=== PATIENT | male | born 1940 | race Caucasian/White ===

== ENCOUNTER 2019-01-16 13:29 | Outpatient (RCR) | payer MEDICARE, SELFPAY | END 2019-02-14 00:01 | LOC: WOUND 13:29 | PROVIDERS: Family Provider Family Medicine; Visit Provider Nurse Practitioner Family | DX: I89.0 Lymphedema, not elsewhere classified (principal) ==

== ENCOUNTER 2019-03-06 16:10 | Inpatient (IN) | payer MEDICARE, SELFPAY ==
[2019-03-06] VITALS (12 sets, daily range): BP systolic 111–142; BP diastolic 48–87; PULSE 96–138; RESP 20–28; TEMP 36.5; O2SAT 93–100; BMI 30.4
--- NOTE | 2019-03-06 16:50 | ED_ITS ---
Entered by Larissa Loving, acting as scribe for Minor Sneed DO Mar 06, 2019 16:10 HPI - SOB/Dyspnea General: Chief Complaint: Shortness of Breath/Dyspnea Stated Complaint: sob/cough Time Seen by Provider: 03/06/19 16:40 History of Present Illness: HPI Narrative: 78 yo male rpesents with shortness of breath and swelling. Pt is retaining fluid in his abdomen and lower extremities. Pt states that he has good urine out put but he is swelling a lot. Pt states that he is on oxygen. Pt states that he elevates his feet when he goes to bed, when he wakes up his legs are better, when he starts walking around his swelling worsens. Pt states that he has some discomfort due to the swelling in his abdomen. Pt states that he has a productive cough. Pt is on albuterol 4times a day. MD elicited complaint: shortness of breath and cough Onset (ago): day(s) Timing: constant and progressively worsening Severity: moderate Exacerbating factors: lying flat and movement Relieving factors: oxygen and upright position Associated symptoms: Reports abdominal pain, cough, extremity pain and orthopnea; Deny chest pain, dizziness, fever(s), palpitations, polydipsia, polyuria or syncope Treatment prior to arrival: oxygen Review of Systems Const: Denies: fever, chills, body aches, fatigue, malaise or night sweats Eyes: Denies: change in vision or blurry vision ENMT: Denies: throat pain, oral sores/lesions, dental pain, nasal discharge or nasal congestion Card: Reports: edema and shortness of breath when lying down; Denies: chest pain, palpitations, irregular heart rhythm, syncope, shortness of breath on exertion or leg pain with exertion Resp: Reports: shortness of breath, productive cough and wheezing; Denies: non-productive cough GI: Reports: abdominal pain : Denies: flank pain, difficulty urinating, painful urination, urinary frequency, urinary urgency, urinary incontinence or blood in urine Musc: Reports: extremity pain Skin/Breast: Denies: rash, itching or redness Neuro: Denies: headache, numbness in extremities, weakness in extremities, changes in sensation, lack of coordination, difficulty walking, frequent falls, dizziness, vertigo or confusion Psych: Denies: anxiety, depression, loss of interest, visual hallucinations, auditory hallucinations, suicidal ideation or homicidal ideation Endo: Denies: excessive urination, excessive thirst, tired all the time or cold intolerance Yang/Lymph: Denies: easy bruising, easy bleeding, petechiae, enlarged lymph nodes or tender lymph nodes PFSH ED PFSH: Statuses (acute, chronic, etc) shown below reflect problem list status as previously entered and may not be historically accurate Medical History Atrial fibrillation (Acute) BPH (benign prostatic hyperplasia) (Acute) CAD (coronary artery disease) (Acute) Cardiac arrest (Acute) COPD (chronic obstructive pulmonary disease) (Acute) CVA (cerebral vascular accident) (Acute) GERD (gastroesophageal reflux disease) (Acute) Hyperkalemia (Acute) Hyperlipidemia (Acute) Hypertension (Acute) Ischemic cardiomyopathy (Acute) Peripheral neuropathy (Acute) Pneumothorax (Acute) Pulmonary embolism (Acute) Restless leg syndrome (Acute) Rib fractures (Acute) Surgical History History of appendectomy (Acute) History of coronary artery stent placement (Acute) Hx of cataract surgery (Acute) Hx of tonsillectomy (Acute) Family History Other CAD (coronary artery disease) Social History Smoking and tobacco status: former smoker Second hand smoke exposure: No Alcohol intake: never Substance/Drug Use: never Lives independently: No Household members: spouse Marital status: Physical Exam Const: COMMON NORMALS: average body habitus, oriented x3 and alert GENERAL APPEARANCE: cooperative, comfortable, well kempt and well developed NUTRITIONAL APPEARANCE: not obese ORIENTATION/CONSCIOUSNESS: Yes awake, Yes oriented to person and Yes oriented to place HENMT: COMMON NORMALS: normocephalic, head/scalp atraumatic, EAC's normal, TM's normal bilaterally, external nose normal, moist oral mucous membranes and oropharynx normal HEAD & SCALP: normocephalic and atraumatic NOSE: external nose normal EXTERNAL AUDITORY CANAL: EAC's normal TYMPANIC MEMBRANE: TM's normal bilaterally MOUTH: oral and palatal mucosa normal, lip normal and tongue normal THROAT: posterior oropharynx normal and tonsils normal Eye: COMMON NORMALS: PERRL, EOMs intact bilaterally, conjunctivae normal and no scleral icterus CONJUNCTIVA: Yes conjunctivae normal PUPIL: Yes PERRL Neck/C-Spine: COMMON NORMALS: full ROM, no lymphadenopathy, supple, no meningeal signs and thyroid normal THYROID: thyroid normal and asymmetrical Lymph: LYMPHATIC: no lymphadenopathy noted Resp: COMMON NORMALS: no use of accessory muscles; negative for normal respiratory effort and negative for clear to auscultation bilaterally AUSCULTATION: not clear to auscultation bilaterally, rhonchi throughout and wheezes Cardio: COMMON NORMALS: regular rate and regular rhythm RATE: regular rate RHYTHM: regular rhythm HEART SOUNDS: no murmurs GI: COMMON NORMALS: normal to inspection, nondistended, normoactive bowel sounds, soft to palpation and no hepatosplenomegaly PALPATION: Yes soft and Yes no hepatosplenomegaly : COMMON NORMALS: Yes no CVA tenderness BLADDER/KIDNEY EXAM: Yes no CVA tenderness Back/Pelvis: COMMON NORMALS: no CVA tenderness LUMBAR SPINE/LOWER BACK: Yes normal to inspection Extremity: COMMON NORMALS: no clubbing, cyanosis or edema, no calf tenderness and no pedal edema Neuro: COMMON NORMALS: oriented x3 SENSORIUM/ORIENTATION: Yes alert, Yes oriented to person and Yes oriented to place MENINGEAL SIGNS: Yes no meningeal signs Psych: APPEARANCE: Yes well kempt Skin: COMMON NORMALS: no rashes or lesions noted and skin turgor normal GENERAL SKIN EXAM: no rashes or lesions noted and turgor normal Course Vital Signs: Vital signs: Vital Signs Temperature 98.0 F 03/08/19 10:52 Pulse Rate 110 H 03/08/19 15:03 Respiratory Rate 20 H 03/08/19 14:55 Blood Pressure 133/78 03/08/19 10:52 Pulse Oximetry 96 03/08/19 14:55 MDM - SOB/Dyspnea Lab Data: Labs: Lab Results 03/06/19 03/06/19 03/06/19 Range/Units 16:41 17:12 17:12 WBC 7.1 (4.0-10.0) 10^3/ uL RBC 3.60 L (4.1-5.3) 10^6/u L Hgb 9.8 L (11.7-16.6) g/dL Hct 32.0 L (42.0-52.0) % MCV 88.9 (80-94) fL MCH 27.2 L (28.0-34.0) pg MCHC 30.6 (30.0-36.0) g/dL RDW 16.1 H (12.1-15.1) % Plt Count 183 (130-400) 10^3/c mm MPV 9.2 (7.4-10.4) fL Neut % (Auto) 79.7 % Lymph % (Auto) 4.3 % Boundary % (Auto) 15.3 % Eos % (Auto) 0.0 % Baso % (Auto) 0.1 % Neut # (Auto) 5.7 (1.8-7.7) 10^3/u L Lymph # (Auto) 0.3 L (0.8-4.8) 10^3/u L Boundary # (Auto) 1.1 H (0.2-0.9) 10^3/u L Eos # (Auto) 0.0 (0.0-0.8) 10^3/u L Baso # (Auto) 0.0 (0.0-0.1) 10^3/u L Nucleated RBC % (a uto) 0 % Nucleated RBCs # 0.0 /100WBC Specimen Type Sample Site ABG pH (7.35-7.45) ABG pCO2 (35-45) mmHg ABG pO2 (80.0-100.0) mmH g ABG HCO3 (22-26) mmol/L ABG Base Excess (-2.0-2.0) mmol/ L Earl Test Hematocrit (42-52) % Hgb O2 Saturation (95-100) % Carboxyhemoglobin (0.4-20.1) %THgb Methemoglobin (0.4-1.5) % Total Hemoglobin (14-18) g/dL O2 Delivery Device O2 Liters/Min % FiO2 % Film Replacement Orderer ID Sodium 132 L (136-145) mmol/L Potassium 4.5 (3.5-5.1) mmol/L Chloride 92 L (98-107) mmol/L Carbon Dioxide 30 H (22-29) mmol/L Anion Gap 14.5 (5-19) BUN 18 (8-23) mg/dL Creatinine 1.1 (0.7-1.2) mg/dL Glucose 111 H (74-106) mg/dL Calcium 9.1 (8.8-10.2) mg/Dl Total Bilirubin 0.8 (0.15-1.2) mg/dL AST 23 (0-40) U/L ALT 16 (0-41) U/L Alkaline Phosphata se 113 (40-130) IU/L Troponin T Baselin e (0-15) ng/mL NT-Pro-B Natriuret Pep 6564 H (0-450) pg/mL Total Protein 7.3 (6.6-8.7) g/dL Albumin 3.8 (3.5-5.2) g/dL Globulin 3.5 (1.3-4.6) g/dL Urine Color Yellow (Yellow) Urine Appearance Clear (CLEAR) Urine pH 7 (5-7) Ur Specific Gravit y 1.005 (1.005-1.030) Urine Protein Neg (Negative) Urine Glucose (UA) Norm (Normal) Urine Ketones Negative (Negative) Urine Occult Blood Neg (Negative) Urine Nitrate Negative (Negative) Urine Bilirubin Neg (NEGATIVE) Urine Urobilinogen Norm (Negative) mg/dL Ur Leukocyte Sherley ase Negative (Negative) Digoxin (0.6-1.2) ng/mL Influenza Type A A g (Negative) POC Influenza B Ag (Negative) 03/06/19 03/06/19 03/06/19 Range/Units 17:12 17:12 17:14 WBC (4.0-10.0) 10^3/ uL RBC (4.1-5.3) 10^6/u L Hgb (11.7-16.6) g/dL Hct (42.0-52.0) % MCV (80-94) fL MCH (28.0-34.0) pg MCHC (30.0-36.0) g/dL RDW (12.1-15.1) % Plt Count (130-400) 10^3/c mm MPV (7.4-10.4) fL Neut % (Auto) % Lymph % (Auto) % Boundary % (Auto) % Eos % (Auto) % Baso % (Auto) % Neut # (Auto) (1.8-7.7) 10^3/u L Lymph # (Auto) (0.8-4.8) 10^3/u L Boundary # (Auto) (0.2-0.9) 10^3/u L Eos # (Auto) (0.0-0.8) 10^3/u L Baso # (Auto) (0.0-0.1) 10^3/u L Nucleated RBC % (a uto) % Nucleated RBCs # /100WBC Specimen Type Sample Site ABG pH (7.35-7.45) ABG pCO2 (35-45) mmHg ABG pO2 (80.0-100.0) mmH g ABG HCO3 (22-26) mmol/L ABG Base Excess (-2.0-2.0) mmol/ L Earl Test Hematocrit (42-52) % Hgb O2 Saturation (95-100) % Carboxyhemoglobin (0.4-20.1) %THgb Methemoglobin (0.4-1.5) % Total Hemoglobin (14-18) g/dL O2 Delivery Device O2 Liters/Min % FiO2 % Film Replacement Orderer ID Sodium (136-145) mmol/L Potassium (3.5-5.1) mmol/L Chloride (98-107) mmol/L Carbon Dioxide (22-29) mmol/L Anion Gap (5-19) BUN (8-23) mg/dL Creatinine (0.7-1.2) mg/dL Glucose (74-106) mg/dL Calcium (8.8-10.2) mg/Dl Total Bilirubin (0.15-1.2) mg/dL AST (0-40) U/L ALT (0-41) U/L Alkaline Phosphata se (40-130) IU/L Troponin T Baselin e 50 H (0-15) ng/mL NT-Pro-B Natriuret Pep (0-450) pg/mL Total Protein (6.6-8.7) g/dL Albumin (3.5-5.2) g/dL Globulin (1.3-4.6) g/dL Urine Color (Yellow) Urine Appearance (CLEAR) Urine pH (5-7) Ur Specific Gravit y (1.005-1.030) Urine Protein (Negative) Urine Glucose (UA) (Normal) Urine Ketones (Negative) Urine Occult Blood (Negative) Urine Nitrate (Negative) Urine Bilirubin (NEGATIVE) Urine Urobilinogen (Negative) mg/dL Ur Leukocyte Sherley ase (Negative) Digoxin < 0.3 L (0.6-1.2) ng/mL Influenza Type A A g Negative (Negative) POC Influenza B Ag Negative (Negative) 03/06/19 Range/Units 17:23 WBC (4.0-10.0) 10^3/ uL RBC (4.1-5.3) 10^6/u L Hgb (11.7-16.6) g/dL Hct (42.0-52.0) % MCV (80-94) fL MCH (28.0-34.0) pg MCHC (30.0-36.0) g/dL RDW (12.1-15.1) % Plt Count (130-400) 10^3/c mm MPV (7.4-10.4) fL Neut % (Auto) % Lymph % (Auto) % Boundary % (Auto) % Eos % (Auto) % Baso % (Auto) % Neut # (Auto) (1.8-7.7) 10^3/u L Lymph # (Auto) (0.8-4.8) 10^3/u L Boundary # (Auto) (0.2-0.9) 10^3/u L Eos # (Auto) (0.0-0.8) 10^3/u L Baso # (Auto) (0.0-0.1) 10^3/u L Nucleated RBC % (a uto) % Nucleated RBCs # /100WBC Specimen Type Arterial Sample Site Brachial, left ABG pH 7.42 (7.35-7.45) ABG pCO2 45.8 H (35-45) mmHg ABG pO2 91.8 (80.0-100.0) mmH g ABG HCO3 29.5 H (22-26) mmol/L ABG Base Excess 4.3 H (-2.0-2.0) mmol/ L Earl Test Pos Hematocrit 31.7 L (42-52) % Hgb O2 Saturation 96.2 (95-100) % Carboxyhemoglobin 1.4 (0.4-20.1) %THgb Methemoglobin 0.2 L (0.4-1.5) % Total Hemoglobin 10.3 L (14-18) g/dL O2 Delivery Device Nc O2 Liters/Min 2.0 % FiO2 28.0 % Film Replacement Orderer ID cak Sodium (136-145) mmol/L Potassium (3.5-5.1) mmol/L Chloride (98-107) mmol/L Carbon Dioxide (22-29) mmol/L Anion Gap (5-19) BUN (8-23) mg/dL Creatinine (0.7-1.2) mg/dL Glucose (74-106) mg/dL Calcium (8.8-10.2) mg/Dl Total Bilirubin (0.15-1.2) mg/dL AST (0-40) U/L ALT (0-41) U/L Alkaline Phosphata se (40-130) IU/L Troponin T Baselin e (0-15) ng/mL NT-Pro-B Natriuret Pep (0-450) pg/mL Total Protein (6.6-8.7) g/dL Albumin (3.5-5.2) g/dL Globulin (1.3-4.6) g/dL Urine Color (Yellow) Urine Appearance (CLEAR) Urine pH (5-7) Ur Specific Gravit y (1.005-1.030) Urine Protein (Negative) Urine Glucose (UA) (Normal) Urine Ketones (Negative) Urine Occult Blood (Negative) Urine Nitrate (Negative) Urine Bilirubin (NEGATIVE) Urine Urobilinogen (Negative) mg/dL Ur Leukocyte Sherley ase (Negative) Digoxin (0.6-1.2) ng/mL Influenza Type A A g (Negative) POC Influenza B Ag (Negative) Discharge Plan Discharge Patient Disposition: Admitted As Inpatient Admit Provider: Parul Daen Clinical Impression: COPD (chronic obstructive pulmonary disease), Atrial fibrillation, Congestive heart failure, Anemia Condition: Stable Discharge Orders: Discharge Order (Routine); Ordered 03/08/19 Ordered By: Chilo Looney Referrals: [facility] [Outside] Ravin Madrigal MD [Primary Care Provider] - Discharge Diet: As Directed and Cardiac Discharge Activity: Resume usual activity Additional Instructions: Fluid restriction up to 1200 cc/day Check BMP in 1 week. After that check BMP once every month due to fluctuating oral diuresis. Take extra 40 mg of Lasix once daily as needed for dry body weight on home scale more than 212 pounds. Discharge Date/Time: 03/06/19 21:39 Coding Level of Care Code ED Demolition Expert for Chg Fwd Exam Problem Focused The documentation recorded by the Inder lea Kialy, accurately reflects the service I personally performed and the decisions made by Nedra valenzuela Curtis L, Mar 06, 2019 16:10
--- NOTE | 2019-03-06 16:56 | XR_ITS ---
WS: [id number] CHEST XRAY TECHNIQUE: Portable chest. CLINICAL INFORMATION: dyspnea COMPARISON: December 12, 2018 FINDINGS: Heart: Normal cardiac silhouette. Lungs: Chronic emphysematous changes. No acute pulmonary infiltrates. No focal pneumonia. Bones: Normal visualized bony structures. XR/XR chest 1V portable [id number] IMPRESSION: No acute chest findings
[2019-03-06] MEDS: FUROsemide 10 mg/mL SDV 10mL 60 MG IVP (17:13)
--- NOTE | 2019-03-06 17:13 | PC.NURSE ---
RT and lab at bedside. Flu swab obtained
[2019-03-06] MEDS: ipratropium-albuterol 3 mL Neb 6 ML INHALATION (17:18)
[2019-03-06 17:20] LABS: Basophils % 0.1 %; Hemoglobin 9.8 g/dL (11.7-16.6); Lymphocytes # 0.3 10^3/uL (0.8-4.8); Lymphocytes % 4.3 %; Mean Corpuscular HGB Conc 30.6 g/dL (30.0-36.0); Mean Corpuscular Hemoglobin 27.2 pg (28.0-34.0); Mean Corpuscular Volume 88.9 fL (80-94); Mean Platelet Volume 9.2 fL (7.4-10.4); Monocytes # 1.1 10^3/uL (0.2-0.9); Monocytes % 15.3 %; Neutrophils # 5.7 10^3/uL (1.8-7.7); Neutrophils % 79.7 %; Nucleated Red Blood Cells % 0 %; Platelet Count 183 10^3/cmm (130-400); Red Cell Distribution Width 16.1 % (12.1-15.1); White Blood Count 7.1 10^3/uL (4.0-10.0)
[2019-03-06 17:20] LABS: Add Urine Microscopic? NO
[2019-03-06 17:34] LABS: ABG PCO2 45.8 mmHg (35-45); ABG PH Result 7.42 (7.35-7.45); Arterial Blood Gas Hematocrit 31.7 % (42-52); Base Excess ABG 4.3 mmol/L (-2.0-2.0); Blood Gas Allen Test Pos; Blood Gas Sample Site Brachial, left; Blood Gas Sample Type Arterial; Carboxyhemoglobin 1.4 %THgb (0.4-20.1); HCO3 ABG 29.5 mmol/L (22-26); HGB O2 Sat 96.2 % (95-100); Methemoglobin 0.2 % (0.4-1.5); Oxygen Device NC; PO2 ABG 91.8 mmHg (80.0-100.0); Total Hemoglobin 10.3 g/dL (14-18)
[2019-03-06 17:38] LABS: Bilirubin Urine Neg (NEGATIVE); Blood Urine Neg (Negative); Glucose Urine UA Norm (Normal); Ketones Urine Negative (Negative); Leukocyte Esterase Urine Negative (Negative); Nitrate Urine Negative (Negative); Protein Urine Neg (Negative); Specific Gravity, Urine 1.005 (1.005-1.030); Urine Appearance Clear (CLEAR); Urine Color Yellow (Yellow); Urobilinogen Urine Norm (Negative); pH Urine 7 (5-7)
[2019-03-06 17:49] LABS: Alanine Aminotransferase 16 U/L (0-41); Albumin Level 3.8 g/dL (3.5-5.2); Alkaline Phosphatase 113 IU/L (40-130); Anion Gap 14.5 (5-19); Aspartate Amino Transferase 23 U/L (0-40); Blood Urea Nitrogen 18 mg/dL (8-23); Calcium 9.1 mg/Dl (8.8-10.2); Carbon Dioxide 30 mmol/L (22-29); Chloride 92 mmol/L (98-107); Globulin 3.5 g/dL (1.3-4.6); Glucose 111 mg/dL (74-106); NT Pro B Type Natriuretic Pept 6564 pg/mL (0-450); Potassium 4.5 mmol/L (3.5-5.1); Sodium 132 mmol/L (136-145); Total Bilirubin 0.8 mg/dL (0.15-1.2); Total Protein 7.3 g/dL (6.6-8.7)
[2019-03-06 17:55] LABS: Influenza A by IFA Negative (Negative); Influenza B by IFA Negative (Negative)
--- NOTE | 2019-03-06 19:19 | ECG_ITS ---
Measurements Intervals [place] Rate: 116 P: NV: 0 QRS: 15 QRSD: 86 T: -57 QT: 333 QTc: 464 ATRIAL FIBRILLATION WITH RAPID VENTRICULAR RESPONSE NONSPECIFIC T-WAVE ABNORMALITY Compared to ECG 12/14/2018 13:00:42 No significant changes Electronically Signed On 03-07-2019 21:58:24 EYE DROPPER ASSEMBLER by Rebel Jones M.D. [email or web address]
[2019-03-06 19:49] LABS: Troponin(5th) Baseline 50 ng/mL (0-15)
[2019-03-06 20:08] LABS: Digoxin < 0.3 ng/mL (0.6-1.2)
--- NOTE | 2019-03-06 21:19 | ECG_ITS ---
Measurements Intervals [place] Rate: 124 P: [place]: 0 QRS: 25 QRSD: 86 T: 60 QT: 336 QTc: 484 ATRIAL FIBRILLATION WITH RAPID VENTRICULAR RESPONSE WITH ABERRANT CONDUCTION OR VENTRICULAR PREMATURE COMPLEXES NONSPECIFIC T-WAVE ABNORMALITY ABNORMAL RHYTHM ECG Compared to ECG 12/14/2018 13:00:42 Aberrant conduction of supraventricular beat(s) now present Ventricular premature complex(es) now present T-wave abnormality still present Electronically Signed On 03-07-2019 22:06:38 DIVORCE ATTORNEY by Rebel Jones M.D. [id number]
[2019-03-06 21:51] LABS: Troponin 5 2HR 39.83 ng/mL (0-15)
--- NOTE | 2019-03-06 21:54 | PC.NURSE ---
Unable to obtain med rec at this time. Patient states my knows all of that stuff.
--- NOTE | 2019-03-06 22:18 | PC.NURSE ---
Patient's gave home medication list to nurse through phone.
[2019-03-06] MEDS: bumetanide 25 MG in empty flexible container 1 EACH 8 MG IV (22:23)
--- NOTE | 2019-03-06 22:42 | PC.NURSE ---
Admitted to room 112-1, from ED via stretcher, with diagnosis of CHF. Oriented to room. Assessment completed and documented. Non productive, tight cough noted. Deneis any pain at this time. Oriented to room. Will monitor.
[2019-03-07] VITALS (14 sets, daily range): BP systolic 94–127; BP diastolic 52–80; PULSE 89–121; RESP 16–27; TEMP 36.4–36.7; O2SAT 92–100
--- NOTE | 2019-03-07 01:19 | ECG_ITS ---
Measurements Intervals [place] Rate: 109 P: [place]: 0 QRS: 53 QRSD: 90 T: 0 QT: 366 QTc: 493 ATRIAL FIBRILLATION WITH RAPID VENTRICULAR RESPONSE NONSPECIFIC ST & T-WAVE ABNORMALITY ABNORMAL RHYTHM ECG Compared to ECG 12/14/2018 13:00:42 No significant changes Electronically Signed On 03-07-2019 22:07:27 MANAGER FREELANCE by Rebel Jones M.D. [id number]
--- NOTE | 2019-03-07 01:24 | P.HP_ITS ---
Providers/Chief Complaint Admitting Physician: Parul Dean MD Primary Care Provider: Ravin Madrigal MD Chief Complaint: CHF History of Present Illness Allan Prado is a 78 year old male who carries diagnosis of ischemic cardiomyopathy, oxygen dependent COPD 2 L, was brought in by the who is the caregiver because of chief complaint of shortness of breath. is not at the bedside at the time of my evaluation but patient is endorsing that he has been having more shortness of breath for last 1 week he is suffering from orthopnea, PND, he has not noticed any chest pain, palpitations, diarrhea, dysuria, but he is endorsing weight gain, not responding well to his home regimen of Lasix which he is not sure what dose he is taking. He is not sure if he is taking Entresto and spironolactone which were discontinued on previous admission because of MELINDA. He is stating that he is eating healthier with, he drinks 1200 mL/day and his diet consists of vegetables. He needs assistance of his for some of daily activities, he sleeps in a recliner, his functional status has been declining gradually. In emergency department he had normal hemodynamics with active exacerbation of CHF with BNP in 6000 range, he was given IV Lasix 60 mg along with Solu-Medrol At the time of my evaluation he had normal hemodynamics, asymptomatic, saturating well on 2 L nasal cannula Review of Systems Const: Reports: body aches, change in appetite, fatigue and malaise Eyes: Denies: change in vision ENMT: Denies: throat pain Card: Reports: irregular heart rhythm, edema, swelling of feet/ankles, lightheadedness, shortness of breath on exertion and shortness of breath when lying down Resp: Reports: shortness of breath and non-productive cough GI: Denies: abdominal pain : Denies: flank pain Musc: Denies: neck pain Skin/Breast: Denies: rash Neuro: Denies: headache Psych: Reports: memory loss Endo: Reports: tired all the time Yang/Lymph: Denies: easy bruising All/Imm: Denies: hives Medications/Allergies Home Medications Medication Instructions Recorded Confirmed Last Taken Type Eliquis 2.5 mg PO BID 03/06/19 03/06/19 03/06/19 History PreserVision AREDS 03/06/19 03/06/19 History unknown albuterol sulfate 2.5 mg INHALATION Q6H 03/06/19 03/06/19 Unknown History bee pollen 1,100 mg PO DAILY 03/06/19 03/06/19 03/06/19 History budesonide 0.5 mg INHALATION BID 03/06/19 03/06/19 Unknown History clonazepam 0.5 mg PO PRN 03/06/19 03/06/19 Unknown History codeine-guaifenesin [Guaifenesin 5 ml PO Q6H PRN 03/06/19 03/06/19 Unknown History AC] diltiazem HCl 120 mg PO DAILY 03/06/19 03/06/19 03/06/19 History docusate sodium 100 mg PO TID 03/06/19 03/06/19 03/06/19 History doxycycline calcium 100 mg PO BID 03/06/19 03/06/19 03/06/19 History fluoxetine 20 mg PO DAILY 03/06/19 03/06/19 03/06/19 History garlic 600 mg PO DAILY 03/06/19 03/06/19 03/06/19 History magnesium chloride 64 mg PO DAILY 03/06/19 03/06/19 03/06/19 History pantoprazole [Protonix] 40 mg PO DAILY 03/06/19 03/06/19 03/06/19 History potassium chloride 10 meq PO BID 03/06/19 03/06/19 03/06/19 History pramipexole 0.25 mg PO TID 03/06/19 03/06/19 03/06/19 History tamsulosin [Flomax] 0.4 mg PO BEDTIME 03/06/19 03/06/19 03/05/19 History Allergies Allergy/AdvReac Type Severity Reaction Status Date / Time No Known Allergies Allergy Verified 03/06/19 21:58 PFSH Acute PFSH: Statuses (acute, chronic, etc) shown below reflect problem list status as previously entered and may not be historically accurate Medical History (Updated 03/07/19 @ 01:37 by Parul Dean MD) Atrial fibrillation (Acute) BPH (benign prostatic hyperplasia) (Acute) CAD (coronary artery disease) (Acute) Cardiac arrest (Acute) COPD (chronic obstructive pulmonary disease) (Acute) CVA (cerebral vascular accident) (Acute) GERD (gastroesophageal reflux disease) (Acute) Hyperkalemia (Acute) Hyperlipidemia (Acute) Hypertension (Acute) Ischemic cardiomyopathy (Acute) Peripheral neuropathy (Acute) Pneumothorax (Acute) Pulmonary embolism (Acute) Restless leg syndrome (Acute) Rib fractures (Acute) Surgical History History of appendectomy (Acute) History of coronary artery stent placement (Acute) Hx of cataract surgery (Acute) Hx of tonsillectomy (Acute) Family History (Updated 03/07/19 @ 01:38 by Parul Dean MD) Other CAD (coronary artery disease) Social History (Updated 03/07/19 @ 01:37 by Parul Dean MD) Smoking and tobacco status: former smoker Second hand smoke exposure: No Alcohol intake: never Substance/Drug Use: never Lives independently: No Household members: spouse Marital status: Vitals/I&O/Wt Last Vital Signs Temp 97.7 F 03/06/19 23:00 Pulse 96 03/07/19 00:39 Resp 24 H 03/06/19 23:00 BP 129/78 03/06/19 23:00 Pulse Ox 100 03/07/19 00:39 03/06/19 03/06/19 03/07/19 14:59 22:59 06:59 Intake Total 60 / 60 Output Total 50 / 50 125 / 175 Balance -50 / -50 -65 / -115 Weight last 48 hrs Weight 98.883 kg Physical Exam Narrative: EXAM NARRATIVE: Patient was sitting comfortable in his bed Saturating 97% on 2 L nasal cannula Patient had active signs of heart failure with positive JVD bilateral lower extremity edema, bibasilar crackles, Variable S1-S2, Abdomen soft nontender nondistended bowel sounds present Lungs were positive for bilateral rhonchi bibasilar without active wheezing or active signs of distress Neurologically nonfocal exam Skin is showing signs of venous stasis dermatitis No active sign of cellulitis No active signs of gangrene or ischemia Lower extremity 3+ pitting edema Data : 03/06/19 17:12 03/06/19 17:12 Micro: Microbiology 03/06/19 18:05 Blood Culture - Preliminary Blood SPECIMEN COLLECTED 03/06/19 16:41 Gram Stain - Final Sputum - Expectorated Sputum 03/06/19 17:12 Blood Culture - Preliminary Blood SPECIMEN COLLECTED A&P Assessment and plan (1) Congestive heart failure: Status: Acute Code(s): I50.9 - Heart failure, unspecified (2) Anemia: Status: Acute Code(s): D64.9 - Anemia, unspecified (3) Atrial fibrillation: Status: Acute Code(s): I48.91 - Unspecified atrial fibrillation Additional A&P Information Acute on chronic systolic congestive heart failure exacerbation Lasix, Entresto and spironolactone were discontinued on previous admission because of MELINDA We will call his PCP in the morning to get the details patient is not aware of all of his medications, not at the bedside when I saw him Patient is endorsing being compliant with medications, fluid restriction 1200 mL with low-salt diet He is denying any active chest pain, Is positive orthopnea, PND, BNP 6000, I would use Bumex 2 mg twice a day, fluid restriction, He has a history of ischemic cardiomyopathy with EF 35 to 40% MELINDA: Has resolved his creatinine is normal He has had multiple admissions secondary to hyperkalemia, digoxin toxicity and polypharmacy currently no active such issues Acute on chronic anemia: His baseline hemoglobin is around 11-12 current hemoglobin is 9.8, currently hemodynamically stable He is on Eliquis We will check FOBT Oxygen dependent COPD 2 L No active exacerbation DNR/DNI Attestations Medical Necessity Statement*: Anticipating stay to cross more than 2 midnights because of active CHF exacerbation and deconditioning Time Spent in Patient Care: (>than 50% of time spent in counselling and/or direct pt care on unit) . 45 Coding Level of Care Code Acute Superintendent Quarry for Avelina Gaitan Diagnoses Congestive heart failure I50.9 Anemia D64.9 Atrial fibrillation I48.91
[2019-03-07] MEDS: ipratropium-albuterol 3 mL Neb INHALATION ×4 (02:22→20:21)
[2019-03-07 02:32] LABS: Hematocrit 32.6 % (42.0-52.0); Hemoglobin 9.9 g/dL (11.7-16.6); Lymphocytes # 0.2 10^3/uL (0.8-4.8); Lymphocytes % 5.2 %; Mean Corpuscular HGB Conc 30.4 g/dL (30.0-36.0); Mean Corpuscular Hemoglobin 27.9 pg (28.0-34.0); Mean Corpuscular Volume 91.8 fL (80-94); Mean Platelet Volume 9.5 fL (7.4-10.4); Monocytes # 0.1 10^3/uL (0.2-0.9); Neutrophils # 3.4 10^3/uL (1.8-7.7); Neutrophils % 91.3 %; Nucleated Red Blood Cells % 0 %; Platelet Count 176 10^3/cmm (130-400); Red Blood Count 3.55 10^6/uL (4.1-5.3); Red Cell Distribution Width 16.1 % (12.1-15.1); White Blood Count 3.7 10^3/uL (4.0-10.0)
[2019-03-07 02:44] LABS: Anion Gap 15.7 (5-19); Blood Urea Nitrogen 20 mg/dL (8-23); Calcium 8.7 mg/Dl (8.8-10.2); Carbon Dioxide 28 mmol/L (22-29); Chloride 93 mmol/L (98-107); Glucose 140 mg/dL (74-106); Potassium 3.7 mmol/L (3.5-5.1); Sodium 133 mmol/L (136-145)
[2019-03-07 03:08] LABS: Troponin 5 6HR 36.31 ng/L (0-15)
--- NOTE | 2019-03-07 03:16 | PC.NURSE ---
Lying supine in bed watching television. Bumex drip discontinued as ordered. Explained the reasoning to patient with patient voicing understanding. Will monitor.
[2019-03-07] MEDS: tamsulosin 0.4 mg Capsule PO (08:56)
[2019-03-07] MEDS: apixaban 5 mg Tablet 2.5 MG PO (08:56)
[2019-03-07] MEDS: spironolactone 25 mg Tablet PO (08:56)
[2019-03-07] MEDS: bumetanide 1 mg Tablet 2 MG PO (08:57)
[2019-03-07] MEDS: dilTIAZem 30 mg Tablet PO ×4 (08:57→21:11)
[2019-03-07] MEDS: pramipexole 0.25 mg Tablet PO ×3 (08:57→21:11)
[2019-03-07 10:57] LABS: Iron 23 ug/dL (59-158); Percent Saturation 9.3 % (20-50); Total Iron Binding Capacity 247 mg/dL; Unsaturated Iron Binding 224 ug/dL (112-347)
[2019-03-07] MEDS: pantoprazole DR 40 mg Tablet PO (11:09)
--- NOTE | 2019-03-07 13:50 | PM.PN ---
Subjective Subjective: Interval history: Admitted overnight. H&P and labs noted. This morning on evaluation patient is sleeping comfortably in bed. States his cough, shortness of breath has improved. Denies of having any dizziness, nausea, vomiting, palpitations, headache, weakness. Medications: Reviewed: Yes Medication Review Details: Medications have been reconciled. There is a lot of confusion regarding what medications patient is on right now. As per the who has the medication list the patient is taking Lasix 40 mg twice daily, Entresto twice daily, diltiazem 120 daily, Eliquis 2.5 twice daily. Vitals/I&O/Wt Last Vital Signs Temp 97.9 F 03/07/19 12:00 Pulse 104 H 03/07/19 12:00 Resp 20 H 03/07/19 12:00 BP 94/52 03/07/19 12:00 Pulse Ox 95 03/07/19 12:00 03/06/19 03/07/19 03/07/19 22:59 06:59 14:59 Intake Total 190 / 190 240 / 240 Output Total 50 / 50 1250 / 1300 375 / 375 Balance -50 / -50 -1060 / -1110 -135 / -135 Weight last 48 hrs Weight 98.883 kg Physical Exam Narrative: EXAM NARRATIVE: General: No acute distress, AO x3 HEENT: PERRLA, pupils bilaterally equal and reactive Chest: Normal vesicular breath sounds, bilateral rhonchi present all over the lung smith, anterior more than posterior, no crackles or rales, equal good air entry bilaterally CVS: S1-S2 regular, no murmurs, no tachycardia, no gallops, no rubs Abdomen: Soft, nontender, no organomegaly, bowel sounds present Neuro: No focal deficits, no facial deformity, AO x3, power 5/5 in all limbs Extremities: Bilateral pitting edema 2+, no increased local temperature no increased local redness. Data : 03/07/19 02:15 03/07/19 02:15 Micro: Microbiology 03/06/19 18:05 Blood Culture - Preliminary Blood SPECIMEN COLLECTED 03/06/19 16:41 Gram Stain - Final Sputum - Expectorated Sputum 03/06/19 17:12 Blood Culture - Preliminary Blood SPECIMEN COLLECTED A&P Assessment and plan (1) Congestive heart failure: Status: Acute Code(s): I50.9 - Heart failure, unspecified (2) Anemia: Status: Acute Code(s): D64.9 - Anemia, unspecified (3) Hypertension: Status: Acute Code(s): I10 - Essential (primary) hypertension (4) Atrial fibrillation: Status: Acute Code(s): I48.91 - Unspecified atrial fibrillation (5) COPD (chronic obstructive pulmonary disease): Status: Acute Code(s): J44.9 - Chronic obstructive pulmonary disease, unspecified Additional A&P Information Acute hypoxia: Due to acute on chronic congestive heart failure secondary to ischemic cardiomyopathy. Last completely read echo in April 2018 showed an EF of 30 to 35% with dilated RA and LA. Patient has been started on Bumex 2 mg twice daily along with spironolactone. As per the reconciliation patient is taking Lasix and Entresto at home. proBNP most likely elevated due to patient being on Entresto as well. Given the history of patient going into acute kidney failure 6 months ago while being on spironolactone, Entresto, Bumex will discontinue Bumex for now. We will start patient on IV Lasix 40 mg twice daily with next dose in evening around 4 PM. We will discontinue spironolactone and continue home dose of Entresto. Strict intake and output charting. Daily weights. Head and elevation at 45 degrees. Oxygen supplementation keeping saturation over 90%. Given borderline blood pressures with aggressive diuresis will hold off on continuing Entresto for today. Patient would most likely need to be discharged on Lasix 80 mg twice daily and Entresto. COPD with mild acute exacerbation: Continue with home dose of Pulmicort. We will also continue with duo nebs every 6 hourly. We will hold off on starting on any steroids for now given congestive heart failure. Anemia: Baseline hemoglobin seems to be between 10-11. On admission this time seems to be around 9. Could be dilutional given mild CHF exacerbation. We will check iron panel. We will also check stool for occult blood as patient is on anticoagulation with Eliquis. Continue with Protonix 40 mg daily. Atrial fibrillation/History of pulmonary embolism: Patient at present is on Eliquis 2.5 mg twice daily and Cardizem 120 mg extended release daily. Given the age of 78 years and a creatinine of 1.0 patient should be on a higher dose. We will start patient on Eliquis 5 mg twice daily. If occult blood is positive then will plan to hold off on Eliquis. Rate controlled at present. Will continue on same dose of Cardizem. Patient is not on aspirin or statins. Given the history of his CAD should be on both medications. We will check lipid panel tomorrow morning. DNR/DNI Cardiac diet with fluid restriction up to 1.2 L in 24 hours Dispo: Home with who is his caregiver. Attestations Medical Necessity Statement*: Needs controlled hospitalization for acute on chronic congestive heart failure. 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
[2019-03-07] MEDS: FUROsemide 10 mg/mL SDV 4mL 40 MG IVP (15:10)
[2019-03-07] MEDS: apixaban 5 mg Tablet PO (18:01)
--- NOTE | 2019-03-07 20:15 | PC.NURSE ---
Patient accidentally pulled PIID out of left AC with catheter intact. No bleeding noted. PIID restarted to right AC x2 attempts using aseptic technique with 20 gauge angio cath. Secured with ginny guard and coban. Tolerated well.
[2019-03-07] MEDS: budesonide 0.5 mg/2 mL Neb INHALATION (20:21)
[2019-03-08] VITALS (10 sets, daily range): BP systolic 116–133; BP diastolic 63–78; PULSE 102–136; RESP 20–29; TEMP 36.6–37.1; O2SAT 96–98
--- NOTE | 2019-03-08 01:30 | PC.NURSE ---
Patient has not slept all night. Coughing persistently. Complaining of ribs and chest being sore from coughing. Dr. Dean notified and updated on patient. Awaiting response.
--- NOTE | 2019-03-08 01:40 | PC.NURSE ---
Dr. Dean has ordered Trazadone 25mg PO at HS. Will give one time dose now as ordered by physician. Trazadone 25mg and cough medication given to patient at this time. Will monitor.
[2019-03-08] MEDS: trazodone 50 mg Tablet 25 MG PO (01:45)
[2019-03-08] MEDS: guaiFENesin-codeine UDC 10 mL 5 ML PO (01:47)
--- NOTE | 2019-03-08 04:51 | PC.NURSE ---
Patient has been unable to rest secondary to room mate being placed on bi-pap and his continuous coughing. Will monitor.
[2019-03-08 05:40] LABS: Basophils % 0.1 %; Hematocrit 30.1 % (42.0-52.0); Hemoglobin 9.5 g/dL (11.7-16.6); Lymphocytes # 0.5 10^3/uL (0.8-4.8); Lymphocytes % 4.5 %; Mean Corpuscular HGB Conc 31.6 g/dL (30.0-36.0); Mean Corpuscular Hemoglobin 27.5 pg (28.0-34.0); Monocytes % 19.1 %; Neutrophils # 7.8 10^3/uL (1.8-7.7); Nucleated Red Blood Cells % 0 %; Platelet Count 186 10^3/cmm (130-400); Red Blood Count 3.46 10^6/uL (4.1-5.3); Red Cell Distribution Width 16.3 % (12.1-15.1); White Blood Count 10.3 10^3/uL (4.0-10.0)
[2019-03-08 06:02] LABS: Alanine Aminotransferase 16 U/L (0-41); Albumin Level 3.6 g/dL (3.5-5.2); Alkaline Phosphatase 98 IU/L (40-130); Anion Gap 13.5 (5-19); Aspartate Amino Transferase 25 U/L (0-40); Blood Urea Nitrogen 24 mg/dL (8-23); Calcium 8.8 mg/Dl (8.8-10.2); Carbon Dioxide 33 mmol/L (22-29); Chloride 92 mmol/L (98-107); Globulin 3.1 g/dL (1.3-4.6); Glucose 102 mg/dL (74-106); Potassium 3.5 mmol/L (3.5-5.1); Sodium 135 mmol/L (136-145); Total Bilirubin 0.5 mg/dL (0.15-1.2); Total Protein 6.7 g/dL (6.6-8.7)
[2019-03-08] MEDS: budesonide 0.5 mg/2 mL Neb INHALATION (07:54)
[2019-03-08] MEDS: ipratropium-albuterol 3 mL Neb INHALATION ×2 (09:01→14:55)
[2019-03-08] MEDS: FUROsemide 10 mg/mL SDV 4mL 40 MG IVP (10:03)
[2019-03-08] MEDS: tamsulosin 0.4 mg Capsule PO (10:04)
[2019-03-08] MEDS: pantoprazole DR 40 mg Tablet PO (10:04)
[2019-03-08] MEDS: pramipexole 0.25 mg Tablet PO ×2 (10:04→15:23)
[2019-03-08] MEDS: apixaban 5 mg Tablet PO (10:04)
[2019-03-08] MEDS: fluoxetine 20 mg Capsule PO (10:04)
[2019-03-08] MEDS: dilTIAZem 30 mg Tablet PO ×2 (10:24→15:23)
--- NOTE | 2019-03-08 14:39 | P.DS_ITS ---
Discharge Providers Date of Admission: 03/06/19 21:29 Date of Discharge: 03/08/19 Attending Provider at Admission: Parul Dean MD Attending Provider at Discharge: Chilo Looney MD Primary Care Provider: Ravin Madrigal MD Diagnoses at Discharge Discharge Diagnosis (1) Congestive heart failure: Status: Acute (2) Anemia: Status: Acute (3) Hypertension: Status: Acute (4) Atrial fibrillation: Status: Acute (5) COPD (chronic obstructive pulmonary disease): Status: Acute Reason for Visit Reason for Visit: Reason For Visit: CHF Hospital Course Discharge Summary: Allan Prado is a 78 year old male who carries diagnosis of ischemic cardiomyopathy, oxygen dependent COPD 2 L, recent MELINDA was brought in by the on February the last who is the caregiver because of chief complaint of shortness of breath. Patient's home medications were reconciled. Patient was found to be in fluid overload so was diuresed with IV diuresis. During the admission patient was on telemetry and found to be on A. fib with RVR so has home dose of Cardizem was readjusted to which he tolerated well. Patient is being discharged home in hemodynamically stable condition at his baseline oxygen supplementation with adjusted oral diuresis and Cardizem. He is advised to check BMP in 1 week. Patient is also advised to take 40 mg of Lasix as needed when his dry weight on home scale goes over 212 pounds. Physical Exam Narrative: EXAM NARRATIVE: General: No acute distress, AO x3 HEENT: PERRLA, pupils bilaterally equal and reactive Chest: Normal vesicular breath sounds, bilateral rhonchi present all over the lung smith, anterior more than posterior, no crackles or rales, equal good air entry bilaterally CVS: S1-S2 regular, no murmurs, no tachycardia, no gallops, no rubs Abdomen: Soft, nontender, no organomegaly, bowel sounds present Neuro: No focal deficits, no facial deformity, AO x3, power 5/5 in all limbs Extremities: Bilateral pitting edema 2+, no increased local temperature no increased local redness. Discharge Data Data Completed and Pending: Completed Studies During Hospitalization Category Date Time Status XR chest 1V yulissa ble [id number] Urgent Exams 03/06/19 16:56 Completed Pending at discharge Category Date Time Status Blood Culture Sta t Lab 03/06/19 18:05 Results Gastricult Occult BLD Routine Lab 03/07/19 02:01 Ordered Immunochemical Fe jaimee OCB Routine Lab 03/06/19 21:48 Ordered Sputum Culture an d Gram Stain Stat Lab 03/06/19 16:41 Results Labs from last 24 hours 03/08/19 03/08/19 04:28 04:28 WBC 10.3 H RBC 3.46 L Hgb 9.5 L Hct 30.1 L MCV 87.0 MCH 27.5 L MCHC 31.6 RDW 16.3 H Plt Count 186 MPV 10.0 Neut % (Auto) 76.0 Lymph % (Auto) 4.5 Mccracken % (Auto) 19.1 Eos % (Auto) 0.0 Baso % (Auto) 0.1 Neut # (Auto) 7.8 H Lymph # (Auto) 0.5 L Mccracken # (Auto) 2.0 H Eos # (Auto) 0.0 Baso # (Auto) 0.0 Nucleated RBC % (a uto) 0 Nucleated RBCs # 0.0 Sodium 135 L Potassium 3.5 Chloride 92 L Carbon Dioxide 33 H Anion Gap 13.5 BUN 24 H Creatinine 1.2 Glucose 102 Calcium 8.8 Total Bilirubin 0.5 AST 25 ALT 16 Alkaline Phosphata se 98 Total Protein 6.7 Albumin 3.6 Globulin 3.1 Vitals: Last Vital Signs Temp 98.0 F 03/08/19 10:52 Pulse 119 H 03/08/19 10:52 Resp 23 H 03/08/19 10:52 BP 133/78 03/08/19 10:52 Pulse Ox 96 03/08/19 10:52 Discharge Plan Discharge Patient Disposition: Home, Self-Care Condition: Stable Prescriptions: New Eliquis 5 mg Tablet 5 mg PO BID Qty: 60 RF: 0 furosemide [Lasix] 40 mg tablet 40 mg PO .4pm Qty: 30 RF: 0 diltiazem HCl [Cardizem CD] 180 mg capsule,extended release 24hr 180 mg PO DAILY Qty: 30 RF: 0 furosemide [Lasix] 80 mg tablet 80 mg PO DAILY Qty: 30 RF: 0 Continued albuterol sulfate 2.5 mg /3 mL (0.083 %) Solution For Nebulization 2.5 mg INHALATION Q4H RF: 0 clonazepam 0.5 mg Tablet 0.5 mg PO PRN RF: 0 potassium chloride 10 mEq Tablet Extended Release 10 meq PO BID RF: 0 garlic 1,000 mg Capsule 1,000 mg PO DAILY RF: 0 tamsulosin [Flomax] 0.4 mg Capsule 0.4 mg PO BEDTIME RF: 0 docusate sodium 100 mg Capsule 100 mg PO TID RF: 0 pramipexole 0.25 mg Tablet 0.25 mg PO TID RF: 0 budesonide 0.5 mg/2 mL Suspension For Nebulization 0.5 mg INHALATION BID RF: 0 magnesium chloride 64 mg Tablet,Delayed Release (Dr/Ec) 64 mg PO DAILY RF: 0 bee pollen 550 mg Capsule 550 mg PO DAILY RF: 0 PreserVision AREDS 1 tab-cap PO BID RF: 0 Mucinex 600 mg Tablet Extended Release 12hr 600 mg PO BID RF: 0 Entresto 24-26 mg Tablet 1 tab PO BID RF: 0 vitamin E 400 unit Capsule 400 unit PO DAILY RF: 0 furosemide 80 mg Tablet 80 mg PO DAILY RF: 0 Discontinued diltiazem HCl 120 mg Capsule,Extended Release 24 Hr 120 mg PO DAILY RF: 0 Eliquis 2.5 mg Tablet 2.5 mg PO BID RF: 0 No Action Protonix 40 mg Tablet,Delayed Release (Dr/Ec) 40 mg PO DAILY RF: 0 fluoxetine 20 mg Tablet 20 mg PO DAILY RF: 0 furosemide 80 mg Tablet 80 mg PO DAILY RF: 0 Discharge Orders: Discharge Order (Routine); Ordered 03/08/19 Ordered By: Chilo Looney Other Ambulatory Orders: Basic Metabolic Panel (Routine) Timeframe: 1 Week Facility: [facility] - Location: Lab - Main Lab Ordered By: Chilo Looney Referrals: [facility] [Outside] Ravin Madrigal MD [Primary Care Provider] - Discharge Diet: As Directed and Cardiac Discharge Activity: Resume usual activity Activity Restrictions/Additional Instructions: Fluid restriction up to 1200 cc/day Check BMP in 1 week. After that check BMP once every month due to fluctuating oral diuresis. Take extra 40 mg of Lasix once daily as needed for dry body weight on home scale more than 212 pounds. 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
[2019-03-08] MEDS: sacubitril/valsartan 24-26 mg Tablet 1 EACH PO (15:23)
--- NOTE | 2019-03-08 15:29 | PC.RESP ---
Patient given Pulmonary Rehab information.
== END 2019-03-08 17:31 | disposition home or self-care (01) | DRG 292 ==
LOC: ER 21:29 → CSU 21:30
PROVIDERS: Admitting Provider Internal Medicine; Emergency Provider Family Medicine; Family Provider Family Medicine; PCP Family Medicine; Visit Provider Student in an Organized Health Care Education/Training Program
DX: I11.0 Hypertensive heart disease with heart failure (principal); J44.1 Chronic obstructive pulmonary disease with (acute) exacerbation; I50.43 Acute on chronic combined systolic (congestive) and diastolic (congestive) heart failure; I25.5 Ischemic cardiomyopathy; Z99.81 Dependence on supplemental oxygen; I48.91 Unspecified atrial fibrillation; N40.0 Benign prostatic hyperplasia without lower urinary tract symptoms; I25.10 Atherosclerotic heart disease of native coronary artery without angina pectoris; Z66 Do not resuscitate; K21.9 Gastro-esophageal reflux disease without esophagitis; E78.5 Hyperlipidemia, unspecified; G62.9 Polyneuropathy, unspecified; G25.81 Restless legs syndrome; Z95.5 Presence of coronary angioplasty implant and graft; Z82.49 Family history of ischemic heart disease and other diseases of the circulatory system; Z79.01 Long term (current) use of anticoagulants; Z86.711 Personal history of pulmonary embolism; Z86.73 Personal history of transient ischemic attack (TIA), and cerebral infarction without residual deficits; Z87.891 Personal history of nicotine dependence
CPT/HCPCS: 12345; 36415; 36600; 71045; 80048; 80053; 80162; 81003; 82805; 83540; 83550; 83880; 84484; 85025; 87040; 87070; 87205; 87804; 93005; 94640; 96374; 99283; J1940; J2930; J3490; J7626

== ENCOUNTER 2019-03-21 10:42 | Inpatient (IN) | payer MEDICARE, SELFPAY ==
[2019-03-21] VITALS (11 sets, daily range): BP systolic 89–116; BP diastolic 56–70; PULSE 82–114; RESP 16–24; TEMP 36.7–37.9; O2SAT 93–99; BMI 31.6
--- NOTE | 2019-03-21 10:50 | ED_ITS ---
Entered by Radha Gonzalez, acting as scribe for Tika Garcia HPI - Fall General: Chief Complaint: Fall Stated Complaint: FALL, HIP PAIN Time Seen by Provider: 03/21/19 10:50 Source: patient, EMS and RN notes reviewed Mode of arrival: EMS Limitations: no limitations History of Present Illness: MD complaint: fall PFSH ED PFSH: Statuses (acute, chronic, etc) shown below reflect problem list status as previously entered and may not be historically accurate Social History Smoking and tobacco status: former smoker Second hand smoke exposure: No Alcohol intake: never Lives independently: No Household members: spouse Marital status: Discharge Plan Discharge Prescriptions: No Action albuterol sulfate 2.5 mg /3 mL (0.083 %) Solution For Nebulization 2.5 mg INHALATION Q4H RF: 0 clonazepam 0.5 mg Tablet 0.5 mg PO PRN RF: 0 potassium chloride 10 mEq Tablet Extended Release 10 meq PO BID RF: 0 garlic 1,000 mg Capsule 1,000 mg PO DAILY RF: 0 tamsulosin [Flomax] 0.4 mg Capsule 0.4 mg PO BEDTIME RF: 0 Protonix 40 mg Tablet,Delayed Release (Dr/Ec) 40 mg PO DAILY RF: 0 fluoxetine 20 mg Tablet 20 mg PO DAILY RF: 0 docusate sodium 100 mg Capsule 100 mg PO TID RF: 0 pramipexole 0.25 mg Tablet 0.25 mg PO TID RF: 0 budesonide 0.5 mg/2 mL Suspension For Nebulization 0.5 mg INHALATION BID RF: 0 magnesium chloride 64 mg Tablet,Delayed Release (Dr/Ec) 64 mg PO DAILY RF: 0 bee pollen 550 mg Capsule 550 mg PO DAILY RF: 0 PreserVision AREDS 1 tab-cap PO BID RF: 0 Mucinex 600 mg Tablet Extended Release 12hr 600 mg PO BID RF: 0 Entresto 24-26 mg Tablet 1 tab PO BID RF: 0 vitamin E 400 unit Capsule 400 unit PO DAILY RF: 0 Eliquis 5 mg Tablet 5 mg PO BID Qty: 60 RF: 0 Lasix 40 mg tablet 40 mg PO .4pm Qty: 30 RF: 0 Cardizem CD 180 mg capsule,extended release 24hr 180 mg PO DAILY Qty: 30 RF: 0 furosemide 80 mg Tablet 80 mg PO DAILY RF: 0 Lasix 80 mg tablet 80 mg PO DAILY Qty: 30 RF: 0 Coding Level of Care Code 

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
--- NOTE | 2019-03-21 10:56 | XR_ITS ---
WS: [id number] KNEE RIGHT TECHNIQUE: 3 views of the right knee CLINICAL INFORMATION: fall COMPARISON: None. FINDINGS: Right knee is normal in appearance. No evidence of acute fracture dislocation. No significant effusio n. Patella is normal. Vascular calcification. XR/XR knee RT 3V* [id number] IMPRESSION: Normal right knee.
--- NOTE | 2019-03-21 10:56 | XR_ITS ---
WS: [id number] TIBIA-FIBULA RIGHT TECHNIQUE: 2 views of the right tibia-fibula CLINICAL INFORMATION: fall COMPARISON: None. FINDINGS: No evidence of acute fracture dislocation. Normal tibiotalar joint. Normal visualized tibia and fibul a. Soft tissue edema. Vascular calcification. XR/XR tibia fibula RT 2V [id number] IMPRESSION: No acute fractures
--- NOTE | 2019-03-21 10:58 | XR_ITS ---
WS: [id number] HIP WITH PELVIS RIGHT TECHNIQUE: 3 views of the right hip with pelvis CLINICAL INFORMATION: fall COMPARISON: None. FINDINGS: Right femoral neck fracture with slight impaction. Mild rotation. Normal visualized pubic rami. Proxi mal femoral shaft appears normal. XR/XR hip RT 2-3V wo/w pel* [id number] IMPRESSION: Right femoral neck fracture with slight impaction.
--- NOTE | 2019-03-21 11:55 | PC.NURSE ---
xray in room tech feels like the hip is broke
--- NOTE | 2019-03-21 12:28 | XR_ITS ---
WS: [id number] Portable AP upright chest, 03/21/2019 Clinical Data: preop Comparison: Portable chest, 03/06/2019 Findings: No nodules, masses or effusions are seen. The heart is normal. The pulmonary vascularity is not increased. There is a patchy opacity in the right lower lobe which could represent atelectasis o r early pneumonia.. No pneumothorax is seen. There are monitor leads on the chest wall. XR/XR chest 1V portable [id number] Impression: 1. Patchy opacity in right lower lobe which could indicate minimal pneumonia an d recommend repeat chest x-ray in one to 2 days. 2. No acute cardiac findings.
[2019-03-21] MEDS: ondansetron 2 mg/ML SDV 2 mL 4 MG IVP (12:40)
[2019-03-21] MEDS: fentaNYL 50 mcg/mL INJ 2mL 25 MCG IVP (12:41)
[2019-03-21 12:58] LABS: Basophils % 0.4 %; Eosinophils % 0.3 %; Hematocrit 28.5 % (42.0-52.0); Hemoglobin 8.6 g/dL (11.7-16.6); Lymphocytes # 0.5 10^3/uL (0.8-4.8); Lymphocytes % 6.5 %; Mean Corpuscular HGB Conc 30.2 g/dL (30.0-36.0); Mean Corpuscular Hemoglobin 26.5 pg (28.0-34.0); Mean Corpuscular Volume 87.7 fL (80-94); Mean Platelet Volume 9.6 fL (7.4-10.4); Monocytes % 13.4 %; Neutrophils # 6.1 10^3/uL (1.8-7.7); Nucleated Red Blood Cells % 0 %; Platelet Count 225 10^3/cmm (130-400); Red Blood Count 3.25 10^6/uL (4.1-5.3); Red Cell Distribution Width 16.8 % (12.1-15.1); White Blood Count 7.7 10^3/uL (4.0-10.0)
--- NOTE | 2019-03-21 13:07 | PC.NURSE ---
unable toplace thompson due to small urethra opening
[2019-03-21 13:12] LABS: INR 1.48 (0.8-1.2)
[2019-03-21 13:22] LABS: Alanine Aminotransferase 11 U/L (0-41); Albumin Level 2.9 g/dL (3.5-5.2); Alkaline Phosphatase 98 IU/L (40-130); Anion Gap 14.3 (5-19); Aspartate Amino Transferase 15 U/L (0-40); Blood Urea Nitrogen 19 mg/dL (8-23); Calcium 8.7 mg/dL (8.5-10.5); Carbon Dioxide 28 mmol/L (22-29); Chloride 100 mmol/L (98-107); Globulin 3.5 g/dL (1.3-4.6); Glucose 116 mg/dL (74-106); NT Pro B Type Natriuretic Pept 5160 pg/mL (0-450); Potassium 4.3 mmol/L (3.5-5.1); Sodium 138 mmol/L (136-145); Total Bilirubin 0.6 mg/dL (0.15-1.2); Total Protein 6.4 g/dL (6.6-8.7)
--- NOTE | 2019-03-21 15:53 | PM.CONSULT ---
Providers/Reason For Consult Consulting Physican/Specialty*: Orthopedic surgery Reason for Consult*: Right femoral neck fracture Requesting Physcian: Karthik Marquez MD Attending Physician: Kyle Raya MD Primary Care Provider: Ravin Madrigal MD History of Present Illness History of Present Illness Allan Prado is a 78 year old male who fell while climbing up a wheelchair ramp yesterday with immediate pain in his right hip. Patient states he rarely uses the wheelchair but sometimes uses a cane simply for a balance . He describes persistent pain and inability to resume ambulatory status. He was brought to our emergency room where radiographs revealed an impacted right femoral neck fracture. He is admitted to medicine orthopedics is consulted for management of that fracture. Review of Systems General: Reports: 10 or more systems reviewed and unremarkable except in HPI and below Meds/Allergies Home Medications and Allergies Home Medications Medication Instructions Recorded Confirmed Type PreserVision AREDS 1 tab-cap PO BID 03/06/19 03/21/19 History albuterol sulfate 2.5 mg INHALATION Q4H 03/06/19 03/21/19 History bee pollen 550 mg PO DAILY 03/06/19 03/21/19 History budesonide 0.5 mg INHALATION BID 03/06/19 03/21/19 History clonazepam 0.5 mg PO DAILY PRN 03/06/19 03/21/19 History docusate sodium 100 mg PO TID 03/06/19 03/21/19 History fluoxetine 20 mg PO DAILY 03/06/19 03/21/19 History garlic 1,000 mg PO DAILY 03/06/19 03/21/19 History magnesium chloride 64 mg PO DAILY 03/06/19 03/21/19 History pantoprazole [Protonix] 40 mg PO DAILY 03/06/19 03/21/19 History potassium chloride 10 meq PO BID 03/06/19 03/21/19 History pramipexole 0.25 mg PO TID 03/06/19 03/21/19 History tamsulosin [Flomax] 0.4 mg PO BEDTIME 03/06/19 03/21/19 History Entresto 1 tab PO BID 03/07/19 03/21/19 History guaifenesin [Mucinex] 600 mg PO BID 03/07/19 03/21/19 History vitamin E 400 unit PO DAILY 03/07/19 03/21/19 History furosemide 80 mg PO DAILY 03/08/19 03/21/19 History rosuvastatin [Crestor] 20 mg PO DAILY 03/21/19 03/21/19 History Allergies Allergy/AdvReac Type Severity Reaction Status Date / Time No Known Allergies Allergy Verified 03/06/19 21:58 PFSH Acute PFSH: Statuses (acute, chronic, etc) shown below reflect problem list status as previously entered and may not be historically accurate Medical History Atrial fibrillation (Acute) BPH (benign prostatic hyperplasia) (Acute) CAD (coronary artery disease) (Acute) Cardiac arrest (Acute) COPD (chronic obstructive pulmonary disease) (Acute) CVA (cerebral vascular accident) (Acute) GERD (gastroesophageal reflux disease) (Acute) Hyperkalemia (Acute) Hyperlipidemia (Acute) Hypertension (Acute) Ischemic cardiomyopathy (Acute) Peripheral neuropathy (Acute) Pneumothorax (Acute) Pulmonary embolism (Acute) Restless leg syndrome (Acute) Rib fractures (Acute) Surgical History History of appendectomy (Acute) History of coronary artery stent placement (Acute) Hx of cataract surgery (Acute) Hx of tonsillectomy (Acute) Family History Other CAD (coronary artery disease) Social History Smoking and tobacco status: former smoker Second hand smoke exposure: No Alcohol intake: never Lives independently: No Household members: spouse Marital status: Vitals/I&O/Wt Last Vital Signs Temp 98.0 F 03/21/19 14:57 Pulse 105 H 03/21/19 14:57 Resp 16 03/21/19 14:57 BP 107/66 03/21/19 14:57 Pulse Ox 96 03/21/19 14:57 Weight last 48 hrs Weight 214 lb Physical Exam Narrative: EXAM NARRATIVE: The patient is alert and oriented to person place and time he answers questions appropriately. HEAD: Normocephalic/atraumatic. NECK: Soft supple nontender. HEART: Normal heart sounds, regular rhythm. CHEST: Clear to auscultation. ABDOMEN: Soft nontender nondistended. Right lower extremity: The patient has pain with efforts to internal and external rotation of the right hip. Vascular: He has a strong dorsalis pedis pulse Motor: He flex extend his toes and his ankle in the right lower extremity symmetrical to the contralateral side. Sensation: Sensation is intact light touch Data Other Data: Other data: I reviewed radiographs of the right hip revealing a valgus impacted right femoral neck fracture A&P Assessment and plan (1) Closed traumatic minimally displaced fracture of neck of right femur: I discussed treatment options with the patient. With the minimal displacement I think he would be a satisfactory candidate for pinning. This will be had minimal morbidity. The patient has multiple medical problems and fairly substantial anemia. I am not anticipating a great deal of blood loss with this type of procedure. Postoperatively did show patient should be able to resume full ambulatory status. I discussed risks with fracture fixation including nonunion and malunion. I discussed problems with blood supply in the femoral head that could result in avascular necrosis in future degenerative changes. I discussed risk with anesthetic. I discussed the possible further loss of blood and the need for blood transfusion. For a nondisplaced fracture the patient is to be immobilized I think the risk of deep venous thromboses is minimal. The patient is currently on Eliquis. We will continue this postoperatively. With such a minimal procedure I do not see the need to delay surgery for Status: Acute Code(s): S72.001A - Fracture of unspecified part of neck of right femur, initial encounter for closed fracture Coding Level of Care Code Acute Director [employer] for [facility] Diagnoses Closed traumatic minimally displaced fracture of neck of right femur S72.001A
--- NOTE | 2019-03-21 17:36 | P.HP_ITS ---
Providers/Chief Complaint Admitting Physician: Kyle Raya MD Primary Care Provider: Ravin Madrigal MD Chief Complaint: Right hip fracture History of Present Illness Allan Prado is a 78 year old male presents to emerge department after he fell when going up the ramp and lost his balance. He developed hip fracture with plan to perform pinning procedure tomorrow morning. Patient reports that approximately 2 weeks ago he was hospitalized for cough and concern for pneumonia. He left the hospital but continued to have thick white phlegm productive cough that did not get better. He denies any significant shortness of breath. He reports that for the last 3 to 4 days he has been having more episodes of hypotension and wobbly gait with those episodes. He denies chest pain or abdominal pain. His chest x-ray was suggestive of pneumonia. He has history of ischemic cardiomyopathy and had previously 4 stents placed with last episode in 2008. He has been doing well since then. He is on twice daily Lasix and reports that his lower extremity swelling is much better than it was before. He has obstructive sleep apnea and uses CPAP at night along with 2 L of continuous oxygen. Patient reports that 2 weeks ago when in ER they tried to place a Salas catheter but was not successful. Similarly earlier today in ER attempt was made to place a Salas catheter which was also unsuccessful. Patient reports that at times off-and-on he would get burning on urination. Lately he noticed more difficulty to initiate urination and noticed more dribbling. Review of Systems Const: Reports: other; Denies: fever or chills Eyes: Denies: change in vision ENMT: Denies: throat pain or nasal congestion Card: Reports: lightheadedness; Denies: chest pain, shortness of breath on exertion (Above his normal baseline) or shortness of breath when lying down Resp: Reports: productive cough; Denies: shortness of breath, non-productive cough or coughing up blood GI: Denies: abdominal pain, nausea, vomiting, vomiting blood, coffee grounds in vomit, difficulty swallowing, heartburn/indigestion, diarrhea, constipation, blood in stool or black tarry stool : Reports: difficulty urinating and painful urination; Denies: flank pain Musc: Denies: neck pain, back pain or joint pain Skin/Breast: Denies: rash or itching Neuro: Denies: headache, numbness in extremities, weakness in extremities, changes in sensation or lack of coordination Psych: Denies: anxiety, depression, suicidal ideation or homicidal ideation Endo: Denies: cold intolerance, excessive sweating or heat intolerance Yang/Lymph: Denies: easy bruising or tender lymph nodes Medications/Allergies Home Medications Medication Instructions Recorded Confirmed Last Taken Type rosuvastatin [Crestor] 20 mg PO DAILY 03/21/19 03/21/19 03/20/19 History Allergies Allergy/AdvReac Type Severity Reaction Status Date / Time No Known Allergies Allergy Verified 03/06/19 21:58 PFSH Acute PFSH: Statuses (acute, chronic, etc) shown below reflect problem list status as previously entered and may not be historically accurate Medical History Atrial fibrillation (Acute) BPH (benign prostatic hyperplasia) (Acute) CAD (coronary artery disease) (Acute) Cardiac arrest (Acute) COPD (chronic obstructive pulmonary disease) (Acute) CVA (cerebral vascular accident) (Acute) GERD (gastroesophageal reflux disease) (Acute) Hyperkalemia (Acute) Hyperlipidemia (Acute) Hypertension (Acute) Ischemic cardiomyopathy (Acute) Peripheral neuropathy (Acute) Pneumothorax (Acute) Pulmonary embolism (Acute) Restless leg syndrome (Acute) Rib fractures (Acute) Surgical History History of appendectomy (Acute) History of coronary artery stent placement (Acute) Hx of cataract surgery (Acute) Hx of tonsillectomy (Acute) Family History Other CAD (coronary artery disease) Social History Smoking and tobacco status: former smoker Second hand smoke exposure: No Alcohol intake: never Lives independently: No Household members: spouse Marital status: Vitals/I&O/Wt Last Vital Signs Temp 98.0 F 03/21/19 14:57 Pulse 82 03/21/19 16:11 Resp 16 03/21/19 14:57 BP 107/66 03/21/19 14:57 Pulse Ox 93 03/21/19 16:11 Weight last 48 hrs Weight 97.069 kg Physical Exam Const: COMMON NORMALS: no apparent distress and oriented x3 EXAM LIMITATIONS: no altered mental status GENERAL APPEARANCE: cooperative, comfortable and well developed ORIENTATION/CONSCIOUSNESS: Yes awake, Yes oriented to person, Yes oriented to place and Yes oriented to time HENMT: COMMON NORMALS: normocephalic, head/scalp atraumatic, external ears normal, external nose normal, moist oral mucous membranes and oropharynx normal HEAD & SCALP: normocephalic and atraumatic FACE & SINUS: normal facial exam NOSE: external nose normal and nares normal EXTERNAL EAR: Yes external ears normal and Yes no preauricular adenopathy MOUTH: oral and palatal mucosa normal, lip normal and tongue normal THROAT: posterior oropharynx normal Eye: COMMON NORMALS: EOMs intact bilaterally and conjunctivae normal GENERAL EYE: normal appearance of both eyes CONJUNCTIVA: Yes conjunctivae normal SCLERA: sclerae normal Neck/C-Spine: COMMON NORMALS: no lymphadenopathy, supple, no meningeal signs and no JVD GENERAL: Yes normal visual inspection, Yes trachea midline and No JVD Lymph: LYMPHATIC: no lymphadenopathy noted Chest: COMMONS NORMALS: inspection of chest normal Resp: COMMON NORMALS: normal respiratory effort EFFORT & INSPECTION: Yes able to speak in complete sentences OTHER: Minimal right basilar rales and expiratory wheezing which appears to be upper airway transmitted sounds . Cardio: COMMON NORMALS: no JVD, S1 normal heart sound, S2 normal heart sound, no gallops, no murmurs and no rub HEART SOUNDS: S1 normal and S2 normal OTHER: Heart is irregularly irregular GI: COMMON NORMALS: normal to inspection, nondistended, normoactive bowel sounds, soft to palpation and non-tender PALPATION: Yes soft : COMMON NORMALS: Yes no CVA tenderness and Yes external exam normal BLADDER/KIDNEY EXAM: Yes no CVA tenderness Back/Pelvis: COMMON NORMALS: no CVA tenderness and thoracic and lumbar spine normal to inspection Extremity: COMMON NORMALS: normal to inspection; negative for no pedal edema Neuro: COMMON NORMALS: oriented x3, moves all extremities, no focal motor deficits (Exam is limited due to hip fracture) and no sensory deficits noted SENSORIUM/ORIENTATION: Yes oriented to person, Yes oriented to place and Yes oriented to time MENINGEAL SIGNS: Yes no meningeal signs Psych: COMMON NORMALS: mental status grossly normal, thought process normal, cooperative and speech normal SPEECH: Yes normal speech THOUGHT PROCESS: normal thought process Skin: COMMON NORMALS: no rashes or lesions noted GENERAL SKIN EXAM: no rashes or lesions noted Data : 03/21/19 12:52 03/21/19 12:52 A&P Assessment and plan (1) Closed traumatic minimally displaced fracture of neck of right femur: Status: Acute Code(s): S72.001A - Fracture of unspecified part of neck of right femur, initial encounter for closed fracture (2) Congestive heart failure: Not in exacerbation Status: Acute Code(s): I50.9 - Heart failure, unspecified (3) Anemia: Status: Acute Code(s): D64.9 - Anemia, unspecified (4) Hypertension: Status: Acute Code(s): I10 - Essential (primary) hypertension (5) Atrial fibrillation: Status: Acute Code(s): I48.91 - Unspecified atrial fibrillation (6) COPD (chronic obstructive pulmonary disease): Not in exacerbation. Status: Acute Code(s): J44.9 - Chronic obstructive pulmonary disease, unspecified (7) Pneumonia: Right lower lobe Status: Acute Code(s): J18.9 - Pneumonia, unspecified organism Additional A&P Information We will give patient 1 unit of blood. Patient has elevated risk for adverse perioperative cardiac outcome but because his symptoms are stable and patient denies any chest pain or dyspnea above his normal baseline I think that no further cardiac evaluation is needed at this point and patient can proceed with surgery. This was discussed with patient and his at the bedside and they voiced understanding and agreed to proceed. Patient has intolerance to statins. Consider increasing Flomax to twice daily if blood pressure permits Patient's last echocardiogram was a very poor study but estimated EF was normal or slightly less than normal. Prior to that patient's EF was approximately 35%. I will await excessive IV fluids. We will start patient on Levaquin and request sputum Gram stain and culture. We will try to obtain urine for urinalysis. Hold Eliquis for now and restart after surgery. Attestations Medical Necessity Statement*: Patient with pneumonia and hip fracture requires close inpatient monitoring and treatment. I expect patient will require more t trujillo 2 midnights. Time Spent in Patient Care: Greater than 35 minutes (>than 50% of time spent in counselling and/or direct pt care on unit) . Coding Level of Care Code Acute Enterprise Architect Manager for [facility] Diagnoses Closed traumatic minimally displaced fracture of neck of right femur S72.001A Congestive heart failure I50.9 Anemia D64.9 Hypertension I10 Atrial fibrillation I48.91 COPD (chronic obstructive pulmonary disease) J44.9 Pneumonia J18.9
[2019-03-21] MEDS: levofloxacin-dextrose 5 % 750 MG/150 ML PREMIX 150 MG IV (19:04)
[2019-03-22] VITALS (37 sets, daily range): BP systolic 70–129; BP diastolic 35–83; PULSE 83–132; RESP 10–32; TEMP 36.2–37.3; O2SAT 96–100
--- NOTE | 2019-03-22 | SCC_ITS ---
Procedure Done: Percutaneous pinning right hip 104.3 seconds of fluoroscopic guidance, for a cumulative dose of 35.42 mGy, was provided to Dr. Marquez by the radiology department. C-arm images of the RIGHT hip were saved for the patient's permanent record. [facility]
--- NOTE | 2019-03-22 | XRR_ITS ---
PROCEDURE INFORMATION: Exam: XR Right Hip with Pelvis when Performed Exam date and time: 03/22/2019 11:34 AM Age: 78 years old Clinical indication: Injury or trauma; Fall; Initial encounter; Fracture of pelvis & hip; Right; Traumatic fracture; Neck of femur; Closed fracture; Injury date: 03/21; Additional info: Orif right hip TECHNIQUE: Imaging protocol: XR Right hip with pelvis when performed. Views: 1 view. COMPARISON: CR XR hip RT 2-3V wo/w pel* [id number] 03/21/2019 11:38 AM FINDINGS: Bones/joints: There is a subcapital fracture of the right humeral neck status post placement of 3 metallic screws. The humeral head shows mild posterior angulation. These changes are similar to prior examination Soft tissues: Unremarkable. XR/XR hip RT 2-3V wo/w pel* [id number] IMPRESSION: Displaced subcapital fracture of the right femoral neck status post ORIF
[2019-03-22] MEDS: sodium chloride 0.9% 100 ML 75 ML (02:04)
[2019-03-22] MEDS: morphine 4 mg/mL SDV 1 mL IVP (02:12)
[2019-03-22 02:50] LABS: Urine Appearance SL Hazy (CLEAR); Urine Color Yellow (Yellow); pH Urine 5 (5-7)
[2019-03-22 02:51] LABS: Bilirubin Urine Neg (NEGATIVE); Blood Urine Neg (Negative); Glucose Urine UA Norm (Normal); Ketones Urine Negative (Negative); Leukocyte Esterase Urine Trace (Negative); Nitrate Urine Negative (Negative); Protein Urine Neg (Negative); Urobilinogen Urine 1 mg/dL (Negative)
[2019-03-22 02:52] LABS: Bacteria Urine 2+; RBC Urine 0-4 /hpf (0-2); Squamous Epithelial Cell Urine 0-4 (0-5); WBC Urine 25-40 /hpf (0-5)
[2019-03-22 02:53] LABS: Add Urine Culture? Yes
[2019-03-22 05:34] LABS: Basophils % 0.3 %; Eosinophils % 0.1 %; Hematocrit 31.2 % (42.0-52.0); Hemoglobin 9.6 g/dL (11.7-16.6); Lymphocytes # 0.6 10^3/uL (0.8-4.8); Lymphocytes % 7.9 %; Mean Corpuscular HGB Conc 30.8 g/dL (30.0-36.0); Mean Corpuscular Hemoglobin 26.4 pg (28.0-34.0); Mean Corpuscular Volume 85.7 fL (80-94); Mean Platelet Volume 9.6 fL (7.4-10.4); Monocytes # 1.1 10^3/uL (0.2-0.9); Monocytes % 13.6 %; Neutrophils # 6.2 10^3/uL (1.8-7.7); Neutrophils % 77.8 %; Nucleated Red Blood Cells % 0 %; Platelet Count 209 10^3/cmm (130-400); Red Blood Count 3.64 10^6/uL (4.1-5.3); Red Cell Distribution Width 16.4 % (12.1-15.1)
[2019-03-22 05:51] LABS: Alanine Aminotransferase 11 U/L (0-41); Albumin Level 2.9 g/dL (3.5-5.2); Alkaline Phosphatase 100 IU/L (40-130); Anion Gap 15.4 (5-19); Aspartate Amino Transferase 15 U/L (0-40); Blood Urea Nitrogen 16 mg/dL (8-23); Calcium 8.8 mg/dL (8.5-10.5); Carbon Dioxide 27 mmol/L (22-29); Chloride 97 mmol/L (98-107); Globulin 3.6 g/dL (1.3-4.6); Magnesium 2.5 mg/dL (1.7-2.3); Potassium 4.4 mmol/L (3.5-5.1); Sodium 135 mmol/L (136-145); Total Bilirubin 0.8 mg/dL (0.15-1.2); Total Protein 6.5 g/dL (6.6-8.7)
[2019-03-22] MEDS: sodium chloride 0.9% 1,000 ML 30 ML IV (08:54)
--- NOTE | 2019-03-22 09:03 | ANES.PREANE2 ---
Pre-Anesthetic Assessment Pre-Anesthetic Assessment: Height/Weight: Height 1.75 m Weight 97.069 kg Temp Pulse Resp BP Pulse Ox 97.1 F L 117 H 18 115/62 97 03/22/19 08:35 03/22/19 08:35 03/22/19 08:35 03/22/19 08:35 03/22/19 08:35 Preop Diagnosis: RIGHT FEMORAL NECK FRACTURE Proposed Procedure: Operation Date: 03/22/19 13:50 Proposed Procedures p Hip Screw(Right) - Karthik Marquez MD Last intake: Intake Last Liquid Date 03/21/19 Last Liquid Time 23:00 Last Solid Date 03/21/19 Last Solid Time 23:00 Social: Packs per day: 1 Pack years: 60 Comment: quit Exam: Pre-Anes Outpt Exam: alert and oriented x 3 Additional Exam Findings (including area of procedure): expiratory wheezing irreg, irreg Airway: Submandibular: WNL Cervical ROM: Other MP: 2 Dentition: False Pulmonary: Pulmonary: COPD Comments: home 02 @ 2lpm x7 years CV/HEM: CV/HEM: Afib, Angina (Stable), Arrythmia, CAD, CHF and PA Comments: 4stents, last , followed by Alison last time1 month ago no changes Musc/skel: Musc/skel: Lower Back Pain Anesthetic Plan: ASA status: III Anesthesia: General Meds/Allergies Current Medications: Current Medications Generic Name Dose Route Start Last Admin Trade Name Freq PRN Reason Stop Dose Admin Levofloxacin/Dextr ose 750 mg in 150 mls @ 150 mls/hr 03/21/19 18:00 03/21/19 19:04 Levaquin-D5w IV 150 mls/hr Q24H KIMBERLY Administration Protocol Sodium Chloride 1,000 mls @ 30 ml s/hr 03/22/19 08:45 03/22/19 08:54 Sodium Chloride 0.9% IV 03/23/19 08:44 30 mls/hr .Q24H KIMBERLY Administration Morphine Sulfate 4 mg 03/21/19 12:31 03/22/19 02:12 Morphine IVP 4 mg Q4H PRN Administration SEVERE PAIN Senna 17.2 mg 03/21/19 21:00 03/21/19 21:13 Senna Lax PO Not Given BEDTIME KIMBERLY PFSH Anesthesia PFSH: Medical History Atrial fibrillation (Acute) BPH (benign prostatic hyperplasia) (Acute) CAD (coronary artery disease) (Acute) Cardiac arrest (Acute) COPD (chronic obstructive pulmonary disease) (Acute) CVA (cerebral vascular accident) (Acute) GERD (gastroesophageal reflux disease) (Acute) Hyperkalemia (Acute) Hyperlipidemia (Acute) Hypertension (Acute) Ischemic cardiomyopathy (Acute) Peripheral neuropathy (Acute) Pneumothorax (Acute) Pulmonary embolism (Acute) Restless leg syndrome (Acute) Rib fractures (Acute) Surgical History History of appendectomy (Acute) History of coronary artery stent placement (Acute) Hx of cataract surgery (Acute) Hx of tonsillectomy (Acute) Family History Other CAD (coronary artery disease) Social History Smoking and tobacco status: former smoker Second hand smoke exposure: No Alcohol intake: never Lives independently: No Household members: spouse Marital status: Data Anesthesia CBC & Chem 7: 03/22/19 04:33 03/22/19 04:33 Other Labs: Laboratory Results - last 48 hr 03/21/19 03/21/19 03/21/19 12:52 12:52 12:52 WBC 7.7 RBC 3.25 L Hgb 8.6 L Hct 28.5 L MCV 87.7 MCH 26.5 L MCHC 30.2 RDW 16.8 H Plt Count 225 MPV 9.6 Neut % (Auto) 79.0 Lymph % (Auto) 6.5 [place] % (Auto) 13.4 Eos % (Auto) 0.3 Baso % (Auto) 0.4 Neut # (Auto) 6.1 Lymph # (Auto) 0.5 L [place] # (Auto) 1.0 H Eos # (Auto) 0.0 Baso # (Auto) 0.0 Nucleated RBC % (auto) 0 Nucleated RBCs # 0.0 PT 18.00 H INR 1.48 H Sodium 138 Potassium 4.3 Chloride 100 Carbon Dioxide 28 Anion Gap 14.3 BUN 19 Creatinine 1.1 Glucose 116 H Calcium 8.7 Magnesium Total Bilirubin 0.6 AST 15 ALT 11 Alkaline Phosphatase 98 NT-Pro-B Natriuret Pep 5160 H Total Protein 6.4 L Albumin 2.9 L Globulin 3.5 Urine Color Urine Appearance Urine pH Ur Specific [place] Urine Protein Urine Glucose (UA) Urine Ketones Urine Occult Blood Urine Nitrate Urine Bilirubin Urine Urobilinogen Ur Leukocyte Esterase Urine RBC Urine WBC Ur Squamous Epith Cells Urine Bacteria Blood Type Antibody Screen Crossmatch 03/21/19 03/22/19 03/22/19 19:36 01:56 04:33 WBC 8.0 RBC 3.64 L Hgb 9.6 L Hct 31.2 L MCV 85.7 MCH 26.4 L MCHC 30.8 RDW 16.4 H Plt Count 209 MPV 9.6 Neut % (Auto) 77.8 Lymph % (Auto) 7.9 [place] % (Auto) 13.6 Eos % (Auto) 0.1 Baso % (Auto) 0.3 Neut # (Auto) 6.2 Lymph # (Auto) 0.6 L [place] # (Auto) 1.1 H Eos # (Auto) 0.0 Baso # (Auto) 0.0 Nucleated RBC % (auto) 0 Nucleated RBCs # 0.0 PT INR Sodium Potassium Chloride Carbon Dioxide Anion Gap BUN Creatinine Glucose Calcium Magnesium Total Bilirubin AST ALT Alkaline Phosphatase NT-Pro-B Natriuret Pep Total Protein Albumin Globulin Urine Color Yellow Urine Appearance Sl hazy Urine pH 5 Ur Specific [place] 1.020 Urine Protein Neg Urine Glucose (UA) Norm Urine Ketones Negative Urine Occult Blood Neg Urine Nitrate Negative Urine Bilirubin Neg Urine Urobilinogen 1 H Ur Leukocyte Esterase Trace H Urine RBC 0-4 H Urine WBC 25-40 H Ur Squamous Epith Cells 0-4 H Urine Bacteria 2+ H Blood Type O Positive Antibody Screen Negative Crossmatch See Detail 03/22/19 04:33 WBC RBC Hgb Hct MCV MCH MCHC RDW Plt Count MPV Neut % (Auto) Lymph % (Auto) [place] % (Auto) Eos % (Auto) Baso % (Auto) Neut # (Auto) Lymph # (Auto) [place] # (Auto) Eos # (Auto) Baso # (Auto) Nucleated RBC % (auto) Nucleated RBCs # PT INR Sodium 135 L Potassium 4.4 Chloride 97 L Carbon Dioxide 27 Anion Gap 15.4 BUN 16 Creatinine 1.0 Glucose 106 Calcium 8.8 Magnesium 2.5 H Total Bilirubin 0.8 AST 15 ALT 11 Alkaline Phosphatase 100 NT-Pro-B Natriuret Pep Total Protein 6.5 L Albumin 2.9 L Globulin 3.6 Urine Color Urine Appearance Urine pH Ur Specific [place] Urine Protein Urine Glucose (UA) Urine Ketones Urine Occult Blood Urine Nitrate Urine Bilirubin Urine Urobilinogen Ur Leukocyte Esterase Urine RBC Urine WBC Ur Squamous Epith Cells Urine Bacteria Blood Type Antibody Screen Crossmatch Cardiac Studies: No Data to Display
[2019-03-22 09:15] LABS: Glucose 106 mg/dL (65-115)
--- NOTE | 2019-03-22 10:14 | PC.NURSE ---
0900 Patient is off the floor for surgery, notified
--- NOTE | 2019-03-22 10:39 | PC.NURSE ---
patient is off the floor
--- NOTE | 2019-03-22 10:53 | SUR.OPER ---
PATIENT IS INCONTINENT OF URINE, PRIOR TO PROCEDURE 3 ATTEMPTS WERE MADE TO PLACE [facility] CATHETER, UNSUCCESSFUL. DR ROJO CONSULTED DR ROBBINS WHO AGREED TO COME TO OR WHEN DR ROJO'S CASE WAS COMPLETE. DR ROBBINS CAME TO TO OR AT 1100
--- NOTE | 2019-03-22 11:07 | P.PN_ITS ---
Subjective Subjective: Interval history: Patient much more alert today. Tolerating good p.o. intake. Vitals/I&O/Wt Last Vital Signs Temp 97.1 F L 03/22/19 08:35 Pulse 117 H 03/22/19 08:35 Resp 18 03/22/19 08:35 BP 115/62 03/22/19 08:35 Pulse Ox 97 03/22/19 08:35 03/21/19 03/22/19 03/22/19 22:59 06:59 14:59 Intake Total 240 / 240 350 / 590 50 / 50 Balance 240 / 240 350 / 590 50 / 50 Weight last 48 hrs Weight 214 lb Physical Exam Narrative: EXAM NARRATIVE: Right hip dressing clean and dry. Minimal swelling right thigh. No pain with motion right hip Data : 03/22/19 04:33 03/22/19 04:33 A&P Assessment and plan (1) Status post right hip replacement: The patient seems much more alert and I am hopeful that we can do better with physical therapy today. I discussed assisted transfer versus discharge home. I told him that I do think his risk of perioperative complications is much higher with assisted. If there is any way his ambulatory status improves to the point where he would be stable for discharge home that would be my preference. I told the family that we can work with therapy today and tomorrow and if he shows progress hopefully show sufficient improvement for discharge home tomorrow. Status: Acute Code(s): Z96.641 - Presence of right artificial hip joint Attestations Medical Necessity Statement*: The patient has multiple medical comorbidities and dementia. Postoperative delirium seems to be improving. He will require at least 1 more night hospitalization and will try for discharge tomorrow Coding Level of Care Code Acute [employer] Worker for [facility] Diagnoses Status post right hip replacement Z96.641
--- NOTE | 2019-03-22 11:34 | SUR.PHASEI ---
1122- RECEIVED PATIENT IN PACU FROM OR VIA [facility]. RESP ARE EVEN AND NONLABORED. NASAL CANNULA IN PLACE AT 3LPM, SAT 100%. HE IS LETHARGIC BUT AROUSABLE. RLE IS WARM TO TOUCH WITH PPP. DRESSING DRY AND INTACT. NO S/S PAIN OR NAUSEA. MCCULLOUGH CATHETER IS PATENT AND DRAINING CLOUDY YELLOW URINE WITH NOTED SEDIMENT.
--- NOTE | 2019-03-22 11:35 | PM.OP ---
Operative Report Date of procedure: March 22, 2019 Pre-op Diagnosis: Nondisplaced RIGHT FEMORAL NECK FRACTURE Post-op diagnosis: same Post-op Findings: Same Procedure Done: Percutaneous pinning right hip Implants: [place] Asnis 6.5 millimeter screws x3 Pathology: none sent Anesthesia: General Estimated blood loss (mL): 10 Complications: None Findings: Patient had the previously described right femoral neck fracture with slight valgus impaction Condition: stable Disposition: PACU Procedure: The patient was taken to the operating room and given 2 g of Ancef. He is provided with a general anesthesia. He was positioned on the fracture table with his right lower extremity in gentle traction and internal rotation. He was prepped and draped in the usual manner and a timeout performed. A 1 cm long incision was made over the lateral proximal femur. Under visualization of a got fluoroscopy a guidepin was driven into the inferior central femoral head. Over this was passed a 6.5 mm Asnis screw a second pin was placed in a posterior superior position and exchanged for a second screw. A third screw and a anterior superior position was placed. Intraoperative fluoroscopy showed satisfactory position of the hardware. The wound was irrigated with saline. Deep tissues were closed with 3-0 Vicryl. Sterile dressings were applied. Urology was consulted for Salas catheter placement as attempts by nursing were unsuccessful
[2019-03-22] MEDS: lidocaine 2% Urojet 20 mL TOPICAL (11:50)
--- NOTE | 2019-03-22 12:09 | SUR.PHASEI ---
1149- TRANSFERRED PATIENT FROM PACU TO . RESP ARE EVEN AND NONLABORED. SAT 100% WITH 3L/NC. HE IS AWAKE AND ALERT. RLE IS WARM TO TOUCH WITH PPP. DRESSING DRY AND INTACT. DENIES PAIN OR NAUSEA. MCCULLOUGH CATHETER IS PATENT AND DRAINING CLOUDY YELLOW URINE. HE DENIES PAIN OR NAUSEA. FAMILY TO SECOND FLOOR WAITING. TRANSITION OF CARE TO YAMILETH ANDREA
[2019-03-22 12:24] LABS: Glucose Point of Care 88 mg/dL (70-110)
[2019-03-22] MEDS: HYDROcodone-acetaminophen 5-325 mg Tablet PO ×2 (12:29→17:16)
[2019-03-22] MEDS: atorvastatin 40 mg Tablet 80 MG PO (12:30)
[2019-03-22] MEDS: sodium chloride 0.9% 1,000 ML 80 ML IV (14:42)
[2019-03-22] MEDS: sodium chloride 0.9% 500 ML 999 ML IV (14:43)
--- NOTE | 2019-03-22 14:43 | P.OP_ITS ---
Operative Report Date of procedure: March 22, 2019 Pre-op Diagnosis: Distal urethral stricture, inability to place catheter Post-op diagnosis: same Procedure Done: Dilation of urethral stricture, difficult catheter placement. Implants: 14 Tanzanian coud? catheter left indwelling Pathology: none sent Anesthesia: General Estimated blood loss (mL): 0 Urine output: Approximately 250 cc drained from the bladder Complications: None Findings: Tight fossa navicularis stricture dilated sequentially from 10 Tanzanian to 16 Tanzanian. 14 Tanzanian coud? catheter left indwelling for further passive dilation. Tolerated well. Condition: stable Disposition: PACU Brief History: Patient is a 78-year-old white male recently sustaining a hip fracture. Multiple attempts at different stations throughout the hospital were unable to get a catheter in place. He was brought to the operating room by Dr. Marquez for repair of his hip fracture and I was consulted to evaluate for catheter placement. Procedure: The hip repair had been performed by the time of my arrival. Physical exam revealed a slightly narrowed meatus but no other gross pathology identified. Normal scrotum normal testicles. He was then prepped with Betadine solution to encompass the entire genitalia and surrounding groin lower abdomen and thighs. 2% lidocaine jelly was instilled into the urethra for lubrication purposes. The first dilator was a 10 [place] catheter which was with some difficulty manipulated through the meatus into the urethra into the bladder where clear yellow urine was drained. Sequentially dilation was continued from 10 Tanzanian to 12 Tanzanian to 14 Tanzanian to 16 Tanzanian with the same catheter/sounds. 2% lidocaine jelly was instilled between each dilation. And with each passage of a catheter there was good flow of urine and no bleeding. At the completion of dilation a 14 Tanzanian coud? catheter was placed and left indwelling. It was placed to dependent drainage and proved to be functioning well. The patient was then turned over to the operating team for completion of their responsibilities. I spoke with Dr. Marquez following the procedure and recommend leaving the catheter in until discharge. I think at that time he would be safe to remove it given the active and now passive dilation ongoing. I will be happy to see on a return to clinic as needed basis
[2019-03-22] MEDS: pramipexole 0.25 mg Tablet PO ×2 (15:13→21:38)
[2019-03-22] MEDS: FUROsemide 40 mg Tablet PO (15:13)
[2019-03-22] MEDS: docusate sodium 100 mg Capsule PO (15:13)
--- NOTE | 2019-03-22 15:40 | P.PN_ITS ---
Subjective Subjective: Interval history: Patient had hip surgery today. He denies any shortness of breath or chest pain. He noted to be hypotensive. His blood pressure was well documented prior to admission by his and is been in the 80s to 90s over 50s. He has good urinary output. He had Salas catheter placed by Dr. Maxwell. He was on IV fluids and bolus 500 mL was also requested. Vitals/I&O/Wt Last Vital Signs Temp 98.0 F 03/22/19 15:00 Pulse 86 03/22/19 15:29 Resp 18 03/22/19 15:20 BP 102/63 03/22/19 15:00 Pulse Ox 99 03/22/19 15:20 03/22/19 03/22/19 03/22/19 06:59 14:59 22:59 Intake Total 350 / 590 290 / 290 Output Total 219 / 219 Balance 350 / 590 71 / 71 Weight last 48 hrs Weight 97.069 kg Physical Exam Const: COMMON NORMALS: no apparent distress and oriented x3 Resp: COMMON NORMALS: normal respiratory effort and clear to auscultation bilaterally AUSCULTATION: clear to auscultation bilaterally Cardio: COMMON NORMALS: regular rate, regular rhythm and S2 normal heart sound RATE: regular rate RHYTHM: regular rhythm HEART SOUNDS: S2 normal OT HER: No lower extremity edema GI: COMMON NORMALS: normal to inspection, nondistended, normoactive bowel sounds, soft to palpation and non-tender PALPATION: Yes soft Neuro: COMMON NORMALS: oriented x3 and no focal motor deficits Urinary Catheter Management^: Salas: Cath Placed During This Visit: yes Urethral Indwelling: Yes Reason for Continuing Indwelling Catheter: Acute Urinary Retention or Obs truction Urinary Catheter Date of Insertion: 03/22/19 Urinary Catheter Time of Insertion: 11:10 Data : 03/22/19 04:33 03/22/19 04:33 A&P Assessment and plan (1) Closed traumatic minimally displaced fracture of neck of right femur: Status: Acute Code(s): S72.001A - Fracture of unspecified part of neck of right femur, initial encounter for closed fracture (2) Congestive heart failure: Not in exacerbation Status: Acute Code(s): I50.9 - Heart failure, unspecified (3) Anemia: Status: Acute Code(s): D64.9 - Anemia, unspecified (4) Hypertension: Status: Acute Code(s): I10 - Essential (primary) hypertension (5) Atrial fibrillation: Status: Acute Code(s): I48.91 - Unspecified atrial fibrillation (6) COPD (chronic obstructive pulmonary disease): Not in exacerbation. Status: Acute Code(s): J44.9 - Chronic obstructive pulmonary disease, unspecified (7) Pneumonia: Right lower lobe Status: Acute Code(s): J18.9 - Pneumonia, unspecified organism Additional A&P Information Continue monitoring vitals. Avoid any medications that could possibly drop blood pressure. Continue Levaquin. Monitor respiratory status. Patient may require BiPAP support. Attestations Medical Necessity Statement*: Post hip surgery and pneumonia requires close inpatient monitoring and treatment. Coding Level of Care Code Acute Transplanter [employer] for [facility] Fwd Diagnoses Closed traumatic minimally displaced fracture of neck of right femur S72.001A Congestive heart failure I50.9 Anemia D64.9 Hypertension I10 Atrial fibrillation I48.91 COPD (chronic obstructive pulmonary disease) J44.9 Pneumonia J18.9
[2019-03-22] MEDS: apixaban 5 mg Tablet PO (17:09)
[2019-03-22] MEDS: guaiFENesin 600 mg Tablet PO (17:09)
[2019-03-22] MEDS: levofloxacin-dextrose 5 % 750 MG/150 ML PREMIX 150 MG IV (17:10)
[2019-03-22] MEDS: piperacillin-tazobactam 3.375 GM in sodium chloride 0.9% (plus) 50 ML IV (20:03)
[2019-03-22] MEDS: budesonide 0.5 mg/2 mL Neb INHALATION (21:09)
[2019-03-23] VITALS (24 sets, daily range): BP systolic 85–130; BP diastolic 53–76; PULSE 91–130; RESP 18–33; TEMP 36.3–37; O2SAT 91–100
[2019-03-23] MEDS: HYDROcodone-acetaminophen 5-325 mg Tablet PO ×2 (00:29→07:52)
[2019-03-23] MEDS: sodium chloride 0.9% 1,000 ML 80 ML IV ×3 (02:02→22:39)
[2019-03-23] MEDS: piperacillin-tazobactam 3.375 GM in sodium chloride 0.9% (plus) 50 ML IV ×3 (04:08→20:33)
[2019-03-23 04:48] LABS: Basophils % 0.1 %; Eosinophils % 0.1 %; Hematocrit 32.3 % (42.0-52.0); Hemoglobin 9.8 g/dL (11.7-16.6); Lymphocytes # 0.6 10^3/uL (0.8-4.8); Lymphocytes % 6.5 %; Mean Corpuscular HGB Conc 30.3 g/dL (30.0-36.0); Mean Corpuscular Hemoglobin 26.3 pg (28.0-34.0); Mean Corpuscular Volume 86.8 fL (80-94); Mean Platelet Volume 9.7 fL (7.4-10.4); Monocytes # 1.3 10^3/uL (0.2-0.9); Monocytes % 14.7 %; Neutrophils # 6.9 10^3/uL (1.8-7.7); Neutrophils % 78.4 %; Nucleated Red Blood Cells % 0 %; Platelet Count 206 10^3/cmm (130-400); Red Blood Count 3.72 10^6/uL (4.1-5.3); Red Cell Distribution Width 16.2 % (12.1-15.1); White Blood Count 8.8 10^3/uL (4.0-10.0)
[2019-03-23 05:08] LABS: Alanine Aminotransferase 9 U/L (0-41); Albumin Level 2.8 g/dL (3.5-5.2); Alkaline Phosphatase 99 IU/L (40-130); Anion Gap 12.4 (5-19); Aspartate Amino Transferase 14 U/L (0-40); Blood Urea Nitrogen 18 mg/dL (8-23); Calcium 8.7 mg/dL (8.5-10.5); Carbon Dioxide 28 mmol/L (22-29); Chloride 97 mmol/L (98-107); Globulin 3.2 g/dL (1.3-4.6); Glucose 112 mg/dL (65-115); Magnesium 2.3 mg/dL (1.7-2.3); Potassium 4.4 mmol/L (3.5-5.1); Sodium 133 mmol/L (136-145); Total Bilirubin 0.5 mg/dL (0.15-1.2)
--- NOTE | 2019-03-23 08:01 | P.PN_ITS ---
Subjective Subjective: Interval history: Patient up eating breakfast. Some right hip pain. Vitals/I&O/Wt Last Vital Signs Temp 98.0 F 03/23/19 06:00 Pulse 111 H 03/23/19 06:00 Resp 33 H 03/23/19 06:00 BP 115/68 03/23/19 06:00 Pulse Ox 100 03/23/19 06:00 03/22/19 03/23/19 03/23/19 22:59 06:59 14:59 Intake Total 21.47 / 311.47 972.183 / 1283.653 Output Total 400 / 619 Balance 21.47 / 92.47 572.183 / 664.653 Weight last 48 hrs Weight 214 lb Physical Exam 2 Narrative: EXAM NARRATIVE: Right hip dressing clean and dry. Modest right thigh swelling. Urinary Catheter Management^: Salas: Cath Placed During This Visit: yes Urethral Indwelling: Yes Reason for Continuing Indwelling Catheter: Acute Urinary Retention or Obstruction Urinary Catheter Date of Insertion: 03/22/19 Urinary Catheter Time of Insertion: 11:10 Data : 03/23/19 04:15 03/23/19 04:15 A&P Assessment and plan (1) Status post open reduction and internal fixation (ORIF) of fracture: Fracture fixation is stable and will allow full weight bearing and activities as tolerated. Supportive care per medicine. Status: Acute Code(s): Z98.890 - Other specified postprocedural states; Z87.81 - Personal history of (healed) traumatic fracture Attestations Medical Necessity Statement*: As per medicine Coding Level of Care Code Acute [employer] Teacher for janneth Gaitan Diagnoses Status post open reduction and internal fixation (ORIF) of fracture Z98.890; Z87.81
[2019-03-23] MEDS: budesonide 0.5 mg/2 mL Neb INHALATION ×2 (08:03→20:05)
[2019-03-23] MEDS: docusate sodium 100 mg Capsule PO ×3 (09:35→20:31)
[2019-03-23] MEDS: fluoxetine 20 mg Capsule PO (09:35)
[2019-03-23] MEDS: atorvastatin 40 mg Tablet 80 MG PO (09:35)
[2019-03-23] MEDS: pramipexole 0.25 mg Tablet PO ×3 (09:35→20:31)
[2019-03-23] MEDS: guaiFENesin 600 mg Tablet PO ×2 (09:35→17:48)
[2019-03-23] MEDS: apixaban 5 mg Tablet PO ×2 (09:35→17:48)
[2019-03-23] MEDS: pantoprazole DR 40 mg Tablet PO (09:35)
--- NOTE | 2019-03-23 11:55 | PC.CHAP ---
Pastoral Care Encounter/Spiritual Assessment Type of Contact [] Declined route specialist visit [] Patient/Family/Request visit [] Outpatient visit [] Follow-up visit [] Physician referral [] Code/Alert [x] Routine visit [] Staff referral [] Actively dying [] Patient sleeping [] Family support [] [] Out of room [] Palliative care [] [] Receiving care in room [] Pre-surgical visit [] Trauma [] Long length of stay [] ICU visit [] Other: Relational/Emotional Strength [x] Patient feels connected with others/family/visitors/staff [] Distress [] Loneliness/isolation [] Abandonment Spirituality of Patient [x] Person of Barbara [] Attends Orthodoxy of their Barbara [x] Believes in Prayer [x] Reads Bible or Jainism materials [] There are Spiritual issues to be addressed Agency Legal Counsel Interventions [x] Prayer [x] Active listening [x] Non-anxious presence [x] Spiritual/emotional support [] Crisis/trauma care [x] Spiritual counseling [] Bereavement support [] Provided bereavement packet [] Provided Bible/devotional materials [] Provided toy/stuffed animal, coloring book to patient or family member [] Provided Communion [] Anointing/[place] [] Salvation [] Completed spiritual assessment [] Other: Impact on Illness or Injury [] Angry [] Fearful [] Anxious [] Often cries [] Exhaustion [] Unable to work [] Unable to attend lutheran [] Unable to walk/stand [] Unable to read [] Unable to drive [] Unable to eat/drink [] Unable to sleep [] Unable to be with family [] Patient intubated [x] Other: N/A Summary Patient was being visited by his spouse and 3-adult daughters Time spent with patient
[2019-03-23] MEDS: digoxin 250 mcg/ml INJ 2 mL 500 MCG IVP (13:30)
[2019-03-23 13:33] LABS: Procalcitonin 0.21 ng/mL (0-0.5)
[2019-03-23] MEDS: HYDROcodone-acetaminophen 5-325 mg Tablet 1 TAB PO ×2 (15:46→22:38)
[2019-03-23] MEDS: ipratropium-albuterol 3 mL Neb INHALATION ×2 (16:32→20:05)
--- NOTE | 2019-03-23 19:13 | PM.PN ---
Subjective Subjective: Interval history: Postop for his surgery date to. Patient seen in ICU today. Patient required ICU yesterday because of low blood pressures and atrial fibrillation. On evaluation this morning patient is on Levophed of 1. Patient heart rate is running between 110?132. Blood pressure on evaluation has mean arterial pressure over 60. Patient denies of having any nausea, vomiting, headache, dizziness, palpitations, shortness of breath. On evaluation patient is in cheerful mood talking to his family who is bedside. Vitals/I&O/Wt Last Vital Signs Temp 97.4 F L 03/23/19 16:00 Pulse 113 H 03/23/19 18:00 Resp 18 03/23/19 18:00 BP 93/53 03/23/19 18:00 Pulse Ox 97 03/23/19 18:00 03/23/19 03/23/19 03/23/19 06:59 14:59 22:59 Intake Total 972.183 / 0503.837 7694.213 / 1706.213 435.137 / 2141.350 Output Total 400 / 619 0 / 0 350 / 350 Balance 572.183 / 723.349 1658.213 / 1706.213 85.137 / 1791.350 Physical Exam Narrative: EXAM NARRATIVE: General: No acute distress, AO x3, mildly dehydrated HEENT: PERRLA, pupils bilaterally equal and reactive Chest: Normal vesicular breath sounds, no added sounds, equal good air entry bilaterally CVS: S1-S2 irregularly irregular, tachycardia, soft pansystolic murmur at apex, no gallops, no rubs Abdomen: Soft, nontender, no organomegaly, bowel sounds present Neuro: No focal deficits, no facial deformity, AO x3, power 5/5 in all limbs Urinary Catheter Management^: Salas: Cath Placed During This Visit: yes Urethral Indwelling: Yes Reason for Continuing Indwelling Catheter: Acute Urinary Retention or Obstruction Urinary Catheter Date of Insertion: 03/22/19 Urinary Catheter Time of Insertion: 11:10 Data : 03/23/19 04:15 03/23/19 04:15 Micro: Microbiology 03/23/19 13:39 Blood Culture - Preliminary Blood SPECIMEN COLLECTED 03/23/19 13:29 Blood Culture - Preliminary Blood SPECIMEN COLLECTED 03/22/19 01:56 Urine Culture - Preliminary Urine,Clean Catch Streptococcus species A&P Assessment and plan (1) Closed traumatic minimally displaced fracture of neck of right femur: Status: Acute Code(s): S72.001A - Fracture of unspecified part of neck of right femur, initial encounter for closed fracture (2) Congestive heart failure: Not in exacerbation Status: Acute Code(s): I50.9 - Heart failure, unspecified (3) Anemia: Status: Acute Code(s): D64.9 - Anemia, unspecified (4) Hypertension: Status: Acute Code(s): I10 - Essential (primary) hypertension (5) Atrial fibrillation: Status: Acute Code(s): I48.91 - Unspecified atrial fibrillation (6) COPD (chronic obstructive pulmonary disease): Not in exacerbation. Status: Acute Code(s): J44.9 - Chronic obstructive pulmonary disease, unspecified (7) Pneumonia: Right lower lobe Status: Acute Code(s): J18.9 - Pneumonia, unspecified organism (8) Sepsis: Status: Acute Code(s): A41.9 - Sepsis, unspecified organism (9) Status post open reduction and internal fixation (ORIF) of fracture: Status: Acute Code(s): Z98.890 - Other specified postprocedural states; Z87.81 - Personal history of (healed) traumatic fracture (10) UTI (urinary tract infection): Status: Acute Code(s): N39.0 - Urinary tract infection, site not specified Additional A&P Information Close traumatic displaced fracture neck of right femur: Patient is postoperative day 2: DVT prophylaxis, physical therapy, weightbearing as per orthopedics team. UTI: Sepsis due to tachycardia, hypotension. Urine cultures growing Streptococcus species. Blood cultures have not been done since admission. Will request for stat blood cultures. Have requested micro lab to identify the Streptococcus species. Patient is on vancomycin and Zosyn. Continue both for now and will de-escalate antibiotics as per culture results. X-ray on fourth concerning for possible right-sided pneumonia. Sputum for Gram stain pending. We will do CT chest for further evaluation as recommended and chest x-ray. Atrial fibrillation: At home patient takes Cardizem 180 mg. Given low blood pressures cannot do Cardizem right now. We will do digoxin load of 10 mcg/kg body weight with 500 mcg stat followed by 250 in 6 hours and to 50 mcg after 6 hours. Continue monitoring vitals. Continue Eliquis as per orthopedics team. Hypertension: At home patient's blood pressure as per the review of chart from home has been running between systolics of 88?96 with one reading over 100 in last 2 weeks. Continue to hold antihypertensives. Continue IV hydration with normal saline at 80 cc/h. Will give 500 cc bolus. Continue to monitor respiratory status. Patient had a recent admission due to respiratory failure due to CHF. Continue titrate Levophed keeping mean arterial pressure over 60 mmHg. COPD: C/w Duonebs and budesonide BID round the clock. D/c Albuterol due to afib. Change to levoalbutrol. Continue Mucinex twice daily. 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 At present patient is mildly dehydrated getting NS at 80 cc/h. We will continue the IV fluid resuscitation at the same rate. If the blood pressure remains on the softer side we will give him a bolus of 250 while monitoring respiratory status. Full code Cardiac diet DVT prophylaxis as per orthopedic team. Continue treatment in ICU for now. Attestations Medical Necessity Statement*: Controlled hospitalization for septic shock Critical Care Time: Septic shock, atrial fibrillation Critical Care Time (min): 60 Coding Level of Care Code Acute T[employer] Duster for [facility] Fwd Diagnoses Closed traumatic minimally displaced fracture of neck of right femur S72.001A Congestive heart failure I50.9 Anemia D64.9 Hypertension I10 Atrial fibrillation I48.91 COPD (chronic obstructive pulmonary disease) J44.9 Pneumonia J18.9 Sepsis A41.9 Status post open reduction and internal fixation (ORIF) of fracture Z98.890; Z87.81 UTI (urinary tract infection) N39.0
--- NOTE | 2019-03-23 19:37 | ANE.PACU2 ---
 Inpatient post-anesthesia follow up: Airway intact: Yes Vital signs: Temperature 97.4 F Pulse Rate [Monito r] 95 Pulse Rate 113 Respiratory Rate 18 Blood Pressure [Ri ght Arm] 89/56 Blood Pressure 93/53 Pulse Oximetry 97 Oxygen Delivery Me thod [ Nasal Cannula Current Rate & Del dev] Oxygen Delivery Me thod Nasal Cannula Oxygen Flow Rate [ Current Rate 2 & Delivery] Oxygen Flow Rate 2 Fraction of Inspir ed Oxygen Hydration adequate: Yes Nausea and vomiting: No Mental status: Baseline
[2019-03-23] MEDS: digoxin 250 mcg/ml INJ 2 mL IVP (19:54)
[2019-03-24] VITALS (25 sets, daily range): BP systolic 95–129; BP diastolic 44–70; PULSE 80–121; RESP 12–24; TEMP 36.5–37.1; O2SAT 86–100
[2019-03-24] MEDS: digoxin 250 mcg/ml INJ 2 mL IVP (01:01)
[2019-03-24] MEDS: piperacillin-tazobactam 3.375 GM in sodium chloride 0.9% (plus) 50 ML IV ×3 (05:02→21:03)
--- NOTE | 2019-03-24 06:00 | CT_ITS ---
WS: [id number] CT CHEST WITHOUT INTRAVENOUS CONTRAST HISTORY: COPD and pneumonia. TECHNIQUE: Contiguous 5 mm axial imaging performed on the thorax. Coronal and sagittal reformats are submitted. All CT scans at [facility] use at least one of these dose optimization techniq ues: automated exposure control; mA and/or kV adjustment per patient size (includes targeted exams wh ere dose is matched to clinical indication); or iterative reconstruction. CONTRAST: None DLP: 892.9 mGy.cm COMPARISON: 10/27/2018 Lungs and central airway: Moderate pulmonary hyperexpansion with changes of emphysema. Motion artifac t causing technical limitations. Previously described 5 mm nodule in the RIGHT lower lung is not iden tified today. Could be obscured by the small bilateral pleural effusions. Patchy opacifications at th e lung bases and in the anterior RIGHT upper lobe. Pleura: Very small bilateral layering pleural effusions. Heart and pericardium: Moderate cardiomegaly. Mediastinum and kan: No adenopathy. Vessels: Moderate atherosclerosis thoracic aorta with no dilatation. There is mild ectasia. Pulmonary artery size is slightly enlarged and equal to the aorta. Moderate coronary artery calcifications. Chest wall and lower neck: No soft tissue masses. Upper abdomen: Mild anasarca in the soft tissues of the abdomen. Pancreas is atrophic. Upper abdomina l structures limited by motion artifact. Osseous structures: Multiple compression deformities. Mild anterior wedging of T10, T12, L1 and L2-3. CT/CT chest wo con [id number] IMPRESSION: 1. Some very small bilateral layering pleural effusions. 2. No definite pneumonia. There are a few patchy opacifications at the lung ba ses and RIGHT upper lobe likely pneumonitis or atelectasis. 3. Severe emphysema. 4. Moderate atherosclerosis aorta and [place] coronary arteries. 5. Anasarca.
[2019-03-24 06:17] LABS: Basophils % 0.1 %; Eosinophils % 0.1 %; Hematocrit 31.8 % (42.0-52.0); Hemoglobin 9.7 g/dL (11.7-16.6); Lymphocytes # 0.6 10^3/uL (0.8-4.8); Lymphocytes % 6.7 %; Mean Corpuscular HGB Conc 30.5 g/dL (30.0-36.0); Mean Corpuscular Hemoglobin 26.6 pg (28.0-34.0); Mean Corpuscular Volume 87.1 fL (80-94); Mean Platelet Volume 10.6 fL (7.4-10.4); Monocytes # 1.4 10^3/uL (0.2-0.9); Monocytes % 16.6 %; Neutrophils # 6.2 10^3/uL (1.8-7.7); Neutrophils % 76.1 %; Nucleated Red Blood Cells % 0 %; Platelet Count 222 10^3/cmm (130-400); Red Blood Count 3.65 10^6/uL (4.1-5.3); Red Cell Distribution Width 16.5 % (12.1-15.1); White Blood Count 8.2 10^3/uL (4.0-10.0)
[2019-03-24 07:44] LABS: Vancomycin Trough 14.3 ug/mL (10-15)
[2019-03-24] MEDS: budesonide 0.5 mg/2 mL Neb INHALATION ×2 (08:14→21:13)
[2019-03-24] MEDS: ipratropium-albuterol 3 mL Neb INHALATION ×4 (08:14→21:13)
[2019-03-24 08:43] LABS: Alanine Aminotransferase 7 U/L (0-41); Albumin Level 2.4 g/dL (3.5-5.2); Alkaline Phosphatase 90 IU/L (40-130); Anion Gap 17.3 (5-19); Aspartate Amino Transferase 16 U/L (0-40); Blood Urea Nitrogen 13 mg/dL (8-23); Calcium 8.2 mg/dL (8.5-10.5); Carbon Dioxide 22 mmol/L (22-29); Chloride 98 mmol/L (98-107); Globulin 3.2 g/dL (1.3-4.6); Glucose 108 mg/dL (65-115); Magnesium 2.2 mg/dL (1.7-2.3); Potassium 4.3 mmol/L (3.5-5.1); Sodium 133 mmol/L (136-145); Total Bilirubin 0.6 mg/dL (0.15-1.2); Total Protein 5.6 g/dL (6.6-8.7)
[2019-03-24] MEDS: apixaban 5 mg Tablet PO ×2 (09:19→17:58)
[2019-03-24] MEDS: pantoprazole DR 40 mg Tablet PO (09:19)
[2019-03-24] MEDS: guaiFENesin 600 mg Tablet PO ×2 (09:19→17:58)
[2019-03-24] MEDS: atorvastatin 40 mg Tablet 80 MG PO (09:19)
[2019-03-24] MEDS: docusate sodium 100 mg Capsule PO ×3 (09:19→21:04)
[2019-03-24] MEDS: fluoxetine 20 mg Capsule PO (09:19)
[2019-03-24] MEDS: pramipexole 0.25 mg Tablet PO ×3 (09:20→21:04)
--- NOTE | 2019-03-24 09:42 | PC.SOCIAL ---
Pg 2 IMM Explained to pt Pg 2 IMM. Pt verbally understands & signed. Provided a copy to pt & left on pt's bedside table. Signed, dated, & timed, then placed in chart.
--- NOTE | 2019-03-24 10:35 | P.PN_ITS ---
Subjective Subjective: Interval history: Postop day 3. Patient seen in ICU today. Off levophed since 2 pm yesterday. Had Dig load completed last night. Started on Amio drip for afib with RVR for HR going upto 112. Patient denies of having any nausea, vomiting, headache, dizziness, palpitations, shortness of breath. On evaluation patient is in cheerful mood talking to his family who is bedside. Vitals/I&O/Wt Last Vital Signs Temp 97.7 F 03/24/19 06:00 Pulse 97 03/24/19 09:02 Resp 24 H 03/24/19 09:02 BP 106/70 03/24/19 09:02 Pulse Ox 95 03/24/19 09:02 03/23/19 03/24/19 03/24/19 22:59 06:59 14:59 Intake Total 1079.137 / 2785.350 50.288 / 2835.638 374.15 / 374.15 Output Total 350 / 350 750 / 1100 0 / 0 Balance 729.137 / 2435.350 -699.712 / 1735.638 374.15 / 374.15 Physical Exam Narrative: EXAM NARRATIVE: General: No acute distress, AO x3, mildly dehydrated HEENT: PERRLA, pupils bilaterally equal and reactive Chest: Normal vesicular breath sounds, no added sounds, equal good air entry bilaterally CVS: S1-S2 irregularly irregular,no tachycardia, soft pansystolic murmur at apex, no gallops, no rubs Abdomen: Soft, nontender, no organomegaly, bowel sounds present Neuro: No focal deficits, no facial deformity, AO x3, power 5/5 in all limbs Urinary Catheter Management^: Salas: Cath Placed During This Visit: yes Urethral Indwelling: Yes Reason for Continuing Indwelling Catheter: Acute Urinary Retention or Obstruction Urinary Catheter Date of Insertion: 03/22/19 Urinary Catheter Time of Insertion: 11:10 Data : 03/24/19 05:40 03/24/19 07:12 Micro: Microbiology 03/23/19 13:39 Blood Culture - Preliminary Blood SPECIMEN COLLECTED 03/23/19 13:29 Blood Culture - Preliminary Blood SPECIMEN COLLECTED 03/22/19 01:56 Urine Culture - Preliminary Urine,Clean Catch Streptococcus species A&P Assessment and plan (1) Closed traumatic minimally displaced fracture of neck of right femur: Status: Acute Code(s): S72.001A - Fracture of unspecified part of neck of right femur, initial encounter for closed fracture (2) Congestive heart failure: Not in exacerbation Status: Acute Code(s): I50.9 - Heart failure, unspecified (3) Anemia: Status: Acute Code(s): D64.9 - Anemia, unspecified (4) Hypertension: Status: Acute Code(s): I10 - Essential (primary) hypertension (5) Atrial fibrillation: Status: Acute Code(s): I48.91 - Unspecified atrial fibrillation (6) COPD (chronic obstructive pulmonary disease): Not in exacerbation. Status: Acute Code(s): J44.9 - Chronic obstructive pulmonary disease, unspecified (7) Pneumonia: Right lower lobe Status: Acute Code(s): J18.9 - Pneumonia, unspecified organism (8) Sepsis: Status: Acute Code(s): A41.9 - Sepsis, unspecified organism (9) Status post open reduction and internal fixation (ORIF) of fracture: Status: Acute Code(s): Z98.890 - Other specified postprocedural states; Z87.81 - Personal history of (healed) traumatic fracture (10) UTI (urinary tract infection): Status: Acute Code(s): N39.0 - Urinary tract infection, site not specified Additional A&P Information Close traumatic displaced fracture neck of right femur: Patient is postoperative day 3: DVT prophylaxis, physical therapy, weightbearing as per orthopedics team. UTI: Sepsis due to tachycardia, hypotension. Urine cultures growing Streptococcus. Chest x-ray done on admission showed a possible pneumonia which were ruled out on the CT scan done yesterday. MRSA swab is negative. Even though MRSA swab is negative we will continue with vancomycin and Zosyn for now until speciation of Streptococcus is there. Vancomycin will be necessary if it is Aerococcus or enterococcus. Will finish a 5-day course. Today is day 3/5 Atrial fibrillation: At home patient takes Cardizem 180 mg. Post dig load yesterday. Patient was started on amnio drip yesterday evening. Amiodarone load will be done by today evening. We will continue on amiodarone for now. Blood pressures are better today. We will start him on Cardizem but at a lower dose with 30 mg 3 times daily. Will monitor for hypotension. Hypotension: At home patient's blood pressure as per the review of chart from home has been running between systolics of 88?96 with one reading over 100 in last 2 weeks. Most likely due to multiple antihypertensives Continue to hold antihypertensives. Continue with IV hydration at 50 cc/h for 12 more hours. Will discontinue fluids after that. Encourage for increase oral intake. Continue to monitor respiratory status. Patient had a recent admission due to respiratory failure due to CHF. Continue titrate Levophed keeping mean arterial pressure over 60 mmHg. COPD: C/w Duonebs and budesonide BID round the clock. D/c Albuterol due to afib. Change to levoalbutrol. Continue Mucinex twice daily. 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 Euvolemic today. Will discontinue fluid as described above. Anemia: Blood work suggestive of iron deficiency anemia. Start on Venofer 200 mg daily for 5 days. Will discharge patient on oral iron supplementation. Full code Cardiac diet DVT prophylaxis as per orthopedic team. The patient remains hemodynamically stable after starting of Cardizem can transfer to [facility] later in the day today. Attestations Medical Necessity Statement*: Continued hospitalization for management of atrial fibrillation with RVR, UTI, post ORIF. 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
[2019-03-24] MEDS: dilTIAZem 30 mg Tablet PO ×3 (11:29→21:04)
[2019-03-24] MEDS: HYDROcodone-acetaminophen 5-325 mg Tablet 1 TAB PO (15:17)
[2019-03-24] MEDS: sodium chloride 0.9% 1,000 ML 80 ML IV (15:19)
--- NOTE | 2019-03-24 16:20 | PC.CHAP ---
Pastoral Care Encounter/Spiritual Assessment Type of Contact [] Declined scrap preparer visit [] Patient/Family/Request visit [] Outpatient visit [] Follow-up visit [] Physician referral [] Code/Alert [x] Routine visit [] Staff referral [] Actively dying [] Patient sleeping [] Family support [] [] Out of room [] Palliative care [] [] Receiving care in room [] Pre-surgical visit [] Trauma [] Long length of stay [] ICU visit [] Other: Relational/Emotional Strength [x] Patient feels connected with others/family/visitors/staff [] Distress [] Loneliness/isolation [] Abandonment Spirituality of Patient [] Person of Barbara [] Attends Denominational of their Barbara [x] Believes in Prayer [] Reads Bible or Sabianist materials [] There are Spiritual issues to be addressed Streetsweeper Operator Interventions [] Prayer [x] Active listening [x] Non-anxious presence [] Spiritual/emotional support [] Crisis/trauma care [] Spiritual counseling [] Bereavement support [] Provided bereavement packet [] Provided Bible/devotional materials [] Provided toy/stuffed animal, coloring book to patient or family member [] Provided Communion [] Anointing/Friendship [] Salvation [] Completed spiritual assessment [] Other: Impact on Illness or Injury [] Angry [] Fearful [] Anxious [] Often cries [] Exhaustion [] Unable to work [] Unable to attend rastafari [] Unable to walk/stand [] Unable to read [] Unable to drive [] Unable to eat/drink [] Unable to sleep [] Unable to be with family [] Patient intubated [] Other: Summary Pt had 2 visitors. Before scrap preparer could get very far into conversation and offer prayer, medical staff entered stating she needed to do vitals, take blood sample, give meds and other medical needs that needed to remain on a strict time schedule for patient. Streetsweeper Operator was unable to complete visit. Streetsweeper Operatorkaren Ludwig Time spent with patient 3 minutes
--- NOTE | 2019-03-24 16:37 | PC.NURSE ---
Patient up in chair from 1:30 pm- 4pm. Patient tolerated well and resting at this time.
--- NOTE | 2019-03-24 23:48 | PC.NURSE ---
Patient Lost IV to LAC. Catheter intact and minimal bleeding noted. Patients Amiodarone was supposed to be stopped at 0300. Dr. Casey called to see if new iv for Amiodarone needed to be started. Patient has had two doses of oral 30mg Cardizem PO. Orders to hold off on the Amiodarone infusion for now.
[2019-03-25] VITALS (31 sets, daily range): BP systolic 107–132; BP diastolic 46–75; PULSE 77–131; RESP 14–30; TEMP 36.5–37; O2SAT 94–98
--- NOTE | 2019-03-25 04:03 | PC.NURSE ---
Went down to patient room and patient had his IV that was in his RAC and it was in his mouth. Patient appeared to be sleeping and when I woke him up he didn't realize what he had done. Patient rinsed his mouth out and spit it out. This nurse attempted once to get a IV and was unsuccessful. Will call and see about getting a ultrasound guided IV.
--- NOTE | 2019-03-25 04:45 | PC.NURSE ---
Started by Ramakrishna Busby RN
[2019-03-25 05:18] LABS: Basophils % 0.1 %; Eosinophils % 0.4 %; Hematocrit 29.8 % (42.0-52.0); Hemoglobin 9.3 g/dL (11.7-16.6); Lymphocytes # 0.5 10^3/uL (0.8-4.8); Lymphocytes % 6.7 %; Mean Corpuscular HGB Conc 31.2 g/dL (30.0-36.0); Mean Corpuscular Hemoglobin 26.6 pg (28.0-34.0); Mean Corpuscular Volume 85.1 fL (80-94); Mean Platelet Volume 9.4 fL (7.4-10.4); Monocytes # 1.1 10^3/uL (0.2-0.9); Monocytes % 16.7 %; Neutrophils # 5.1 10^3/uL (1.8-7.7); Neutrophils % 75.8 %; Nucleated Red Blood Cells % 0 %; Platelet Count 215 10^3/cmm (130-400); Red Cell Distribution Width 16.5 % (12.1-15.1); White Blood Count 6.8 10^3/uL (4.0-10.0)
[2019-03-25] MEDS: piperacillin-tazobactam 3.375 GM in sodium chloride 0.9% (plus) 50 ML IV (05:19)
[2019-03-25 05:38] LABS: Alanine Aminotransferase 8 U/L (0-41); Albumin Level 2.6 g/dL (3.5-5.2); Alkaline Phosphatase 98 IU/L (40-130); Anion Gap 14.7 (5-19); Blood Urea Nitrogen 12 mg/dL (8-23); Calcium 8.3 mg/dL (8.5-10.5); Carbon Dioxide 23 mmol/L (22-29); Chloride 100 mmol/L (98-107); Globulin 3.5 g/dL (1.3-4.6); Glucose 80 mg/dL (65-115); Potassium 4.7 mmol/L (3.5-5.1); Sodium 133 mmol/L (136-145); Total Bilirubin 0.6 mg/dL (0.15-1.2); Total Protein 6.1 g/dL (6.6-8.7)
[2019-03-25 05:45] LABS: Aspartate Amino Transferase 20 U/L (0-40)
[2019-03-25] MEDS: apixaban 5 mg Tablet PO ×2 (08:49→17:28)
[2019-03-25] MEDS: fluoxetine 20 mg Capsule PO (08:49)
[2019-03-25] MEDS: pantoprazole DR 40 mg Tablet PO (08:49)
[2019-03-25] MEDS: docusate sodium 100 mg Capsule PO ×3 (08:49→22:10)
[2019-03-25] MEDS: guaiFENesin 600 mg Tablet PO ×2 (08:49→17:28)
[2019-03-25] MEDS: atorvastatin 40 mg Tablet 80 MG PO (08:49)
[2019-03-25] MEDS: dilTIAZem 30 mg Tablet PO (08:49)
[2019-03-25] MEDS: pramipexole 0.25 mg Tablet PO ×3 (08:49→22:10)
[2019-03-25] MEDS: ipratropium-albuterol 3 mL Neb INHALATION ×4 (08:58→21:18)
[2019-03-25] MEDS: budesonide 0.5 mg/2 mL Neb INHALATION ×2 (08:59→21:18)
[2019-03-25] MEDS: HYDROcodone-acetaminophen 5-325 mg Tablet 1 TAB PO ×2 (13:10→17:28)
--- NOTE | 2019-03-25 15:26 | PM.PN ---
Subjective Subjective: Interval history: Postop day 4. Transfer to floor yesterday. Patient continues to do well. Denies of having any nausea, vomiting, palpitations, dizziness, headache. Vitals/I&O/Wt Last Vital Signs Temp 98.4 F 03/25/19 15:23 Pulse 94 03/25/19 15:23 Resp 22 H 03/25/19 15:23 BP 123/66 03/25/19 15:23 Pulse Ox 95 03/25/19 15:23 03/25/19 03/25/19 03/25/19 06:59 14:59 22:59 Intake Total 300 / 3094.15 360 / 360 Output Total 250 / 1019 Balance 50 / 2075.15 360 / 360 Physical Exam Narrative: EXAM NARRATIVE: General: No acute distress, AO x3, mildly dehydrated HEENT: PERRLA, pupils bilaterally equal and reactive Chest: Normal vesicular breath sounds, no added sounds, equal good air entry bilaterally CVS: S1-S2 irregularly irregular,no tachycardia, soft pansystolic murmur at apex, no gallops, no rubs Abdomen: Soft, nontender, no organomegaly, bowel sounds present Neuro: No focal deficits, no facial deformity, AO x3, power 5/5 in all limbs Urinary Catheter Management^: Salas: Cath Placed During This Visit: yes Urethral Indwelling: Yes Reason for Continuing Indwelling Catheter: Acute Urinary Retention or Obstruction Urinary Catheter Date of Insertion: 03/22/19 Urinary Catheter Time of Insertion: 11:10 Data : 03/25/19 04:25 03/25/19 04:25 Micro: Microbiology 03/24/19 13:36 MRSA Culture - Final Nose 03/23/19 13:39 Blood Culture - Preliminary Blood NEGATIVE TO DATE 03/23/19 13:29 Blood Culture - Preliminary Blood NEGATIVE TO DATE A&P Assessment and plan (1) Closed traumatic minimally displaced fracture of neck of right femur: Status: Acute Code(s): S72.001A - Fracture of unspecified part of neck of right femur, initial encounter for closed fracture (2) Congestive heart failure: Not in exacerbation Status: Acute Code(s): I50.9 - Heart failure, unspecified (3) Anemia: Status: Acute Code(s): D64.9 - Anemia, unspecified (4) Hypertension: Status: Acute Code(s): I10 - Essential (primary) hypertension (5) Atrial fibrillation: Status: Acute Code(s): I48.91 - Unspecified atrial fibrillation (6) COPD (chronic obstructive pulmonary disease): Not in exacerbation. Status: Acute Code(s): J44.9 - Chronic obstructive pulmonary disease, unspecified (7) Pneumonia: Right lower lobe Status: Acute Code(s): J18.9 - Pneumonia, unspecified organism (8) Sepsis: Status: Acute Code(s): A41.9 - Sepsis, unspecified organism (9) Status post open reduction and internal fixation (ORIF) of fracture: Status: Acute Code(s): Z98.890 - Other specified postprocedural states; Z87.81 - Personal history of (healed) traumatic fracture (10) UTI (urinary tract infection): Status: Acute Code(s): N39.0 - Urinary tract infection, site not specified Additional A&P Information Close traumatic displaced fracture neck of right femur: Patient is postoperative day 4: DVT prophylaxis, physical therapy, weightbearing as per orthopedics team. UTI: Sepsis due to tachycardia, hypotension. Urine cultures growing Streptococcus. Chest x-ray done on admission showed a possible pneumonia which were ruled out on the CT scan done yesterday. On further confirmation from microbiology lab Streptococcus in urine is most likely Aerococcus and that would be a contaminant. MRSA swab is negative. Even though MRSA swab is negative we will continue with vancomycin and Zosyn for now until speciation of Streptococcus is there. Vancomycin will be necessary if it is Aerococcus or enterococcus. Will finish a 5-day course. Today is day 4/5. Atrial fibrillation: At home patient takes Cardizem 180 mg. Post dig load and amiodarone drip. Amiodarone drip was stopped yesterday in the evening. It is rate controlled. Blood pressures are better today. We will increase the dose of Cardizem to 60 mg 3 times daily to match his home dose. Will monitor for hypotension. COPD: C/w Duonebs and budesonide BID round the clock. D/c Albuterol due to afib. Change to levoalbuterol. Continue Mucinex twice daily. 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 Euvolemic today. Fluid discontinued yesterday. At home patient is supposed to be on 120 mg of Lasix in divided doses. We will give him IV 20 mg Lasix the day today if blood pressure remains stable. Anemia: Blood work suggestive of iron deficiency anemia. Start on Venofer 200 mg daily for 5 days. Will discharge patient on oral iron supplementation. Full code Cardiac diet DVT prophylaxis as per orthopedic team. If patient continues to do well can plan to discharge to SNF tomorrow. Attestations Medical Necessity Statement*: Needs further hospitalization for management of atrial fibrillation and postop management of fracture right femur. 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
[2019-03-25] MEDS: dilTIAZem 60 mg Tablet PO ×2 (15:53→22:10)
--- NOTE | 2019-03-25 18:20 | PC.NURSE ---
SHIFT SUMMARY PT SAT IN CHAIR APPROXIMATELY 4 HOURS THIS SHIFT. FAMILY WAS ANGERED BY THIS STATING THAT THE PATIENT DOESN'T STAY UP THAT LONG IN THE CHAIR AT HOME. NURSE DISCUSSED THE BENEFITS OF BEING UP AND OUT OF BED AND THE RISKS ASSOCIATED WITH BEING IN BED TOO LONG. PATIENT WAS ADMINISTERED PAIN MEDICATIONS UPON REQUEST FOR PRN TIMES. INCENTIVE SPIROMETER ENCOURAGED WITH PATIENT TODAY. MCCULLOUGH CATHETER STILL INTACT AND DRAINING APPROPRIATELY.
--- NOTE | 2019-03-25 21:59 | PC.NURSE ---
Patient's daughter came to the desk and asked, are you the primary care nurse for room 105 teaching provided to the patient's daughter that I was not the primary care nurse but I am a nurse and asked how may I assist you Patient's daughter then asks how often we go to the patient's room Teaching provided to the patient's daughter that we round hourly or more frequently Patient's daughter states, I'm just worried about my dad I notice a distinct difference and he's not acting right Patient is asleep in his room, respirations even and non-labored. Suggested to patient's daughter that they are welcome to have a family member stay in the room with patient. Understanding verbalized. Notified primary care nurse of the patient and explained what daughter came to nurses station with and what concerns she had. Also wrote daughter's phone number down and gave to primary care nurse. Will continue to monitor patient and frequently check on patient with rounding per hospital policy or as needed.
[2019-03-25] MEDS: sodium chloride 0.9% 100 ML 30 ML (22:18)
--- NOTE | 2019-03-25 23:47 | PC.NURSE ---
Accessed patient at at approximately 194. HEAVEN did vitals at 2051. I was dealing with a rapid response and patient transfer in another room and after it done it was 2144 approximately. It was told me by the nursing staff that the patient's daughter was unhappy with the patient care he was receiving and that he had received earlier in the day. I went into patients room at 2209 introduced myself to patients family, and pass evening medications and I listened to their concerns about the patient being up in the chair for 4 hours today and about the dayshift nurse's interactions with her mother . I attempted to explain to the family it is encouraged for patients to get out of bed after surgery to risk of multiple complications. Patients daughter stated that he only got out of bed two hours in the morning and two hours at night at home and that it hurt him to be out of bed. I stated I would pass on her concerns to the oncoming shift in the morning. I apologized for what happened on dayshift and said we round hourly. Patients daughter was agreeable.
[2019-03-26] VITALS (19 sets, daily range): BP systolic 113–130; BP diastolic 52–80; PULSE 76–103; RESP 15–29; TEMP 36.6–36.7; O2SAT 95–99
--- NOTE | 2019-03-26 00:32 | PC.NURSE ---
Rounded on patient, patient is resting on eyes closed and respirations with eyes closed. Will continue to monitor.
--- NOTE | 2019-03-26 01:59 | PC.NURSE ---
rounded on patient. Patient is resting with eyes closed. HR is 70 and oxygen saturation is 98%. Will continue to monitor.
--- NOTE | 2019-03-26 03:06 | PC.NURSE ---
Rounded on patient and he is resting with eyes closed. Respirations are even and unlabored. Patients Spo2 is 97% and HR is 75 and RR is 17. Will continue to montior.
[2019-03-26 05:12] LABS: Basophils % 0.2 %; Eosinophils % 0.3 %; Hematocrit 30.3 % (42.0-52.0); Hemoglobin 9.2 g/dL (11.7-16.6); Lymphocytes # 0.5 10^3/uL (0.8-4.8); Mean Corpuscular HGB Conc 30.4 g/dL (30.0-36.0); Mean Corpuscular Hemoglobin 26.1 pg (28.0-34.0); Mean Corpuscular Volume 85.8 fL (80-94); Mean Platelet Volume 9.6 fL (7.4-10.4); Monocytes # 1.1 10^3/uL (0.2-0.9); Monocytes % 18.6 %; Neutrophils # 4.5 10^3/uL (1.8-7.7); Neutrophils % 72.7 %; Nucleated Red Blood Cells % 0 %; Platelet Count 207 10^3/cmm (130-400); Red Blood Count 3.53 10^6/uL (4.1-5.3); Red Cell Distribution Width 16.8 % (12.1-15.1); White Blood Count 6.1 10^3/uL (4.0-10.0)
--- NOTE | 2019-03-26 06:32 | PC.NURSE ---
Late entry: Rounded on patient at 0400 and he easily woke up. patient drank for me and stated he felt rested. Patient did not want to turn stated he was comfortable. Call light within reach and will continue to monitor.
[2019-03-26] MEDS: ipratropium-albuterol 3 mL Neb INHALATION ×2 (08:09→11:53)
[2019-03-26] MEDS: budesonide 0.5 mg/2 mL Neb INHALATION (08:09)
--- NOTE | 2019-03-26 08:55 | PC.SOCIAL ---
IMM Update Pg 2 of IMM given and explained to patient who verbalized understanding. Signed, dated, and timed, and placed in chart. Copy provided to patient.
[2019-03-26] MEDS: dilTIAZem 60 mg Tablet PO (08:58)
[2019-03-26] MEDS: docusate sodium 100 mg Capsule PO (08:58)
[2019-03-26] MEDS: apixaban 5 mg Tablet PO (08:58)
[2019-03-26] MEDS: guaiFENesin 600 mg Tablet PO (08:58)
[2019-03-26] MEDS: fluoxetine 20 mg Capsule PO (08:58)
[2019-03-26] MEDS: atorvastatin 40 mg Tablet 80 MG PO (08:58)
[2019-03-26] MEDS: pramipexole 0.25 mg Tablet PO (08:58)
[2019-03-26] MEDS: pantoprazole DR 40 mg Tablet PO (09:20)
--- NOTE | 2019-03-26 11:00 | PM.DCS ---
Discharge Providers Date of Admission: 03/21/19 18:04 Date of Discharge: Date of Discharge: March 26, 2019 Attending Provider at Admission: Kyle Raya MD Attending Provider at Discharge: Chilo Looney MD Primary Care Provider: Ravin Madrigal MD Diagnoses at Discharge Discharge Diagnosis (1) Closed traumatic minimally displaced fracture of neck of right femur: Status: Acute (2) Congestive heart failure: Status: Acute (3) Anemia: Status: Acute (4) Hypertension: Status: Acute (5) Atrial fibrillation: Status: Acute (6) COPD (chronic obstructive pulmonary disease): Status: Acute (7) Pneumonia: Status: Acute (8) Sepsis: Status: Acute (9) Status post open reduction and internal fixation (ORIF) of fracture: Status: Acute (10) UTI (urinary tract infection): Status: Acute Reason for Visit Reason for Visit: Reason For Visit: Right hip fracture Hospital Course Discharge Summary: 78-year-old male with past medical history of CAD, ischemic cardiomyopathy, atrial fibrillation, COPD, CVA, hypertension presented to the ER on March 21, 2019 after sustaining a fall. In the ER he was found to have hip fracture so he was admitted for surgical management. On interviewing the patient it was found out that patient has been borderline hypotensive for last 2 to 3 weeks and have been having wobbly gait because of same. His had his vital charting at home in a diary and on review it was found that patient has been having heart rates more than 100 and blood pressure mostly in 80-90 systolics for last 3 to 4 weeks. Patient underwent open reduction and fixation for hip fracture with Dr. Marquez on March 22. His hospitalization was complicated by hypotension requiring Levophed and atrial fibrillation with rapid ventricular response. He was found to be dehydrated on examination so was started on IV fluid resuscitation as well. His initial chest x-ray was consistent with a possible pneumonia in the right middle and upper lobe which was ruled out on the CT scan but his urine culture is growing Streptococcus species so he was treated with broad-spectrum antibiotics. His home dose of Cardizem was reintroduced once his blood pressures are more stabilized after resuscitation. He continues to work well with physical therapy and potential transfer to SNF was discussed with the family for physical rehabilitation. Due to hypotension prior to the admission his Entresto has been discontinued and as patient was severely dehydrated on admission his diuretics have been adjusted as well. Patient has been discharged to subacute rehab for physical therapy and rehabilitation in hemodynamically stable condition on oral antibiotics to finish a course of 7 days. Treatment plan has been discussed in detail with patient's . He is to follow-up with his primary care physician within next [address] Jones from cardiology within next 2 weeks as well for introduction of either YULIYA inhibitors for ischemic cardiomyopathy. Patient potentially has not been tolerating Entresto well as an outpatient due to recurrent hypotensive spells. Physical Exam Narrative: EXAM NARRATIVE: General: No acute distress, AO x3, mildly dehydrated HEENT: PERRLA, pupils bilaterally equal and reactive Chest: Normal vesicular breath sounds, no added sounds, equal good air entry bilaterally CVS: S1-S2 irregularly irregular,no tachycardia, soft pansystolic murmur at apex, no gallops, no rubs Abdomen: Soft, nontender, no organomegaly, bowel sounds present Neuro: No focal deficits, no facial deformity, AO x3, power 5/5 in all limbs Urinary Catheter Management^: Salas: Cath Placed During This Visit: yes Urethral Indwelling: Yes Reason for Continuing Indwelling Catheter: Acute Urinary Retention or Obstruction Urinary Catheter Date of Insertion: 03/22/19 Urinary Catheter Time of Insertion: 11:10 Discharge Data Data Completed and Pending: Completed Studies During Hospitalization Category Date Time Status CT chest wo con 7 1250 Routine Cat Scan 03/24/19 06:00 Completed XR chest 1V yulissa ble 00672 Urgent Exams 03/21/19 12:28 Completed XR hip RT 2-3V wo /w pel* [id number] Rout ine Exams 03/22/19 Completed XR hip RT 2-3V wo /w pel* [id number] Stat Exams 03/21/19 10:58 Completed XR knee RT 3V* 73 562 Stat Exams 03/21/19 10:56 Completed XR tibia fibula R T 2V [id number] Stat Exams 03/21/19 10:56 Completed Pending at discharge Category Date Time Status Blood Culture Sta t Lab 03/23/19 13:39 Results Sputum Culture an d Gram Stain Grisel ne Lab 03/22/19 03:52 Ordered Urine Culture Rou scott Lab 03/22/19 01:56 Results Labs from last 24 hours 03/26/19 04:43 WBC 6.1 RBC 3.53 L Hgb 9.2 L Hct 30.3 L MCV 85.8 MCH 26.1 L MCHC 30.4 RDW 16.8 H Plt Count 207 MPV 9.6 Neut % (Auto) 72.7 Lymph % (Auto) 8.0 [place] % (Auto) 18.6 Eos % (Auto) 0.3 Baso % (Auto) 0.2 Neut # (Auto) 4.5 Lymph # (Auto) 0.5 L [place] # (Auto) 1.1 H Eos # (Auto) 0.0 Baso # (Auto) 0.0 Nucleated RBC % (a uto) 0 Nucleated RBCs # 0.0 Vitals: Last Vital Signs Temp 98.1 F 03/26/19 04:00 Pulse 101 H 03/26/19 08:24 Resp 18 03/26/19 08:14 BP 118/52 03/26/19 04:00 Pulse Ox 97 03/26/19 08:14 Discharge Plan Discharge Patient Disposition: Xfer SNF Condition: Stable Prescriptions: New Augmentin 875-125 mg tablet 1 tab PO BID 3 Days Qty: 6 RF: 0 Continued Crestor 20 mg Tablet 20 mg PO DAILY RF: 0 albuterol sulfate 2.5 mg /3 mL (0.083 %) Solution For Nebulization 2.5 mg INHALATION Q4H RF: 0 clonazepam 0.5 mg Tablet 0.5 mg PO DAILY PRN (Reason: Anxiety) RF: 0 potassium chloride 10 mEq Tablet Extended Release 10 meq PO BID RF: 0 garlic 1,000 mg Capsule 1,000 mg PO DAILY RF: 0 tamsulosin [Flomax] 0.4 mg Capsule 0.4 mg PO BEDTIME RF: 0 pantoprazole [Protonix] 40 mg Tablet,Delayed Release (Dr/Ec) 40 mg PO DAILY RF: 0 fluoxetine 20 mg Tablet 20 mg PO DAILY RF: 0 docusate sodium 100 mg Capsule 100 mg PO TID RF: 0 pramipexole 0.25 mg Tablet 0.25 mg PO TID RF: 0 budesonide 0.5 mg/2 mL Suspension For Nebulization 0.5 mg INHALATION BID RF: 0 magnesium chloride 64 mg Tablet,Delayed Release (Dr/Ec) 64 mg PO DAILY RF: 0 bee pollen 550 mg Capsule 550 mg PO DAILY RF: 0 PreserVision AREDS 1 tab-cap PO BID RF: 0 guaifenesin [Mucinex] 600 mg Tablet Extended Release 12hr 600 mg PO BID RF: 0 vitamin E 400 unit Capsule 400 unit PO DAILY RF: 0 Eliquis 5 mg Tablet 5 mg PO BID Qty: 60 RF: 0 diltiazem HCl [Cardizem CD] 180 mg capsule,extended release 24hr 180 mg PO DAILY Qty: 30 RF: 0 Changed furosemide 80 mg Tablet 40 mg PO BIDWM Qty: 0 RF: 0 Discontinued Entresto 24-26 mg Tablet 1 tab PO BID RF: 0 furosemide [Lasix] 40 mg tablet 40 mg PO .4pm Qty: 30 RF: 0 Discharge Orders: Discharge Order (Routine); Ordered 03/26/19 Ordered By: Chilo Looney Referrals: [facility] [Outside] Ravin Madrigal MD [Primary Care Provider] - 2 weeks ([facility] will be scheduling a hospital followup with Madrigal to be seen in 2 weeks. [phone]) Karthik Marquez MD [Physician] - 04/20/19 3:30 pm (Please keep your appointment with Dr. Marquez at [facility] on April 19 at 3:30pm. Any questions or appointment changes, please call them at [phone]) Discharge Diet: Cardiac Discharge Activity: Increase activity as tolerated Discharge Date/Time: 03/26/19 13:55 Discharge Attestations Time Spent in Discharge Care*: greater than 30 min Specific Discharge Activities: Specific discharge activities: educating patient, discussing with caser/social workers/dc planners and evaluating patient/reviewing data Status at Discharge: Cognitive status at discharge: cognitively intact, Behavioral status at discharge: cooperative, Functional status at discharge: other assisted ambulation Overall status at discharge: patient is progressing back to baseline Quality Metrics Clinical Quality Measures During this hospital stay, did patient experience: None Coding Level of Care Code Acute 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
[2019-03-26] MEDS: HYDROcodone-acetaminophen 5-325 mg Tablet 1 TAB PO (11:51)
== END 2019-03-26 13:55 | disposition skilled nursing facility (03) | DRG 480 ==
LOC: ER 11:10 → MEDSURG 14:09 → ICU 03-22 18:49 → CSU 03-24 19:55
PROVIDERS: Orthopaedic Surgery; Urology; Admitting Provider Internal Medicine; Emergency Provider Family Medicine; Family Provider Family Medicine; PCP Family Medicine; Visit Provider Student in an Organized Health Care Education/Training Program
PROC: 0QH634Z Insertion of Internal Fixation Device into Right Upper Femur, Percutaneous Approach (ICD-10-PCS; CPT 27236; principal; 2019-03-22 13:50)
PROC: 0T7D3ZZ Dilation of Urethra, Percutaneous Approach (ICD-10-PCS; 2019-03-22 13:50)
DX: S72.001A Fracture of unspecified part of neck of right femur, initial encounter for closed fracture (principal); A40.9 Streptococcal sepsis, unspecified; N39.0 Urinary tract infection, site not specified; I50.40 Unspecified combined systolic (congestive) and diastolic (congestive) heart failure; I48.91 Unspecified atrial fibrillation; Z79.899 Other long term (current) drug therapy; I25.10 Atherosclerotic heart disease of native coronary artery without angina pectoris; K21.9 Gastro-esophageal reflux disease without esophagitis; Z86.73 Personal history of transient ischemic attack (TIA), and cerebral infarction without residual deficits; E78.5 Hyperlipidemia, unspecified; I11.0 Hypertensive heart disease with heart failure; Z96.641 Presence of right artificial hip joint; N35.919 Unspecified urethral stricture, male, unspecified site; J44.9 Chronic obstructive pulmonary disease, unspecified; D50.9 Iron deficiency anemia, unspecified; E86.0 Dehydration; R33.9 Retention of urine, unspecified; I25.5 Ischemic cardiomyopathy; X58.XXXA Exposure to other specified factors, initial encounter
CPT/HCPCS: 12345; 36415; 36416; 36430; 51798; 71045; 71250; 73502; 73562; 73590; 76000; 80053; 80202; 81001; 82962; 83735; 83880; 84145; 85025; 85610; 86850; 86900; 87040; 87086; 87641; 94640; 96375; 97110; 97161; 97167; 97530; 97535; 99281; C1713; G0378; J0282; J0690; J1160; J1756; J1956; J2270; J2405; J2543; J2704; J3010; J3370; J7030; J7040; J7050; J7060; J7611; J7626; P9016

== ENCOUNTER 2019-04-20 11:36 | Inpatient (IN) | payer MEDICARE, SELFPAY ==
[2019-04-20] VITALS (17 sets, daily range): BP systolic 82–115; BP diastolic 47–77; PULSE 76–118; RESP 14–37; TEMP 36.4; O2SAT 84–100; BMI 26.9
--- NOTE | 2019-04-20 12:21 | XR_ITS ---
WS: [id number] XR chest 1V portable 04442 REASON FOR EXAM: afib RVR, CHF FINDINGS: In the right lung base a nodular configuration infiltrate is seen representing a pulmonary nodule versus early pneumonia. There is arteriosclerotic changes in the arch of the aorta. The heart is not enlarged. The peripheral lungs are well aerated no additional infiltrate seen no pulmonary congestion. XR/XR chest 1V portable 04160 IMPRESSION: A round density is seen in the right lung base representing either a pulmonary nodule versus pneumonia follow-up's are recommended after therapy. Arteriosclerotic changes of the arch of the aorta.
--- NOTE | 2019-04-20 12:31 | P.HP_ITS ---
Providers/Chief Complaint Admitting Physician: Annabelle Alva DO Primary Care Provider: Ravin Madrigal MD Chief Complaint: AFIB w RVR History of Present Illness Allan Prado is a 78 year old male with a past medical history of congestive heart failure, coronary artery disease, atrial fibrillation and BPH that presented to the hospital today via direct admission from his primary care provider's office. Patient was seen today by Dr. Madrigal and noted to have atrial fibrillation with RVR, hypotension and shortness of breath due to concern for CHF exacerbation. Patient was recently admitted to the hospital from 03/21/2019 and discharged on 03/26/2019. He was discharged to shelter facility at that time. Dr. Madrigal reported that he had been doing well at the [facility] facility and was then ultimately discharged home. He stated that he has had 4 pound weight gain over the past few days and increasing shortness of breath. He has been on Eliquis due to concern for atrial fibrillation and history of pulmonary embolism, on Cardizem 120 mg and also on Entresto. He follows closely with Dr. Jones. Patient had blood pressure of 90/60, reported to be chronically hypotensive at baseline. Heart rate reported in the 120s to 130s in the primary care provider's office. Review of Systems Const: Denies: fever or chills Eyes: Denies: change in vision ENMT: Denies: nasal congestion Card: Reports: edema (Swelling in the legs bilaterally); Denies: chest pain or palpitations Resp: Reports: other (Chronic cough, unchanged); Denies: shortness of breath, productive cough or coughing up blood GI: Denies: abdominal pain, nausea, vomiting, diarrhea, constipation, blood in stool or black tarry stool : Denies: painful urination or blood in urine Musc: Denies: extremity pain or muscle cramps Skin/Breast: Denies: rash or new lesion Neuro: Denies: headache or dizziness Psych: Denies: anxiety or depression Endo: Denies: excessive urination or hot flashes Yang/Lymph: Denies: easy bruising or easy bleeding Medications/Allergies Home Medications Medication Instructions Recorded Confirmed Last Taken Type furosemide 80 mg PO DAILY 04/20/19 04/20/19 04/20/19 History Allergies Allergy/AdvReac Type Severity Reaction Status Date / Time No Known Allergies Allergy Verified 03/06/19 21:58 PFSH Acute PFSH: Medical History Atrial fibrillation BPH (benign prostatic hyperplasia) CAD (coronary artery disease) Cardiac arrest COPD (chronic obstructive pulmonary disease) CVA (cerebral vascular accident) GERD (gastroesophageal reflux disease) Hyperkalemia Hyperlipidemia Hypertension Ischemic cardiomyopathy Peripheral neuropathy Pneumothorax Pulmonary embolism Restless leg syndrome Rib fractures Surgical History History of appendectomy History of coronary artery stent placement Hx of cataract surgery Hx of tonsillectomy Family History Other CAD (coronary artery disease) Social History Smoking and tobacco status: former smoker Second hand smoke exposure: No Alcohol intake: never Lives independently: No Household members: spouse Marital status: Physical Exam Const: COMMON NORMALS: oriented x3 and alert GENERAL APPEARANCE: cooperative ORIENTATION/CONSCIOUSNESS: Yes awake, Yes oriented to person, Yes oriented to place and Yes oriented to time HENMT: COMMON NORMALS: normocephalic and head/scalp atraumatic HEAD & SCALP: normocephalic and atraumatic Eye: COMMON NORMALS: PERRL PUPIL: Yes PERRL Neck/C-Spine: COMMON NORMALS: supple GENERAL: Yes normal visual inspection Resp: OTHER: Oxygen by nasal cannula in place, diminished breath sounds bilaterally with prolonged expiratory phase Cardio: OTHER: Irregularly irregular, tachycardic GI: COMMON NORMALS: soft to palpation and non-tender INSPECTION: No abdominal distension AUSCULTATION: Yes normoactive bowel sounds PALPATION: Yes soft Extremity: NARRATIVE EXTREMITY EXAM: 3+ pitting edema in the lower extremities bilaterally Neuro: COMMON NORMALS: oriented x3, CN's II-XII intact bilaterally, moves all extremities and no focal motor deficits SENSORIUM/ORIENTATION: Yes alert, Yes oriented to person, Yes oriented to place and Yes oriented to time SPEECH: speech normal Psych: COMMON NORMALS: mental status grossly normal and cooperative Data : 04/20/19 12:54 04/20/19 12:54 A&P Assessment and plan (1) Atrial fibrillation: Atrial fibrillation with RVR Previously on Cardizem 120 mg daily, also on Eliquis Admit to cardiac stepdown unit, ICU is overflow CBC, CMP, EKG and troponin Given IV metoprolol x1 and start metoprolol, consider titrating off cardizem due to systolic CHF, however will leave this to primary roof assembler Status: Acute Code(s): I48.91 - Unspecified atrial fibrillation (2) Congestive heart failure: Systolic CHF exacerbation Last LVEF of 35% on last echocardiogram from 05/12/2018, diffuse hypokinesis Continue with IV diuresis Fluid restriction and sodium restriction Status: Acute Code(s): I50.9 - Heart failure, unspecified (3) COPD (chronic obstructive pulmonary disease): Without acute exacerbation On 2 L of oxygen by nasal cannula at baseline Respiratory therapy to assess and treat, oxygen per protocol Status: Acute Code(s): J44.9 - Chronic obstructive pulmonary disease, unspecified (4) Hypertension: Previously diagnosed with hypertension, reported that blood pressures have been soft since discharge from the longterm, continuing to diurese due to concern for CHF, however will monitor closely Status: Acute Code(s): I10 - Essential (primary) hypertension Additional A&P Information History of DVT and pulmonary embolism: On Eliquis at home, started on treatment dose Lovenox while hospitalized Chronic hypoxic respiratory failure: No acute change Chronic anticoagulation on Eliquis Hyperlipidemia: Continue home statin Peripheral neuropathy BPH GERD Coronary artery disease with a history of stenting DVT prophylaxis: Continue on treatment dose Lovenox as above Diet: Cardiac diet, sodium restriction CODE STATUS: Allow natural Attestations Medical Necessity Statement*: Patient requires hospitalization due to concern for CHF exacerbation as well as atrial fibrillation with RVR. Expected stay greater than 2 midnights Coding Level of Care Code Acute Night Worker for [facility] Fwd Exam Detailed Diagnoses Atrial fibrillation I48.91 Congestive heart failure I50.9 COPD (chronic obstructive pulmonary disease) J44.9 Hypertension I10
[2019-04-20 13:23] LABS: Basophils % 0.3 %; Eosinophils % 0.1 %; Hematocrit 29.6 % (42.0-52.0); Hemoglobin 9.1 g/dL (11.7-16.6); Lymphocytes # 0.6 10^3/uL (0.8-4.8); Lymphocytes % 8.9 %; Mean Corpuscular HGB Conc 30.7 g/dL (30.0-36.0); Mean Corpuscular Hemoglobin 27.1 pg (28.0-34.0); Mean Corpuscular Volume 88.1 fL (80-94); Mean Platelet Volume 9.2 fL (7.4-10.4); Monocytes # 0.9 10^3/uL (0.2-0.9); Neutrophils # 5.2 10^3/uL (1.8-7.7); Neutrophils % 77.6 %; Nucleated Red Blood Cells % 0 %; Platelet Count 202 10^3/cmm (130-400); Red Blood Count 3.36 10^6/uL (4.1-5.3); Red Cell Distribution Width 20.8 % (12.1-15.1); White Blood Count 6.8 10^3/uL (4.0-10.0)
[2019-04-20] MEDS: enoxaparin 80 mg/0.8 mL Syringe SUBCUT (13:32)
[2019-04-20] MEDS: metoprolol tartrate 1 mg/1 mL SDV 5 mL 5 MG IV (13:33)
[2019-04-20 13:40] LABS: Alanine Aminotransferase 12 U/L (0-41); Albumin Level 3.5 g/dL (3.5-5.2); Alkaline Phosphatase 136 IU/L (40-130); Anion Gap 14.9 (5-19); Aspartate Amino Transferase 18 U/L (0-40); Blood Urea Nitrogen 23 mg/dL (8-23); Calcium 9.2 mg/dL (8.5-10.5); Carbon Dioxide 27 mmol/L (22-29); Chloride 94 mmol/L (98-107); Globulin 4.1 g/dL (1.3-4.6); Glucose 105 mg/dL (65-115); NT Pro B Type Natriuretic Pept 3181 pg/mL (0-450); Potassium 4.9 mmol/L (3.5-5.1); Sodium 131 mmol/L (136-145); Thyroid Stimulating Hormone 1.87 uIU/mL (0.27-4.20); Total Bilirubin 0.5 mg/dL (0.15-1.2); Total Protein 7.6 g/dL (6.6-8.7)
[2019-04-20 14:04] LABS: Troponin(5th) Baseline 59 ng/mL (0-15)
--- NOTE | 2019-04-20 14:26 | ECG_ITS ---
Measurements Intervals [place] Rate: 91 P: [place]: 0 QRS: 38 QRSD: 78 T: 66 QT: 366 QTc: 452 ATRIAL FIBRILLATION ABNORMAL RHYTHM ECG Compared to ECG 04/20/2019 13:45:14 No significant changes Electronically Signed On 04-21-2019 15:52:[address] by Maria Dolores Wilson M.D. [email or web address]
[2019-04-20] MEDS: acetaminophen 325 mg Tablet 650 MG PO (15:40)
[2019-04-20 16:04] LABS: Troponin 5 2HR 61.57 ng/mL (0-15); Troponin 5 2HR Delta 2.57 ABS# (0-10)
[2019-04-20] MEDS: FUROsemide 10 mg/mL SDV 10mL 60 MG IVP (17:56)
[2019-04-20] MEDS: metoprolol tartrate 25 mg Tablet 12.5 MG PO (17:56)
[2019-04-20] MEDS: guaiFENesin 600 mg Tablet PO (17:57)
--- NOTE | 2019-04-20 18:26 | ECG_ITS ---
Measurements Intervals [place] Rate: 100 P: [place]: 0 QRS: 25 QRSD: 85 T: 51 QT: 357 QTc: 462 ATRIAL FIBRILLATION WITH RAPID VENTRICULAR RESPONSE LOW QRS VOLTAGE IN PRECORDIAL LEADS [QRS DEFLECTION < 1.0 mV IN CHEST LEADS] ABNORMAL RHYTHM ECG Compared to ECG 03/07/2019 00:56:18 Low QRS voltage now present T-wave abnormality no longer present Electronically Signed On 04-20-2019 17:04:31 PACKAGING MATERIALS INSPECTOR by Abilio Reynolds M.D. [email or web address]
[2019-04-20 19:22] LABS: Troponin 5 6HR 63.93 ng/mL (0-15); Troponin 5 6HR Delta 4.93 ng/L (0-12)
[2019-04-20] MEDS: budesonide 0.5 mg/2 mL Neb INHALATION (19:47)
[2019-04-20] MEDS: tamsulosin 0.4 mg Capsule PO (20:54)
[2019-04-20] MEDS: docusate sodium 100 mg Capsule PO (20:54)
[2019-04-20] MEDS: atorvastatin 40 mg Tablet 80 MG PO (20:54)
[2019-04-20] MEDS: pramipexole 0.25 mg Tablet PO (20:55)
[2019-04-21] VITALS (12 sets, daily range): BP systolic 84–116; BP diastolic 47–85; PULSE 81–99; RESP 16–33; TEMP 36.6–36.8; O2SAT 93–100
[2019-04-21] MEDS: enoxaparin 80 mg/0.8 mL Syringe SUBCUT ×2 (01:36→12:32)
[2019-04-21] MEDS: FUROsemide 10 mg/mL SDV 10mL 60 MG IVP (04:29)
--- NOTE | 2019-04-21 04:53 | PC.NURSE ---
SCDs taken off to assess legs. blister found on left lateral leg. SCDs left off of patient.
[2019-04-21 05:28] LABS: Anion Gap 13.8 (5-19); Blood Urea Nitrogen 24 mg/dL (8-23); Carbon Dioxide 27 mmol/L (22-29); Chloride 95 mmol/L (98-107); Glucose 95 mg/dL (65-115); Osmolality Calculated 269 mOsm/kg (285-295); Potassium 4.8 mmol/L (3.5-5.1); Sodium 131 mmol/L (136-145)
[2019-04-21] MEDS: budesonide 0.5 mg/2 mL Neb INHALATION (08:03)
[2019-04-21] MEDS: docusate sodium 100 mg Capsule PO ×2 (08:37→14:54)
[2019-04-21] MEDS: dilTIAZem ER (24HR) 180 mg Capsule PO (08:37)
[2019-04-21] MEDS: guaiFENesin 600 mg Tablet PO (08:37)
[2019-04-21] MEDS: metoprolol tartrate 25 mg Tablet 12.5 MG PO (08:37)
[2019-04-21] MEDS: pantoprazole DR 40 mg Tablet PO (08:37)
[2019-04-21] MEDS: fluoxetine 20 mg Capsule PO (08:38)
[2019-04-21] MEDS: pramipexole 0.25 mg Tablet PO ×2 (08:38→14:54)
[2019-04-21] MEDS: acetaminophen 325 mg Tablet 650 MG PO ×2 (10:07→14:57)
--- NOTE | 2019-04-21 12:55 | PC.RESP ---
Patient given information on Pulmonary Rehab.
--- NOTE | 2019-04-21 13:17 | PM.DCS ---
Discharge Providers Date of Admission: 04/20/19 11:37 Date of Discharge: April 21, 2019 Attending Provider at Admission: Annabelle Alva DO Attending Provider at Discharge: Annabelle Alva DO Primary Care Provider: Ravin Madrigal MD Diagnoses at Discharge Discharge Diagnosis (1) Atrial fibrillation: Status: Acute (2) Congestive heart failure: Status: Acute (3) COPD (chronic obstructive pulmonary disease): Status: Acute (4) Hypertension: Status: Acute Reason for Visit Reason for Visit: Reason For Visit: AFIB w RVR Hospital Course Hospital Course: Patient was directly admitted from primary care provider's office due to concern for fluid overload and atrial fibrillation with RVR. Patient was admitted to the hospital and monitored closely on telemetry. Had serial EKG performed, laboratory studies and chest x-ray. Patient was continued on his home medications and also started on metoprolol 12.5 mg twice daily. His heart rate continued to improve and his blood pressures remained stable. He continued to diurese well with IV Lasix. On date of discharge she was sitting up in the chair and on his home oxygen requirement of 2 L satting 96 to 97%. His heart rate remained less than 100 and atrial fibrillation and his blood pressure also remained stable. He reported that he was feeling well with no lightheadedness or dizziness, no chest pain or shortness of breath discussed with him plan for discharge to home with home health and he verbalized understanding and agreed with plan. Physical Exam Const: COMMON NORMALS: oriented x3 and alert GENERAL APPEARANCE: cooperative ORIENTATION/CONSCIOUSNESS: Yes awake, Yes oriented to person, Yes oriented to place and Yes oriented to time HENMT: COMMON NORMALS: normocephalic and head/scalp atraumatic HEAD & SCALP: normocephalic and atraumatic Eye: COMMON NORMALS: PERRL PUPIL: Yes PERRL Neck/C-Spine: COMMON NORMALS: supple GENERAL: Yes normal visual inspection Resp: COMMON NORMALS: normal respiratory effort and clear to auscultation bilaterally EFFORT & INSPECTION: Yes able to speak in complete sentences AUSCULTATION: clear to auscultation bilaterally, no rhonchi and no wheezes OTHER: Oxygen by nasal cannula in place, diminished breath sounds bilaterally with prolonged expiratory phase Cardio: COMMON NORMALS: regular rate, regular rhythm and no murmurs RATE: regular rate RHYTHM: regular rhythm OTHER: Irregularly irregular GI: COMMON NORMALS: soft to palpation and non-tender INSPECTION: No abdominal distension AUSCULTATION: Yes normoactive bowel sounds PALPATION: Yes soft : COMMON NORMALS: Yes no CVA tenderness BLADDER/KIDNEY EXAM: Yes no CVA tenderness Back/Pelvis: COMMON NORMALS: no CVA tenderness Extremity: COMMON NORMALS: no clubbing, cyanosis or edema and no calf tenderness NARRATIVE EXTREMITY EXAM: 2+ pitting edema in the lower extremities bilaterally Neuro: COMMON NORMALS: oriented x3, CN's II-XII intact bilaterally, moves all extremities and no focal motor deficits SENSORIUM/ORIENTATION: Yes alert, Yes oriented to person, Yes oriented to place and Yes oriented to time SPEECH: speech normal Psych: COMMON NORMALS: mental status grossly normal and cooperative Skin: COMMON NORMALS: no rashes or lesions noted GENERAL SKIN EXAM: no rashes or lesions noted Discharge Data Data Completed and Pending: Completed Studies During Hospitalization Category Date Time Status XR chest 1V yulissa ble [id number] Urgent Exams 04/20/19 12:21 Completed Labs from last 24 hours 04/21/19 04/20/19 04/20/19 04:45 19:00 15:06 WBC RBC Hgb Hct MCV MCH MCHC RDW Plt Count MPV Neut % (Auto) Lymph % (Auto) [place] % (Auto) Eos % (Auto) Baso % (Auto) Neut # (Auto) Lymph # (Auto) [place] # (Auto) Eos # (Auto) Baso # (Auto) Nucleated RBC % (a uto) Nucleated RBCs # Sodium 131 L Potassium 4.8 Chloride 95 L Carbon Dioxide 27 Anion Gap 13.8 BUN 24 H Creatinine 1.0 Glucose 95 Calculated Osmolal ity 269 L Calcium 9.0 Total Bilirubin AST ALT Alkaline Phosphata se Troponin I 6 Hour 63.93 H Troponin I Hi Sens Del 4.93 Troponin T Baselin e Troponin T 120 Min [place] 61.57 H Delta Troponin T 2.57 NT-Pro-B Natriuret Pep Total Protein Albumin Globulin TSH 04/20/19 04/20/19 04/20/19 12:54 12:54 12:54 WBC 6.8 RBC 3.36 L Hgb 9.1 L Hct 29.6 L MCV 88.1 MCH 27.1 L MCHC 30.7 RDW 20.8 H Plt Count 202 MPV 9.2 Neut % (Auto) 77.6 Lymph % (Auto) 8.9 [place] % (Auto) 13.0 Eos % (Auto) 0.1 Baso % (Auto) 0.3 Neut # (Auto) 5.2 Lymph # (Auto) 0.6 L [place] # (Auto) 0.9 Eos # (Auto) 0.0 Baso # (Auto) 0.0 Nucleated RBC % (a uto) 0 Nucleated RBCs # 0.0 Sodium 131 L Potassium 4.9 Chloride 94 L Carbon Dioxide 27 Anion Gap 14.9 BUN 23 Creatinine 1.0 Glucose 105 Calculated Osmolal ity Calcium 9.2 Total Bilirubin 0.5 AST 18 ALT 12 Alkaline Phosphata se 136 H Troponin I 6 Hour Troponin I Hi Sens Del Troponin T Baselin e 59 H Troponin T 120 Min [place] Delta Troponin T NT-Pro-B Natriuret Pep 3181 H Total Protein 7.6 Albumin 3.5 Globulin 4.1 TSH 1.87 Vitals: Last Vital Signs Temp 97.8 F 04/21/19 12:00 Pulse 85 04/21/19 12:00 Resp 17 04/21/19 12:00 BP 91/66 04/21/19 12:00 Pulse Ox 96 04/21/19 12:00 Discharge Plan Discharge Patient Disposition: Home Health Service Condition: Stable Prescriptions: New metoprolol tartrate 25 mg Tablet 12.5 mg PO BID 30 Days Qty: 30 RF: 0 Continued rosuvastatin [Crestor] 20 mg Tablet 20 mg PO DAILY RF: 0 furosemide 80 mg tablet 80 mg PO DAILY RF: 0 albuterol sulfate 2.5 mg /3 mL (0.083 %) Solution For Nebulization 2.5 mg INHALATION Q4H RF: 0 clonazepam 0.5 mg Tablet 0.5 mg PO DAILY PRN (Reason: Anxiety) RF: 0 potassium chloride 10 mEq Tablet Extended Release 10 meq PO BID RF: 0 garlic 1,000 mg Capsule 1,000 mg PO DAILY RF: 0 tamsulosin [Flomax] 0.4 mg Capsule 0.4 mg PO BEDTIME RF: 0 pantoprazole [Protonix] 40 mg Tablet,Delayed Release (Dr/Ec) 40 mg PO DAILY RF: 0 fluoxetine 20 mg Tablet 20 mg PO DAILY RF: 0 docusate sodium 100 mg Capsule 100 mg PO TID RF: 0 pramipexole 0.25 mg Tablet 0.25 mg PO TID RF: 0 budesonide 0.5 mg/2 mL Suspension For Nebulization 0.5 mg INHALATION BID RF: 0 magnesium chloride 64 mg Tablet,Delayed Release (Dr/Ec) 64 mg PO DAILY RF: 0 bee pollen 550 mg Capsule 550 mg PO DAILY RF: 0 PreserVision AREDS 1 tab-cap PO BID RF: 0 guaifenesin [Mucinex] 600 mg Tablet Extended Release 12hr 600 mg PO BID RF: 0 vitamin E 400 unit Capsule 400 unit PO DAILY RF: 0 Eliquis 5 mg Tablet 5 mg PO BID Qty: 60 RF: 0 diltiazem HCl [Cardizem CD] 180 mg capsule,extended release 24hr 180 mg PO DAILY Qty: 30 RF: 0 Discharge Orders: Discharge Order (Routine); Ordered 04/21/19 Ordered By: Annabelle Alva Referrals: Rebel Jones MD [Physician] - 2 weeks (WILL NEED TO CALL FOR THIS APPOINMENT AT [facility] [phone] ,) Ravin Madrigal MD [Primary Care Provider] - 4-7 days (THIS FOLLOW UP APPOINTMENT HAS BEEN SCHEDULED FOR THE FOLLOWING DATE OF , APRIL 26, 2019 AT 10:45 AM ) Discharge Diet: Advance as tolerated, Cardiac and Low Salt Discharge Activity: Increase activity as tolerated Patient Instructions: COPD, Low Sodium Diet, Heart Failure (DC), Atrial Fibrillation (DC), CHF Stoplight Activity Restrictions/Additional Instructions: 1500mL fluid restriction 2g sodium restriction Follow up with Dr. Madrigal in 2-4 days Follow up with Dr. Jones in 2-4 weeks Started on metoprolol 12.5mg BID Continue with oxygen by [place] Call your physician or present to the ED for any acute illness or concerns. Discharge Attestations Time Spent in Discharge Care*: greater than 30 min Status at Discharge: Cognitive status at discharge: cognitively intact, Behavioral status at discharge: cooperative, Quality Metrics Clinical Quality Measures During this hospital stay, did patient experience: None Coding Level of Care Code Acute Methods Examiner for Chg Fwd Exam Comprehensive Diagnoses Atrial fibrillation I48.91 Congestive heart failure I50.9 COPD (chronic obstructive pulmonary disease) J44.9 Hypertension I10
== END 2019-04-21 15:19 | disposition home health service (06) | DRG 291 ==
PROVIDERS: Admitting Provider Family Medicine; Family Provider Family Medicine; PCP Family Medicine; Visit Provider Family Medicine
DX: I11.0 Hypertensive heart disease with heart failure (principal); I50.21 Acute systolic (congestive) heart failure; J96.11 Chronic respiratory failure with hypoxia; I48.91 Unspecified atrial fibrillation; J44.9 Chronic obstructive pulmonary disease, unspecified; Z79.01 Long term (current) use of anticoagulants; I25.10 Atherosclerotic heart disease of native coronary artery without angina pectoris; N40.0 Benign prostatic hyperplasia without lower urinary tract symptoms; Z86.73 Personal history of transient ischemic attack (TIA), and cerebral infarction without residual deficits; K21.9 Gastro-esophageal reflux disease without esophagitis; E78.5 Hyperlipidemia, unspecified; I25.5 Ischemic cardiomyopathy; G25.81 Restless legs syndrome; Z86.74 Personal history of sudden cardiac arrest; Z87.891 Personal history of nicotine dependence; Z86.718 Personal history of other venous thrombosis and embolism; Z86.711 Personal history of pulmonary embolism; G62.9 Polyneuropathy, unspecified; Z95.5 Presence of coronary angioplasty implant and graft; Z66 Do not resuscitate
CPT/HCPCS: 12345; 36415; 71045; 80048; 80053; 83880; 84443; 84484; 85025; 93005; 94640; 96372; 96375; 97161; G0378; G0379; J1650; J1940; J3490; J7611; J7626

== ENCOUNTER 2019-07-18 13:09 | Inpatient (IN) | payer MEDICARE, SELFPAY ==
[2019-07-18] VITALS (7 sets, daily range): BP systolic 111–126; BP diastolic 68–70; PULSE 59–89; RESP 14–20; TEMP 36.6–37.1; O2SAT 97–100; BMI 32.4
--- NOTE | 2019-07-18 | XR_ITS ---
NOTE: Report was unsigned for reason: Order was edited. Original Signature date and time was: 07/18/196 WS: [id number] XR chest 1V portable [id number] REASON FOR EXAM: syncope FINDINGS: Arteriosclerotic changes in the arch of the aorta are noted. Scattered interstitial changes both lung smith with mild chronic obstructive pulmonary disease. The heart is not enlarged. The hilum is and apices are normal. Dictated By: Bib Steve DO Signed By: Signed Date/Time: DD/ 1446 MTDD
--- NOTE | 2019-07-18 14:56 | ECG_ITS ---
Measurements Intervals [place] Rate: 94 P: [place]: 0 QRS: 48 QRSD: 73 T: 142 QT: 329 QTc: 413 ATRIAL FIBRILLATION LOW QRS VOLTAGE IN PRECORDIAL LEADS [QRS DEFLECTION < 1.0 mV IN CHEST LEADS] NONSPECIFIC ST & T-WAVE ABNORMALITY No previous ECG available for comparison Electronically Signed On 07-18-2019 19:38:15 CDT by Parul Sosa M.D. [id number]
--- NOTE | 2019-07-18 14:58 | W.ED.GENADLT ---
HPI - General Adult General: Chief complaint: General Medical Stated complaint: poss dehydration Time Seen by Provider: 07/18/19 14:31 History of Present Illness: HPI narrative: Severe peripheral edema and symptoms of congestive heart failure increasing in severity. Onset (ago): week(s) Location: abdomen and lower extremity Severity: severe Review of Systems General: Reports: 10 or more systems reviewed and unremarkable except in HPI and below PFSH ED PFSH: Social History Smoking and tobacco status: never smoked Physical Exam Const: COMMON NORMALS: no acute distress, patient oriented x3, alert and well nourished Neck/C-Spine: COMMON NORMALS: no JVD Resp: EFFORT & INSPECTION: Yes able to speak in complete sentences and Yes uses accessory muscles AUSCULTATION: rales and rhonchi Cardio: COMMON NORMALS: no JVD, regular rate and regular rhythm RATE: regular rate RHYTHM: regular rhythm GI: COMMON NORMALS: Normal to inspection, nondistended, normoactive bowel sounds present and Soft to palpation PALPATION: Yes Soft to palpation Extremity: GENERAL: Yes edema Neuro: COMMON NORMALS: patient oriented x3 SENSORIUM/ORIENTATION: Yes alert Skin: COMMON NORMALS: no rashes or lesions noted, turgor normal, no jaundice and no mottling GENERAL SKIN EXAM: no rashes or lesions noted and turgor normal Course Vital Signs: Vital signs: Vital Signs Temperature 98.8 F 07/18/19 13:30 Pulse Rate 89 07/18/19 13:30 Respiratory Rate 18 07/18/19 16:33 Blood Pressure 111/70 07/18/19 13:30 Pulse Oximetry 97 07/18/19 13:30 [facility] - General Adult Lab Data: Labs: Lab Results 07/18/19 07/18/19 07/18/19 Range/Units 15:15 15:15 15:15 WBC 8.5 (4.0-10.0) 10^3/ uL RBC 3.77 L (4.1-5.3) 10^6/u L Hgb 10.3 L (11.7-16.6) g/dL Hct 34.7 L (42.0-52.0) % MCV 92.0 (80-94) fL MCH 27.3 L (28.0-34.0) pg MCHC 29.7 L (30.0-36.0) g/dL RDW 18.1 H (12.1-15.1) % Plt Count 225 (130-400) 10^3/c mm MPV 9.0 (7.4-10.4) fL Neut % (Auto) 73.5 % Lymph % (Auto) 10.2 % [place] % (Auto) 15.5 % Eos % (Auto) 0.1 % Baso % (Auto) 0.5 % Neut # (Auto) 6.3 (1.8-7.7) 10^3/u L Lymph # (Auto) 0.9 (0.8-4.8) 10^3/u L [place] # (Auto) 1.3 H (0.2-0.9) 10^3/u L Eos # (Auto) 0.0 (0.0-0.8) 10^3/u L Baso # (Auto) 0.0 (0.0-0.1) 10^3/u L Nucleated RBC % (a uto) 0 % Nucleated RBCs # 0.0 /100WBC Sodium 137 (136-145) mmol/L Potassium 4.8 (3.5-5.1) mmol/L Chloride 100 (98-107) mmol/L Carbon Dioxide 28 (22-29) mmol/L Anion Gap 13.8 (5-19) BUN 12 (8-23) mg/dL Creatinine 0.9 (0.7-1.2) mg/dL Glucose 96 (65-115) mg/dL Calculated Osmolal ity 280 L (285-295) mOsm/k g Lactate 1.0 (0.5-2.2) mmol/L Calcium 8.6 (8.5-10.5) mg/dL Phosphorus 2.5 (2.5-4.5) mg/dL Magnesium 2.5 H (1.7-2.3) mg/dL Total Bilirubin 0.6 (0.15-1.2) mg/dL AST 13 (0-40) U/L ALT 9 (0-41) U/L Alkaline Phosphata se 109 (40-130) IU/L Troponin T Baselin e (0-15) ng/mL NT-Pro-B Natriuret Pep 4407 H (0-450) pg/mL Total Protein 6.3 L (6.6-8.7) g/dL Albumin 3.2 L (3.5-5.2) g/dL Globulin 3.1 (1.3-4.6) g/dL 07/18/19 Range/Units 15:15 WBC (4.0-10.0) 10^3/ uL RBC (4.1-5.3) 10^6/u L Hgb (11.7-16.6) g/dL Hct (42.0-52.0) % MCV (80-94) fL MCH (28.0-34.0) pg MCHC (30.0-36.0) g/dL RDW (12.1-15.1) % Plt Count (130-400) 10^3/c mm MPV (7.4-10.4) fL Neut % (Auto) % Lymph % (Auto) % [place] % (Auto) % Eos % (Auto) % Baso % (Auto) % Neut # (Auto) (1.8-7.7) 10^3/u L Lymph # (Auto) (0.8-4.8) 10^3/u L [place] # (Auto) (0.2-0.9) 10^3/u L Eos # (Auto) (0.0-0.8) 10^3/u L Baso # (Auto) (0.0-0.1) 10^3/u L Nucleated RBC % (a uto) % Nucleated RBCs # /100WBC Sodium (136-145) mmol/L Potassium (3.5-5.1) mmol/L Chloride (98-107) mmol/L Carbon Dioxide (22-29) mmol/L Anion Gap (5-19) BUN (8-23) mg/dL Creatinine (0.7-1.2) mg/dL Glucose (65-115) mg/dL Calculated Osmolal ity (285-295) mOsm/k g Lactate (0.5-2.2) mmol/L Calcium (8.5-10.5) mg/dL Phosphorus (2.5-4.5) mg/dL Magnesium (1.7-2.3) mg/dL Total Bilirubin (0.15-1.2) mg/dL AST (0-40) U/L ALT (0-41) U/L Alkaline Phosphata se (40-130) IU/L Troponin T Baselin e 59 H (0-15) ng/mL NT-Pro-B Natriuret Pep (0-450) pg/mL Total Protein (6.6-8.7) g/dL Albumin (3.5-5.2) g/dL Globulin (1.3-4.6) g/dL Discharge Plan Discharge Patient Disposition: Admitted As Inpatient Clinical Impression: Dyspnea on exertion CHF (congestive heart failure) Qualifiers: Heart failure type: unspecified Heart failure chronicity: unspecified Qualified Code(s): I50.9 - Heart failure, unspecified Condition: Fair Referrals: Ravin Madrigal MD [Primary Care Provider] - Coding Level of Care Code ED Data Storage Specialist for [facility] Fwd Exam Detailed
[2019-07-18 15:24] LABS: Basophils % 0.5 %; Eosinophils % 0.1 %; Hematocrit 34.7 % (42.0-52.0); Hemoglobin 10.3 g/dL (11.7-16.6); Lymphocytes # 0.9 10^3/uL (0.8-4.8); Lymphocytes % 10.2 %; Mean Corpuscular HGB Conc 29.7 g/dL (30.0-36.0); Mean Corpuscular Hemoglobin 27.3 pg (28.0-34.0); Monocytes # 1.3 10^3/uL (0.2-0.9); Monocytes % 15.5 %; Neutrophils # 6.3 10^3/uL (1.8-7.7); Neutrophils % 73.5 %; Nucleated Red Blood Cells % 0 %; Platelet Count 225 10^3/cmm (130-400); Red Blood Count 3.77 10^6/uL (4.1-5.3); Red Cell Distribution Width 18.1 % (12.1-15.1); White Blood Count 8.5 10^3/uL (4.0-10.0)
[2019-07-18 15:41] LABS: Troponin(5th) Baseline 59 ng/mL (0-15)
[2019-07-18 15:49] LABS: Alanine Aminotransferase 9 U/L (0-41); Albumin Level 3.2 g/dL (3.5-5.2); Alkaline Phosphatase 109 IU/L (40-130); Anion Gap 13.8 (5-19); Aspartate Amino Transferase 13 U/L (0-40); Blood Urea Nitrogen 12 mg/dL (8-23); Calcium 8.6 mg/dL (8.5-10.5); Carbon Dioxide 28 mmol/L (22-29); Chloride 100 mmol/L (98-107); Globulin 3.1 g/dL (1.3-4.6); Glucose 96 mg/dL (65-115); Magnesium 2.5 mg/dL (1.7-2.3); NT Pro B Type Natriuretic Pept 4407 pg/mL (0-450); Osmolality Calculated 280 mOsm/kg (285-295); Phosphorus 2.5 mg/dL (2.5-4.5); Potassium 4.8 mmol/L (3.5-5.1); Sodium 137 mmol/L (136-145); Total Bilirubin 0.6 mg/dL (0.15-1.2); Total Protein 6.3 g/dL (6.6-8.7)
[2019-07-18] MEDS: morphine 4 mg/mL SDV 1 mL 2 MG IVP (16:33)
--- NOTE | 2019-07-18 16:56 | ECG_ITS ---
Measurements Intervals [place] Rate: 91 P: [place]: 0 QRS: 43 QRSD: 77 T: 162 QT: 361 QTc: [address] & T-WAVE ABNORMALITY No previous ECG available for comparison Electronically Signed On 07-18-2019 19:42:04 CDT by Parul Sosa M.D. [id number]
[2019-07-18 17:37] LABS: Troponin 5 2HR 66.32 ng/mL (0-15); Troponin 5 2HR Delta 7.32 ABS# (0-10)
[2019-07-18] MEDS: FUROsemide 10 mg/mL SDV 4mL 40 MG IVP (18:23)
--- NOTE | 2019-07-18 18:39 | P.HP_ITS ---
Providers/Chief Complaint Admitting Physician: Samir Herrera Primary Care Provider: Ravin Madrigal MD Chief Complaint: poss dehydration History of Present Illness Allan Prado is a 78 year old pleasant gentleman with history of CHF, CAD s/p stenting, AFib, PE and cardiac arrest on chronic anticoagulation, chronic pain R hip after fracture limiting his ambulation, fall risk, history of falls, recently with PT recommendation that he use a wheelchair, has been taken off baby ASA, continues on Eliquis, dementia, former smoker. Since Wednesday he has gained quite a bit of weight, 194 lbs on Sat to 203lbs today and noticed he had swelled up quite significantly. He thinks swelling overall has been going on about a month. He and his both deny that he has had any chest pain. He does say that he likes to drink coolaid at home, although per discussion with his , he apparently has some recurrent episodes of ballooning when he swells up similar to current, and overall she does notice that during those times he does not eat well, and at the same time does drink some Ronak-Aid, but no more than 6-8 ounces or perhaps slightly more than that per day. She monitors very closely his fluid intake, and salt intake. He takes 80 mg of Lasix in the morning, 40 in the evening. He does say he has not been having trouble peeing, however, still seems having difficult time catching up with the edema. noticed yesterday's edema was up to his thighs and lower belly. He does report having some mild intermittent cough, productive of whitish sputum, no color enzo nge. Has had no fever, headache, significant cough, worsening hypoxia than usual. Has not had any travel, and says for the past 3 months has mostly stayed at home, and this is pretty much his first outing other than going to PCPs office. At home he is chronically on 2 L oxygen by nasal cannula for COPD, has a nebulizer, and at night for sleep apnea wears CPAP 5 nights a week, with 2 nights a week taking a break. Review of Systems Const: Denies: fever(s), chills, body aches or malaise Eyes: Denies: change in vision or eye redness ENMT: Denies: throat pain, oral sores or ear or mastoid pain Card: Reports: edema and dyspnea on exertion; Denies: chest pain or pre-syncope Resp: Reports: dyspnea and productive cough; Denies: change in phlegm color or hemoptysis GI: Denies: abdominal pain, nausea, vomiting, diarrhea, constipation, hematochezia or melena : Denies: flank pain, difficulty urinating, urinary frequency or hematuria Musc: Denies: back pain, joint swelling or joint redness Skin/Breast: Denies: rash, sores or new lesions Neuro: Denies: headache(s), numbness in extremities, weakness in extremities, dizziness, confusion or seizure-like activity Endo: Denies: polyuria or polydipsia Yang/Lymph: Denies: easy bleeding or purpura All/Imm: Denies: urticaria, throat swelling or tongue swelling Medications/Allergies Home Medications Medication Instructions Recorded Confirmed Last Taken Type apixaban [Eliquis] 5 mg 07/18/19 Unknown History budesonide 0.5 mg INHALATION BID 07/18/19 07/18/19 07/17/19 History diltiazem HCl 120 mg PO DAILY 07/18/19 07/18/19 07/17/19 History fluoxetine 20 mg PO DAILY 07/18/19 07/18/19 07/17/19 History furosemide 07/18/19 07/18/19 Unknown History metoprolol tartrate 12.5 mg PO BID 07/18/19 07/18/19 07/17/19 History pantoprazole 40 mg PO DAILY 07/18/19 07/18/19 07/17/19 History potassium chloride 10 meq PO BID 07/18/19 07/18/19 07/17/19 History rosuvastatin 20 mg PO BEDTIME 07/18/19 07/18/19 07/17/19 History sacubitril-valsartan [Entresto] 1 tab PO BID 07/18/19 07/18/19 07/17/19 History tamsulosin 0.4 mg PO BEDTIME 07/18/19 07/18/19 07/17/19 History Allergies Allergy/AdvReac Type Severity Reaction Status Date / Time umeclidinium Allergy Unknown Unverified 04/13/19 15:57 statins depletion Allergy Unknown Uncoded 04/13/19 15:57 PFSH Acute PFSH: Medical History At risk for falls BPH (benign prostatic hyperplasia) CAD (coronary artery disease) Cardiac arrest CHF (congestive heart failure) Chronic a-fib Dementia GERD (gastroesophageal reflux disease) HLD (hyperlipidemia) HTN (hypertension) JAM (obstructive sleep apnea) Peripheral neuropathy Pneumothorax Pulmonary embolism RLS (restless legs syndrome) Surgical History History of hip surgery Hx of appendectomy Hx of cataract surgery Stented coronary artery Family History Daughter Cancer Social History Quit status (tobacco): has quit using tobacco Year quit tobacco: 2018 Alcohol intake: never Substance/Drug Use: never Lives independently: No Household members: spouse Marital status: Current occupational status: retired Vitals/I&O/Wt Last Vital Signs Temp 98.8 F 07/18/19 13:30 Pulse 89 07/18/19 13:30 Resp 18 07/18/19 16:33 BP 111/70 07/18/19 13:30 Pulse Ox 97 07/18/19 13:30 Weight last 48 hrs Weight 102.512 kg Physical Exam Const: COMMON NORMALS: no acute distress and patient oriented x3 HENMT: COMMON NORMALS: oropharynx normal Neck/C-Spine: COMMON NORMALS: no JVD Resp: COMMON NORMALS: normal respiratory effort and clear to auscultation bilaterally AUSCULTATION: rhonchi and wheezes Cardio: COMMON NORMALS: no JVD, regular rhythm, S1 normal heart sound present, S2 normal heart sound present and No murmurs present (Cardio) RHYTHM: regular rhythm HEART SOUNDS: S1 normal heart sound present and S2 normal heart sound present GI: COMMON NORMALS: Normal to inspection, nondistended, normoactive bowel sounds present, Soft to palpation and non-tender PALPATION: Yes Soft to palpation Extremity: COMMON NORMALS: no joint enlargement GENERAL: Yes edema (Anasarca up to lower belly) Neuro: COMMON NORMALS: patient oriented x3 and moves all extremities Skin: COMMON NORMALS: no rashes or lesions noted GENERAL SKIN EXAM: no rashes or lesions noted OTHER: Mild pinkish discoloration of bilateral lower extremities below the knees, this appears to be likely stasis, at this time cellulitis is not suspected. Does not have active weeping, open wounds. Does have some eschar over healing wounds on the right reed. Data : 07/18/19 15:15 07/18/19 15:15 A&P Assessment and plan (1) CHF exacerbation: Unknown type CHF due to anatomy very difficult study on last time, pretty much uninterpretable. Does appear to have recurrent episodes of exacerbation. Currently with dyspnea exertion, orthopnea, anasarca. Pulmonary congestive changes, edema. BNP is elevated in the setting of normal renal function. reports does get poor oral intake also at the same time during episodes. May be some combination from malnutrition as well. At home usually in pretty good dose of Lasix 80 mg in the morning, 40 in the evening. Perhaps due to bowel edema he has not been rubbing well, although does say does not have issues with urination. Does drink some Ronak-Aid at home, although says it is not excessive amounts, no more than about 8 ounces or perhaps slightly more per day. She watches his salt intake. He denies chest pain and has not had chest pain per at home either. Troponin is mildly elevated, although her no acute TX is not suspected. Will co mplete series of troponin EKG. He is received a dose of Lasix in ER. Will continue at 60 mg every 12 hours by IV. Monitor I&O, renal function. Status: Acute (2) COPD exacerbation: There is some at least mild exacerbation of COPD, with some wheezing, cough productive of whitish sputum. Discussed with him and his . At home he is chronically on 2 L oxygen by nasal cannula. Wears also CPAP 5 days a week for JAM. Has a nebulizer. Discussed with him and his , at this time we will start him on some predn isone due to wheezing, hold off antibiotic as does not appear to have purulent sputum, breathing treatments, continue oxygen. Obtain sputum culture. Despite some cough, he says it is not much worse than usual, he has been afebrile, no headache, has been isolating at home for about 3 months, and over all suspicion for COVID-19 is low. Status: Acute (3) Anasarca: Upper to lower belly. At this time IV diuresis as above. Discussed with may include some protein drinks with food as his appetite does decrease d uring episodes, and he may have some protein malnutrition contributing to the anasarca. Status: Acute (4) JAM (obstructive sleep apnea): Continue CPAP. May request for break 2 days out of the week. Status: Acute (5) CAD (coronary artery disease): Continue statin. For now continue beta-vane as he is chronically on it. Aspirin had been discontinued by primary care provider it appears likely due to risk of falls and bleeding as he is also concurrently on anticoagulation. Status: Acute Additional A&P Information Troponin elevation: Abnormal troponin, mild to moderate elevation, without significant rise at this time. Will complete series. Has had no chest pain. At this time [place] is not suspected. May be secondary to CHF, A. fib, mismatch in supply and demand. Chronic A. fib: Currently rate controlled. Continue metoprolol. Continue Eliquis. History of PE, cardiac arrest: Continue Eliquis. HTN: Currently not hypertensive. Monitor. Continue medications. BPH: Continue Flomax HLD: Continue statin GERD: Continue PPI Dementia High fall risk: Recently recommended by PT to use wheelchair CODE STATUS: In case of repeat arrest he wants perhaps 1 attempt at resuscitation, does not want prolonged attempts. His reports is DPOA. Attestations Medical Necessity Statement*: Admission of over 2 midnights continued for assessment and management of anasarca, CHF exacerbation, COPD exacerbation. 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
[2019-07-18 19:38] LABS: Thyroid Stimulating Hormone 1.14 uIU/mL (0.27-4.20)
[2019-07-18] MEDS: ipratropium-albuterol 3 mL Neb INHALATION (21:24)
[2019-07-18 21:29] LABS: Troponin 5 6HR 71.55 ng/mL (0-15)
[2019-07-18 21:44] LABS: Troponin 5 6HR Delta 12.55 ng/L (0-12)
[2019-07-18] MEDS: predniSONE 20 mg Tablet 40 MG PO (22:04)
[2019-07-18] MEDS: atorvastatin 40 mg Tablet 80 MG PO (22:04)
[2019-07-18] MEDS: apixaban 5 mg Tablet PO (22:05)
[2019-07-18] MEDS: tamsulosin 0.4 mg Capsule PO (22:05)
[2019-07-18] MEDS: efferdent effervescent 1 EACH DENTAL (22:05)
[2019-07-19] VITALS (12 sets, daily range): BP systolic 101–117; BP diastolic 54–73; PULSE 86–125; RESP 16–20; TEMP 36.3–36.8; O2SAT 93–100
[2019-07-19] MEDS: ipratropium-albuterol 3 mL Neb INHALATION ×4 (03:18→22:40)
[2019-07-19 04:46] LABS: Basophils % 0.3 %; Hematocrit 36.9 % (42.0-52.0); Lymphocytes # 0.4 10^3/uL (0.8-4.8); Mean Corpuscular HGB Conc 29.8 g/dL (30.0-36.0); Mean Corpuscular Hemoglobin 27.3 pg (28.0-34.0); Mean Corpuscular Volume 91.6 fL (80-94); Mean Platelet Volume 9.4 fL (7.4-10.4); Monocytes # 0.2 10^3/uL (0.2-0.9); Monocytes % 2.8 %; Neutrophils # 6.5 10^3/uL (1.8-7.7); Neutrophils % 90.5 %; Nucleated Red Blood Cells % 0 %; Platelet Count 228 10^3/cmm (130-400); Red Blood Count 4.03 10^6/uL (4.1-5.3); Red Cell Distribution Width 17.9 % (12.1-15.1); White Blood Count 7.1 10^3/uL (4.0-10.0)
[2019-07-19 05:01] LABS: Alanine Aminotransferase 7 U/L (0-41); Alkaline Phosphatase 99 IU/L (40-130); Anion Gap 15.7 (5-19); Aspartate Amino Transferase 13 U/L (0-40); Blood Urea Nitrogen 11 mg/dL (8-23); Calcium 8.9 mg/dL (8.5-10.5); Carbon Dioxide 26 mmol/L (22-29); Chloride 99 mmol/L (98-107); Globulin 3.3 g/dL (1.3-4.6); Glucose 106 mg/dL (65-115); Magnesium 2.5 mg/dL (1.7-2.3); Osmolality Calculated 278 mOsm/kg (285-295); Potassium 4.7 mmol/L (3.5-5.1); Sodium 136 mmol/L (136-145); Total Bilirubin 0.8 mg/dL (0.15-1.2); Total Protein 6.3 g/dL (6.6-8.7)
[2019-07-19] MEDS: FUROsemide 10 mg/mL SDV 10mL 60 MG IVP ×2 (05:45→17:58)
--- NOTE | 2019-07-19 08:51 | PC.CHAP ---
Pastoral Care Encounter/Spiritual Assessment Type of Contact [] Declined sponge buffer visit [] Patient/Family/Request visit [] Outpatient visit [] Follow-up visit [] Physician referral [] Code/Alert [x] Routine visit [] Staff referral [] Actively dying [] Patient sleeping [] Family support [] [] Out of room [] Palliative care [] [] Receiving care in room [] Pre-surgical visit [] Trauma [] Long length of stay [] ICU visit [] Other: Relational/Emotional Strength [] Patient feels connected with others/family/visitors/staff [] Distress [] Loneliness/isolation [] Abandonment Spirituality of Patient [] Person of Barbara [] Attends Rastafari of their Barbara [] Believes in Prayer [] Reads Bible or Gnosticist materials [] There are Spiritual issues to be addressed Obgyn Hospitalist Physician Interventions [x] Prayer [] Active listening [] Non-anxious presence [] Spiritual/emotional support [] Crisis/trauma care [] Spiritual counseling [] Bereavement support [] Provided bereavement packet [] Provided Bible/devotional materials [] Provided toy/stuffed animal, coloring book to patient or family member [] Provided Communion [] Anointing/[place] [] Salvation [x] Completed spiritual assessment [] Other: Impact on Illness or Injury [] Angry [] Fearful [] Anxious [] Often cries [] Exhaustion [] Unable to work [] Unable to attend orthodoxy [] Unable to walk/stand [] Unable to read [] Unable to drive [] Unable to eat/drink [] Unable to sleep [] Unable to be with family [] Patient intubated [] Other: Summary Patient resting well, in good spirits Time spent with patient 10 min
[2019-07-19] MEDS: fluoxetine 20 mg Capsule PO (08:57)
[2019-07-19] MEDS: apixaban 5 mg Tablet PO ×2 (08:57→17:52)
[2019-07-19] MEDS: metoprolol tartrate 25 mg Tablet 12.5 MG PO ×2 (08:57→17:52)
[2019-07-19] MEDS: dilTIAZem ER (24HR) 120 mg Capsule PO (08:57)
[2019-07-19] MEDS: predniSONE 20 mg Tablet 40 MG PO (08:59)
[2019-07-19] MEDS: pantoprazole DR 40 mg Tablet PO (08:59)
[2019-07-19] MEDS: budesonide 0.5 mg/2 mL Neb INHALATION ×2 (09:18→22:35)
--- NOTE | 2019-07-19 10:39 | PC.RESP ---
PULMONARY REHAB INFORMATION SENT TO PATIENT.
[2019-07-19] MEDS: ALPRAZolam 0.25 mg Tablet PO (14:13)
--- NOTE | 2019-07-19 18:02 | PM.PN ---
Subjective Subjective: Interval history: He is doing alright and denies any complaints during my visit, however, later in the day does report some anxiety to the nurse. Denies chest pain or pressure. Breathing is comfortable. Vitals/I&O/Wt Last Vital Signs Temp 98.2 F 07/19/19 15:30 Pulse 107 H 07/19/19 15:30 Resp 20 H 07/19/19 15:30 BP 108/54 07/19/19 15:30 Pulse Ox 99 07/19/19 15:30 07/19/19 07/19/19 07/19/19 06:59 14:59 22:59 Intake Total 0 / 0 940 / 940 Output Total 500 / 500 Balance 0 / -225 440 / 440 Weight last 48 hrs Weight 95.617 kg Weight 102.512 kg Physical Exam Const: COMMON NORMALS: no acute distress and patient oriented x3 HENMT: COMMON NORMALS: oropharynx normal Neck/C-Spine: COMMON NORMALS: no JVD Resp: COMMON NORMALS: normal respiratory effort and clear to auscultation bilaterally AUSCULTATION: clear to auscultation bilaterally, rhonchi and wheezes Cardio: COMMON NORMALS: no JVD, regular rhythm, S1 normal heart sound present, S2 normal heart sound present and No murmurs present (Cardio) RHYTHM: regular rhythm HEART SOUNDS: S1 normal heart sound present and S2 normal heart sound present GI: COMMON NORMALS: Normal to inspection, nondistended, normoactive bowel sounds present, Soft to palpation and non-tender PALPATION: Yes Soft to palpation Extremity: COMMON NORMALS: no joint enlargement GENERAL: Yes edema (Anasarca up to lower belly) Neuro: COMMON NORMALS: patient oriented x3 and moves all extremities Skin: COMMON NORMALS: no rashes or lesions noted GENERAL SKIN EXAM: no rashes or lesions noted OTHER: Mild pinkish discoloration of bilateral lower extremities below the knees, this appears to be likely stasis, at this time cellulitis is not suspected. Does not have active weeping, open wounds. Does have some eschar over healing wounds on the right reed. Data : 07/19/19 04:27 07/19/19 04:27 A&P Assessment and plan (1) CHF exacerbation: Improving. Has been urinating, although not sure if may be I&O not charted correctly. Clinically does look better, with some wrinkles on his lower extremities today. It is documented he took in 1590 mL through the day so far. Will request for fluid restriction 1000 mL. Continue IV Lasix. Unknown type CHF due to anatomy very difficult study on last time, pretty much uninterpretable. Does appear to have recurrent episodes of exacerbation. Currently with dyspnea exertion, orthopnea, anasarca. Pulmonary congestive changes, edema. BNP is elevated in the setting of normal renal function. reports does get poor oral intake also at the same time during episodes. May be some combination from malnutrition as well. At home usually in pretty good dose of Lasix 80 mg in the morning, 40 in the evening. Perhaps due to bowel edema he has not been rubbing well, although does say does not have issues with urination. Does drink some Ronak-Aid at home, although says it is not excessive amounts, no more than about 8 ounces or perhaps slightly more per day. She watches his salt intake. He denies chest pain and has not had chest pain per at home either. Status: Acute (2) COPD exacerbation: Does have some persistent wheezing. We will continue prednisone for now unchanged. Breathing treatments. There is some at least mild exacerbation of COPD, with some wheezing, cough productive of whitish sputum. Discussed with him and his . At home he is chronically on 2 L oxygen by nasal cannula. Wears also CPAP 5 days a week for JAM. Has a nebulizer. Continue oxygen. Obtain sputum culture. Despite some cough, he says it is not much worse than usual, he has been afebrile, no headache, has been isolating at home for about 3 months, and overall suspicion for COVID-19 is low. Status: Acute (3) Anasarca: Up to upper thigh/lower belly. IV diuresis as above. Fluid restrict. Protein shakes with meals. May have some protein malnutrition contributing to the anasarca. Status: Acute (4) JAM (obstructive sleep apnea): Continue CPAP. May request for break 2 days out of the week. Status: Acute (5) CAD (coronary artery disease): Continue statin. For now continue beta-vane as he is chronically on it. Aspirin had been discontinued by primary care provider it appears likely due to risk of falls and bleeding as he is also concurrently on anticoagulation. Status: Acute Additional A&P Information Troponin elevation: Abnormal troponin, mild to moderate elevation, without significant rise at this time. Will complete series. Has had no chest pain. At this time [place] is not suspected. May be secondary to CHF, A. fib, mismatch in supply and demand. Chronic A. fib: Currently rate controlled. Continue metoprolol. Continue Eliquis. History of PE, cardiac arrest: Continue Eliquis. HTN: Currently not hypertensive. Monitor. Continue medications. BPH: Continue Flomax HLD: Continue statin GERD: Continue PPI Dementia High fall risk: Recently recommended by PT to use wheelchair. PT assessment. CODE STATUS: In case of repeat arrest he wants perhaps 1 attempt at resuscitation, does not want prolonged attempts. His reports is DPOA. Attestations Medical Necessity Statement*: Continue admission for assessment of management of CHF exacerbation, anasarca, COPD exacerbation. Coding Level of Care Code Acute Director Of Customer Service for [facility] Diagnoses CHF exacerbation I50.9 COPD exacerbation J44.1 Anasarca R60.1 JAM (obstructive sleep apnea) G47.33 CAD (coronary artery disease) I25.10
[2019-07-19] MEDS: tamsulosin 0.4 mg Capsule PO (20:30)
[2019-07-19] MEDS: atorvastatin 40 mg Tablet 80 MG PO (20:30)
[2019-07-20] VITALS (12 sets, daily range): BP systolic 99–122; BP diastolic 54–67; PULSE 83–117; RESP 18–20; TEMP 36.4–36.9; O2SAT 95–99; BMI 30.2
[2019-07-20] MEDS: ipratropium-albuterol 3 mL Neb INHALATION ×4 (03:30→20:19)
[2019-07-20] MEDS: FUROsemide 10 mg/mL SDV 10mL 60 MG IVP ×2 (04:41→17:43)
[2019-07-20 05:56] LABS: Hematocrit 33.3 % (42.0-52.0); Hemoglobin 10.1 g/dL (11.7-16.6); Lymphocytes # 0.6 10^3/uL (0.8-4.8); Lymphocytes % 7.8 %; Mean Corpuscular HGB Conc 30.3 g/dL (30.0-36.0); Mean Corpuscular Hemoglobin 26.7 pg (28.0-34.0); Mean Corpuscular Volume 88.1 fL (80-94); Mean Platelet Volume 9.2 fL (7.4-10.4); Monocytes % 14.3 %; Neutrophils # 5.6 10^3/uL (1.8-7.7); Neutrophils % 77.5 %; Nucleated Red Blood Cells % 0 %; Platelet Count 272 10^3/cmm (130-400); Red Blood Count 3.78 10^6/uL (4.1-5.3); White Blood Count 7.2 10^3/uL (4.0-10.0)
[2019-07-20 06:25] LABS: Alanine Aminotransferase 7 U/L (0-41); Albumin Level 3.3 g/dL (3.5-5.2); Alkaline Phosphatase 95 IU/L (40-130); Anion Gap 12.9 (5-19); Aspartate Amino Transferase 12 U/L (0-40); Blood Urea Nitrogen 20 mg/dL (8-23); Carbon Dioxide 31 mmol/L (22-29); Chloride 100 mmol/L (98-107); Creatinine Clr Calc Pharmacy 69.5119; Globulin 2.8 g/dL (1.3-4.6); Glucose 132 mg/dL (65-115); Osmolality Calculated 288 mOsm/kg (285-295); Potassium 3.9 mmol/L (3.5-5.1); Sodium 140 mmol/L (136-145); Total Bilirubin 0.4 mg/dL (0.15-1.2); Total Protein 6.1 g/dL (6.6-8.7)
[2019-07-20] MEDS: apixaban 5 mg Tablet PO ×2 (08:56→17:36)
[2019-07-20] MEDS: predniSONE 20 mg Tablet 40 MG PO (08:57)
[2019-07-20] MEDS: metoprolol tartrate 25 mg Tablet 12.5 MG PO ×2 (08:57→17:35)
[2019-07-20] MEDS: fluoxetine 20 mg Capsule PO (08:57)
[2019-07-20] MEDS: dilTIAZem ER (24HR) 120 mg Capsule PO (08:58)
[2019-07-20] MEDS: pantoprazole DR 40 mg Tablet PO (08:58)
[2019-07-20] MEDS: budesonide 0.5 mg/2 mL Neb INHALATION ×2 (09:29→20:19)
--- NOTE | 2019-07-20 14:03 | P.PN_ITS ---
Subjective Subjective: Interval history: Improving. Denies any complaints. Breathing feels is improving. Swelling decreasing. Vitals/I&O/Wt Last Vital Signs Temp 98.4 F 07/20/19 11:10 Pulse 117 H 07/20/19 11:10 Resp 18 07/20/19 11:10 BP 115/64 07/20/19 11:10 Pulse Ox 98 07/20/19 11:10 07/19/19 07/20/19 07/20/19 22:59 06:59 14:59 Intake Total 620 / 1560 100 / 1660 360 / 360 Output Total 200 / 700 1050 / 1750 400 / 400 Balance 420 / 860 -950 / -90 -40 / -40 Weight last 48 hrs Weight 95.617 kg Weight 95.617 kg Physical Exam Const: COMMON NORMALS: no acute distress and patient oriented x3 HENMT: COMMON NORMALS: oropharynx normal Neck/C-Spine: COMMON NORMALS: no JVD Resp: COMMON NORMALS: normal respiratory effort and clear to auscultation bilaterally AUSCULTATION: clear to auscultation bilaterally, no rhonchi, no wheezes and diminished lung sounds Cardio: COMMON NORMALS: no JVD, regular rhythm, S1 normal heart sound present, S2 normal heart sound present and No murmurs present (Cardio) RHYTHM: regular rhythm HEART SOUNDS: S1 normal heart sound present and S2 normal heart sound present GI: COMMON NORMALS: Normal to inspection, nondistended, normoactive bowel sounds present, Soft to palpation and non-tender PALPATION: Yes Soft to palpation Extremity: COMMON NORMALS: no joint enlargement GENERAL: Yes edema (Anasarca up to lower belly) Neuro: COMMON NORMALS: patient oriented x3 and moves all extremities Skin: COMMON NORMALS: no rashes or lesions noted GENERAL SKIN EXAM: no rashes or lesions noted OTHER: Improving swelling. Some dry scaly skin appearing. Mild pinkish discoloration of bilateral lower extremities below the knees, this appears to be likely stasis, at this time cellulitis is not suspected. Does not have active weeping, open wounds. Does have some eschar over healing wounds on the right reed. Data : 07/20/19 05:38 07/20/19 05:38 A&P Assessment and plan (1) CHF exacerbation: Improving. Oxygenation steady, breathing comfortably. Swelling is decreasing, is in negative balance. With appearance of wrinkles, some dry scaly patches on lower extremities. Will request to apply moisturizer. For now continue IV diuretics as currently. Fluid restriction. Potential tomorrow may switch to oral diuretics, and if doing well may be nearing discharge soon. Unknown type CHF due to anatomy very difficult study on last time, pretty much uninterpretable. Does appear to have recurrent episodes of exacerbation. Currently with dyspnea exertion, orthopnea, anasarca. Pulmonary congestive changes, edema. BNP is elevated in the setting of normal renal function. reports does get poor oral intake also at the same time during episodes. May be some combination from malnutrition as well. At home usually in pretty good dose of Lasix 80 mg in the morning, 40 in the evening. Perhaps due to bowel edema he has not been rubbing well, although does say does not have issues with urination. Does drink some Ronak-Aid at home, although says it is not excessive amounts, no more than about 8 ounces or perhaps slightly more per day. She watches his salt intake. He denies chest pain and has not had chest pain per at home either. Status: Acute (2) COPD exacerbation: Today very faint/mild wheezing, significantly better than yesterday. Can try to cut down prednisone dose. Breathing treatments. There is some at least mild exacerbation of COPD, with some wheezing, cough productive of whitish sputum. Discussed with him and his . At home he is chronically on 2 L oxygen by nasal cannula. Wears also CPAP 5 days a week for JAM. Has a nebulizer. Continue oxygen. Obtain sputum culture. Despite some cough, he says it is not much worse than usual, he has been afebrile, no headache, has been isolating at home for about 3 months, and overall suspicion for COVID-19 is low. Status: Acute (3) Anasarca: Improving slowly. IV diuresis as above. Fluid restrict. Protein shakes with meals. May have some protein malnutrition contributing to the anasarca. Status: Acute (4) JMA (obstructive sleep apnea): Continue CPAP. May request for break 2 days out of the week. Status: Acute (5) CAD (coronary artery disease): Continue statin. For now continue beta-vane as he is chronically on it. Aspirin had been discontinued by primary care provider it appears likely due to risk of falls and bleeding as he is also concurrently on anticoagulation. Status: Acute Additional A&P Information Troponin elevation: Abnormal troponin, mild to moderate elevation, without significant rise. Suspected demand ischemia. Has had no chest pain. At this time [place] is not suspected. May be secondary to CHF, A. fib, mismatch in supply and demand. Chronic A. fib: Currently rate controlled. Continue metoprolol. Continue Eliquis. History of PE, cardiac arrest: Continue Eliquis. HTN: Currently not hypertensive. Monitor. Continue medications. BPH: Continue Flomax HLD: Continue statin GERD: Continue PPI Dementia High fall risk: Recently recommended by PT to use wheelchair. PT assessment. CODE STATUS: In case of repeat arrest he wants perhaps 1 attempt at resuscitation, does not want prolonged attempts. His reports is DPOA. Attestations Medical Necessity Statement*: Continue admission for assessment and management of CHF exacerbation with anasarca and COPD exacerbation. Coding Level of Care Code Acute Chipper Feeder for [facility] Diagnoses CHF exacerbation I50.9 COPD exacerbation J44.1 Anasarca R60.1 JAM (obstructive sleep apnea) G47.33 CAD (coronary artery disease) I25.10
[2019-07-20] MEDS: acetaminophen 325 mg Tablet 650 MG PO (16:17)
[2019-07-20] MEDS: ALPRAZolam 0.25 mg Tablet PO (16:17)
[2019-07-20] MEDS: tamsulosin 0.4 mg Capsule PO (20:51)
[2019-07-20] MEDS: atorvastatin 40 mg Tablet 80 MG PO (20:52)
[2019-07-21] VITALS (15 sets, daily range): BP systolic 98–121; BP diastolic 58–69; PULSE 65–100; RESP 16–20; TEMP 36.3–36.7; O2SAT 96–99
[2019-07-21] MEDS: ipratropium-albuterol 3 mL Neb INHALATION ×4 (02:29→19:45)
[2019-07-21 04:59] LABS: Basophils % 0.1 %; Hematocrit 33.8 % (42.0-52.0); Hemoglobin 10.2 g/dL (11.7-16.6); Lymphocytes # 0.9 10^3/uL (0.8-4.8); Lymphocytes % 9.5 %; Mean Corpuscular HGB Conc 30.2 g/dL (30.0-36.0); Mean Corpuscular Hemoglobin 26.7 pg (28.0-34.0); Mean Corpuscular Volume 88.5 fL (80-94); Mean Platelet Volume 9.5 fL (7.4-10.4); Monocytes # 1.3 10^3/uL (0.2-0.9); Monocytes % 14.2 %; Neutrophils # 7.1 10^3/uL (1.8-7.7); Neutrophils % 75.8 %; Nucleated Red Blood Cells % 0 %; Platelet Count 304 10^3/cmm (130-400); Red Blood Count 3.82 10^6/uL (4.1-5.3); Red Cell Distribution Width 18.2 % (12.1-15.1); White Blood Count 9.3 10^3/uL (4.0-10.0)
[2019-07-21] MEDS: FUROsemide 10 mg/mL SDV 10mL 60 MG IVP (05:06)
[2019-07-21 05:23] LABS: Alanine Aminotransferase 8 U/L (0-41); Albumin Level 3.2 g/dL (3.5-5.2); Alkaline Phosphatase 92 IU/L (40-130); Aspartate Amino Transferase 10 U/L (0-40); Blood Urea Nitrogen 20 mg/dL (8-23); Calcium 9.3 mg/dL (8.5-10.5); Carbon Dioxide 33 mmol/L (22-29); Chloride 98 mmol/L (98-107); Globulin 3.2 g/dL (1.3-4.6); Glucose 116 mg/dL (65-115); Osmolality Calculated 288 mOsm/kg (285-295); Sodium 140 mmol/L (136-145); Total Bilirubin 0.3 mg/dL (0.15-1.2); Total Protein 6.4 g/dL (6.6-8.7)
--- NOTE | 2019-07-21 06:20 | PC.NURSE ---
SHIFT SUMMARY Has rested well tonight. Has urinated many times tonight per urinal. Legs remain edematous but he says they are getting better. Lower legs with dry scaley pink skin. No open areas noted. SOB with exertion but says is better also. O2 in place at 2l per NC. Wore CPAP for sleep. Occ nonprod cough. Is on 1000ml fluid restriction and is compliant with this
--- NOTE | 2019-07-21 08:20 | PC.SOCIAL ---
IMM Page 2 of IMM explained to patient. He verbalizes understanding. Initialed, dated, and timed and placed in chart. Copy provided to patient.
[2019-07-21] MEDS: budesonide 0.5 mg/2 mL Neb INHALATION ×2 (08:32→19:51)
[2019-07-21] MEDS: dilTIAZem ER (24HR) 120 mg Capsule PO (08:43)
[2019-07-21] MEDS: apixaban 5 mg Tablet PO ×2 (08:44→18:02)
[2019-07-21] MEDS: fluoxetine 20 mg Capsule PO (08:44)
[2019-07-21] MEDS: predniSONE 20 mg Tablet PO (08:44)
[2019-07-21] MEDS: metoprolol tartrate 25 mg Tablet 12.5 MG PO ×2 (08:44→18:00)
[2019-07-21] MEDS: pantoprazole DR 40 mg Tablet PO (08:44)
--- NOTE | 2019-07-21 16:28 | P.PN_ITS ---
Subjective Subjective: Interval history: He reports he is doing okay. Swelling continues to progressively slowly improve. He has been urinating quite a bit. Vitals/I&O/Wt Last Vital Signs Temp 97.5 F L 07/21/19 15:53 Pulse 96 07/21/19 15:53 Resp 16 07/21/19 15:53 BP 102/62 07/21/19 15:53 Pulse Ox 97 07/21/19 15:53 07/21/19 07/21/19 07/21/19 06:59 14:59 22:59 Intake Total 290 / 1010 320 / 320 110 / 430 Output Total 1010 / 2285 1000 / 1000 200 / 1200 Balance -720 / -1275 -680 / -680 -90 / -770 Weight last 48 hrs Weight 97.551 kg Weight 95.617 kg Physical Exam Const: COMMON NORMALS: no acute distress and patient oriented x3 HENMT: COMMON NORMALS: oropharynx normal Neck/C-Spine: COMMON NORMALS: no JVD Resp: COMMON NORMALS: normal respiratory effort and clear to auscultation bilaterally AUSCULTATION: clear to auscultation bilaterally, no rhonchi, no wheezes and diminished lung sounds Cardio: COMMON NORMALS: no JVD, regular rhythm, S1 normal heart sound present, S2 normal heart sound present and No murmurs present (Cardio) RHYTHM: regular rhythm HEART SOUNDS: S1 normal heart sound present and S2 normal heart sound present GI: COMMON NORMALS: Normal to inspection, nondistended, normoactive bowel sounds present, Soft to palpation and non-tender PALPATION: Yes Soft to palpation Extremity: COMMON NORMALS: no joint enlargement GENERAL: Yes edema (Anasarca up to lower belly) Neuro: COMMON NORMALS: patient oriented x3 and moves all extremities Skin: COMMON NORMALS: no rashes or lesions noted GENERAL SKIN EXAM: no rashes or lesions noted OTHER: Improving swelling. Dry skin has been moisturized. Mild pinkish discoloration of bilateral lower extremities below the knees, this appears to be likely stasis, at this time cellulitis is not suspected. Does not have active weeping, open wounds. Does have some eschar over healing wounds on the right reed. Data : 07/21/19 04:18 07/21/19 04:18 Micro: Microbiology 07/20/19 17:45 Gram Stain - Final Sputum - Expectorated Sputum A&P Assessment and plan (1) CHF exacerbation: Gradually improving. Appears he has lost 5 kg since admission. His legs are appearing better, with wrinkling, although still does have good amount of edema up to thighs. As well as on flanks, gravity dependent. As he has been urinating well, improving, will try to switch over to oral diuretic, slightly higher dose in the evening at 60 mg. 80 in the morning. Monitor I&O. If he continues to do well with diuresis, he would like to return home. Otherwise discussed with him if urine output worsens, may need to switch back to IV for a while longer. Discussed also with his , both are agreeable with plan. Dry skin moisturized. Fluid restriction. Follow up with Dr Jones in clinic. Unknown type CHF due to anatomy very difficult study on last time, pretty much uninterpretable. Does appear to have recurrent episodes of exacerbation. May be some combination from malnutrition as well. At home usually in pretty good dose of Lasix 80 mg in the morning, 40 in the evening. Perhaps due to bowel edema he has not been rubbing well, although does say does not have issues with urination. Does drink some Ronak-Aid at home, although says it is not excessive amounts, no more than about 8 ounces or perhaps slightly more per day. She watches his salt intake. He denies chest pain and has not had chest pain per at home either. Status: Acute (2) COPD exacerbation: Today still faint/mild wheezing, significantly better than yesterday. Would be concerned about increaseing steroid dose with his edema, but will increase back to 40 if needed. For now continue same. He feels breathing is comfortable. Oxygenating well on baseline 2 L. Breathing treatments. At home he is chronically on 2 L oxygen by nasal cannula. Wears also CPAP 5 days a week for JAM. Has a nebulizer. Continue oxygen. Obtain sputum culture. Despite some cough, he says it is not much worse than usual, he has been afebrile, no headache, has been isolating at home for about 3 months, and overall suspicion for COVID-19 is low. Status: Acute (3) Anasarca: Improving slowly. IV diuresis as above. Fluid restrict. Protein shakes with meals. May have some protein malnutrition contributing to the anasarca. Status: Acute (4) JAM (obstructive sleep apnea): Continue CPAP. May request for break 2 days out of the week. Status: Acute (5) CAD (coronary artery disease): Continue statin. For now continue beta-vane as he is chronically on it. Aspirin had been discontinued by primary care provider it appears likely due to risk of falls and bleeding as he is also concurrently on anticoagulation. Status: Acute Additional A&P Information Troponin elevation: Abnormal troponin, mild to moderate elevation, without significant rise. Suspected demand ischemia. Has had no chest pain. At this time [place] is not suspected. May be secondary to CHF, A. fib, mismatch in supply and demand. Chronic A. fib: Currently rate controlled. Continue metoprolol. Continue Eliquis. History of PE, cardiac arrest: Continue Eliquis. HTN: Currently not hypertensive. Monitor. Continue medications. BPH: Continue Flomax HLD: Continue statin GERD: Continue PPI Dementia High fall risk: Recently recommended by PT to use wheelchair. PT assessment. CODE STATUS: In case of repeat arrest he wants perhaps 1 attempt at resuscitati on, does not want prolonged attempts. His reports is DPOA. Attestations Medical Necessity Statement*: Continue admission for cyst management of CHF exacerbation, anasarca with lack of response to oral diuretics at home, COPD exacerbation. Coding Level of Care Code Acute [employer] for [facility] Diagnoses CHF exacerbation I50.9 COPD exacerbation J44.1 Anasarca R60.1 JAM (obstructive sleep apnea) G47.33 CAD (coronary artery disease) I25.10
[2019-07-21] MEDS: FUROsemide 40 mg Tablet 80 MG PO (18:02)
[2019-07-21] MEDS: atorvastatin 40 mg Tablet 80 MG PO (20:09)
[2019-07-21] MEDS: ALPRAZolam 0.25 mg Tablet PO (20:09)
[2019-07-21] MEDS: tamsulosin 0.4 mg Capsule PO (20:09)
[2019-07-21] MEDS: acetaminophen 325 mg Tablet 650 MG PO (23:42)
[2019-07-22] VITALS (13 sets, daily range): BP systolic 102–127; BP diastolic 58–78; PULSE 75–101; RESP 17–22; TEMP 36.4–37.1; O2SAT 93–97
[2019-07-22] MEDS: ipratropium-albuterol 3 mL Neb INHALATION ×4 (02:26→21:28)
--- NOTE | 2019-07-22 03:33 | XRR_ITS ---
PROCEDURE INFORMATION: Exam: XR Chest, 1 View Exam date and time: 07/22/2019 3:38 AM Age: 78 years old Clinical indication: Shortness of breath; Additional info: Corase lung sounds TECHNIQUE: Imaging protocol: XR of the chest Views: 1 view. COMPARISON: CR XR chest 1V portable [id number] 07/18/2019 2:00 PM FINDINGS: Lungs: Extrinsic electrodes overlying the right lung base. Interval haziness over both lung bases, increased markings over the medial right lung base and increased density behind the left heart. Interval slight stranding in the lateral left lung base. No change in the minimal stranding in the lateral right upper lobe. Still no pulmonary venous hypertension. Pleural space: Probable interval blunting of the right lateral angle suggesting at least a small amount of pleural fluid. No pneumothorax. Heart/Mediastinum: Still no cardiomegaly. Apparent interval narrowing of much of the intrathoracic trachea. Bones/joints: Small calcification along the right greater tuberosity. Probable evidence of a fracture of the distal left 6th rib, age unclear; no similar finding in this area previously. XR/XR chest 1V portable [id number] IMPRESSION: 1. Interval haziness over both lung bases possibly due to pleural effusions and/or areas of atelectasis; other findings also evident suggesting a right pleural effusion. Early consolidation in the medial left lung base not excluded. 2. Continued probable scar in the right upper lobe. 3. Apparent interval narrowing of much of the intrathoracic trachea. 4. Possible interval appearance of the suspected left 6th rib fracture. Other findings detailed above.
[2019-07-22] MEDS: FUROsemide 10 mg/mL SDV 2mL 20 MG IVP (04:48)
[2019-07-22 05:45] LABS: Basophils % 0.1 %; Hematocrit 33.7 % (42.0-52.0); Hemoglobin 10.1 g/dL (11.7-16.6); Lymphocytes % 11.7 %; Mean Corpuscular Hemoglobin 26.6 pg (28.0-34.0); Mean Corpuscular Volume 88.7 fL (80-94); Mean Platelet Volume 9.3 fL (7.4-10.4); Monocytes # 1.3 10^3/uL (0.2-0.9); Monocytes % 15.5 %; Neutrophils # 6.1 10^3/uL (1.8-7.7); Neutrophils % 72.5 %; Nucleated Red Blood Cells % 0 %; Platelet Count 314 10^3/cmm (130-400); Red Cell Distribution Width 18.3 % (12.1-15.1); White Blood Count 8.4 10^3/uL (4.0-10.0)
[2019-07-22 06:01] LABS: Anion Gap 11.3 (5-19); Blood Urea Nitrogen 26 mg/dL (8-23); Calcium 8.5 mg/dL (8.5-10.5); Carbon Dioxide 34 mmol/L (22-29); Chloride 96 mmol/L (98-107); Glucose 108 mg/dL (65-115); Osmolality Calculated 281 mOsm/kg (285-295); Potassium 4.3 mmol/L (3.5-5.1); Sodium 137 mmol/L (136-145)
[2019-07-22] MEDS: levofloxacin-dextrose 5 % 750 MG/150 ML PREMIX 100 MG IV (08:00)
[2019-07-22] MEDS: FUROsemide 40 mg Tablet 80 MG PO ×2 (08:01→14:46)
[2019-07-22] MEDS: budesonide 0.5 mg/2 mL Neb INHALATION ×2 (08:53→21:28)
[2019-07-22] MEDS: metoprolol tartrate 25 mg Tablet 12.5 MG PO ×2 (09:13→17:15)
[2019-07-22] MEDS: dilTIAZem ER (24HR) 120 mg Capsule PO (09:14)
[2019-07-22] MEDS: predniSONE 20 mg Tablet PO (09:14)
[2019-07-22] MEDS: pantoprazole DR 40 mg Tablet PO (09:14)
[2019-07-22] MEDS: fluoxetine 20 mg Capsule PO (09:14)
[2019-07-22] MEDS: apixaban 5 mg Tablet PO ×2 (09:14→17:15)
--- NOTE | 2019-07-22 09:42 | PC.NURSE ---
Patient has increased edema to right lower leg, resp more labored today. Crackles audible throughout all lobes. Patient denies any pain. Spoke to patient's and reviewed patient's current condition. She verbalized understanding.
[2019-07-22] MEDS: ALPRAZolam 0.25 mg Tablet PO ×2 (14:46→20:55)
[2019-07-22] MEDS: acetaminophen 325 mg Tablet 650 MG PO (14:47)
--- NOTE | 2019-07-22 18:35 | PC.NURSE ---
Patient sit up in chair today and tolerated well. Lower legs still have edema, no increase of edema noted. Patient breath sounds improved, less congestion noted throughout, still coarse. Patient has been given Xanax for restless leg and tylenol for knee pain. Worked well. Patient's appetite was good for 1700 meal. Urine output recorded, urine appears clear and light yellow in color. Patient has a small area to his right elbow that appears to have had a scab, the area started to bleed small amount and a dressing was applied to protect site. Patient states he is eager to go home. Patient is extremely pleasant and was a tanner to care for.
[2019-07-22] MEDS: tamsulosin 0.4 mg Capsule PO (20:53)
[2019-07-22] MEDS: atorvastatin 40 mg Tablet 80 MG PO (20:53)
--- NOTE | 2019-07-22 21:47 | P.PN_ITS ---
Subjective Subjective: Interval history: Overnight there was concern regarding worsening of respiratory condition, although today he is again on 2 L nasal cannula, and says he feels about similar. Chest x-ray did show some worsening congestive changes, possibly some consolidation. He does have a good amount of rhonchi. Vitals/I&O/Wt Last Vital Signs Temp 97.8 F 07/22/19 19:57 Pulse 96 07/22/19 21:29 Resp 18 07/22/19 21:29 BP 103/60 07/22/19 19:57 Pulse Ox 97 07/22/19 21:29 07/22/19 07/22/19 07/22/19 06:59 14:59 22:59 Intake Total 130 / 880 800 / 800 240 / 1040 Output Total 250 / 1650 750 / 750 725 / 1475 Balance -120 / -770 50 / 50 -485 / -435 Weight last 48 hrs Weight 97.086 kg Weight 97.551 kg Physical Exam Const: COMMON NORMALS: no acute distress and patient oriented x3 HENMT: COMMON NORMALS: oropharynx normal Neck/C-Spine: COMMON NORMALS: no JVD Resp: COMMON NORMALS: normal respiratory effort and clear to auscultation bilaterally AUSCULTATION: clear to auscultation bilaterally, rhonchi, wheezes and diminished lung sounds Cardio: COMMON NORMALS: no JVD, regular rhythm, S1 normal heart sound present, S2 normal heart sound present and No murmurs present (Cardio) RHYTHM: regular rhythm HEART SOUNDS: S1 normal heart sound present and S2 normal heart sound present GI: COMMON NORMALS: Normal to inspection, nondistended, normoactive bowel sounds present, Soft to palpation and non-tender PALPATION: Yes Soft to palpation Extremity: COMMON NORMALS: no joint enlargement GENERAL: Yes edema (Anasarca up to lower belly. Legs were improving last couple days, but today appear unchanged and may be slightly worse than yesterday.) Neuro: COMMON NORMALS: patient oriented x3 and moves all extremities Skin: COMMON NORMALS: no rashes or lesions noted GENERAL SKIN EXAM: no rashes or lesions noted OTHER: Improving swelling. Dry skin has been moisturized. Mild pinkish discoloration of bilateral lower extremities below the knees, this appears to be likely stasis, at this time cellulitis is not suspected. Does not have active weeping, open wounds. Does have some eschar over healing wounds on the right reed. Data : 07/22/19 05:15 07/22/19 05:15 Micro: Microbiology 07/20/19 17:45 Gram Stain - Final Sputum - Expectorated Sputum Sputum Culture - Preliminary A&P Assessment and plan (1) CHF exacerbation: Unfortunately he did not respond well to switching to oral diuretics. Switch back to IV Lasix. If not responding consider adding metolazone, may be switching to Bumex. Monitor renal function as BUN is appearing to be increasing somewhat. Appears he has lost 5 kg since admission. Dry skin moisturized. Fluid restriction. Follow up with Dr Jones in clinic. Unknown type CHF due to anatomy very difficult study on last time, pretty much uninterpretable. Does appear to have recurrent episodes of exacerbation. May be some combination from malnutrition as well. At home usually in pretty good dose of Lasix 80 mg in the morning, 40 in the evening. Perhaps due to bowel edema he has not been rubbing well, although does say does not have issues with urination. Does drink some Ronak-Aid at home, although says it is not excessive amounts, no more than about 8 ounces or perhaps slightly more per day. She watches his salt intake. He denies chest pain and has not had chest pain per at home either. Status: Acute (2) COPD exacerbation: This is worse. With worsened rhonchi, some wheezing. Will increase prednisone back up to 40 mg. Will start antibiotic with Levaquin. Cannot exclude possible pneumonia as well with some appearance of possible faint infiltrate on the left. Breathing treatments. At home he is chronically on 2 L oxygen by nasal cannula. Wears also CPAP 5 days a week for JAM. Has a nebulizer. Continue oxygen. Obtain sputum culture. Despite some cough, he says it is not much worse than usual, he has been afebrile, no headache, has been isolating at home for about 3 months, and overall suspicion for COVID-19 is low. Status: Acute (3) Anasarca: Improving slowly. IV diuresis as above. Fluid restrict. Protein shakes with meals. May have some protein malnutrition contributing to the anasarca. Status: Acute (4) JAM (obstructive sleep apnea): Continue CPAP. May request for break 2 days out of the week. Status: Acute (5) CAD (coronary artery disease): Continue statin. For now continue beta-vane as he is chronically on it. Aspirin had been discontinued by primary care provider it appears likely due to risk of falls and bleeding as he is also concurrently on anticoagulation. Status: Acute Additional A&P Information Troponin elevation: Abnormal troponin, mild to moderate elevation, without significant rise. Suspected demand ischemia. Has had no chest pain. At this time MO is not suspected. May be secondary to CHF, A. fib, mismatch in supply and demand. Chronic A. fib: Currently rate controlled. Continue metoprolol. Continue Eliquis. History of PE, cardiac arrest: Continue Eliquis. HTN: Currently not hypertensive. Monitor. Continue medications. BPH: Continue Flomax HLD: Continue statin GERD: Continue PPI Dementia High fall risk: Recently recommended by PT to use wheelchair. PT assessment. CODE STATUS: In case of repeat arrest he wants perhaps 1 attempt at resuscitation, does not want prolonged attempts. His reports is DPOA. Attestations Medical Necessity Statement*: See admission for assessment management of CHF exacerbation, poor response to oral diuretics, COPD exacerbation, pneumonia. Coding Level of Care Code Acute Business Operations Consultant for [facility] Arnie Diagnoses CHF exacerbation I50.9 COPD exacerbation J44.1 Anasarca R60.1 JAM (obstructive sleep apnea) G47.33 CAD (coronary artery disease) I25.10
[2019-07-22] MEDS: FUROsemide 10 mg/mL SDV 10mL 80 MG IVP (22:26)
[2019-07-23] VITALS (15 sets, daily range): BP systolic 96–122; BP diastolic 45–75; PULSE 84–108; RESP 13–21; TEMP 36.4–36.8; O2SAT 93–100
[2019-07-23 05:28] LABS: Basophils % 0.1 %; Hematocrit 33.8 % (42.0-52.0); Hemoglobin 10.3 g/dL (11.7-16.6); Lymphocytes # 0.9 10^3/uL (0.8-4.8); Lymphocytes % 11.4 %; Mean Corpuscular HGB Conc 30.5 g/dL (30.0-36.0); Mean Corpuscular Volume 88.7 fL (80-94); Mean Platelet Volume 9.6 fL (7.4-10.4); Monocytes # 1.2 10^3/uL (0.2-0.9); Monocytes % 15.9 %; Neutrophils # 5.7 10^3/uL (1.8-7.7); Neutrophils % 72.3 %; Nucleated Red Blood Cells % 0 %; Platelet Count 315 10^3/cmm (130-400); Red Blood Count 3.81 10^6/uL (4.1-5.3); Red Cell Distribution Width 18.2 % (12.1-15.1); White Blood Count 7.8 10^3/uL (4.0-10.0)
[2019-07-23 05:41] LABS: Anion Gap 11.9 (5-19); Blood Urea Nitrogen 25 mg/dL (8-23); Calcium 9.4 mg/dL (8.5-10.5); Carbon Dioxide 36 mmol/L (22-29); Chloride 93 mmol/L (98-107); Glucose 105 mg/dL (65-115); Osmolality Calculated 281 mOsm/kg (285-295); Potassium 3.9 mmol/L (3.5-5.1); Sodium 137 mmol/L (136-145)
[2019-07-23] MEDS: ipratropium-albuterol 3 mL Neb INHALATION ×4 (05:44→20:53)
--- NOTE | 2019-07-23 05:49 | PC.NURSE ---
SHIFT SUMMARY No c/o tonight. Using urinal freq with good urine output. Remains on 1000ml fluid restriction. Continues to receive Lasix IV. On CPAP while sleeping
[2019-07-23 05:51] LABS: Magnesium 2.6 mg/dL (1.7-2.3)
[2019-07-23] MEDS: budesonide 0.5 mg/2 mL Neb INHALATION ×2 (08:45→20:53)
[2019-07-23] MEDS: apixaban 5 mg Tablet PO ×2 (09:32→18:49)
[2019-07-23] MEDS: pantoprazole DR 40 mg Tablet PO (09:32)
[2019-07-23] MEDS: predniSONE 20 mg Tablet 40 MG PO (09:32)
[2019-07-23] MEDS: fluoxetine 20 mg Capsule PO (09:32)
[2019-07-23] MEDS: metoprolol tartrate 25 mg Tablet 12.5 MG PO ×2 (09:32→18:49)
[2019-07-23] MEDS: dilTIAZem ER (24HR) 120 mg Capsule PO (09:32)
[2019-07-23] MEDS: levofloxacin-dextrose 5 % 750 MG/150 ML PREMIX 100 MG IV (09:33)
[2019-07-23] MEDS: FUROsemide 10 mg/mL SDV 10mL 80 MG IVP (09:34)
[2019-07-23] MEDS: acetaminophen 325 mg Tablet 650 MG PO (09:37)
--- NOTE | 2019-07-23 11:00 | PC.NURSE ---
Doctor rounding Patient will stay on IV Lasix due to doing better on IV lasix and showing more improvement. Dr. Herrera discussed this with the patient at bedside. Patient is aware.
--- NOTE | 2019-07-23 11:30 | PC.SOCIAL ---
IMM Updated Page 2 of IMM updated and given to patient. Initialed, dated, and timed and placed in chart.
--- NOTE | 2019-07-23 17:52 | CTR_ITS ---
PROCEDURE INFORMATION: Exam: CT Head Without Contrast Exam date and time: 07/23/2019 5:56 PM Age: 78 years old Clinical indication: Altered mental status/memory loss and speech disturbance; Confusion or disorientation; Unspecified; Patient HX: New onset AMS w R facial droop and speech disturbance - resolving TECHNIQUE: Imaging protocol: Computed tomography of the head without contrast. Radiation optimization: All CT scans at this facility use at least one of these dose optimization techniques: automated exposure control; mA and/or kV adjustment per patient size (includes targeted exams where dose is matched to clinical indication); or iterative reconstruction. Other technique: STROKE PROTOCOL was implemented. COMPARISON: No relevant prior studies available. RADIATION DOSE METRICS: Total DLP: 894.34 mGy-cm FINDINGS: Brain: Moderate fronto temporal cortical volume loss. No abnormal brain attenuation. No intracranial hemorrhage. Ventricles: Normal. No ventriculomegaly. Bones/joints: Unremarkable. No acute fracture. Sinuses: The mucosal thickening in the left maxillary sinus. The other sinuses are clear. Mastoid air cells: Visualized mastoid air cells are well aerated. Vasculature: No hyperdense artery. Soft tissues: Unremarkable. CT/CT head wo con* [id number] IMPRESSION: 1. No acute intracranial abnormality. 2. Moderate fronto temporal cortical volume loss. ASSESSMENT: ASPECTS ([place] Stroke Program Early CT Score) is 10. Radiation Dose CTDIVOL = (mGy): DLP = 894.34 (mGy-cm)
[2019-07-23 17:59] LABS: ABG PCO2 45.7 mmHg (35-45); ABG PH Result 7.51 (7.35-7.45); Alveolar-Arterial Oxygen Gradi 59.8 mmHg (5-10); Arterial Blood Gas Hematocrit 34.3 % (42-52); Base Excess ABG 11.9 mmol/L (-2.0-2.0); Blood Gas Allen Test Pos; Blood Gas Sample Site Radial, right; Blood Gas Sample Type Arterial; Carboxyhemoglobin 1.1 %THgb (0.4-20.1); HCO3 ABG 36.4 mmol/L (22-26); HGB O2 Sat 95.1 % (95-100); Ionized Calcium Level - ABG 1.2 mmol/L (1.1-1.4); Methemoglobin 0.8 % (0.4-1.5); Oxygen Device NC; Oxygen Saturation ABG 96.9; PO2 ABG 80.7 mmHg (80.0-100.0); Potassium Level - ABG 3.9 mmol/L (3.5-5.0); Total Hemoglobin 11.2 g/dL (14-18)
[2019-07-23 18:11] LABS: Basophils % 0.2 %; Hematocrit 34.6 % (42.0-52.0); Hemoglobin 10.5 g/dL (11.7-16.6); Lymphocytes # 0.4 10^3/uL (0.8-4.8); Lymphocytes % 5.6 %; Mean Corpuscular HGB Conc 30.3 g/dL (30.0-36.0); Mean Corpuscular Hemoglobin 26.7 pg (28.0-34.0); Mean Platelet Volume 9.4 fL (7.4-10.4); Monocytes # 0.4 10^3/uL (0.2-0.9); Monocytes % 6.2 %; Neutrophils # 5.7 10^3/uL (1.8-7.7); Neutrophils % 87.7 %; Nucleated Red Blood Cells % 0 %; Platelet Count 297 10^3/cmm (130-400); Red Blood Count 3.93 10^6/uL (4.1-5.3); Red Cell Distribution Width 18.1 % (12.1-15.1); White Blood Count 6.4 10^3/uL (4.0-10.0)
--- NOTE | 2019-07-23 18:20 | PC.NURSE ---
Prn note Upon entering room after request by Patient care nurse, patient noted to have right sided facial droop and is unable to follow commands. Nurse reports patient is altered from what he was 30 min prior. Stroke alert called with physician notified.
[2019-07-23 18:28] LABS: Alanine Aminotransferase 10 U/L (0-41); Albumin Level 2.9 g/dL (3.5-5.2); Alkaline Phosphatase 86 IU/L (40-130); Aspartate Amino Transferase 14 U/L (0-40); Blood Urea Nitrogen 25 mg/dL (8-23); Calcium 9.3 mg/dL (8.5-10.5); Carbon Dioxide 34 mmol/L (22-29); Chloride 93 mmol/L (98-107); Globulin 3.3 g/dL (1.3-4.6); Glucose 144 mg/dL (65-115); Osmolality Calculated 283 mOsm/kg (285-295); Sodium 137 mmol/L (136-145); Total Bilirubin 0.3 mg/dL (0.15-1.2); Total Protein 6.2 g/dL (6.6-8.7)
[2019-07-23 18:30] LABS: Troponin(5th) Baseline 32 ng/L (0-15)
[2019-07-23] MEDS: aspirin 81 mg EC Tablet 162 MG PO (18:49)
[2019-07-23 19:15] LABS: Lactic Sepsis W/Reflex 1.3 mmol/L (0.5-2.2)
--- NOTE | 2019-07-23 19:34 | PC.NURSE ---
Patient rounding at 1800 showed patient content in bed watching TV. When asked if he had any pain patient reported his knees bothering him. Told patient I would go check to see if he could have his pain medication yet. Went back to administer evening medications at 1820 and found patient asleep in bed. When trying to verbally arouse patient he would not open his eyes or respond. attempted to rouse patient by lightly touching his arm. Again no response. Patient felt cold to touch was breathing, had a right sided facial droop and was only moaning sounds to painful stimuli. Immediately called for a set of vitals and charge nurse made the decision to call stroke alert. Dr Herrera was notified and was at bedside. Initial blood pressure was 104/64 and blood sugar was 137. Verbal orders read back and entered for CT, CBC, ABG, Trop, BMP, and EKG STAT. Blood was drawn and patient was taken to CT. By the time we arrived in CT patient started to arouse and come out of his stupor. Asked patient to tell me his name, place, year, and to which patient answered correctly. CT was performed and patient was moved to ICU room 8. Verbal report was given to ICU nurse at bedside. Patient belongings as well as bipap machine was taken with patient as well as his chart.
--- NOTE | 2019-07-23 19:57 | ECG_ITS ---
Measurements Intervals [place] Rate: 88 P: NE: 0 QRS: 18 QRSD: 86 T: 32 QT: 381 QTc: 463 ATRIAL FIBRILLATION LOW QRS VOLTAGE IN PRECORDIAL LEADS [QRS DEFLECTION < 1.0 mV IN CHEST LEADS] NONSPECIFIC ST & T-WAVE ABNORMALITY ABNORMAL RHYTHM ECG Compared to ECG 07/18/2019 16:58:36 Low QRS voltage now present T-wave abnormality still present Electronically Signed On 07-24-2019 19:30:44 CDT by Parul Sosa M.D. [email or web address]
[2019-07-23 20:28] LABS: Troponin 5 2HR 32.83 ng/L (0-15); Troponin 5 2HR Delta 0.83 ABS# (0-10)
[2019-07-23] MEDS: atorvastatin 40 mg Tablet 80 MG PO (20:45)
--- NOTE | 2019-07-23 22:18 | PM.PN ---
Subjective Subjective: Interval history: This morning he was feeling about the same, no complaints, breathing was comfortable. He was agreeable to stay longer for assessment of management of his anasarca, CHF exacerbation given he has not responded well to oral diuretics with worsening edema. Event: at 1820 he could not be aroused from sleep, even though shortly prior to that was awake. Did not receive any of his evening medications yet. Would not respond to touch or voice. There was concern for possible right facial droop, possibly not moving right side, and stroke code was called. At the time when I arrived he was arousable to sternal rub, loud voice, and would actually state his name, but then fall asleep again, with a blank stare, and does not appear he could see very well as he was not tracking my finger. He otherwise was extremely weak, but when awoken, would make attempts to move both hands, feet. Then would become unresponsive for some time again. No tremors or seizure-like activity. No rigidity. Noted. Facial droop may have been due to his head tilting to the right side due to positioning. On review of telemetry strips no arrhythmia was noted. Blood glucose was 137. Blood pressure earlier was in the 90s, during the event recorded 104/64. He was protecting airway. Saturation was good on baseline 2 L of oxygen. Afebrile. Was taken for CT of the head, blood draws obtained, and was moved to ICU. His notified of change in condition. Vitals/I&O/Wt Last Vital Signs Temp 98.1 F 07/23/19 20:00 Pulse 96 07/23/19 22:00 Resp 13 07/23/19 22:00 BP 122/70 07/23/19 22:00 Pulse Ox 100 07/23/19 22:00 07/23/19 07/23/19 07/23/19 06:59 14:59 22:59 Intake Total 60 / 1250 1090 / 1090 240 / 1330 Output Total 1760 / 3435 630 / 630 100 / 730 Balance -1700 / -2185 460 / 460 140 / 600 Weight last 48 hrs Weight 95.481 kg Weight 97.086 kg Physical Exam Const: COMMON NORMALS: no acute distress and patient oriented x3 HENMT: COMMON NORMALS: oropharynx normal Neck/C-Spine: COMMON NORMALS: no JVD Resp: COMMON NORMALS: normal respiratory effort and clear to auscultation bilaterally AUSCULTATION: clear to auscultation bilaterally, rhonchi, wheezes and diminished lung sounds Cardio: COMMON NORMALS: no JVD, regular rhythm, S1 normal heart sound present, S2 normal heart sound present and No murmurs present (Cardio) RHYTHM: regular rhythm HEART SOUNDS: S1 normal heart sound present and S2 normal heart sound present GI: COMMON NORMALS: Normal to inspection, nondistended, normoactive bowel sounds present, Soft to palpation and non-tender PALPATION: Yes Soft to palpation Extremity: COMMON NORMALS: no joint enlargement GENERAL: Yes edema (Anasarca up to lower belly. Legs were improving last couple days, but today appear unchanged and may be slightly worse than yesterday.) Neuro: COMMON NORMALS: patient oriented x3 OTHER: During the episode difficult to arouse. Difficult to examine. Appears to be moving all extremities, was able to state his name. Slurred speech. Generally very weak. No seizure-like activity. After recovery in ICU awake, alert fully, denies any complaints or symptoms. Does not remember event. Answers all questions. Tracks well. Perhaps slight right side facial droop, although this appears to be similar to how he was before. Perhaps a very minimal dysarthria, although also with dry mouth. No pronator drift upper extremities. Lower extremities slightly weaker bilaterally, right side slightly weaker still, although it is also more swollen than the left. Sensation is symmetrical all through. No neglect. No dysmetria. Skin: COMMON NORMALS: no rashes or lesions noted GENERAL SKIN EXAM: no rashes or lesions noted OTHER: Yesterday swelling was slightly worse, today is better again. Some wrinkling can be seen. No weeping. Dry skin has been moisturized. Mild pinkish discoloration of bilateral lower extremities below the knees, this appears to be likely stasis, at this time cellulitis is not suspected. Does not have active weeping, open wounds. Does have some eschar over healing wounds on the right reed. Data : 07/23/19 18:00 07/23/19 18:00 Micro: Microbiology 07/20/19 17:45 Gram Stain - Final Sputum - Expectorated Sputum Sputum Culture - Preliminary A&P Assessment and plan (1) Syncope: Stroke code was called 1820 due to unresponsive episode, perceived right side facial droop, dysarthria, at that time thought also perhaps not moving the right side, although during my visit still remaining generally weak, with slurred speech, waking up to sternal rub, stating his name, following some commands, although very weak. Able to move his hands, feet bilaterally. Could not accomplish much more in examination. Could not lift his arms or legs. Was not following commands, becoming unresponsive after short episodes of consciousness. This did not appear like CVA. Rather more global encephalopathy. Lasted only until he got to the CT scanner. No tremors or seizure-like activity. No rigidity noted. Facial droop may have been more pronounced due to his head tilting to the right side due to positioning. On review of telemetry strips no arrhythmia was noted. Blood glucose was 137. Blood pressure earlier was in the 90s, during the event recorded 104/64. He was protecting airway. Saturation was good on baseline 2 L of oxygen. Afebrile. Was taken for CT of the head, blood draws obtained, and was moved to ICU. CT of the head without acute change. Although he is not a candidate for TPA with anticoagulation as well as rapid resolution of symptoms. Examined again shortly after in the ICU. There is perhaps mild residual right side facial droop, although this appears similar to how he was before. He has mild dysarthria, but also with dry mouth, and so difficult to green building architect. He is fully awake, alert, regained his previous strength. There is perhaps slightly more weakness in right leg than left, although this leg is also more swollen. We discussed his improvement with his . Cannot exclude TIA/mild CVA, and so aspirin is added given some the mild findings above, however, I am not convinced and this was more likely a syncopal event. Blood pressure was slightly soft prior to that. At this time will hold Lasix, blood pressure medications. Monitor in ICU. Will request for ST evaluation. His last echo really was mostly uninterpretable, and so structural disease of the heart is high on differential, possibly becoming more symptomatic with diuresis. Follow-up troponin EKG series, although so far not suggestive of acute FL. He does not have any chest pain. We will request for TTE with contrast. Condition again discussed with his . QTC is prolonged, although no torsade or other arrhythmia was seen on telemetry apart from his atrial fibrillation, heart rates 90s-100s. Still will change antibiotic from Levaquin. Will cover with Zosyn in case there was some aspiration. Status: Acute (2) CHF exacerbation: For now Lasix on hold due to above event. Unfortunately he did not respond well to switching to oral diuretics. Switched back to IV Lasix. BUN has been trending up somewhat. Creatinine so far has remained normal. Appears he has lost 7 kg since admission. Dry skin moisturized. Fluid restriction. Follow up with Dr Jones in clinic. Unknown type CHF due to anatomy very difficult study on last time, pretty much uninterpretable. Does appear to have recurrent episodes of exacerbation. With above episode will request repeat TTE with contrast. May be some combination from malnutrition as well. At home usually in pretty good dose of Lasix 80 mg in the morning, 40 in the evening. Perhaps due to bowel edema he has not been rubbing well, although does say does not have issues with urination. Does drink some Ronak-Aid at home, although says it is not excessive amounts, no more than about 8 ounces or perhaps slightly more per day. She watches his salt intake. He denies chest pain and has not had chest pain per at home either. Status: Acute (3) COPD exacerbation: Less rhonchi today. Yesterday prednisone was increased back to 40 mg. Continue for now. Cannot exclude possible pneumonia as well with some appearance of possible faint infiltrate on the left. Change antibiotic to Zosyn. Breathing treatments. At home he is chronically on 2 L oxygen by nasal cannula. Wears also CPAP 5 days a week for JAM. Has a nebulizer. Continue oxygen. Obtain sputum culture. Despite some cough, he says it is not much worse than usual, he has been afebrile, no headache, has been isolating at home for about 3 months, and overall suspicion for COVID-19 is low. Status: Acute (4) Anasarca: Improving slowly. IV diuresis as above. Fluid restrict. Protein shakes with meals. May have some protein malnutrition contributing to the anasarca. Status: Acute (5) JAM (obstructive sleep apnea): Continue CPAP. May request for break 2 days out of the week. Status: Acute (6) CAD (coronary artery disease): Continue statin. For now continue beta-vane as he is chronically on it. Aspirin had been discontinued by primary care provider it appears likely due to risk of falls and bleeding as he is also concurrently on anticoagulation. Status: Acute Additional A&P Information Troponin elevation: Abnormal troponin, mild to moderate elevation, without significant rise. Suspected demand ischemia. Has had no chest pain. At this time FL is not suspected. May be secondary to CHF, A. fib, mismatch in supply and demand. Chronic A. fib: Currently rate controlled. Continue metoprolol. Continue Eliquis. History of PE, cardiac arrest: Continue Eliquis. HTN: Currently not hypertensive. Monitor. Continue medications. BPH: Continue Flomax HLD: Continue statin GERD: Continue PPI Dementia High fall risk: Recently recommended by PT to use wheelchair. PT assessment. CODE STATUS: In case of repeat arrest he wants perhaps 1 attempt at resuscitation, does not want prolonged attempts. His reports is DPOA. Attestations Medical Necessity Statement*: Continue admission for assessment and management of event of syncope at rest, CHF exacerbation, anasarca. Coding Level of Care Code Acute Engineering Leader for [facility] Arnie Diagnoses Syncope R55 CHF exacerbation I50.9 COPD exacerbation J44.1 Anasarca R60.1 JAM (obstructive sleep apnea) G47.33 CAD (coronary artery disease) I25.10
[2019-07-23] MEDS: piperacillin-tazobactam 3.375 GM in sodium chloride 0.9% (plus) 50 ML IV (23:19)
--- NOTE | 2019-07-23 23:57 | ECG_ITS ---
Measurements Intervals [place] Rate: 98 P: [place]: 0 QRS: 12 QRSD: 88 T: 32 QT: 381 QTc: 489 ATRIAL FIBRILLATION NONSPECIFIC T-WAVE ABNORMALITY ABNORMAL RHYTHM ECG WARNING: DATA QUALITY MAY AFFECT INTERPRETATION Compared to ECG 07/18/2019 16:58:36 No significant changes Electronically Signed On 07-24-2019 19:30:29 CDT by Parul Sosa M.D. [id number]
[2019-07-24] VITALS (30 sets, daily range): BP systolic 88–129; BP diastolic 54–83; PULSE 84–142; RESP 0–28; TEMP 36.2–36.5; O2SAT 90–100
[2019-07-24 00:29] LABS: Troponin 5 6HR 26.59 ng/L (0-15)
[2019-07-24 00:48] LABS: Troponin 5 6HR Delta -5.41 ng/L (0-12)
[2019-07-24] MEDS: ipratropium-albuterol 3 mL Neb INHALATION ×4 (02:45→20:16)
[2019-07-24 04:58] LABS: Basophils % 0.2 %; Hematocrit 35.8 % (42.0-52.0); Hemoglobin 10.8 g/dL (11.7-16.6); Lymphocytes # 0.7 10^3/uL (0.8-4.8); Lymphocytes % 10.9 %; Mean Corpuscular HGB Conc 30.2 g/dL (30.0-36.0); Mean Corpuscular Hemoglobin 26.7 pg (28.0-34.0); Mean Corpuscular Volume 88.4 fL (80-94); Mean Platelet Volume 9.7 fL (7.4-10.4); Monocytes # 0.8 10^3/uL (0.2-0.9); Monocytes % 12.9 %; Neutrophils # 4.9 10^3/uL (1.8-7.7); Neutrophils % 75.7 %; Nucleated Red Blood Cells % 0 %; Platelet Count 331 10^3/cmm (130-400); Red Blood Count 4.05 10^6/uL (4.1-5.3); Red Cell Distribution Width 18.1 % (12.1-15.1); White Blood Count 6.4 10^3/uL (4.0-10.0)
[2019-07-24 05:20] LABS: Blood Urea Nitrogen 24 mg/dL (8-23); Calcium 9.7 mg/dL (8.5-10.5); Carbon Dioxide 36 mmol/L (22-29); Chloride 95 mmol/L (98-107); Glucose 112 mg/dL (65-115); Osmolality Calculated 288 mOsm/kg (285-295); Sodium 140 mmol/L (136-145)
--- NOTE | 2019-07-24 05:58 | PC.NURSE ---
SHIFT SUMMARY PT HAS REMAINED ALERT AND ORIENTATED. PT HAS REFUSED TO TURN UNTIL 4 AM, PT ABLE TO USE URINAL WITH NO ASSISTANCE. PT DRIBBLES AT TIMES, BRIEF WAS CHANGED, BED WAS CHANGED, ANDRES CARE WAS GIVEN.
[2019-07-24] MEDS: metoprolol tartrate 25 mg Tablet 12.5 MG PO ×2 (08:40→18:16)
[2019-07-24] MEDS: aspirin 81 mg EC Tablet 162 MG PO (08:40)
[2019-07-24] MEDS: predniSONE 20 mg Tablet 40 MG PO (08:41)
[2019-07-24] MEDS: apixaban 5 mg Tablet PO ×2 (08:41→18:16)
[2019-07-24] MEDS: pantoprazole DR 40 mg Tablet PO (08:41)
[2019-07-24] MEDS: fluoxetine 20 mg Capsule PO (08:41)
--- NOTE | 2019-07-24 08:46 | PM.PN ---
Subjective Subjective: Interval history: Patient is not sure what happened yesterday. He knows that he was not very responsive for a while. Denies any problems overnight. Still with some rattling in his chest. States that his lower extremity edema has gone down some since admission. Denies any dizziness. No chest pain. Cough is primarily nonproductive at the moment. Denies any difficulty urinating. History and chart reviewed. Discussed patient with nursing staff as well. Medications: Reviewed: Yes Vitals/I&O/Wt Last Vital Signs Temp 97.2 F L 07/24/19 03:50 Pulse 97 07/24/19 04:00 Resp 14 07/24/19 04:00 BP 114/63 07/24/19 04:00 Pulse Ox 100 07/24/19 04:00 07/23/19 07/24/19 07/24/19 22:59 06:59 14:59 Intake Total 240 / 1330 0 / 1330 240 / 240 Output Total 200 / 830 Balance 40 / 500 0 / 500 240 / 240 Weight last 48 hrs Weight 95.481 kg Physical Exam Const: OTHER: Alert, oriented x3, cooperative HENMT: OTHER: On first glance appears to have a right-sided facial droop noticeable only at the mouth with the right angle tilted downward. On further evaluation however smile is symmetric, there is no decrease in nasolabial fold, eye closure is equal, no loss of wrinkling in the forehead. Moist mucus membranes noted. NC in place at 2L Eye: OTHER: Pupils equally round and reactive to light Neck/C-Spine: OTHER: Supple, no thyromegaly or lymphadenopathy. Sunken supra sternal notch. Resp: OTHER: Bibasilar rales, right > left, some upper airway noise improves with cough, no wheeze, no accessory muscle use noted Cardio: OTHER: Irregular, no murmurs gallops or rubs noted. Pulses diminished throughout but cap refill < 3 seconds. GI: OTHER: Abdomen soft, nontender, nondistended with positive bowel sounds : OTHER: No scrotal edema. No Salas. Extremity: NARRATIVE EXTREMITY EXAM: 2-3+ edema BLE, no redness or warmth at ankles or knees. Chronic Stasis changes BLE, no draining wounds but few healing sores. Neuro: OTHER: EOMI, speech clear, moves all extremities with equal hand membership coordinator. Psych: OTHER: Normal affect Skin: OTHER: Few skin tears to arms, scattered bruises to arms. Stasis changes to legs as noted. Skin dry with some wrinkling noted. Data : 07/24/19 03:28 07/24/19 03:28 Other Labs: Laboratory Tests 07/23/19 07/23/19 20:07 23:57 Troponin I Hi Sens Del -5.41 L Delta Troponin T 0.83 Micro: Microbiology 07/20/19 17:45 Gram Stain - Final Sputum - Expectorated Sputum Sputum Culture - Preliminary A&P Assessment and plan (1) Syncope: CT head no acute change No focal findings on todays neuro exam Cannot R/O TIA, but Chronically on Eliquis Cardiac enzymes and telemetry unremarkable Echo pending for today No recurrent symptoms overnight May be BP, volume or medication related Diltiazem, Lasix, Flomax held Levaquin stopped Denies similar symptoms in past Did not have any benzos prior Flomax home medication Status: Acute (2) CHF exacerbation: Resume oral diuretics today, but monitor response as did not do well last time changed to po Consider torsemide if lasix not adequate Follow up echo today Fluid restriction is at 1000, not likely sustainable at home Follows with Dr Jones in clinic. Unknown type CHF due to anatomy very difficult study on last time Does appear to have recurrent episodes of exacerbation May be some combination from malnutrition as well, albumin low follows low salt diet for him Status: Acute (3) COPD exacerbation: On steroids, nebs plus Pulmicort on Zosyn currently Cannot exclude possible pneumonia present on admission, but normal wbc COVID negative At home he is chronically on 2 L oxygen by nasal cannula Wears also CPAP 5 days a week for JAM Has a nebulizer Status: Acute (4) Anasarca: On diuretics Fluid restriction Protein shakes with meals May have some protein malnutrition contributing to the anasarca. Status: Acute (5) JAM (obstructive sleep apnea): Continue CPAP at night. Typically takes a break 2 nights out of the week. Status: Acute (6) CAD (coronary artery disease): On statin On beta-vane Aspirin not ordered outpatient by primary care provider due to risk of falls and bleeding as concurrently on anticoagulation. This started 6/7 after syncopal episode. Status: Acute Additional A&P Information Troponin elevation: Abnormal troponin, mild to moderate elevation, without significant rise. Suspected demand ischemia. Has had no chest pain. Chronic A. fib: Currently rate controlled. On betablocker at home. Cardizem added due to RVR on admit. On Eliquis. History of PE, cardiac arrest: On Eliquis. HTN: Currently not hypertensive. Monitor. On entrsto, metoprolol, Lasix at home. BPH: On Flomax HLD: On statin GERD: On PPI at home Dementia: Details unknown Depression: On Prozac at home High fall risk: Recently recommended by PT to use wheelchair. PT assessment. Moderate protein calorie malnutrition: present on admission Need to clarify home meds Restart diuretics Stop Diltiazem PT and OT eval and treat F/U echo Transfer to floor likely later today CSU CODE STATUS: In case of repeat arrest he wants perhaps 1 attempt at resuscitation, does not want prolonged attempts. His reports is DPOA. DISPOSITION PLAN: Home with , home health Attestations Medical Necessity Statement*: Requires ongoing inpatient stay for continued adjustment of medications in the face of anasarca related to CHF, COPD and hypoproteinemia. With syncopal episode/decreased level of consciousness yesterday then with further medication adjustment needs, not safe for disposition home just yet. Anticipate a couple more days presently. High risk for recurrent potentially life threatening events. Coding Level of Care Code Acute Handyman for Avelina Gaitan Diagnoses Syncope R55 CHF exacerbation I50.9 COPD exacerbation J44.1 Anasarca R60.1 JAM (obstructive sleep apnea) G47.33 CAD (coronary artery disease) I25.10
[2019-07-24] MEDS: budesonide 0.5 mg/2 mL Neb INHALATION ×2 (09:19→20:17)
[2019-07-24] MEDS: FUROsemide 10 mg/mL SDV 4mL 40 MG IVP (09:31)
[2019-07-24] MEDS: piperacillin-tazobactam 3.375 GM in sodium chloride 0.9% (plus) 50 ML IV ×2 (11:26→18:31)
[2019-07-24] MEDS: FUROsemide 40 mg Tablet PO (16:43)
[2019-07-24] MEDS: acetaminophen 325 mg Tablet 650 MG PO (16:43)
--- NOTE | 2019-07-24 20:12 | PC.NURSE ---
REPORT CALLED TO TOM ON CSU.
--- NOTE | 2019-07-24 20:45 | PC.NURSE ---
Pt transferred to CSU from ICU at 2034. VSS. Pt resting comfortably in bed with no complaints.
[2019-07-24] MEDS: atorvastatin 40 mg Tablet 80 MG PO (20:57)
[2019-07-24] MEDS: pramipexole 0.25 mg Tablet PO (21:31)
--- NOTE | 2019-07-24 22:19 | USCV_ITS ---
Eve Allan Age: 78 Gender: M : 1940 Exam Date: 07/24/2019 08:56 Ordering Phys: Samir Herrera MD Technologist: Shania Smith Exam Location: [facility] – [place] Indication: SYNCOPE. CHG DEHYDRATION BP: / HR: 87 Rhythm: Sinus Technical Quality: Adequate MEASUREMENTS (Male / Female) Normal Values 2D ECHO LV Diastolic Diameter PLAX 5.2 cm 4.2 - 5.9 / 3.9 - 5.3 cm LV Systolic Diameter PLAX 4.2 cm LV Chamber Size 3.2 cm IVS Diastolic Thickness 1.3 cm 0.6 - 1.0 / 0.6 - 0.9 cm IVS Systolic Thickness 1.2 cm LVPW Diastolic Thickness 1.0 cm 0.6 - 1.0 / 0.6 - 0.9 cm LVPW Systolic Thickness 1.5 cm RV Chamber Size 4.0 cm LVOT Diameter 2.0 cm LV Ejection Fraction 2D Teich 38.5 % LV Ejection Fraction MOD 2C 67.7 % LV Ejection Fraction 2C AL 68.4 % LA Diameter 5.0 cm LA Width 3.2 cm LA Height 5.0 cm RA Width 4.0 cm RA Height 4.8 cm Aorta at Sinotubular Diameter 3.3 cm M-MODE LV Diastolic Diameter MM 5.5 cm 4.2 - 5.9 / 3.9 - 5.3 cm LV Systolic Diameter MM 3.8 cm LV Ejection Fraction MM Teich 56.8 % IVS Diastolic Thickness MM 1.2 cm 0.6 - 1.0 / 0.6 - 0.9 cm IVS Systolic Thickness MM 1.2 cm LVPW Diastolic Thickness MM 1.3 cm 0.6 - 1.0 / 0.6 - 0.9 cm LVPW Systolic Thickness MM 1.8 cm RV Diastolic Diameter MM 1.7 cm Aortic Annulus Diameter 4.0 cm LA Ao Ratio MM 1.3 MV E Point Septal Separation 0.8 cm DOPPLER AV Peak Velocity 162.0 cm/s LVOT Peak Velocity 62.0 cm/s AV Area Cont Eq vti 1.3 cm squared AV Area Cont Eq pk 1.2 cm squared MV Area PHT 3.5 cm squared MV E' Velocity 11.0 cm/s Mitral E to MV E' Ratio 8.2 Mitral E to LV E' Lateral Ratio 7.2 Mitral E to LV E' Septal Ratio 9.6 TR Peak Velocity 285.9 cm/s TR Peak Gradient 32.7 mmHg TR Mean Velocity 216.2 cm/s TR Mean Gradient 20.2 mmHg TR Velocity Time Integral 83.8 cm TV Peak E Velocity 60.0 cm/s Right Atrial Pressure 3.0 mmHg Pulmonary Artery Systolic Pressu 35.7 mmHg PV Peak Velocity 74.0 cm/s RV Acceleration Time 0.1 s RV Ejection Time 0.3 s RV AcT/ET 0.4 FINDINGS Left Ventricle Normal left ventricular size and systolic function, EF 75 %. No regional wall motion abnormalities. Right Ventricle Mildly increased right ventricular size. Right Atrium Mildly increased right atrial size. Left Atrium Normal left atrial size. Mitral Valve Thickened mitral valve. Trace to mild mitral valve regurgitation. Aortic Valve Thickened aortic valve. Tricuspid Valve Mild tricuspid valve regurgitation. Pulmonic Valve Structurally normal pulmonic valve without significant stenosis. There is no pulmonic regurgitation. Pericardium Normal pericardium without effusion. Aorta Normal aortic annulus size. CONCLUSIONS Normal left ventricular size and systolic function, EF 75 %. No regional wall motion abnormalities. Mildly dilated right atrium and right ventricle. Minimally thickened aortic and mitral valves. Trace to mild mitral valve regurgitation. Mild tricuspid valve regurgitation. Estimated pulmonary artery peak systolic pressure was 36 mm of Hg There is no pericardial effusion. There are no intracardiac masses. No previous study is available for comparison. Dr Rebel Jones MD FAC (Electronically Signed) Final Date: 24 July 2019 17:55 S
[2019-07-25] VITALS (8 sets, daily range): BP systolic 95–113; BP diastolic 55–62; PULSE 88–108; RESP 18–22; TEMP 36.5; O2SAT 96–99
[2019-07-25] MEDS: piperacillin-tazobactam 3.375 GM in sodium chloride 0.9% (plus) 50 ML IV ×2 (03:05→10:35)
[2019-07-25] MEDS: ipratropium-albuterol 3 mL Neb INHALATION ×2 (03:37→08:19)
[2019-07-25 05:07] LABS: Anion Gap 13.3 (5-19); Blood Urea Nitrogen 27 mg/dL (8-23); Calcium 9.4 mg/dL (8.5-10.5); Carbon Dioxide 34 mmol/L (22-29); Chloride 96 mmol/L (98-107); Creatinine Clr Calc Pharmacy 74.8444; Glucose 107 mg/dL (65-115); Magnesium 2.5 mg/dL (1.7-2.3); Osmolality Calculated 285 mOsm/kg (285-295); Potassium 4.3 mmol/L (3.5-5.1); Sodium 139 mmol/L (136-145)
[2019-07-25] MEDS: FUROsemide 40 mg Tablet PO (08:13)
[2019-07-25] MEDS: budesonide 0.5 mg/2 mL Neb INHALATION (08:19)
--- NOTE | 2019-07-25 09:31 | PC.SOCIAL ---
IMM Update Pg 2 of IMM given and explained to patient who verbalized understanding. Copy provided.
[2019-07-25] MEDS: aspirin 81 mg EC Tablet 162 MG PO (09:51)
[2019-07-25] MEDS: guaiFENesin 600 mg Tablet PO (09:51)
[2019-07-25] MEDS: pramipexole 0.25 mg Tablet PO (09:51)
[2019-07-25] MEDS: fluoxetine 20 mg Capsule PO (09:51)
[2019-07-25] MEDS: metoprolol tartrate 25 mg Tablet 12.5 MG PO (09:51)
[2019-07-25] MEDS: apixaban 5 mg Tablet PO (09:51)
[2019-07-25] MEDS: pantoprazole DR 40 mg Tablet PO (09:51)
[2019-07-25] MEDS: predniSONE 20 mg Tablet 40 MG PO (11:02)
--- NOTE | 2019-07-25 12:24 | PM.DCS ---
Discharge Providers Date of Admission: 07/18/19 17:22 Date of Discharge: July 25, 2019 Attending Provider at Admission: Samir Herrera Attending Provider at Discharge: Kelly Olmedo MD Primary Care Provider: Ravin Madrigal MD Diagnoses at Discharge Discharge Diagnosis (1) CHF exacerbation: Status: Acute Qualifiers: Heart failure type: diastolic Qualified Code(s): I50.33 - Acute on chronic diastolic (congestive) heart failure (2) Anasarca: Status: Acute (3) COPD exacerbation: Status: Acute (4) Syncope: Status: Acute Qualifiers: Syncope type: unspecified Qualified Code(s): R55 - Syncope and collapse (5) JAM (obstructive sleep apnea): Status: Acute (6) CAD (coronary artery disease): Status: Acute Qualifiers: Coronary Disease-Associated Artery/Lesion type: [place] artery [place] vs. transplanted heart: [place] heart Associated angina: without angina Qualified Code(s): I25.10 - Atherosclerotic heart disease of [place] coronary artery without angina pectoris (7) Chronic a-fib: Status: Acute (8) Chronic anticoagulation: Status: Acute Problem details: eliquis Reason for Visit Reason for Visit: poss dehydration Hospital Course Hospital Course: Patient is a pleasant 78-year-old gentleman with a history of CHF and COPD who presented to the emergency room with a possibility of some dehydration. He had gained quite a bit of weight despite diuretic therapy. He has been having increasing lower extremity edema and swelling up all over. Lasix dosing had been 80 mg in the morning and 40 mg in the evening. Despite this he was developing anasarca. Clinically patient was felt to have acute CHF exacerbation as well as COPD exacerbation. He was admitted for further care. During the course of hospitalization, patient was treated with IV diuretics. He was negative around 5 L for the hospital stay. He had an elevated troponin but without a positive delta. Was felt more chronic in nature than acute. He does have a known history of coronary artery disease. In addition to diuresis, patient was treated with some breathing treatments, antibiotics to cover for COPD as well as steroid therapy. As he was improving, consideration was given to possibility of discharge on July 22 but patient had an episode in which he was not very responsive. Repeat cardiac enzymes did not show significant change. CT of the head did not show acute abnormality. Serial neurological exams did not show any persistent symptoms. Specific etiology was not identified. He did have some borderline blood pressures. He had been in bed when the event happened. Lasix, diltiazem and Flomax were held although these were all home medications. Review of telemetry monitoring did not show any arrhythmias at the time and patient was not otherwise described as being orthostatic. He was monitored an additional day with clinical improvement. An echocardiogram was done that revealed an ejection fraction of 75% with no wall motion abnormalities. Right ventricular systolic pressure was 36 mmHg. Lasix was resumed at 40 mg p.o. twice daily rather than IV. Diltiazem was also resumed. Blood pressures have been ranging mid 90s to mid 110s over mid 50s to mid 70s systolic. Patient denies any dizziness. He is overall feeling better and has not had any recurrent issues. He occasionally has a cough but not short of breath at rest. Overall he is feeling better. Encouraged him to use his CPAP nightly. Also reviewed the importance of daily weights and calling primary care provider if gains more than 2 pounds. He states that his manages his medications. Will review with her as well. I did discuss the case with patient's primary care provider Dr. Ravin Madrigal prior to discharge. In particular I wanted to discuss that Lasix dosing may need to be adjusted further. Also brought up considering the possibility of changing to torsemide if not getting adequate diuresis although it sounds like they simply do not call when he starts gaining weight. At the time of discharge, patient was awake and alert, he had some scattered wheezes but no definitive rales on examination. No accessory muscle use at rest. He had a heart rate in the 90s. Bilateral lower extremities with edema but much smaller than at admission. Skin was wrinkled and dry with chronic stasis changes but no warmth. No pitting edema in the lumbar sacral area. Discharge Data Data Completed and Pending: Completed Studies During Hospitalization Category Date Time Status CT head wo con* [id number] Stat Cat Scan 07/23/19 17:52 Completed XR chest 1V yulissa ble [id number] Routine Exams 07/22/19 03:33 Completed XR chest 1V yulissa ble [id number] Urgent Exams 07/18/19 14:52 Completed CV echo complete* [id number] Routine Ultrasound 07/24/19 22:19 Completed Echocardiogram showed an ejection fraction of 75% with no wall motion abnormalities. Pulmonary artery pressure was 36 mmHg. Labs from last 24 hours 07/25/19 04:23 Sodium 139 Potassium 4.3 Chloride 96 L Carbon Dioxide 34 H Anion Gap 13.3 BUN 27 H Creatinine 0.9 Glucose 107 Calculated Osmolal ity 285 Calcium 9.4 Magnesium 2.5 H Addt'l Data from Hospital Stay: Laboratory Tests 07/18/19 07/18/19 07/23/19 15:15 15:15 17:49 WBC Hgb Hct Plt Count PT INR ABG pH 7.51 H ABG pCO2 45.7 H ABG pO2 80.7 ABG HCO3 36.4 H Magnesium Total Bilirubin AST ALT Alkaline Phosphata se Troponin I 6 Hour Troponin T Baselin e Troponin T 120 Min algaaciq NT-Pro-B Natriuret Pep 4407 H TSH 1.14 07/23/19 07/23/19 07/23/19 18:00 18:00 18:50 WBC Hgb Hct Plt Count PT 17.60 H INR 1.40 H ABG pH ABG pCO2 ABG pO2 ABG HCO3 Magnesium Total Bilirubin 0.3 AST 14 ALT 10 Alkaline Phosphata se 86 Troponin I 6 Hour Troponin T Baselin e 32 H Troponin T 120 Min algaaciq NT-Pro-B Natriuret Pep TSH 07/23/19 07/23/19 07/24/19 20:07 23:57 03:28 WBC 6.4 Hgb 10.8 L Hct 35.8 L Plt Count 331 PT INR ABG pH ABG pCO2 ABG pO2 ABG HCO3 Magnesium Total Bilirubin AST ALT Alkaline Phosphata se Troponin I 6 Hour 26.59 H Troponin T Baselin e Troponin T 120 Min algaaciq 32.83 H NT-Pro-B Natriuret Pep TSH 07/25/19 04:23 WBC Hgb Hct Plt Count PT INR ABG pH ABG pCO2 ABG pO2 ABG HCO3 Magnesium 2.5 H Total Bilirubin AST ALT Alkaline Phosphata se Troponin I 6 Hour Troponin T Baselin e Troponin T 120 Min algaaciq NT-Pro-B Natriuret Pep TSH Vitals: Last Vital Signs Temp 97.7 F 07/25/19 11:25 Pulse 108 H 07/25/19 11:25 Resp 18 07/25/19 11:25 BP 95/55 07/25/19 11:25 Pulse Ox 96 07/25/19 11:25 Discharge Plan Discharge Patient Disposition: Home Health Service Condition: Fair Prescriptions: New aspirin 81 mg Tablet,Delayed Release (Dr/Ec) 81 mg PO DAILY Qty: 30 RF: 0 furosemide 40 mg Tablet 40 mg PO BID@08,16 Qty: 60 RF: 0 ipratropium-albuterol 0.5 mg-3 mg(2.5 mg base)/3 mL Solution For Nebulization 3 ml inhalation Q4H PRN (Reason: Shortness Of Breath) Qty: 180 RF: 0 prednisone 20 mg Tablet 20 mg PO DAILY Qty: 5 RF: 0 Continued potassium chloride 10 mEq tablet extended release 10 meq PO BID RF: 0 tamsulosin 0.4 mg capsule 0.4 mg PO BEDTIME RF: 0 pantoprazole 40 mg tablet,delayed release (DR/EC) 40 mg PO DAILY RF: 0 fluoxetine 20 mg tablet 20 mg PO DAILY RF: 0 budesonide 0.5 mg/2 mL suspension for nebulization 0.5 mg inhalation BID RF: 0 diltiazem HCl 120 mg capsule,extended release 24hr 120 mg PO DAILY RF: 0 rosuvastatin 20 mg tablet 20 mg PO BEDTIME RF: 0 metoprolol tartrate 25 mg tablet 12.5 mg PO BID RF: 0 Entresto 24-26 mg tablet 1 tab PO BID RF: 0 Eliquis 5 mg tablet 5 mg PO BID RF: 0 clonazepam 0.5 mg Tablet 0.5 mg PO DAILY PRN (Reason: Anxiety) RF: 0 docusate sodium 100 mg Capsule 100 mg PO BID RF: 0 pramipexole 0.25 mg Tablet 0.25 mg PO TID RF: 0 vitamin E 400 unit Capsule 400 unit PO DAILY RF: 0 Fish Oil 1,000 mg (120 mg-180 mg) Capsule 1 cap PO DAILY RF: 0 Mucinex 600 mg Tablet Extended Release 12hr 600 mg PO BID RF: 0 Mag 64 64 mg PO DAILY RF: 0 Held albuterol sulfate 4 mg Tablet 4 mg PO QID RF: 0 Hold Instructions: Resume as per discussion with PCP bee pollen 580 mg Capsule 580 mg PO BID RF: 0 Hold Instructions: Resume as per discussion with PCP Discontinued furosemide 80 mg tablet 80 mg PO DAILY RF: 0 Lasix 40 mg Tablet 40 mg PO BEDTIME RF: 0 Discharge Orders: Discharge Order (Routine); Ordered 07/25/19 Ordered By: Kelly Olmedo Referrals: [facility] [place] Home Care ([facility]) [Outside] Ravin Madrigal MD [Primary Care Provider] - Discharge Diet: Cardiac and Low Salt Activity Restrictions/Additional Instructions: Continue Cpap Continue Home oxygen Home health has been resumed Weight on arrival home Daily Weights thereafter Call Dr Madrigal office if you gain more than 2 pounds in one day Lasix dose has been adjusted; may need to consider alternative diuretics if again have challenges with fluid management. You were negtive about 5 liters of fluid during hospital stay. Blood pressures have been 95-120/55-75 last few days Slow with position changes Use walker and wheelchair as instructed 2 L fluid restriction Discharge Attestations Time Spent in Discharge Care*: greater than 30 min Specific Discharge Activities: Specific discharge activities: educating patient, educating and/or supporting family/caregiver, discussing with pcp/other providers, discussing with pillowcase sewer/social workers/dc planners, documenting/other paperwork and evaluating patient/reviewing data Quality Metrics Clinical Quality Measures During this hospital stay, did patient experience: None Coding Level of Care Code Acute Evp Business Development for Chg Fwd Diagnoses CHF exacerbation I50.33 Heart failure type: diastolic Anasarca R60.1 COPD exacerbation J44.1 Syncope R55 Syncope type: unspecified JAM (obstructive sleep apnea) G47.33 CAD (coronary artery disease) I25.10 Coronary Disease-Associated Artery/Lesion type: [place] artery [place] vs. transplanted heart: [place] heart Associated angina: without angina Chronic a-fib I48.20 Chronic anticoagulation Z79.01
--- NOTE | 2019-07-25 13:13 | PC.NURSE ---
faxed [facility]
--- NOTE | 2019-07-25 13:34 | PC.NURSE ---
Discharge instructions given to patient. patient verbalized understanding of instructions. Dr Olmedo spoke with patient's about discharge instructions. IV discontinued and IV site covered with 2x2 and coban. patient waiting on to arrive for ride home.
--- NOTE | 2019-07-25 14:18 | PC.NURSE ---
patient taken to private vehicle via wheelchair by web content writer. with patient
== END 2019-07-25 14:20 | disposition home health service (06) | DRG 292 ==
LOC: ER 17:19 → MEDSURG 21:48 → ICU 07-23 18:41 → CSU 07-24 20:39
PROVIDERS: Family Medicine; Admitting Provider Internal Medicine; PCP Family Medicine; Visit Provider Hospitalist
DX: I11.0 Hypertensive heart disease with heart failure (principal); I48.20 Chronic atrial fibrillation, unspecified; J44.1 Chronic obstructive pulmonary disease with (acute) exacerbation; I50.33 Acute on chronic diastolic (congestive) heart failure; I25.10 Atherosclerotic heart disease of native coronary artery without angina pectoris; Z95.5 Presence of coronary angioplasty implant and graft; Z86.711 Personal history of pulmonary embolism; Z86.74 Personal history of sudden cardiac arrest; Z79.01 Long term (current) use of anticoagulants; G89.29 Other chronic pain; Z87.81 Personal history of (healed) traumatic fracture; Z91.81 History of falling; F03.90 Unspecified dementia, unspecified severity, without behavioral disturbance, psychotic disturbance, mood disturbance, and anxiety; Z99.81 Dependence on supplemental oxygen; G47.33 Obstructive sleep apnea (adult) (pediatric); N40.0 Benign prostatic hyperplasia without lower urinary tract symptoms; K21.9 Gastro-esophageal reflux disease without esophagitis; E78.5 Hyperlipidemia, unspecified; G62.9 Polyneuropathy, unspecified; G25.81 Restless legs syndrome; E86.0 Dehydration; F41.9 Anxiety disorder, unspecified; Z87.891 Personal history of nicotine dependence
CPT/HCPCS: 12345; 36415; 36600; 70450; 71045; 80048; 80051; 80053; 82810; 83605; 83735; 83880; 83986; 84100; 84443; 84484; 85025; 85610; 87070; 87205; 92523; 92610; 93005; 93306; 94640; 94660; 94664; 96375; 97110; 97116; 97161; 97166; 97530; 97535; 99282; J1940; J1956; J2270; J2543; J7512; J7626; P9047

== ENCOUNTER 2020-03-21 13:35 | Inpatient (IN) | payer MEDICARE, SELFPAY ==
[2020-03-21] VITALS (9 sets, daily range): BP systolic 118–129; BP diastolic 61–79; PULSE 64–83; RESP 15–20; TEMP 36.4–36.6; O2SAT 97–100; BMI 26.7
--- NOTE | 2020-03-21 13:53 | XR_ITS ---
WS: [id number] Portable AP upright chest, 03/21/2020 Clinical Data: dyspnea/cough Comparison: Portable chest, 07/22/2019 Findings: There are small bilateral pleural effusions. There are bilateral patchy opacities which may represent minimal pneumonia or atelectasis. The heart size is normal. The aortic arch and descending aorta show calcification and tortuosity. The pulmonary vascularity is not increased. XR/XR chest 1V portable [id number] Impression: 1. Patchy bilateral opacities which could represent minimal pneumonia or atelec tasis. 2. Small bilateral pleural effusions. 3. Atherosclerosis.
[2020-03-21 14:14] LABS: ABG PCO2 46.3 mmHg (35-45); ABG PH Result 7.41 (7.35-7.45); Arterial Blood Gas Hematocrit 31.8 % (42-52); Blood Gas Allen Test Pos; Blood Gas Operator Identificat GD; Blood Gas Sample Site Radial, left; Blood Gas Sample Type Arterial; Carboxyhemoglobin 1.4 %THgb (0.4-20.1); HCO3 ABG 29.2 mmol/L (22-26); HGB O2 Sat 97.3 % (95-100); Ionized Calcium Level - ABG 1.2 mmol/L (1.1-1.4); Methemoglobin 0.8 % (0.4-1.5); Oxygen Device ROOM AIR; Oxygen Saturation ABG 99.6; Potassium Level - ABG 4.4 mmol/L (3.5-5.0); Total Hemoglobin 10.4 g/dL (14-18)
--- NOTE | 2020-03-21 14:16 | W.ED.WEAKNES ---
HPI - Weakness General: Chief complaint: Weakness Stated complaint: LOSS OF APPETITE/ NOT FEELING WELL Time Seen by Provider: 03/21/20 13:37 History of Present Illness: HPI Narrative: 79-year-old male comes in complaining of weakness and cough and shortness of breath. It began approximately 1 week ago he had some diarrhea along with it. Not had any vomiting. He denies any chest pain. He has a history of atrial fibrillation congestive heart failure he is on oral anticoagulants he denies any abdominal pain he denies any hematochezia or melena. MD Complaint: generalized weakness Onset (ago): day(s) Duration: constant Location: generalized Severity: mild Relieving factors: none Exacerbating factors: none Associated symptoms: Denies chest pain, chills, confusion, melena, decreased appetite, diaphoresis, dysuria, easy bruising, fever(s), headache(s), myalgias, nausea, rash, short of breath, syncope or vomiting Review of Systems Const: Denies: fever(s), chills or diaphoresis ENMT: Denies: throat pain, ear or mastoid pain, nasal discharge or nasal congestion Card: Denies: chest pain or syncope Resp: Reports: dyspnea and non-productive cough; Denies: productive cough GI: Denies: nausea, vomiting or melena : Denies: dysuria Skin/Breast: Denies: rash or pruritus Neuro: Denies: headache(s) or confusion Yang/Lymph: Denies: easy bruising [facility] ED PFSH: Medical History (Updated 03/22/20 @ 14:45 by Minor Sneed DO) Atrial fibrillation BPH (benign prostatic hyperplasia) CAD (coronary artery disease) Cardiac arrest COPD (chronic obstructive pulmonary disease) CVA (cerebral vascular accident) GERD (gastroesophageal reflux disease) Hyperkalemia Hyperlipidemia Hypertension Ischemic cardiomyopathy Peripheral neuropathy Pneumothorax Pulmonary embolism Restless leg syndrome Rib fractures Surgical History History of appendectomy History of coronary artery stent placement Hx of cataract surgery Hx of tonsillectomy Family History Other CAD (coronary artery disease) Social History Smoking and tobacco status: former smoker Second hand smoke exposure: No Alcohol intake: never Lives independently: No Household members: spouse Marital status: Physical Exam Const: COMMON NORMALS: no acute distress GENERAL APPEARANCE: cooperative and comfortable ORIENTATION/CONSCIOUSNESS: Yes awake, Yes oriented to person, Yes oriented to place and Yes oriented to time HENMT: COMMON NORMALS: normocephalic, atraumatic, hearing grossly normal bilaterally, external ears normal, EAC's normal, TM's normal bilaterally and Normal nasal mucous membranes and turbinates present HEAD & SCALP: normocephalic and atraumatic NOSE: Normal nasal mucous membranes and turbinates present EXTERNAL EAR: Yes external ears normal EXTERNAL AUDITORY CANAL: EAC's normal TYMPANIC MEMBRANE: TM's normal bilaterally Eye: COMMON NORMALS: Equal, round and reactive pupils present, EOMs intact bilaterally, conjunctivae normal and no scleral icterus CONJUNCTIVA: Yes conjunctivae normal PUPIL: Yes Equal, round and reactive pupils present Neck/C-Spine: COMMON NORMALS: no JVD Resp: AUSCULTATION: rhonchi and wheezes Cardio: COMMON NORMALS: no JVD, regular rate and No murmurs present (Cardio) RATE: regular rate RHYTHM: abnormal rhythm irregularly irregular GI: COMMON NORMALS: Soft to palpation and No hepatosplenomegaly present AUSCULTATION: Yes normoactive bowel sounds PALPATION: Yes Soft to palpation, No Tenderness to palpation present (GI), No Guarding due to palpation present (GI) and Yes No hepatosplenomegaly present Extremity: COMMON NORMALS: normal to inspection, capillary refill normal, no clubbing, cyanosis or edema, no calf tenderness and no pedal edema Neuro: SENSORIUM/ORIENTATION: Yes oriented to person, Yes oriented to place and Yes oriented to time Skin: COMMON NORMALS: no rashes or lesions noted GENERAL SKIN EXAM: no rashes or lesions noted Course Vital Signs: Vital signs: Vital Signs Temperature 97.5 F L 03/22/20 11:01 Pulse Rate 95 03/22/20 14:29 Respiratory Rate 17 03/22/20 14:28 Blood Pressure 109/52 03/22/20 11:01 Pulse Oximetry 98 03/22/20 14:28 MDM - Weakness Lab Data: Labs: Lab Results 03/21/20 03/21/20 03/21/20 Range/Units 14:00 14:05 14:05 WBC 7.3 (4.0-10.0) 10^3/ uL RBC 4.39 (4.1-5.3) 10^6/u L Hgb 10.3 L (11.7-16.6) g/dL Hct 35.6 L (42.0-52.0) % MCV 81.1 (80-94) fL MCH 23.5 L (28.0-34.0) pg MCHC 28.9 L (30.0-36.0) g/dL RDW 19.4 H (12.1-15.1) % Plt Count 248 (130-400) 10^3/c mm MPV 10.3 (7.4-10.4) fL Neut % (Auto) 67.5 % Lymph % (Auto) 13.7 % Bollinger % (Auto) 18.0 % Eos % (Auto) 0.0 % Baso % (Auto) 0.7 % Neut # (Auto) 4.94 (1.8-7.7) 10^3/u L Lymph # (Auto) 1.0 (0.8-4.8) 10^3/u L Bollinger # (Auto) 1.3 H (0.2-0.9) 10^3/u L Eos # (Auto) 0.0 (0.0-0.8) 10^3/u L Baso # (Auto) 0.1 (0.0-0.1) 10^3/u L Nucleated RBC % (a uto) 0.3 % Nucleated RBCs # 0.0 /100WBC Specimen Type Arterial Sample Site Radial, left ABG pH 7.41 (7.35-7.45) ABG pCO2 46.3 H (35-45) mmHg ABG pO2 138.0 H (80.0-100.0) mmH g ABG HCO3 29.2 H (22-26) mmol/L ABG O2 Saturation 99.6 ABG Base Excess 4.0 H (-2.0-2.0) mmol/ L Earl Test Pos Hematocrit 31.8 L (42-52) % Hgb O2 Saturation 97.3 (95-100) % Carboxyhemoglobin 1.4 (0.4-20.1) %THgb Methemoglobin 0.8 (0.4-1.5) % Total Hemoglobin 10.4 L (14-18) g/dL Sodium 142.0 141 (131-143) mmol/L Potassium 4.4 4.6 (3.5-5.0) mmol/L Glucose 104.0 97 (70-115) mg/dL Ionized Calcium 1.2 (1.1-1.4) mmol/L O2 Delivery Device Room air Manager In Training ID Gd Chloride 106 (98-107) mmol/L Carbon Dioxide 28 (22-29) mmol/L Anion Gap 11.6 (5-19) BUN 13 (8-23) mg/dL Creatinine 0.7 (0.7-1.2) mg/dL GFR Calculation Not Reportable Calculated Osmolal ity 292 (285-295) mOsm/k g Calcium 8.4 L (8.5-10.5) mg/dL Total Bilirubin 0.6 (0.15-1.2) mg/dL AST 13 (0-40) U/L ALT 11 (0-41) U/L Alkaline Phosphata se 92 (40-130) IU/L Troponin T Baselin e (0-15) ng/L Troponin T 120 Min [place] (0-15) ng/L Delta Troponin T (0-10) ABS# Total Protein 6.0 L (6.6-8.7) g/dL Albumin 3.2 L (3.5-5.2) g/dL Globulin 2.8 (1.3-4.6) g/dL Lipase 13 (13-60) U/L Urine Color (Yellow) Urine Appearance (CLEAR) Urine pH (5-7) Ur Specific Gravit y (1.005-1.030) Urine Protein (Negative) Urine Glucose (UA) (Normal) Urine Ketones (Negative) Urine Blood (Negative) Urine Nitrate (Negative) Urine Bilirubin (Negative) Urine Urobilinogen (Negative) mg/dL Ur Leukocyte Sherley ase (Negative) Urine RBC (0-2) /hpf Urine WBC (0-5) /hpf Ur Squamous Epith Cells (0-5) /hpf Amorphous Sediment Urine Bacteria (NONE) /hpf SARS-CoV-2 Ag (Rap id) (Negative) 03/21/20 03/21/20 03/21/20 Range/Units 14:05 14:32 17:00 WBC (4.0-10.0) 10^3/ uL RBC (4.1-5.3) 10^6/u L Hgb (11.7-16.6) g/dL Hct (42.0-52.0) % MCV (80-94) fL MCH (28.0-34.0) pg MCHC (30.0-36.0) g/dL RDW (12.1-15.1) % Plt Count (130-400) 10^3/c mm MPV (7.4-10.4) fL Neut % (Auto) % Lymph % (Auto) % Bollinger % (Auto) % Eos % (Auto) % Baso % (Auto) % Neut # (Auto) (1.8-7.7) 10^3/u L Lymph # (Auto) (0.8-4.8) 10^3/u L Bollinger # (Auto) (0.2-0.9) 10^3/u L Eos # (Auto) (0.0-0.8) 10^3/u L Baso # (Auto) (0.0-0.1) 10^3/u L Nucleated RBC % (a uto) % Nucleated RBCs # /100WBC Specimen Type Sample Site ABG pH (7.35-7.45) ABG pCO2 (35-45) mmHg ABG pO2 (80.0-100.0) mmH g ABG HCO3 (22-26) mmol/L ABG O2 Saturation ABG Base Excess (-2.0-2.0) mmol/ L Earl Test Hematocrit (42-52) % Hgb O2 Saturation (95-100) % Carboxyhemoglobin (0.4-20.1) %THgb Methemoglobin (0.4-1.5) % Total Hemoglobin (14-18) g/dL Sodium (131-143) mmol/L Potassium (3.5-5.0) mmol/L Glucose (70-115) mg/dL Ionized Calcium (1.1-1.4) mmol/L O2 Delivery Device Manager In Training ID Chloride (98-107) mmol/L Carbon Dioxide (22-29) mmol/L Anion Gap (5-19) BUN (8-23) mg/dL Creatinine (0.7-1.2) mg/dL GFR Calculation Calculated Osmolal ity (285-295) mOsm/k g Calcium (8.5-10.5) mg/dL Total Bilirubin (0.15-1.2) mg/dL AST (0-40) U/L ALT (0-41) U/L Alkaline Phosphata se (40-130) IU/L Troponin T Baselin e 34 H (0-15) ng/L Troponin T 120 Min [place] 31.86 H (0-15) ng/L Delta Troponin T -2.14 L (0-10) ABS# Total Protein (6.6-8.7) g/dL Albumin (3.5-5.2) g/dL Globulin (1.3-4.6) g/dL Lipase (13-60) U/L Urine Color (Yellow) Urine Appearance (CLEAR) Urine pH (5-7) Ur Specific Gravit y (1.005-1.030) Urine Protein (Negative) Urine Glucose (UA) (Normal) Urine Ketones (Negative) Urine Blood (Negative) Urine Nitrate (Negative) Urine Bilirubin (Negative) Urine Urobilinogen (Negative) mg/dL Ur Leukocyte Sherley ase (Negative) Urine RBC (0-2) /hpf Urine WBC (0-5) /hpf Ur Squamous Epith Cells (0-5) /hpf Amorphous Sediment Urine Bacteria (NONE) /hpf SARS-CoV-2 Ag (Rap id) Negative (Negative) 03/21/20 Range/Units 17:25 WBC (4.0-10.0) 10^3/ uL RBC (4.1-5.3) 10^6/u L Hgb (11.7-16.6) g/dL Hct (42.0-52.0) % MCV (80-94) fL MCH (28.0-34.0) pg MCHC (30.0-36.0) g/dL RDW (12.1-15.1) % Plt Count (130-400) 10^3/c mm MPV (7.4-10.4) fL Neut % (Auto) % Lymph % (Auto) % Bollinger % (Auto) % Eos % (Auto) % Baso % (Auto) % Neut # (Auto) (1.8-7.7) 10^3/u L Lymph # (Auto) (0.8-4.8) 10^3/u L Bollinger # (Auto) (0.2-0.9) 10^3/u L Eos # (Auto) (0.0-0.8) 10^3/u L Baso # (Auto) (0.0-0.1) 10^3/u L Nucleated RBC % (a uto) % Nucleated RBCs # /100WBC Specimen Type Sample Site ABG pH (7.35-7.45) ABG pCO2 (35-45) mmHg ABG pO2 (80.0-100.0) mmH g ABG HCO3 (22-26) mmol/L ABG O2 Saturation ABG Base Excess (-2.0-2.0) mmol/ L Earl Test Hematocrit (42-52) % Hgb O2 Saturation (95-100) % Carboxyhemoglobin (0.4-20.1) %THgb Methemoglobin (0.4-1.5) % Total Hemoglobin (14-18) g/dL Sodium (131-143) mmol/L Potassium (3.5-5.0) mmol/L Glucose (70-115) mg/dL Ionized Calcium (1.1-1.4) mmol/L O2 Delivery Device Manager In Training ID Chloride (98-107) mmol/L Carbon Dioxide (22-29) mmol/L Anion Gap (5-19) BUN (8-23) mg/dL Creatinine (0.7-1.2) mg/dL GFR Calculation Calculated Osmolal ity (285-295) mOsm/k g Calcium (8.5-10.5) mg/dL Total Bilirubin (0.15-1.2) mg/dL AST (0-40) U/L ALT (0-41) U/L Alkaline Phosphata se (40-130) IU/L Troponin T Baselin e (0-15) ng/L Troponin T 120 [place] (0-15) ng/L Delta Troponin T (0-10) ABS# Total Protein (6.6-8.7) g/dL Albumin (3.5-5.2) g/dL Globulin (1.3-4.6) g/dL Lipase (13-60) U/L Urine Color Yellow (Yellow) Urine Appearance Clear (CLEAR) Urine pH 5 (5-7) Ur Specific Gravit y 1.020 (1.005-1.030) Urine Protein Trace (Negative) Urine Glucose (UA) Norm (Normal) Urine Ketones Negative (Negative) Urine Blood 2+ H (Negative) Urine Nitrate Negative (Negative) Urine Bilirubin Neg (Negative) Urine Urobilinogen Norm (Negative) mg/dL Ur Leukocyte Sherley ase Negative (Negative) Urine RBC 15-25 H (0-2) /hpf Urine WBC 0-4 H (0-5) /hpf Ur Squamous Epith Cells 0-4 H (0-5) /hpf Amorphous Sediment Not Reportable Urine Bacteria 2+ H (NONE) /hpf SARS-CoV-2 Ag (Rap id) (Negative) Discharge Plan Discharge Patient Disposition: Admitted As Inpatient Admit Provider: Kyle Raya Clinical Impression: Pneumonia, Atrial fibrillation, Chronic diastolic heart failure, Chronic respiratory failure with hypoxia Condition: Stable Coding Level of Care Code ED Inorganic Chemistry Professor for Avelina Gaitan
[2020-03-21 14:32] LABS: Basophils # 0.1 10^3/uL (0.0-0.1); Basophils % 0.7 %; Hematocrit 35.6 % (42.0-52.0); Hemoglobin 10.3 g/dL (11.7-16.6); Lymphocytes % 13.7 %; Mean Corpuscular HGB Conc 28.9 g/dL (30.0-36.0); Mean Corpuscular Hemoglobin 23.5 pg (28.0-34.0); Mean Corpuscular Volume 81.1 fL (80-94); Mean Platelet Volume 10.3 fL (7.4-10.4); Monocytes # 1.3 10^3/uL (0.2-0.9); Neutrophils # 4.94 10^3/uL (1.8-7.7); Neutrophils % 67.5 %; Nucleated Red Blood Cells % 0.3 %; Platelet Count 248 10^3/cmm (130-400); Red Blood Count 4.39 10^6/uL (4.1-5.3); Red Cell Distribution Width 19.4 % (12.1-15.1); White Blood Count 7.3 10^3/uL (4.0-10.0)
[2020-03-21] MEDS: ondansetron 2 mg/ML SDV 2 mL 4 MG IVP (14:33)
[2020-03-21 14:49] LABS: Alanine Aminotransferase 11 U/L (0-41); Albumin Level 3.2 g/dL (3.5-5.2); Alkaline Phosphatase 92 IU/L (40-130); Anion Gap 11.6 (5-19); Aspartate Amino Transferase 13 U/L (0-40); Blood Urea Nitrogen 13 mg/dL (8-23); Calcium 8.4 mg/dL (8.5-10.5); Carbon Dioxide 28 mmol/L (22-29); Chloride 106 mmol/L (98-107); Globulin 2.8 g/dL (1.3-4.6); Glucose 97 mg/dL (65-115); Lipase 13 U/L (13-60); Osmolality Calculated 292 mOsm/kg (285-295); Potassium 4.6 mmol/L (3.5-5.1); Sodium 141 mmol/L (136-145); Total Bilirubin 0.6 mg/dL (0.15-1.2)
[2020-03-21 14:50] LABS: Troponin(5th) Baseline 34 ng/L (0-15)
--- NOTE | 2020-03-21 15:12 | PC.NURSE ---
Spoke with pt regarding pt status and wait for COVID test result. Pt understands wait for pt disposition, all questions answered.
[2020-03-21] MEDS: sodium chloride 0.9% 1,000 ML 999 ML IV (15:48)
--- NOTE | 2020-03-21 15:53 | ECG_ITS ---
[facility] Test Date: 2020-03-21 Pat Name: Allan Prado Department: Room: Gender: Male Chief Security Officer: : 1940 Requested By: Minor Corbett Order Number: [id number] Chio MD: Maria Dolores Wilson M.D. Measurements Intervals [place] Rate: 74 P: [place]: QRS: 38 QRSD: 85 T: 180 QT: 416 QTc: 462 Interpretive Statements ATRIAL FIBRILLATION MODERATE ST DEPRESSION [0.05+ mV ST DEPRESSION] Compared to ECG 03/21/2020 14:09:08 ST (T wave) deviation now present T-wave abnormality no longer present Electronically Signed On 03-21-2020 20:26:58 BOTTOM WORKER by Maria Dolores Wilson M.D. [id number]
[2020-03-21 16:37] LABS: SARS Covid-2 Antigen Negative (Negative)
--- NOTE | 2020-03-21 16:57 | PC.NURSE ---
attempted to straight catheter pt *3 attempts. pt has adhesion making catheter difficult. ER physician at bedside
--- NOTE | 2020-03-21 17:29 | PC.NURSE ---
Pt very difficult catheter d/t adhesion at tip of urethra. Dr Sneed able to dilate urethral meatus with a 12Fr coude catheter. Unable to further pass the 12 Fr, an 8Fr feeding tube attempted but could not pass. 5Fr feeding tube placed by Dr Sneed, urine sample obtained and sent to lab. Approx 3-5ml urine obtained. Tube left and taped in place.
[2020-03-21 17:44] LABS: Troponin 5 2HR 31.86 ng/L (0-15)
[2020-03-21 17:48] LABS: Troponin 5 2HR Delta -2.14 ABS# (0-10)
[2020-03-21 17:54] LABS: Glucose Urine UA Norm (Normal); Ketones Urine Negative (Negative); Protein Urine Trace (Negative); Urine Appearance Clear (CLEAR); Urine Color Yellow (Yellow); pH Urine 5 (5-7)
[2020-03-21 17:55] LABS: Add Urine Microscopic? YES; Bilirubin Urine Neg (Negative); Blood Urine 2+ (Negative); Leukocyte Esterase Urine Negative (Negative); Nitrate Urine Negative (Negative); Urobilinogen Urine Norm (Negative)
[2020-03-21 17:56] LABS: RBC Urine 15-25 /hpf (0-2)
[2020-03-21 17:58] LABS: Add Urine Culture? Yes; Bacteria Urine 2+ /hpf; Squamous Epithelial Cell Urine 0-4 /hpf (0-5); WBC Urine 0-4 /hpf (0-5)
[2020-03-21] MEDS: levofloxacin-dextrose 5 % 750 MG/150 ML PREMIX 100 MG IV (18:12)
--- NOTE | 2020-03-21 19:53 | ECG_ITS ---
[facility] Test Date: 2020-03-21 Pat Name: Allan Prado Department: Room: Gender: Male Sticker On: : 1940 Requested By: Minor Corbett Order Number: [id number] Chio MD: Maria Dolores Wilson M.D. Measurements Intervals [place] Rate: 86 P: [place]: QRS: 28 QRSD: 83 T: 29 QT: 398 QTc: 478 Interpretive Statements ATRIAL FIBRILLATION NONSPECIFIC ST & T-WAVE ABNORMALITY ABNORMAL RHYTHM ECG Compared to ECG 04/20/2019 17:25:33 T-wave abnormality now present Electronically Signed On 03-21-2020 20:27:56 CHEMICAL RADIATION TECHNICIAN by Maria Dolores Wilson M.D. [email or web address] county general [email or web address] memorial [id number]
--- NOTE | 2020-03-21 20:11 | PM.HP ---
Providers/Chief Complaint Admitting Physician: Kyle Raya MD Primary Care Provider: Ravin Madrigal MD Chief Complaint: LOSS OF APPETITE/ NOT FEELING WELL History of Present Illness Allan Prado is a 79 year old male with a history of chronic atrial fibrillation, COPD, chronic respiratory failure on home oxygen presented to the emergency department with a complaint of increased cough, shortness of breath and generalized weakness of 1 week duration. Patient also reports associated diarrhea. Patient x-ray in the emergency department demonstrated patchy infiltrate suggesting pneumonia. His initial rapid Covid screen is negative. He has no leukocytosis, no fever, and does not meet criteria for sepsis. Patient was maintained on his baseline 2 L of oxygen by nasal cannula. Patient is admitted for further management of pneumonia. Review of Systems Narrative: He denies any abdominal pain or chest pain. Except as documented, all other systems reviewed and negative. Medications/Allergies Home Medications Medication Instructions Recorded Confirmed Last Taken Type PreserVision AREDS 1 tab-cap PO BID@1100,2300 03/06/19 03/21/20 03/21/20 History albuterol sulfate 2.5 mg INHALATION Q4H 03/06/19 03/21/20 03/21/20 History budesonide 0.5 mg INHALATION BID@1100,2300 03/06/19 03/21/20 03/21/20 History clonazepam 0.5 mg PO DAILY PRN 03/06/19 03/21/20 03/21/20 History docusate sodium 100 mg PO TID@1100,1700,2300 03/06/19 03/21/20 03/21/20 History fluoxetine 20 mg PO DAILY@1100 03/06/19 03/21/20 03/21/20 History garlic 1,000 mg PO BID@1100,2300 03/06/19 03/21/20 03/21/20 History magnesium chloride 64 mg PO DAILY@1100 03/06/19 03/21/20 03/21/20 History pantoprazole [Protonix] 40 mg PO DAILY@1100 03/06/19 03/21/20 03/21/20 History potassium chloride 10 meq PO BID@1100,2300 03/06/19 03/21/20 03/21/20 History guaifenesin [Mucinex] 600 mg PO BID@1100,2300 03/07/19 03/21/2003/21/21 History vitamin E 400 unit PO DAILY@1100 03/07/19 03/21/20 03/21/20 History rosuvastatin [Crestor] 20 mg PO DAILY@1100 03/21/19 03/21/20 03/21/20 History Cardizem CD 180 mg PO DAILY@1100 03/21/20 03/21/20 03/21/20 History Eliquis 5 mg PO BID@1100,2300 03/21/20 03/21/20 03/21/20 History aspirin [Aspir-81] 81 mg PO DAILY@1100 03/21/20 03/21/20 03/21/20 History metoprolol tartrate 12.5 mg PO BID@1100,2300 03/21/20 03/21/20 03/21/20 History sacubitril-valsartan [Entresto] 1 tab PO BID@1100,2300 03/21/20 03/21/20 03/21/20 History Allergies Allergy/AdvReac Type Severity Reaction Status Date / Time No Known Allergies Allergy Verified 03/06/19 21:58 PFSH Acute PFSH: Medical History (Updated 03/22/20 @ 07:53 by Michael Angelo MD) Atrial fibrillation BPH (benign prostatic hyperplasia) CAD (coronary artery disease) Cardiac arrest COPD (chronic obstructive pulmonary disease) CVA (cerebral vascular accident) GERD (gastroesophageal reflux disease) Hyperkalemia Hyperlipidemia Hypertension Ischemic cardiomyopathy Peripheral neuropathy Pneumothorax Pulmonary embolism Restless leg syndrome Rib fractures Surgical History History of appendectomy History of coronary artery stent placement Hx of cataract surgery Hx of tonsillectomy Family History Other CAD (coronary artery disease) Social History Smoking and tobacco status: former smoker Second hand smoke exposure: No Alcohol intake: never Lives independently: No Household members: spouse Marital status: Vitals/I&O/Wt Last Vital Signs Temp 97.8 F 03/21/20 13:39 Pulse 70 03/21/20 18:14 Resp 15 03/21/20 18:14 BP 129/69 03/21/20 18:14 Pulse Ox 100 03/21/20 18:14 Weight last 48 hrs Weight 87.09 kg Physical Exam Const: COMMON NORMALS: no acute distress, patient oriented x3 and alert HENMT: COMMON NORMALS: normocephalic, atraumatic, moist oral mucous membranes and oropharynx normal Eye: COMMON NORMALS: Equal, round and reactive pupils present, EOMs intact bilaterally, conjunctivae normal and no scleral icterus Neck/C-Spine: COMMON NORMALS: supple and no JVD Lymph: LYMPHATIC: no lymphadenopathy noted Chest: COMMONS NORMALS: normal inspection of the chest Resp: COMMON NORMALS: normal respiratory effort, No retractions and No use of accessory muscles AUSCULTATION: diminished lung sounds bilateral Cardio: COMMON NORMALS: regular rate, S1 normal heart sound present and S2 normal heart sound present RHYTHM: abnormal rhythm irregularly irregular GI: COMMON NORMALS: Normal to inspection, nondistended, normoactive bowel sounds present, Soft to palpation, non-tender and No hepatosplenomegaly present : COMMON NORMALS: Yes no CVA tenderness Back/Pelvis: COMMON NORMALS: no CVA tenderness and thoraco-lumbar ROM normal Extremity: COMMON NORMALS: full ROM NARRATIVE EXTREMITY EXAM: 1+ bilateral lower extremity pitting edema. Neuro: COMMON NORMALS: patient oriented x3, CN's II-XII intact bilaterally and no focal motor deficits Psych: COMMON NORMALS: mental status grossly normal, Normal thought process present, cooperative, normal affect and speech normal Skin: COMMON NORMALS: turgor normal, no jaundice and no mottling Data : 03/22/20 06:01 03/22/20 06:01 A&P Assessment and plan (1) Pneumonia: Status: Acute (2) Chronic diastolic heart failure: Status: Chronic (3) Atrial fibrillation: Status: Chronic (4) COPD (chronic obstructive pulmonary disease): Status: Chronic (5) Chronic respiratory failure with hypoxia: Status: Chronic Additional A&P Information Admit patient to the medical floor. Patient started on IV Levaquin for pneumonia. Repeat Covid test is requested. COPD stable Bronchodilators. No indication for steroid at this time Continue Eliquis Cardizem for atrial fibrillation. Titrate oxygen Attestations Medical Necessity Statement*: Patient is to be hospitalized for treatment of pneumonia and generalized weakness. He is expected to spend more than 2 midnights. Time Spent in Patient Care: 62 minutes Coding Level of Care Code Acute Heel Washer Stringing Machine Operator for g Fwd Exam Comprehensive Diagnoses Pneumonia J18.9 Chronic diastolic heart failure I50.32 Atrial fibrillation I48.91 COPD (chronic obstructive pulmonary disease) J44.9 Chronic respiratory failure with hypoxia J96.11
[2020-03-21 20:49] LABS: Troponin 5 6HR 32.06 ng/L (0-15)
[2020-03-21 20:51] LABS: Troponin 5 6HR Delta -1.94 ng/L (0-12)
--- NOTE | 2020-03-21 21:38 | PC.NURSE ---
report called to Will MCCALLUM on the medsur unit at 2050
[2020-03-21] MEDS: docusate sodium 100 mg Capsule PO (22:58)
[2020-03-21] MEDS: metoprolol tartrate 25 mg Tablet 12.5 MG PO (22:58)
[2020-03-21] MEDS: apixaban 5 mg Tablet PO (22:58)
[2020-03-21] MEDS: guaiFENesin 600 mg Tablet PO (22:58)
[2020-03-21] MEDS: D5-NS 0.45% + KCL 20 mEq 20 MEQ/1,000 ML BAG 125 MEQ IV (22:59)
[2020-03-22] VITALS (20 sets, daily range): BP systolic 82–131; BP diastolic 46–74; PULSE 51–104; RESP 16–20; TEMP 36.3–36.9; O2SAT 97–100
[2020-03-22] MEDS: sacubitril/valsartan 24-26 mg Tablet 1 EACH PO ×2 (00:04→12:29)
[2020-03-22] MEDS: albuterol 8 gm MDI 2 PUFF INHALATION ×3 (03:35→11:45)
[2020-03-22 06:16] LABS: Basophils % 0.5 %; Eosinophils # 0.2 10^3/uL (0.0-0.8); Hematocrit 32.1 % (42.0-52.0); Hemoglobin 9.2 g/dL (11.7-16.6); Mean Corpuscular HGB Conc 28.7 g/dL (30.0-36.0); Mean Corpuscular Hemoglobin 23.8 pg (28.0-34.0); Mean Corpuscular Volume 82.9 fL (80-94); Mean Platelet Volume 10.4 fL (7.4-10.4); Monocytes # 1.4 10^3/uL (0.2-0.9); Monocytes % 19.1 %; Neutrophils # 4.83 10^3/uL (1.8-7.7); Nucleated Red Blood Cells % 0.3 %; Platelet Count 207 10^3/cmm (130-400); Red Blood Count 3.87 10^6/uL (4.1-5.3); Red Cell Distribution Width 19.4 % (12.1-15.1); White Blood Count 7.4 10^3/uL (4.0-10.0)
[2020-03-22 06:47] LABS: Procalcitonin 0.06 ng/mL (0-0.5)
[2020-03-22 06:59] LABS: Alanine Aminotransferase 7 U/L (0-41); Albumin Level 3.1 g/dL (3.5-5.2); Alkaline Phosphatase 84 IU/L (40-130); Anion Gap 7.6 (5-19); Aspartate Amino Transferase 12 U/L (0-40); Blood Urea Nitrogen 13 mg/dL (8-23); C Reactive Protein 6.7 mg/L (0.0-4.9); Calcium 8.2 mg/dL (8.5-10.5); Carbon Dioxide 29 mmol/L (22-29); Chloride 107 mmol/L (98-107); Globulin 2.4 g/dL (1.3-4.6); Glucose 113 mg/dL (65-115); Osmolality Calculated 289 mOsm/kg (285-295); Potassium 4.6 mmol/L (3.5-5.1); Sodium 139 mmol/L (136-145); Total Bilirubin 0.5 mg/dL (0.15-1.2); Total Protein 5.5 g/dL (6.6-8.7)
--- NOTE | 2020-03-22 11:29 | PM.PN ---
Subjective Subjective: Interval history: Patient reports feeling better this morning. Continues to have minimally productive cough which is not normal for him. He quit smoking long time ago. He denies chest pain or abdominal pain. No lower extremity swelling. Vitals/I&O/Wt Last Vital Signs Temp 97.5 F L 03/22/20 11:01 Pulse 75 03/22/20 11:01 Resp 16 03/22/20 11:01 BP 109/52 03/22/20 11:01 Pulse Ox 99 03/22/20 11:01 03/21/20 03/22/20 03/22/20 22:59 06:59 14:59 Intake Total 1150 / 1150 420 / 1570 600 / 600 Output Total 100 / 100 Balance 1150 / 1150 320 / 1470 600 / 600 Weight last 48 hrs Weight 85.548 kg Weight 87.09 kg Physical Exam Narrative: EXAM NARRATIVE: Diffuse expiratory wheezing throughout. No rales appreciated. Heart is irregularly irregular. Data : 03/22/20 06:01 03/22/20 06:01 Micro: Microbiology 03/21/20 17:25 Urine Culture - Preliminary Urine,Clean Catch 03/21/20 22:28 Blood Culture - Preliminary Blood SPECIMEN COLLECTED 03/21/20 22:24 Blood Culture - Preliminary Blood SPECIMEN COLLECTED A&P Assessment and plan (1) Pneumonia: Status: Acute (2) Chronic diastolic heart failure: Status: Chronic (3) Atrial fibrillation: Status: Chronic (4) COPD (chronic obstructive pulmonary disease): With acute exacerbation Status: Chronic (5) Chronic respiratory failure with hypoxia: Status: Chronic Additional A&P Information PLAN: Start patient on DuoNeb every 6 hours and continue Levaquin. We will avoid steroids. Continue PPI. Monitor hemoglobin especially since patient is anticoagulated. Attestations Medical Necessity Statement*: Patient with acute COPD exacerbation and pneumonia requires close inpatient monitoring and treatment. Coding Level of Care Code Acute Travel Registered Nurse Nicu for Avelina Gaitan Diagnoses Pneumonia J18.9 Chronic diastolic heart failure I50.32 Atrial fibrillation I48.91 COPD (chronic obstructive pulmonary disease) J44.9 Chronic respiratory failure with hypoxia J96.11
[2020-03-22] MEDS: metoprolol tartrate 25 mg Tablet 12.5 MG PO ×2 (12:04→23:52)
[2020-03-22] MEDS: aspirin 81 mg EC Tablet PO (12:05)
[2020-03-22] MEDS: docusate sodium 100 mg Capsule PO ×3 (12:05→23:52)
[2020-03-22] MEDS: guaiFENesin 600 mg Tablet PO ×2 (12:05→23:52)
[2020-03-22] MEDS: apixaban 5 mg Tablet PO ×2 (12:29→23:52)
[2020-03-22] MEDS: dilTIAZem ER (24HR) 180 mg Capsule PO (12:29)
[2020-03-22] MEDS: fluoxetine 20 mg Capsule PO (12:30)
[2020-03-22] MEDS: pantoprazole DR 40 mg Tablet PO (12:30)
[2020-03-22] MEDS: atorvastatin 40 mg Tablet 80 MG PO (12:30)
[2020-03-22 16:34] LABS: Coronavirus Test Green County Not Detected
[2020-03-22] MEDS: D5-NS 0.45% + KCL 20 mEq 20 MEQ/1,000 ML BAG 125 MEQ IV (18:02)
[2020-03-22] MEDS: levofloxacin-dextrose 5 % 750 MG/150 ML PREMIX 100 MG IV (18:03)
[2020-03-23] VITALS (13 sets, daily range): BP systolic 92–121; BP diastolic 54–67; PULSE 59–117; RESP 17–20; TEMP 36.5–36.9; O2SAT 94–100
[2020-03-23] MEDS: sacubitril/valsartan 24-26 mg Tablet 1 EACH PO ×3 (00:54→22:19)
[2020-03-23] MEDS: D5-NS 0.45% + KCL 20 mEq 20 MEQ/1,000 ML BAG 125 MEQ IV (03:40)
--- NOTE | 2020-03-23 07:29 | PM.PN ---
Subjective Subjective: Interval history: Patient reports feeling better. Denies shortness of breath or chest pain. Continues to have clear phlegm productive cough. Vitals/I&O/Wt Last Vital Signs Temp 98.4 F 03/23/20 04:00 Pulse 69 03/23/20 07:22 Resp 17 03/23/20 04:28 BP 97/54 03/23/20 04:00 Pulse Ox 95 03/23/20 04:28 03/22/20 03/23/20 03/23/20 22:59 06:59 14:59 Intake Total 690 / 1410 1000 / 2410 Output Total 150 / 150 125 / 275 Balance 540 / 1260 875 / 2135 Weight last 48 hrs Weight 88.088 kg Weight 85.548 kg Weight 87.09 kg Physical Exam Narrative: EXAM NARRATIVE: Diffuse expiratory wheezing throughout and coarse breath sounds. No rales appreciated. Heart is irregularly irregular. Data : 03/22/20 06:01 03/22/20 06:01 Micro: Microbiology 03/21/20 22:28 Blood Culture - Preliminary Blood NEGATIVE TO DATE 03/21/20 22:24 Blood Culture - Preliminary Blood NEGATIVE TO DATE 03/21/20 17:25 Urine Culture - Preliminary Urine,Clean Catch A&P Assessment and plan (1) Pneumonia: Status: Acute (2) Chronic diastolic heart failure: Status: Chronic (3) Atrial fibrillation: Status: Chronic (4) COPD (chronic obstructive pulmonary disease): With acute exacerbation Status: Chronic (5) Chronic respiratory failure with hypoxia: Status: Chronic Additional A&P Information PLAN: DC IV fluids. Hold Cardizem this morning as blood pressure somewhat soft Will request echocardiogram to evaluate wall motion and ejection fraction. Encouraged oral intake. Will request phlegm for Gram stain and culture. Physical therapy Attestations Medical Necessity Statement*: Patient with acute COPD exacerbation and pneumonia requires close inpatient monitoring and treatment until deemed safe for discharge. Coding Level of Care Code Acute Data Analysis Assistant for Avelina Gaitan Diagnoses Pneumonia J18.9 Chronic diastolic heart failure I50.32 Atrial fibrillation I48.91 COPD (chronic obstructive pulmonary disease) J44.9 Chronic respiratory failure with hypoxia J96.11
--- NOTE | 2020-03-23 07:31 | USCV_ITS ---
Allan Prado Age: 79 Gender: M : 1940 Exam Date: 03/23/2020 09:25 Ordering Phys: Kyle Raya MD Technologist: Michela Hunter [place] [facility] [place] Suspected CHF BP: 97 / 54 HR: 83 Rhythm: Atrial fibrillation Technical Quality: Suboptimal MEASUREMENTS (Male / Female) Normal Values 2D ECHO LV Diastolic Diameter PLAX 4.5 cm 4.2 - 5.9 / 3.9 - 5.3 cm LV Systolic Diameter PLAX 3.7 cm LV Chamber Size 4.1 cm IVS Diastolic Thickness 1.1 cm 0.6 - 1.0 / 0.6 - 0.9 cm IVS Systolic Thickness 1.4 cm LVPW Diastolic Thickness 1.2 cm 0.6 - 1.0 / 0.6 - 0.9 cm LVPW Systolic Thickness 1.2 cm RV Chamber Size 3.6 cm LVOT Diameter 2.0 cm LV Ejection Fraction 2D Teich 36.5 % LV Ejection Fraction MOD 2C 35.3 % LV Ejection Fraction 2C AL 35.4 % LA Diameter 4.1 cm LA Width 3.6 cm LA Height 6.5 cm RA Width 3.5 cm RA Height 6.6 cm Aorta at Sinotubular Diameter 3.0 cm M-MODE LV Diastolic Diameter MM 5.6 cm 4.2 - 5.9 / 3.9 - 5.3 cm LV Systolic Diameter MM 4.6 cm LV Ejection Fraction MM Teich 36.5 % IVS Diastolic Thickness MM 1.2 cm 0.6 - 1.0 / 0.6 - 0.9 cm IVS Systolic Thickness MM 1.3 cm LVPW Diastolic Thickness MM 1.0 cm 0.6 - 1.0 / 0.6 - 0.9 cm LVPW Systolic Thickness MM 1.5 cm RV Diastolic Diameter MM 2.4 cm Aortic Annulus Diameter 3.6 cm LA Ao Ratio MM 1.3 MV E Point Septal Separation 1.3 cm DOPPLER AV Peak Velocity 140.3 cm/s LVOT Peak Velocity 68.0 cm/s AV Area Cont Eq vti 1.5 cm squared AV Area Cont Eq pk 1.5 cm squared MV Area PHT 3.1 cm squared MV E' Velocity 74.0 cm/s TR Peak Velocity 264.2 cm/s TR Peak Gradient 27.9 mmHg TR Mean Velocity 192.6 cm/s TR Mean Gradient 16.2 mmHg TR Velocity Time Integral 81.0 cm TV Peak E Velocity 50.0 cm/s FINDINGS Left Ventricle Normal left ventricular cavity size. Moderately decreased left ventricular systolic function. Global left ventricular hypokinesis. Left ventricular ejection fraction is estimated at 40%. In the presence of atrial fibrillation diastolic function cannot be assessed accurately. Right Ventricle The right ventricle is normal in size and function. Right Atrium The right atrium is normal in size. Left Atrium The left atrium is normal in size. Mitral Valve Moderately thickened mitral valve. No mitral valve stenosis. Mild-moderate mitral valve regurgitation. Aortic Valve Moderate aortic valve calcification. Mild aortic valve stenosis, mean gradient 4.4 mmHg, JOAQUIN 1.5 cm squared. Mild aortic valve regurgitation. Tricuspid Valve Mild tricuspid valve regurgitation. Pulmonic Valve Structurally normal pulmonic valve without significant stenosis. There is no pulmonic regurgitation. Pericardium Normal pericardium without effusion. Aorta Normal ascending aorta dimension. CONCLUSIONS 1-Normal left ventricular cavity size. Moderately decreased left ventricular systolic function. Global left ventricular hypokinesis. Left ventricular ejection fraction is estimated at 40%. In the presence of atrial fibrillation diastolic function cannot be assessed accurately. 2-Moderate aortic valve calcification. Mild aortic valve stenosis, mean gradient 4.4 mmHg, JOAQUIN 1.5 cm squared. Mild aortic valve regurgitation. 3-Moderately thickened mitral valve. No mitral valve stenosis. Mild-moderate mitral valve regurgitation. 4-Mild tricuspid valve regurgitation. 5-Right atrial pressure is around 5 mm of mercury. 6-When compared to the prior echocardiogram dated 14 December 2018 left ventricular ejection fraction has slightly worsened from low normal to moderate 50 to 40% now. It is possible due to [id number] variation and atrial fibrillation estimation of ejection fraction may not be accurate. There is mild aortic stenosis and mild aortic valve regurgitation now there appeared to be mild to moderate mitral valve regurgitation and mild tricuspid regurgitation present on the study. Parul Sosa MD (Electronically Signed) Final Date: 24 March 2020 18:48 S
[2020-03-23] MEDS: atorvastatin 40 mg Tablet 80 MG PO (10:55)
[2020-03-23] MEDS: guaiFENesin 600 mg Tablet PO ×2 (10:55→22:19)
[2020-03-23] MEDS: aspirin 81 mg EC Tablet PO (10:55)
[2020-03-23] MEDS: pantoprazole DR 40 mg Tablet PO (10:55)
[2020-03-23] MEDS: apixaban 5 mg Tablet PO ×2 (10:55→22:19)
[2020-03-23] MEDS: docusate sodium 100 mg Capsule PO ×3 (10:55→22:19)
[2020-03-23] MEDS: fluoxetine 20 mg Capsule PO (10:55)
[2020-03-23] MEDS: metoprolol tartrate 25 mg Tablet 12.5 MG PO ×2 (10:56→22:19)
[2020-03-23] MEDS: FUROsemide 10 mg/mL SDV 4mL 40 MG IVP (10:57)
[2020-03-23] MEDS: levofloxacin-dextrose 5 % 750 MG/150 ML PREMIX 100 MG IV (17:42)
[2020-03-24] VITALS (13 sets, daily range): BP systolic 100–117; BP diastolic 62–74; PULSE 70–110; RESP 14–20; TEMP 36.6–37.1; O2SAT 97–100
--- NOTE | 2020-03-24 09:45 | PC.SOCIAL ---
Pg 2 IMM Explained to pt Pg 2 IMM. No questions voiced. Provided a copy to pt. Signed, dated, & timed a copy & placed in chart.
[2020-03-24] MEDS: dilTIAZem ER (24HR) 180 mg Capsule PO (10:58)
[2020-03-24] MEDS: guaiFENesin 600 mg Tablet PO ×2 (10:58→23:42)
[2020-03-24] MEDS: aspirin 81 mg EC Tablet PO (10:58)
[2020-03-24] MEDS: metoprolol tartrate 25 mg Tablet 12.5 MG PO ×2 (10:58→23:41)
[2020-03-24] MEDS: apixaban 5 mg Tablet PO ×2 (10:58→23:42)
[2020-03-24] MEDS: pantoprazole DR 40 mg Tablet PO (10:58)
[2020-03-24] MEDS: atorvastatin 40 mg Tablet 80 MG PO (10:59)
[2020-03-24] MEDS: fluoxetine 20 mg Capsule PO (10:59)
[2020-03-24] MEDS: sacubitril/valsartan 24-26 mg Tablet 1 EACH PO ×2 (11:01→23:45)
--- NOTE | 2020-03-24 11:05 | P.PN_ITS ---
Subjective Subjective: Interval history: Patient reports feeling better. Denies shortness of breath or chest pain. Reports that his cough significantly improved and now mostly dry. Vitals/I&O/Wt Last Vital Signs Temp 98.5 F 03/24/20 10:45 Pulse 109 H 03/24/20 10:45 Resp 16 03/24/20 10:45 BP 106/65 03/24/20 10:45 Pulse Ox 97 03/24/20 10:45 03/23/20 03/24/20 03/24/20 22:59 06:59 14:59 Intake Total 270 / 1510 120 / 120 Output Total 825 / 2500 120 / 2620 150 / 150 Balance -555 / -990 -120 / -1110 -30 / -30 Weight last 48 hrs Weight 88.723 kg Weight 88.088 kg Physical Exam Narrative: EXAM NARRATIVE: Lung exam much improved. Overall clear. No rales appreciated. Heart is irregularly irregular. Data : 03/22/20 06:01 03/22/20 06:01 Micro: Microbiology 03/21/20 17:25 Urine Culture - Final Urine,Clean Catch A&P Assessment and plan (1) Pneumonia: Status: Acute (2) Chronic diastolic heart failure: Status: Chronic (3) Atrial fibrillation: Status: Chronic (4) COPD (chronic obstructive pulmonary disease): With acute exacerbation Status: Chronic (5) Chronic respiratory failure with hypoxia: Status: Chronic Additional A&P Information PLAN: Continue current monitoring and treatment. Awaiting echocardiogram. Continue physical therapy. Patient and his do not want to consider nursing facility placement. Hopefully patient improves to the point where we can dismiss him home with home health. Attestations Medical Necessity Statement*: Patient was acute COPD exacerbation and pneumonia requires close inpatient monitoring and treatment until deemed safe for discharge. Coding Level of Care Code Acute Back Office Medical Assistant for [facility] Diagnoses Pneumonia J18.9 Chronic diastolic heart failure I50.32 Atrial fibrillation I48.91 COPD (chronic obstructive pulmonary disease) J44.9 Chronic respiratory failure with hypoxia J96.11
[2020-03-24 13:35] LABS: Basophils % 0.1 %; Hematocrit 30.1 % (42.0-52.0); Hemoglobin 8.8 g/dL (11.7-16.6); Lymphocytes # 0.9 10^3/uL (0.8-4.8); Lymphocytes % 10.6 %; Mean Corpuscular HGB Conc 29.2 g/dL (30.0-36.0); Mean Corpuscular Hemoglobin 23.5 pg (28.0-34.0); Mean Corpuscular Volume 80.3 fL (80-94); Monocytes # 1.3 10^3/uL (0.2-0.9); Monocytes % 15.2 %; Neutrophils # 6.18 10^3/uL (1.8-7.7); Neutrophils % 73.7 %; Nucleated Red Blood Cells % 0 %; Platelet Count 232 10^3/cmm (130-400); Red Blood Count 3.75 10^6/uL (4.1-5.3); Red Cell Distribution Width 19.4 % (12.1-15.1); White Blood Count 8.4 10^3/uL (4.0-10.0)
[2020-03-24 13:48] LABS: Alanine Aminotransferase 9 U/L (0-41); Albumin Level 3.1 g/dL (3.5-5.2); Alkaline Phosphatase 89 IU/L (40-130); Anion Gap 10.1 (5-19); Aspartate Amino Transferase 12 U/L (0-40); Blood Urea Nitrogen 12 mg/dL (8-23); Calcium 8.5 mg/dL (8.5-10.5); Carbon Dioxide 30 mmol/L (22-29); Chloride 102 mmol/L (98-107); Globulin 2.5 g/dL (1.3-4.6); Glucose 99 mg/dL (65-115); Magnesium 1.9 mg/dL (1.7-2.3); Osmolality Calculated 286 mOsm/kg (285-295); Potassium 4.1 mmol/L (3.5-5.1); Sodium 138 mmol/L (136-145); Total Bilirubin 0.4 mg/dL (0.15-1.2); Total Protein 5.6 g/dL (6.6-8.7)
--- NOTE | 2020-03-24 14:30 | PC.NURSE ---
Updated pts Sara on pts plan of care.
[2020-03-24] MEDS: levofloxacin-dextrose 5 % 750 MG/150 ML PREMIX 100 MG IV (17:56)
[2020-03-24] MEDS: docusate sodium 100 mg Capsule PO (23:41)
[2020-03-25] VITALS (14 sets, daily range): BP systolic 97–114; BP diastolic 59–71; PULSE 80–113; RESP 16–20; TEMP 35.9–36.7; O2SAT 91–100
[2020-03-25 06:32] LABS: Basophils % 0.5 %; Eosinophils % 0.2 %; Hematocrit 29.3 % (42.0-52.0); Hemoglobin 8.5 g/dL (11.7-16.6); Lymphocytes % 16.7 %; Mean Corpuscular Volume 79.2 fL (80-94); Monocytes # 1.1 10^3/uL (0.2-0.9); Monocytes % 18.2 %; Neutrophils # 3.96 10^3/uL (1.8-7.7); Neutrophils % 64.2 %; Nucleated Red Blood Cells % 0 %; Platelet Count 218 10^3/cmm (130-400); Red Cell Distribution Width 19.2 % (12.1-15.1); White Blood Count 6.2 10^3/uL (4.0-10.0)
[2020-03-25 06:54] LABS: Alanine Aminotransferase 9 U/L (0-41); Albumin Level 2.9 g/dL (3.5-5.2); Alkaline Phosphatase 81 IU/L (40-130); Aspartate Amino Transferase 11 U/L (0-40); Blood Urea Nitrogen 12 mg/dL (8-23); Calcium 8.2 mg/dL (8.5-10.5); Carbon Dioxide 30 mmol/L (22-29); Chloride 103 mmol/L (98-107); Globulin 2.5 g/dL (1.3-4.6); Glucose 91 mg/dL (65-115); Osmolality Calculated 285 mOsm/kg (285-295); Sodium 138 mmol/L (136-145); Total Bilirubin 0.4 mg/dL (0.15-1.2); Total Protein 5.4 g/dL (6.6-8.7)
--- NOTE | 2020-03-25 09:55 | PM.PN ---
Subjective Subjective: Interval history: Patient reports feeling better. Denies shortness of breath or chest pain. Echocardiogram shows EF 40%. Patient's hemoglobin continues to gradually decline along with MCV. Vitals/I&O/Wt Last Vital Signs Temp 96.9 F L 03/25/20 07:27 Pulse 88 03/25/20 08:36 Resp 16 03/25/20 08:35 BP 114/71 03/25/20 07:27 Pulse Ox 98 03/25/20 08:35 03/24/20 03/25/20 03/25/20 22:59 06:59 14:59 Intake Total 150 / 390 Output Total 250 / 600 150 / 150 Balance -250 / -360 150 / -210 -150 / -150 Weight last 48 hrs Weight 87.798 kg Weight 88.723 kg Physical Exam Narrative: EXAM NARRATIVE: Lung clear with overall decreased air movement. No rales appreciated. Heart is irregularly irregular. Data : 03/25/20 06:16 03/25/20 06:16 Micro: Microbiology 03/24/20 08:37 Gram Stain - Final Sputum - Expectorated Sputum Sputum Culture - Preliminary A&P Assessment and plan (1) Pneumonia: Status: Acute (2) Chronic diastolic heart failure: Status: Chronic (3) Atrial fibrillation: Status: Chronic (4) COPD (chronic obstructive pulmonary disease): With acute exacerbation Status: Chronic (5) Chronic respiratory failure with hypoxia: Status: Chronic Additional A&P Information PLAN: Will increase Protonix to twice daily and to hold Eliquis for now. Check iron stores. Start patient on once daily Lasix and consider adding spironolactone. If continues to improve we will likely be able to dismiss patient home tomorrow. He does not want to have home health or consider nursing facility. We will continue physical therapy. Attestations Medical Necessity Statement*: Patient with gradually declining hemoglobin concerning for upper GI bleed requires close inpatient monitoring and treatment. Coding Level of Care Code Acute Addictions Counselor for [facility] Fwd Diagnoses Pneumonia J18.9 Chronic diastolic heart failure I50.32 Atrial fibrillation I48.91 COPD (chronic obstructive pulmonary disease) J44.9 Chronic respiratory failure with hypoxia J96.11
[2020-03-25] MEDS: FUROsemide 40 mg Tablet PO (10:04)
[2020-03-25] MEDS: pantoprazole DR 40 mg Tablet PO (10:50)
[2020-03-25] MEDS: metoprolol tartrate 25 mg Tablet 12.5 MG PO ×2 (10:50→23:53)
[2020-03-25] MEDS: aspirin 81 mg EC Tablet PO (10:50)
[2020-03-25] MEDS: dilTIAZem ER (24HR) 180 mg Capsule PO (10:50)
[2020-03-25] MEDS: sacubitril/valsartan 24-26 mg Tablet 1 EACH PO ×2 (10:50→23:53)
[2020-03-25] MEDS: guaiFENesin 600 mg Tablet PO ×2 (10:50→23:53)
[2020-03-25] MEDS: atorvastatin 40 mg Tablet 80 MG PO (10:51)
[2020-03-25] MEDS: fluoxetine 20 mg Capsule PO (10:51)
--- NOTE | 2020-03-25 13:02 | PC.NURSE ---
patient's called and requested update. software writer updated patient's .
--- NOTE | 2020-03-25 16:13 | PC.RESP ---
Pulmonary Rehab information sent to patient.
[2020-03-25] MEDS: levofloxacin-dextrose 5 % 750 MG/150 ML PREMIX 100 MG IV (17:13)
[2020-03-25] MEDS: docusate sodium 100 mg Capsule PO (23:53)
[2020-03-26] VITALS (8 sets, daily range): BP systolic 99–116; BP diastolic 60–73; PULSE 71–103; RESP 17–19; TEMP 36.4–36.6; O2SAT 96–99
[2020-03-26 05:11] LABS: Basophils # 0.1 10^3/uL (0.0-0.1); Basophils % 0.7 %; Hematocrit 29.4 % (42.0-52.0); Hemoglobin 8.8 g/dL (11.7-16.6); Lymphocytes # 0.9 10^3/uL (0.8-4.8); Lymphocytes % 12.3 %; Mean Corpuscular HGB Conc 29.9 g/dL (30.0-36.0); Mean Corpuscular Hemoglobin 23.5 pg (28.0-34.0); Mean Corpuscular Volume 78.6 fL (80-94); Monocytes # 1.2 10^3/uL (0.2-0.9); Monocytes % 16.7 %; Neutrophils # 5.21 10^3/uL (1.8-7.7); Neutrophils % 70.2 %; Nucleated Red Blood Cells % 0 %; Platelet Count 226 10^3/cmm (130-400); Red Blood Count 3.74 10^6/uL (4.1-5.3); Red Cell Distribution Width 19.4 % (12.1-15.1); White Blood Count 7.4 10^3/uL (4.0-10.0)
[2020-03-26 05:31] LABS: Alanine Aminotransferase 7 U/L (0-41); Albumin Level 3.1 g/dL (3.5-5.2); Alkaline Phosphatase 85 IU/L (40-130); Anion Gap 9.7 (5-19); Aspartate Amino Transferase 14 U/L (0-40); Blood Urea Nitrogen 10 mg/dL (8-23); Calcium 8.3 mg/dL (8.5-10.5); Carbon Dioxide 29 mmol/L (22-29); Chloride 102 mmol/L (98-107); Ferritin 22 ng/mL (30-400); Globulin 2.6 g/dL (1.3-4.6); Glucose 88 mg/dL (65-115); Iron 19 ug/dL (59-158); Magnesium 1.9 mg/dL (1.7-2.3); Osmolality Calculated 282 mOsm/kg (285-295); Potassium 3.7 mmol/L (3.5-5.1); Sodium 137 mmol/L (136-145); Total Bilirubin 0.5 mg/dL (0.15-1.2); Total Protein 5.7 g/dL (6.6-8.7)
[2020-03-26] MEDS: FUROsemide 40 mg Tablet PO (08:02)
[2020-03-26 09:03] LABS: Adenovirus Not Detected (Not Detected); Human Metapneumovirus Not Detected (Not Detected); Human Parainflu Virus 1 Not Detected (Not Detected); Human Parainflu Virus 2 Not Detected (Not Detected); Human Parainflu Virus 3 Not Detected (Not Detected); Human Rsv A Not Detected (Not Detected); Influenza A Not Detected (Not Detected); Influenza B Not Detected (Not Detected); Rhinovirus/Enterovirus Not Detected (Not Detected)
--- NOTE | 2020-03-26 10:12 | P.DS_ITS ---
Discharge Providers Date of Admission: 03/21/20 18:04 Date of Discharge: March 26, 2020 Attending Provider at Admission: Kyle Raya MD Attending Provider at Discharge: Kyle Raya MD Primary Care Provider: Ravin Madrigal MD Diagnoses at Discharge Discharge Diagnosis (1) Pneumonia: Status: Acute (2) Atrial fibrillation: Status: Chronic (3) COPD (chronic obstructive pulmonary disease): Status: Chronic Permanent problem details: With acute exacerbation (4) Chronic respiratory failure with hypoxia: Status: Chronic (5) Chronic combined systolic and diastolic CHF (congestive heart failure): Status: Acute Permanent problem details: EF 40%. Reason for Visit Reason for Visit: LOSS OF APPETITE/ NOT FEELING WELL Hospital Course Hospital Course Patient with chronic hypoxic respite failure requiring 2 L of oxygen continuously as well as chronic atrial fibrillation with previous history of PE, anemia and stroke presents with generalized weakness, cough and shortness of breath. Patient was diagnosed with pneumonia and acute COPD exacerbation. Patient was treated with breathing treatments and antibiotics and gradually improved. He was noted to be iron deficient and has been having anemia in the last 1 year with hemoglobin ranging from 8-10's. He denies any melena or hematochezia. He had EGD many years ago and colonoscopy approximately 3 years ago. He is on aspirin and Eliquis. Given his evidence of iron deficiency I am concerned about slow GI bleed. I will increase patient's Protonix to twice daily and decrease Eliquis to 2.5 mg twice daily. Given patient's age and underlying medical problems I do not think that further EGD and colonoscopy would be beneficial unless patient is acutely bleeding. I will request repeat blood work in several days with results sent to primary care physician to make sure his numbers within normal limits. I will also request outpatient follow-up with pulmonary service and will request follow-up with Dr. Jones. This morning patient reports feeling much better and strong enough to be dismissed home. He does not want home health or placement in nursing facility. He thinks that his will be able to take care of him. is in agreement. I also would like to mention that small dose of Lasix was added since patient has decreased EF 40% and has good oral intake. Patient will continue using his oxygen 2 L by nasal cannula. Physical Exam Narrative: EXAM NARRATIVE: Lungs with very minimal expiratory wheezing which appears to be upper airway transmitted sounds. Heart is irregularly irregular. Lower extremities show trace edema. Discharge Data Data Completed and Pending: Completed Studies During Hospitalization Category Date Time Status XR chest 1V yulissa ble [id number] Stat Exams 03/21/20 13:53 Completed CV echo complete* [id number] Routine Ultrasound 03/23/20 07:31 Completed Pending at discharge Category Date Time Status Arterial Blood Ga s Full Stat Lab 03/21/20 14:00 Results Blood Culture Sta t Lab 03/21/20 22:28 Results Complete Blood Co unt w/Auto AM LABS Lab 03/27/20 04:00 Ordered Comprehensive Met abolic Panel AM LA BS Lab 03/27/20 04:00 Ordered Magnesium AM LABS Lab 03/27/20 04:00 Ordered Labs from last 24 hours 03/26/20 03/26/20 03/22/20 04:33 04:33 04:30 WBC 7.4 RBC 3.74 L Hgb 8.8 L Hct 29.4 L MCV 78.6 L MCH 23.5 L MCHC 29.9 L RDW 19.4 H Plt Count 226 MPV 10.0 Neut % (Auto) 70.2 Lymph % (Auto) 12.3 [place] % (Auto) 16.7 Eos % (Auto) 0.0 Baso % (Auto) 0.7 Neut # (Auto) 5.21 Lymph # (Auto) 0.9 [place] # (Auto) 1.2 H Eos # (Auto) 0.0 Baso # (Auto) 0.1 Nucleated RBC % (a uto) 0 Nucleated RBCs # 0.0 Sodium 137 Potassium 3.7 Chloride 102 Carbon Dioxide 29 Anion Gap 9.7 BUN 10 Creatinine 0.6 L GFR Calculation Not Reportable Glucose 88 Calculated Osmolal ity 282 L Calcium 8.3 L Magnesium 1.9 Iron 19 L Ferritin 22 L Total Bilirubin 0.5 AST 14 ALT 7 Alkaline Phosphata se 85 Total Protein 5.7 L Albumin 3.1 L Globulin 2.6 RSV Nasal Swab Not detected RSV Nasal Swab Int Cntl Not detected Adenovirus (PCR) Not detected Human Metapneumovi r PCR Not detected Influenza A (RT-PC R) Not detected Influenza A (H1) P CR Not detected Influenza A (H3) P CR Not detected Influenza B (RT-PC R) Not detected Parainfluenzae Typ e 1 Not detected Parainfluenzae Typ e 2 Not detected Parainfluenzae Typ e 3 Not detected RSV Ab Comment see note Rhinovirus (PCR) Not detected Vitals: Last Vital Signs Temp 97.9 F 03/26/20 08:00 Pulse 99 03/26/20 08:12 Resp 17 03/26/20 08:11 BP 106/66 03/26/20 08:00 Pulse Ox 96 03/26/20 08:11 Discharge Plan Discharge Patient Disposition: Home Condition: Stable Prescriptions: New ferrous sulfate [Feosol] 325 mg (65 mg iron) tablet 325 mg PO EVERY OTHER DAY Qty: 14 RF: 0 Eliquis 2.5 mg tablet 2.5 mg PO BID Qty: 60 RF: 0 levofloxacin 750 mg tablet 750 mg PO DAILY 4 Days Qty: 4 RF: 0 furosemide [Lasix] 20 mg tablet 10 mg PO DAILY Qty: 30 RF: 0 Continued rosuvastatin [Crestor] 20 mg Tablet 20 mg PO DAILY@1100 RF: 0 Aspir-81 81 mg Tablet,Delayed Release (Dr/Ec) 81 mg PO DAILY@1100 RF: 0 metoprolol tartrate 25 mg tablet 12.5 mg PO BID@1099,2299 RF: 0 Entresto 24-26 mg tablet 1 tab PO BID@1099,2299 RF: 0 Cardizem CD 180 mg capsule,extended release 24hr 180 mg PO DAILY@1100 RF: 0 albuterol sulfate 2.5 mg /3 mL (0.083 %) Solution For Nebulization 2.5 mg INHALATION Q4H RF: 0 clonazepam 0.5 mg Tablet 0.5 mg PO DAILY PRN (Reason: Anxiety) RF: 0 potassium chloride 10 mEq Tablet Extended Release 10 meq PO BID@1099,2299 RF: 0 garlic 1,000 mg Capsule 1,000 mg PO BID@1099,2299 RF: 0 fluoxetine 20 mg Tablet 20 mg PO DAILY@1100 RF: 0 docusate sodium 100 mg Capsule 100 mg PO TID@1100,1700,2300 RF: 0 budesonide 0.5 mg/2 mL Suspension For Nebulization 0.5 mg INHALATION BID@1099,0 RF: 0 magnesium chloride 64 mg Tablet,Delayed Release (Dr/Ec) 64 mg PO DAILY@1100 RF: 0 PreserVision AREDS 1 tab-cap PO BID@1099,2299 RF: 0 guaifenesin [Mucinex] 600 mg Tablet Extended Release 12hr 600 mg PO BID@1100,2300 RF: 0 vitamin E 400 unit Capsule 400 unit PO DAILY@1100 RF: 0 Changed pantoprazole [Protonix] 40 mg Tablet,Delayed Release (Dr/Ec) 40 mg PO BID Qty: 60 RF: 0 Discontinued Eliquis 5 mg tablet 5 mg PO BID@1100,2300 RF: 0 Discharge Orders: Discharge Order (Routine); Ordered 03/26/20 Ordered By: Kyle Raya Other Ambulatory Orders: Complete Blood Count w/Auto (Routine) Timeframe: 20200401 Location: Determined by Patient Ordered By: Kyle Raya Comprehensive Metabolic Panel (Routine) Timeframe: 20200401 Facility: [facility] [place] - Location: Lab - Main Lab Ordered By: Kyle Raya Referrals: Aidan Flores MD [Physician] - 4-7 days (Earliest possible) Rebel Jones MD [Physician] - 1 week Ravin Madrigal MD [Primary Care Provider] - 4-7 days Discharge Diet: Usual diet Discharge Activity: Increase activity as tolerated Activity Restrictions/Additional Instructions: Please call your doctor or present to emergency department if your condition worsens or you develop diarrhea, lightheadedness, fatigue or see blood in your stool or black stool. Discharge Attestations Time Spent in Discharge Care*: greater than 30 min Status at Discharge: Cognitive status at discharge: cognitively intact , Behavioral status at discharge: cooperative , Quality Metrics Clinical Quality Measures During this hospital stay, did patient experience: None Coding Level of Care Code Acute Therapist for [facility] Fwd Diagnoses Pneumonia J18.9 Atrial fibrillation I48.91 COPD (chronic obstructive pulmonary disease) J44.9 Chronic respiratory failure with hypoxia J96.11 Chronic combined systolic and diastolic CHF (congestive heart failure) I50.42
--- NOTE | 2020-03-26 10:27 | PC.SOCIAL ---
IMM Update Pg.2 of IMM updated and reviewed with patient over the phone. Copy provided to YAMILETH Winston to deliver to patient r/t isolation precautions.
[2020-03-26] MEDS: iron sucrose 200 MG in sodium chloride 0.9% (100 ml) 100 ML 220 MG IV (10:29)
--- NOTE | 2020-03-26 11:28 | PC.NURSE ---
discharge instructions given to patient and . patient and verbalized understanding of instructions. patient getting dressed. IV was removed and covered with 2x2 and coban.
--- NOTE | 2020-03-26 11:58 | PC.NURSE ---
patient taken to private vehicle via wheelchair by staff and assisted into vehicle.
== END 2020-03-26 12:00 | disposition home or self-care (01) | DRG 193 ==
LOC: ER 18:29 → MEDSURG 18:54
PROVIDERS: Internal Medicine; Admitting Provider Internal Medicine; Emergency Provider Family Medicine; PCP Family Medicine; Visit Provider Internal Medicine
DX: J18.9 Pneumonia, unspecified organism (principal); I50.43 Acute on chronic combined systolic (congestive) and diastolic (congestive) heart failure; J44.1 Chronic obstructive pulmonary disease with (acute) exacerbation; J44.0 Chronic obstructive pulmonary disease with (acute) lower respiratory infection; I48.20 Chronic atrial fibrillation, unspecified; J96.11 Chronic respiratory failure with hypoxia; K92.2 Gastrointestinal hemorrhage, unspecified; Z99.81 Dependence on supplemental oxygen; N40.0 Benign prostatic hyperplasia without lower urinary tract symptoms; I25.10 Atherosclerotic heart disease of native coronary artery without angina pectoris; Z95.5 Presence of coronary angioplasty implant and graft; Z86.74 Personal history of sudden cardiac arrest; Z86.73 Personal history of transient ischemic attack (TIA), and cerebral infarction without residual deficits; K21.9 Gastro-esophageal reflux disease without esophagitis; E83.52 Hypercalcemia; E78.5 Hyperlipidemia, unspecified; I11.0 Hypertensive heart disease with heart failure; I25.5 Ischemic cardiomyopathy; G62.9 Polyneuropathy, unspecified; Z86.711 Personal history of pulmonary embolism; G25.81 Restless legs syndrome; Z87.891 Personal history of nicotine dependence; D50.9 Iron deficiency anemia, unspecified; Z79.51 Long term (current) use of inhaled steroids; Z79.82 Long term (current) use of aspirin
CPT/HCPCS: 12345; 36415; 36600; 71045; 80051; 80053; 81001; 82274; 82330; 82728; 82805; 83540; 83605; 83690; 83735; 84145; 84484; 85025; 86140; 87040; 87070; 87086; 87205; 87426; 87635; 93005; 93306; 94618; 94640; 94664; 97110; 97116; 97161; 97530; 99283; 99291; J1756; J1940; J1956; J2405; J3535; J7030

== ENCOUNTER 2020-12-12 16:17 | Inpatient (IN) | payer MEDICARE, SELFPAY ==
[2020-12-12] VITALS (11 sets, daily range): BP systolic 60–117; BP diastolic 37–75; PULSE 71–99; RESP 14–21; TEMP 36.5; O2SAT 94–100; BMI 25.0
--- NOTE | 2020-12-12 17:03 | XRR_ITS ---
PROCEDURE INFORMATION: Exam: XR Chest Exam date and time: 12/12/2020 5:03 PM Age: 80 years old Clinical indication: Other: Eval for media widening TECHNIQUE: Imaging protocol: XR of the chest. Views: 1 view. COMPARISON: CR XR chest 1V portable [id number] 03/21/2020 1:52 PM FINDINGS: The lungs are clear of infiltrate. There are no pleural effusions or pneumothorax. The heart size and pulmonary vascularity are normal. There is no evidence for mediastinal widening. XR/XR chest 1V portable [id number] IMPRESSION: No active disease. Radiation Dose CTDIVOL = (mGy): DLP = (mGy-cm)
--- NOTE | 2020-12-12 17:04 | ECG_ITS ---
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 Measurements Intervals [place] Rate: 69 P: MA: QRS: 32 QRSD: 87 T: 63 QT: 409 QTc: 439 Interpretive Statements ATRIAL FIBRILLATION WITH ABERRANT CONDUCTION OR VENTRICULAR PREMATURE COMPLEXES ABNORMAL RHYTHM ECG Compared to ECG 03/21/2020 15:49:19 Ventricular premature complex(es) now present Aberrant conduction of supraventricular beat(s) now present ST (T wave) deviation no longer present Electronically Signed On 12-12-2020 23:57:22 CDT by Rebel Jones M.D. [id number]
[2020-12-12 17:13] LABS: Basophils % 0.3 %; Eosinophils % 0.2 %; Hematocrit 45.8 % (42.0-52.0); Hemoglobin 14.8 g/dL (11.7-16.6); Lymphocytes # 1.2 10^3/uL (0.8-4.8); Lymphocytes % 12.9 %; Mean Corpuscular HGB Conc 32.3 g/dL (30.0-36.0); Mean Corpuscular Hemoglobin 31.2 pg (28.0-34.0); Mean Corpuscular Volume 96.6 fl (80-94); Mean Platelet Volume 10.1 fL (7.4-10.4); Monocytes # 1.2 10^3/uL (0.2-0.9); Monocytes % 13.4 %; Neutrophils # 6.75 10^3/uL (1.8-7.7); Neutrophils % 72.9 %; Nucleated Red Blood Cells % 0 %; Platelet Count 235 10^3/cmm (130-400); Red Blood Count 4.74 10^6/uL (4.1-5.3); Red Cell Distribution Width 14.6 % (12.1-15.1); White Blood Count 9.3 10^3/uL (4.0-10.0)
--- NOTE | 2020-12-12 17:21 | CTR_ITS ---
PROCEDURE INFORMATION: Exam: CTA Chest With Contrast Exam date and time: 12/12/2020 5:21 PM Age: 80 years old Clinical indication: Shortness of breath; Hypotension; Prior surgery; Surgery type: Appy; Additional info: Eval for pna in the setting of significant pe aortic leak TECHNIQUE: Imaging protocol: Computed tomographic angiography of the chest with contrast. 3D rendering (Not supervised by radiologist): MIP and/or 3D reconstructed images were created by the technologist. Radiation optimization: All CT scans at this facility use at least one of these dose optimization techniques: automated exposure control; mA and/or kV adjustment per patient size (includes targeted exams where dose is matched to clinical indication); or iterative reconstruction. Contrast material: OMNI 350; Contrast volume: 95 ml; Contrast route: INTRAVENOUS (IV); COMPARISON: CTA Chest-Pulmonary Emb [id number] 01/15/2018 1:06 PM RADIATION DOSE METRICS: Total DLP (mGy-cm): 2122.08 FINDINGS: There are degenerative changes of the spine. Is again noted is mild wedging involving T10, T12 and L1. Emphysematous changes are seen throughout the lungs. There is significant breathing motion through the lung bases. There is no focal consolidation. There is no pleural effusion. There is no pneumothorax. There are no suspicious pulmonary nodules. The central airways are normal in caliber. Is The thyroid gland is unremarkable. There is no axillary adenopathy. There is no mediastinal adenopathy. There is no hilar adenopathy. Interrogation of the pulmonary arteries in multiple planes shows no evidence for pulmonary embolism. The aorta is normal in caliber with no evidence for aneurysm or dissection. The heart is normal in size. There is no evidence for right heart failure. IMPRESSION: 1. No evidence for pulmonary embolism. 2. No evidence for aortic aneurysm or dissection. 3. Marked pulmonary emphysema. No focal infiltrates. PROCEDURE INFORMATION: Exam: CTA Abdomen and Pelvis With Contrast Exam date and time: 12/12/2020 5:21 PM Age: 80 years old Clinical indication: Shortness of breath; Hypotension; Prior surgery; Surgery type: Appy; Additional info: Eval for pna in the setting of significant pe aortic leak TECHNIQUE: Imaging protocol: Computed tomographic angiography of the abdomen and pelvis with contrast material. 3D rendering (Not supervised by radiologist): MIP and/or 3D reconstructed images were created by the technologist. Radiation optimization: All CT scans at this facility use at least one of these dose optimization techniques: automated exposure control; mA and/or kV adjustment per patient size (includes targeted exams where dose is matched to clinical indication); or iterative reconstruction. Contrast material: OMNI 350; Contrast volume: 95 ml; Contrast route: INTRAVENOUS (IV); COMPARISON: CTA Chest-Pulmonary Emb [id number] 01/15/2018 1:06 PM RADIATION DOSE METRICS: Total DLP (mGy-cm): 2122.08 FINDINGS: There are degenerative changes of the spine. There are old compression deformities of L1 and L3. There are degenerative changes of the left hip. The patient is status post right hip pinning. There is atherosclerotic change of the abdominal aorta. There is no evidence for aneurysm or dissection. Athero is sclerotic plaque extends into the common, internal and external iliac arteries. There does appear to be moderate stenosis involving the right common iliac in a mild stenosis of the left common iliac arteries. Celiac axis enhances normally. There is a significant stenosis approximately 1 cm distal to the origin of the superior mesenteric artery. There are 2 renal arteries on the right and a single renal artery on the left. There is extensive plaque involving the main renal arteries. The inferior mesenteric artery appears normal. There is a stable small cyst within the posterior segment of the right lobe the liver. There is also a stable hypodensity within the posterior segment of the right lobe. There is no suspicious liver mass. . There is no intrahepatic biliary dilatation. The patient is status post cholecystectomy. The pancreas is unremarkable. The spleen is unremarkable. There is no adrenal mass. There is no hydronephrosis. There are no renal calculi. There is mild symmetric perinephric stranding. There is no renal mass. The IVC is normal in caliber. There is no retroperitoneal adenopathy. There is no mesenteric adenopathy. The stomach is unremarkable. The small bowel loops in the upper abdomen are nondistended with no bowel wall thickening. Feces is seen throughout the colon. There is no thickening of the wall of the ascending, transverse or descending colons. Is Within the pelvis: The appendix is not visualized to advantage. However, there is no CT evidence for acute a the ppendicitis. The bladder is unremarkable. The prostate gland and seminal vesicles are normal. There is no free fluid within the pelvis. There is no inguinal adenopathy. There is no pelvic adenopathy. Feces is seen within the rectosigmoid colon. CT/CT angio chest abdomen pelvis IMPRESSION: 1. No evidence for abdominal aortic aneurysm or dissection. 2. 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 3. Moderate fecal burden suggesting constipation. No evidence for bowel obstruction or bowel wall thickening. 4. No acute inflammatory process is seen within the abdomen or pelvis. Radiation Dose CTDIVOL = (mGy): DLP = 2122.08~2122.08 (mGy-cm)
[2020-12-12] MEDS: sodium chloride 0.9% 500 ML IV (17:26)
[2020-12-12 17:33] LABS: ABG PCO2 43.9 mmHg (35-45); ABG PH Result 7.39 (7.35-7.45); Alveolar-Arterial Oxygen Gradi 4.6 mmHg (5-10); Arterial Blood Gas Hematocrit 43.8 % (42-52); Base Excess ABG 1.4 mmol/L (-2.0-2.0); Blood Gas Allen Test Pos; Blood Gas Operator Identificat AMH; Blood Gas Sample Site Radial, left; Blood Gas Sample Type Arterial; Carboxyhemoglobin 0.8 %THgb (0.4-20.1); HCO3 ABG 26.7 mmol/L (22-26); HGB O2 Sat 97.6 % (95-100); Ionized Calcium Level - ABG 1.1 mmol/L (1.1-1.4); Methemoglobin 0.8 % (0.4-1.5); Oxygen Device NC; Oxygen Saturation ABG 99.2; Potassium Level - ABG 3.5 mmol/L (3.5-5.0); Total Hemoglobin 14.3 g/dL (14-18)
[2020-12-12 17:34] LABS: INR 1.15 (0.8-1.2)
[2020-12-12 17:35] LABS: Partial Thromboplastin Time 34.6 SECONDS (23.9-36.7)
[2020-12-12 17:37] LABS: Lactate (Lactic Acid level) 1.5 mmol/L (0.5-2.2)
[2020-12-12 17:41] LABS: Troponin(5th) Baseline 73 ng/L (0-15)
[2020-12-12 17:49] LABS: Alanine Aminotransferase 11 U/L (0-41); Albumin Level 3.8 g/dL (3.5-5.2); Alkaline Phosphatase 73 IU/L (40-130); Aspartate Amino Transferase 14 U/L (0-40); Blood Urea Nitrogen 44 mg/dL (8-23); Calcium 8.6 mg/dL (8.5-10.5); Carbon Dioxide 30 mmol/L (22-29); Chloride 94 mmol/L (98-107); Globulin 2.5 g/dL (1.3-4.6); Glucose 154 mg/dL (65-115); Lipase 18 U/L (13-60); NT Pro B Type Natriuretic Pept 1324 pg/mL (0-450); Osmolality Calculated 292 mOsm/kg (285-295); Sodium 134 mmol/L (136-145); Total Bilirubin 0.4 mg/dL (0.15-1.2); Total Protein 6.3 g/dL (6.6-8.7)
[2020-12-12] MEDS: iohexol 350 mg/mL 100 mL Btl IV (17:55)
[2020-12-12 18:16] LABS: SARS Covid-2 Antigen Negative (Negative)
[2020-12-12 18:17] LABS: NT Pro B Type Natriuretic Pept 1310 pg/mL (0-450)
--- NOTE | 2020-12-12 18:27 | W.ED.GENADLT ---
HPI - General Adult General: Chief complaint: General Medical Stated complaint: LOW BP Time Seen by Provider: 12/12/20 17:03 History of Present Illness: HPI narrative: Patient is an 80-year-old male with a history of DNR, hypertension, CHF, VTE on Eliquis presented to emergency room with concerns for low blood pressure. Patient's first noticed that patient had low blood pressure of 90/40 2 days ago. Yesterday, patient was noted to have a blood pressure of 70/30. Patient's called the patient's primary care provider was then told to go to the emergency room for further evaluation. Patient reports not feeling well during the last 3 days and reports greenish sputum cough. Patient denies any shortness of breath, chest pain abdominal pain since then. Patient denies any fever/chills, abdominal complaints or complaints at this time. Onset: 2 days ago Duration:2 days Location:home Severity:severe Review of Systems Narrative: Constitutional: No fever, no chills. HEENT: No vision changes CV: No chest pain, no palpitations PULM: +cough, no dyspnea. GI: No abdominal pain, no N/V/D. : No dysuria MSKEL: No muscle pain SKIN: No new rashes, no lesions. NEURO: No headache, no focal weakness +generalized weakness. HEME: No visible bruises PSYCH: Normal mood PFSH ED PFSH: Medical History (Updated 12/18/20 @ 00:01 by ) Atrial fibrillation BPH (benign prostatic hyperplasia) CAD (coronary artery disease) Cardiac arrest (2017) 2nd to PE Chronic anticoagulation eliquis, a fib, history of pe Chronic combined systolic and diastolic CHF (congestive heart failure) EF 40%. 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 in March 2020 On home oxygen therapy Peripheral neuropathy Pneumothorax Pulmonary embolism (2018) Restless leg syndrome Rib fractures Superior mesenteric artery stenosis Noted on CT imaging 11/2020 with reconstitution described. Surgical History (Updated 12/12/20 @ 20:43 by Kelly Olmedo MD) History of appendectomy History of coronary artery stent placement Hx of cataract surgery Hx of tonsillectomy Status post open reduction and internal fixation (ORIF) of fracture (03/2019) Status post right hip replacement (03/2019) Family History Other CAD (coronary artery disease) Social History (Updated 12/12/20 @ 20:43 by Kelly Olmedo MD) Smoking and tobacco status: former smoker Second hand smoke exposure: No Alcohol intake: never Lives independently: No Household members: spouse Marital status: Physical Exam Narrative: EXAM NARRATIVE: Head: Atraumatic Eyes: PERRL, conjunctiva without injection ENT: Mucous membrane moist NECK: Supple, ROM intact LUNGS: LCTAB, no crackles/rhonchi CV: RRR ABDOMEN: Soft, nontender in all quadrants EXTREMITY: Normal ROM SKIN: No rash or erythema NEURO: Awake and alert, no focal motor deficits PSYCH: Normal mood and affect Course Vital Signs: Vital signs: Vital Signs Temperature 98.1 F 12/17/20 08:00 Pulse Rate 82 12/17/20 14:00 Respiratory Rate 27 H 12/17/20 14:00 Blood Pressure 134/67 12/17/20 14:00 Pulse Oximetry 96 12/17/20 14:00 MDM - General Adult MDM Narrative: Medical decision making narrative: Patient is an 80-year-old male with history of DNR, hypertension, A. fib on Eliquis, VTE, CHF (EF of 40%) presents the emergency room for concerns for low blood pressure x2 days. Patient also had cough greenish sputum production. On exam, patient is hypotensive on arrival with BP of 57/29 without any hypoxemia. Lungs appear to be clear on exam. I performed bedside ultrasound which did not show any cardiac tamponade, right heart strain, or pneumothorax. Patient does appear to have reduced EF. Given concern for low EF, decision was made to start patient on 500 cc of normal saline and 5 mcg/min of norepinephrine for blood pressure improvement. Work-up today showed white count 9.3. Creatinine of 2.3. Troponin of 60. CTA chest and abdomen did not show any signs of aortic pathologies. No signs of submassive or massive PE at this time. No signs of focal pneumonia. At the present time, it is unclear what is the source of patient's hypotension. I suspect the patient is on multiple medication including carvedilol, Entresto, and metoprolol. In the setting of MELINDA, likely this medication may be compounded. I do not suspect any source of active bleeding given normal hemoglobin at this time. Cortisol level random has been sent. Patient is given hydrocortisone 100 mcg. Patient's blood pressure improved with 5 mcg of norepinephrine that is now down titrating. I discussed case with Dr. Pollack who recommended ICU level of care. We will attempt to taper down on the norepinephrine and target a MAP of 65. Disposition: Admission Lab Data: Labs: Lab Results 12/12/20 12/12/20 12/12/20 17:05 17:05 17:05 WBC 9.3 10^3/uL 10^3/ uL (4.0-10.0) RBC 4.74 10^6/uL 10^6 /uL (4.1-5.3) Hgb 14.8 g/dL g/dL (11.7-16.6) Hct 45.8 % % (42.0-52.0) MCV 96.6 fl H fl (80-94) MCH 31.2 pg pg (28.0-34.0) MCHC 32.3 g/dL g/dL (30.0-36.0) RDW 14.6 % % (12.1-15.1) Plt Count 235 10^3/cmm 10^3 /cmm (130-400) MPV 10.1 fL fL (7.4-10.4) Neut % (Auto) 72.9 % % Lymph % (Auto) 12.9 % % [place] % (Auto) 13.4 % % Eos % (Auto) 0.2 % % Baso % (Auto) 0.3 % % Neut # (Auto) 6.75 10^3/uL 10^3 /uL (1.8-7.7) Lymph # (Auto) 1.2 10^3/uL 10^3/ uL (0.8-4.8) [place] # (Auto) 1.2 10^3/uL H 10^ 3/uL (0.2-0.9) Eos # (Auto) 0.0 10^3/uL 10^3/ uL (0.0-0.8) Baso # (Auto) 0.0 10^3/uL 10^3/ uL (0.0-0.1) Nucleated RBC % (a uto) 0 % % Nucleated RBCs # 0.0 /100WBC /100W BC PT 15.10 SECONDS H S ECONDS (12.1-14.9) INR 1.15 (0.8-1.2) APTT 34.6 SECONDS SECO NDS (23.9-36.7) Specimen Type Sample Site ABG pH ABG pCO2 ABG pO2 ABG HCO3 ABG O2 Saturation ABG Base Excess Earl Test A-a O2 Gradient Hematocrit Hgb O2 Saturation Carboxyhemoglobin Methemoglobin Total Hemoglobin Ionized Calcium O2 Delivery Device O2 Liters/Min FiO2 [employer]ist ID Sodium 134 mmol/L L mmol /L (136-145) Potassium 4.0 mmol/L mmol/L (3.5-5.1) Chloride 94 mmol/L L mmol/ L (98-107) Carbon Dioxide 30 mmol/L H mmol/ L (22-29) Anion Gap 14.0 (5-19) BUN 44 mg/dL H mg/dL (8-23) Creatinine 2.3 mg/dL H mg/dL (0.7-1.2) GFR Calculation Not Reportable Glucose 154 mg/dL H mg/dL (65-115) Calculated Osmolal ity 292 mOsm/kg mOsm/ kg (285-295) Lactate Calcium 8.6 mg/dL mg/dL (8.5-10.5) Total Bilirubin 0.4 mg/dL mg/dL (0.15-1.2) AST 14 U/L U/L (0-40) ALT 11 U/L U/L (0-41) Alkaline Phosphata se 73 IU/L IU/L (40-130) Creatine Kinase Troponin T Baselin e Troponin T 120 Min [place] Troponin T C-Reactive Protein NT-Pro-B Natriuret Pep 1324 pg/mL H pg/m L (0-450) Total Protein 6.3 g/dL L g/dL (6.6-8.7) Albumin 3.8 g/dL g/dL (3.5-5.2) Globulin 2.5 g/dL g/dL (1.3-4.6) Lipase 18 U/L U/L (13-60) Random Cortisol SARS-CoV-2 Ag (Rap id) Blood Type Rho(D) Type Antibody Screen 12/12/20 12/12/20 12/12/20 17:05 17:05 17:05 WBC RBC Hgb Hct MCV MCH MCHC RDW Plt Count MPV Neut % (Auto) Lymph % (Auto) [place] % (Auto) Eos % (Auto) Baso % (Auto) Neut # (Auto) Lymph # (Auto) [place] # (Auto) Eos # (Auto) Baso # (Auto) Nucleated RBC % (a uto) Nucleated RBCs # PT INR APTT Specimen Type Sample Site ABG pH ABG pCO2 ABG pO2 ABG HCO3 ABG O2 Saturation ABG Base Excess Earl Test A-a O2 Gradient Hematocrit Hgb O2 Saturation Carboxyhemoglobin Methemoglobin Total Hemoglobin Ionized Calcium O2 Delivery Device O2 Liters/Min FiO2 [employer] ID Sodium Potassium Chloride Carbon Dioxide Anion Gap BUN Creatinine GFR Calculation Glucose Calculated Osmolal ity Lactate 1.5 mmol/L mmol/L (0.5-2.2) Calcium Total Bilirubin AST ALT Alkaline Phosphata se Creatine Kinase Troponin T Baselin e 73 ng/L H ng/L (0-15) Troponin T 120 Min [place] Troponin T C-Reactive Protein NT-Pro-B Natriuret Pep 1310 pg/mL H pg/m L (0-450) Total Protein Albumin Globulin Lipase Random Cortisol SARS-CoV-2 Ag (Rap id) Blood Type Rho(D) Type Antibody Screen 12/12/20 12/12/20 12/12/20 17:05 17:19 17:22 WBC RBC Hgb Hct MCV MCH MCHC RDW Plt Count MPV Neut % (Auto) Lymph % (Auto) [place] % (Auto) Eos % (Auto) Baso % (Auto) Neut # (Auto) Lymph # (Auto) [place] # (Auto) Eos # (Auto) Baso # (Auto) Nucleated RBC % (a uto) Nucleated RBCs # PT INR APTT Specimen Type Arterial Sample Site Radial, left ABG pH 7.39 (7.35-7.45) ABG pCO2 43.9 mmHg mmHg (35-45) ABG pO2 132.0 mmHg H mmHg (80.0-100.0) ABG HCO3 26.7 mmol/L H mmo l/L (22-26) ABG O2 Saturation 99.2 ABG Base Excess 1.4 mmol/L mmol/L (-2.0-2.0) Earl Test Pos A-a O2 Gradient 4.6 mmHg L mmHg (5-10) Hematocrit 43.8 % % (42-52) Hgb O2 Saturation 97.6 % % (95-100) Carboxyhemoglobin 0.8 %THgb %THgb (0.4-20.1) Methemoglobin 0.8 % % (0.4-1.5) Total Hemoglobin 14.3 g/dL g/dL (14-18) Ionized Calcium 1.1 mmol/L mmol/L (1.1-1.4) O2 Delivery Device Nc O2 Liters/Min 3.0 % % FiO2 32.0 % % [employer]ist ID Amh Sodium 135.0 mmol/L mmol /L (131-143) Potassium 3.5 mmol/L mmol/L (3.5-5.0) Chloride Carbon Dioxide Anion Gap BUN Creatinine GFR Calculation Glucose 152.0 mg/dL H mg/ dL (70-115) Calculated Osmolal ity Lactate Calcium Total Bilirubin AST ALT Alkaline Phosphata se Creatine Kinase Troponin T Baselin e Troponin T 120 Min [place] Troponin T C-Reactive Protein NT-Pro-B Natriuret Pep Total Protein Albumin Globulin Lipase Random Cortisol 21.05 ug/dL H ug/ dL (2.47-19.5) SARS-CoV-2 Ag (Rap id) Negative (Negative) Blood Type Rho(D) Type Antibody Screen 12/12/20 12/12/20 12/12/20 18:20 18:20 18:20 WBC RBC Hgb Hct MCV MCH MCHC RDW Plt Count MPV Neut % (Auto) Lymph % (Auto) [place] % (Auto) Eos % (Auto) Baso % (Auto) Neut # (Auto) Lymph # (Auto) [place] # (Auto) Eos # (Auto) Baso # (Auto) Nucleated RBC % (a uto) Nucleated RBCs # PT INR APTT Specimen Type Sample Site ABG pH ABG pCO2 ABG pO2 ABG HCO3 ABG O2 Saturation ABG Base Excess Earl Test A-a O2 Gradient Hematocrit Hgb O2 Saturation Carboxyhemoglobin Methemoglobin Total Hemoglobin Ionized Calcium O2 Delivery Device O2 Liters/Min FiO2 [employer]ist ID Sodium Potassium Chloride Carbon Dioxide Anion Gap BUN Creatinine GFR Calculation Glucose Calculated Osmolal ity Lactate Calcium Total Bilirubin AST ALT Alkaline Phosphata se Creatine Kinase 47 U/L U/L (39-308) Troponin T Baselin e Troponin T 120 Min [place] 60.13 ng/L H ng/L (0-15) [place] Troponin T -12.87 ABS# L ABS # (0-10) C-Reactive Protein 4.2 mg/L mg/L (0.0-4.9) NT-Pro-B Natriuret Pep Total Protein Albumin Globulin Lipase Random Cortisol SARS-CoV-2 Ag (Rap id) Blood Type O Positive Rho(D) Type Positive Antibody Screen Negative Imaging Data^: Other Imaging: Radiologist's impression: [employer] [address] [id number] Scan ReportSigned Patient: Allan Prado #: [id number]: 1940Acct#:[id number]/Sex: 80 / MADM Date: 12/12/20Loc: ERRoom/Bed:Attending Dr: Ordering Provider/Ordering MD: Bill Gaytan MD Date of Service: 12/12/20 Procedure(s): CT angio chest abdomen pelvis Accession Number(s): [id number] Report Number: [id number] PROCEDURE INFORMATION: Exam: CTA Chest With Contrast Exam date and time: 12/12/2020 5:21 PM Age: 80 years old Clinical indication: Shortness of breath; Hypotension; Prior surgery; Surgery type: Appy; Additional info: Eval for pna in the setting of significant pe aortic leak TECHNIQUE: Imaging protocol: Computed tomographic angiography of the chest with contrast. 3D rendering (Not supervised by radiologist): MIP and/or 3D reconstructed images were created by the technologist. Radiation optimization: All CT scans at this facility use at least one of these dose optimization techniques: automated exposure control; mA and/or kV adjustment per patient size (includes targeted exams where dose is matched to clinical indication); or iterative reconstruction. Contrast material: OMNI 350; Contrast volume: 95 ml; Contrast route: INTRAVENOUS (IV); COMPARISON: CTA Chest-Pulmonary Emb [id number] 01/15/2018 1:06 PM RADIATION DOSE METRICS: Total DLP (mGy-cm): 2122.08 FINDINGS: There are degenerative changes of the spine. Is again noted is mild wedging involving T10, T12 and L1. Emphysematous changes are seen throughout the lungs. There is significant breathing motion through the lung bases. There is no focal consolidation. There is no pleural effusion. There is no pneumothorax. There are no suspicious pulmonary nodules. The central airways are normal in caliber. Is The thyroid gland is unremarkable. There is no axillary adenopathy. There is no mediastinal adenopathy. There is no hilar adenopathy. Interrogation of the pulmonary arteries in multiple planes shows no evidence for pulmonary embolism. The aorta is normal in caliber with no evidence for aneurysm or dissection. The heart is normal in size. There is no evidence for right heart failure. IMPRESSION: 1. No evidence for pulmonary embolism. 2. No evidence for aortic aneurysm or dissection. 3. Marked pulmonary emphysema. No focal infiltrates. PROCEDURE INFORMATION: Exam: CTA Abdomen and Pelvis With Contrast Exam date and time: 12/12/2020 5:21 PM Age: 80 years old Clinical indication: Shortness of breath; Hypotension; Prior surgery; Surgery type: Appy; Additional info: Eval for pna in the setting of significant pe aortic leak TECHNIQUE: Imaging protocol: Computed tomographic angiography of the abdomen and pelvis with contrast material. 3D rendering (Not supervised by radiologist): MIP and/or 3D reconstructed images were created by the technologist. Radiation optimization: All CT scans at this facility use at least one of these dose optimization techniques: automated exposure control; mA and/or kV adjustment per patient size (includes targeted exams where dose is matched to clinical indication); or iterative reconstruction. Contrast material: OMNI 350; Contrast volume: 95 ml; Contrast route: INTRAVENOUS (IV); COMPARISON: CTA Chest-Pulmonary Emb [id number] 01/15/2018 1:06 PM RADIATION DOSE METRICS: Total DLP (mGy-cm): 2122.08 FINDINGS: There are degenerative changes of the spine. There are old compression deformities of L1 and L3. There are degenerative changes of the left hip. The patient is status post right hip pinning. There is atherosclerotic change of the abdominal aorta. There is no evidence for aneurysm or dissection. Athero is sclerotic plaque extends into the common, internal and external iliac arteries. There does appear to be moderate stenosis involving the right common iliac in a mild stenosis of the left common iliac arteries. Celiac axis enhances normally. There is a significant stenosis approximately 1 cm distal to the origin of the superior mesenteric artery. There are 2 renal arteries on the right and a single renal artery on the left. There is extensive plaque involving the main renal arteries. The inferior mesenteric artery appears normal. There is a stable small cyst within the posterior segment of the right lobe the liver. There is also a stable hypodensity within the posterior segment of the right lobe. There is no suspicious liver mass. . There is no intrahepatic biliary dilatation. The patient is status post cholecystectomy. The pancreas is unremarkable. The spleen is unremarkable. There is no adrenal mass. There is no hydronephrosis. There are no renal calculi. There is mild symmetric perinephric stranding. There is no renal mass. The IVC is normal in caliber. There is no retroperitoneal adenopathy. There is no mesenteric adenopathy. The stomach is unremarkable. The small bowel loops in the upper abdomen are nondistended with no bowel wall thickening. Feces is seen throughout the colon. There is no thickening of the wall of the ascending, transverse or descending colons. Is Within the pelvis: The appendix is not visualized to advantage. However, there is no CT evidence for acute a the ppendicitis. The bladder is unremarkable. The prostate gland and seminal vesicles are normal. There is no free fluid within the pelvis. There is no inguinal adenopathy. There is no pelvic adenopathy. Feces is seen within the rectosigmoid colon. CT/CT angio chest abdomen pelvis IMPRESSION: 1. No evidence for abdominal aortic aneurysm or dissection. 2. 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 3. Moderate fecal burden suggesting constipation. No evidence for bowel obstruction or bowel wall thickening. 4. No acute inflammatory process is seen within the abdomen or pelvis. Radiation Dose CTDIVOL = (mGy): DLP = 2122.08~2122.08 (mGy-cm) [employer] [facility] [id number] [place], [place] [id number] ReportSigned Patient: Allan Prado #: [id number]: 1940Acct#:[id number]/Sex: 80 / MADM Date: 12/12/20Loc: ERRoom/Bed:Attending Dr: Ordering Provider/Ordering MD: Bill Gaytan MD Date of Service: 12/12/20 Procedure(s): XR chest 1V portable [id number] Accession Number(s): [id number] Report Number: [id number] PROCEDURE INFORMATION: Exam: XR Chest Exam date and time: 12/12/2020 5:03 PM Age: 80 years old Clinical indication: Other: Eval for media widening TECHNIQUE: Imaging protocol: XR of the chest. Views: 1 view. COMPARISON: CR XR chest 1V portable [id number] 03/21/2020 1:52 PM FINDINGS: The lungs are clear of infiltrate. There are no pleural effusions or pneumothorax. The heart size and pulmonary vascularity are normal. There is no evidence for mediastinal widening. XR/XR chest 1V portable [id number] IMPRESSION: No active disease. Radiation Dose CTDIVOL = (mGy): DLP = (mGy-cm) Dictated By:Naveen Montero MDSigned By:Naveen Montero MDSigned Date/Time:12/12/20 1822DD/ 1703 Critical Care Time Critical Care Time: Critical Care Time: Yes Total Critical Care Time: 37 Attestation: Given the high probability of imminent or life threatening deterioration of the patient?s condition without intervention, the patient was immediately assessed by myself and the nurse, and cardiac monitoring initiated. The patient was also placed on oxygen and continuous pulse oximetry initiated. During the course of the patient?s stay, I spent a considerable amount of time at the bedside performing serial re-evaluations of the patient?s hemodynamic and clinical status because of the recognized potential threat to life or limb in this condition. Clinical management of this patient involved high complexity decision making to assess, manipulate, and support vital organ system failure. I then had a chance to review all of the available laboratory and radiographic studies obtained today, and I also reviewed old records available to me at the time. Sequential vital signs were obtained. Critical care time noted below was time spent engaged in work directly related to the individual patient?s care, not including time performing procedures; however it does include time spent at the immediate bedside or elsewhere on the floor or unit. TOTAL CRITICAL CARE TIME ELAPSED: 37 minutes. BODY SYSTEM AT HIGHEST RISK: Cardiovascular. Discharge Plan Discharge Patient Disposition: Admitted As Inpatient Admit Provider: Samir Herrera Clinical Impression: Hypotension, Elevated troponin I level, MELINDA (acute kidney injury) Condition: Stable Discharge Diet: Cardiac Discharge Activity: Increase activity as tolerated Coding Level of Care Code ED Precipitate Washer for Avelina Gaitan
[2020-12-12] MEDS: azithromycin 250 mg Tablet 500 MG PO (18:40)
[2020-12-12] MEDS: cefepime 1,000 MG in sodium chloride 0.9% (plus) 50 ML 100 MG IV (18:41)
[2020-12-12 18:53] LABS: Cortisol Random 21.05 ug/dL (2.47-19.5)
--- NOTE | 2020-12-12 19:04 | ECG_ITS ---
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 Measurements Intervals [place] Rate: 83 P: MS: QRS: -14 QRSD: 82 T: 30 QT: 388 QTc: 458 Interpretive Statements ATRIAL FIBRILLATION MINIMAL ST DEPRESSION [0.025+ mV ST DEPRESSION] ABNORMAL RHYTHM ECG Compared to ECG 12/12/2020 17:23:45 ST (T wave) deviation now present Ventricular premature complex(es) no longer present Aberrant conduction of supraventricular beat(s) no longer present Electronically Signed On 12-13-2020 0:02:27 CDT by Rebel Jones M.D. [id number]
[2020-12-12] MEDS: midodrine 5 mg TABLET 10 MG PO (19:09)
[2020-12-12] MEDS: vancomycin 1,000 MG in sodium chloride 0.9% 250 ML 250 MG IV (19:09)
[2020-12-12] MEDS: sodium chloride 0.9% 250 ML IV (19:11)
[2020-12-12 19:22] LABS: Troponin 5 2HR 60.13 ng/L (0-15)
[2020-12-12 19:26] LABS: Troponin 5 2HR Delta -12.87 ABS# (0-10)
[2020-12-12] MEDS: midodrine 5 mg TABLET PO (19:54)
--- NOTE | 2020-12-12 20:20 | PM.HP ---
Providers/Chief Complaint Admitting Physician: Kelly Olmedo Primary Care Provider: Ravin Madrigal MD Chief Complaint: LOW BP History of Present Illness Allan Prado is a 80 year old male who presented to the emergency room with chief complaint of low blood pressures, fatigue and dizziness. Symptoms have been present to some degree for a couple of days. His checked his blood pressure a few days ago and it was lower than usual. Yesterday systolic pressure was in the 70s. Primary care provider was contacted and it was recommended that he come to the emergency room. He presented today. Initial blood pressure on arrival in the left arm was 60/37 and in the right arm 98/42. He was given a fluid bolus and started on some Levophed. No report of any fevers, nausea or vomiting, diarrhea, upper respiratory symptoms, abdominal pain, chest pain, bleeding or increased edema. His only complaints are not having any energy and noticing some dizziness when changing positions. Denies any palpitations. He has a known history of coronary artery disease, CHF, atrial fibrillation, chronic anticoagulation, mild aortic stenosis, cardiac arrest secondary to PE in 2018 among other diagnoses shown below. He is not sure if he has had any recent medication changes. Knows some of his medications but not all of them. They will have to be confirmed further with clinic, pharmacy and/or . Review of available external medication records shows that in the last couple of months he has been prescribed Lasix, Entresto, diltiazem as well as metolazone. From what I can tell it looks like metolazone may have been added as a new medication this month at 2.5 mg p.o. daily. Laboratory studies indicated significant increase in BUN and creatinine from prior values from 10/0.6 in March of this year to 44/2.3 today. He has not provided a urine specimen yet. Along with the renal failure is hyperuricemia at 12.8. Lactic acid was 1.4 and white blood count was 9.3 with normal differential. Not on any narcotics. Given hypotension necessitating initiation of pressor support, he is being admitted to the ICU. Of note initial troponin was 73 with second troponin at 64 delta of -12.87. Twelve-lead EKG showed atrial fibrillation without any acute ST segment changes noted compared to prior. Review of Systems Const: Denies: fever(s), chills or change in weight ENMT: Denies: throat pain or nasal congestion Card: Reports: irregular heart rhythm (Chronic) and lightheadedness; Denies: chest pain, palpitations, edema or syncope Resp: Reports: dyspnea (Chronic), productive cough (Chronic), non-productive cough (Chronic), wheezing (Chronic) and other (Has not had Covid, did receive Covid vaccination); Denies: pain on inspiration, change in phlegm color or hemoptysis GI: Denies: abdominal pain, nausea, vomiting, diarrhea, constipation, hematochezia or melena : Denies: difficulty urinating or hematuria Musc: Reports: other (No new joint complaints) Skin/Breast: Denies: pruritus or sores Neuro: Reports: dizziness; Denies: headache(s), weakness in extremities (Beyond generalized weakness the last day or 2), sensory changes, frequent falls or confusion Yang/Lymph: Reports: easy bruising and other (No reported bleeding) Medications/Allergies Home Medications Medication Instructions Recorded Confirmed Last Taken Type PreserVision AREDS 1 tab-cap PO BID@1100,2300 03/06/19 03/21/20 03/21/20 History albuterol sulfate 2.5 mg INHALATION Q4H 03/06/19 03/21/20 03/21/20 History budesonide 0.5 mg INHALATION BID@1100,2300 03/06/19 03/21/20 03/21/20 History clonazepam 0.5 mg PO DAILY PRN 03/06/19 03/21/20 03/21/20 History docusate sodium 100 mg PO TID@1100,1700,2300 03/06/19 03/21/20 03/21/20 History fluoxetine 20 mg PO DAILY@1100 03/06/19 03/21/20 03/21/20 History garlic 1,000 mg PO BID@1100,2300 03/06/19 03/21/20 03/21/20 History magnesium chloride 64 mg PO DAILY@1100 03/06/19 03/21/20 03/21/20 History potassium chloride 10 meq PO BID@1100,2300 03/06/19 03/21/20 03/21/20 History guaifenesin [Mucinex] 600 mg PO BID@1100,2300 03/07/19 03/21/2003/21/21 History vitamin E 400 unit PO DAILY@1100 03/07/19 03/21/20 03/21/20 History rosuvastatin [Crestor] 20 mg PO DAILY@1100 03/21/19 03/21/20 03/21/20 History Cardizem CD 180 mg PO DAILY@1100 03/21/20 03/21/20 03/21/20 History Entresto 1 tab PO BID@1100,2300 03/21/20 03/21/20 03/21/20 History aspirin 81 mg PO DAILY@1100 03/21/20 03/21/20 03/21/20 History metoprolol tartrate 12.5 mg PO BID@1100,2300 03/21/20 03/21/20 03/21/20 History Protonix 40 mg PO BID #60 tab 03/26/20 03/21/20 03/21/20 Rx apixaban [Eliquis] 2.5 mg PO BID #60 tab 03/26/20 Unknown Rx ferrous sulfate [Feosol] 325 mg PO EVERY OTHER DAY #14 tab 03/26/20 Unknown Rx furosemide [Lasix] 10 mg PO DAILY #30 tab 03/26/20 Unknown Rx Allergies Allergy/AdvReac Type Severity Reaction Status Date / Time No Known Allergies Allergy Verified 04/08/20 09:50 PFSH Acute PFSH: Medical History (Updated 12/12/20 @ 21:23 by Kelly Olmedo MD) Atrial fibrillation BPH (benign prostatic hyperplasia) CAD (coronary artery disease) Cardiac arrest (2017) 2nd to PE Chronic combined systolic and diastolic CHF (congestive heart failure) EF 40%. 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 Surgical History (Updated 12/12/20 @ 20:43 by Kelly Olmedo MD) History of appendectomy History of coronary artery stent placement Hx of cataract surgery Hx of tonsillectomy Status post open reduction and internal fixation (ORIF) of fracture (03/2019) Status post right hip replacement (03/2019) Family History Other CAD (coronary artery disease) Social History (Updated 12/12/20 @ 20:43 by Kelly Olmedo MD) Smoking and tobacco status: former smoker Second hand smoke exposure: No Alcohol intake: never Substance/Drug Use: never Lives independently: No Household members: spouse Marital status: Vitals/I&O/Wt Last Vital Signs Temp 97.7 F 12/12/20 16:48 Pulse 78 12/12/20 19:20 Resp 18 12/12/20 19:20 BP 95/50 12/12/20 19:20 Pulse Ox 100 12/12/20 19:20 12/12/20 12/12/20 12/12/20 06:59 14:59 22:59 Intake Total 1073.178 / 1073.178 Balance 1073.178 / 1073.178 Weight last 48 hrs Weight 72.575 kg Physical Exam Narrative: EXAM NARRATIVE: Constitutional: Awake and alert, oriented to person and place and situation although unable to provide specifics regarding medications HEENT: Normocephalic, atraumatic, extraocular movements are intact, nasopharynx is clear, oropharynx with dry mucous membranes, dentures noted Neck: Supple without JVD Respiratory: Coarse breath sounds bilaterally which improved with cough, scattered wheezes, no accessory muscle use noted, no Rales appreciated Cardiovascular: Irregularly irregular rhythm, rate controlled, no discernible murmurs although breath sounds obscured heart sounds Abdomen: Soft, nontender, positive bowel sounds Extremities: Chronic stasis changes, capillary refill around 3 seconds, some mottling noted at the knees, no pitting edema Skin: Bruising/ecchymoses to upper extremities in particular, skin is very dry throughout, some minor sores on the upper extremities primarily, no distal extremity wounds appreciated Neuro: Speech clear, face symmetric, handgrip equal, strength equal at both feet Psych: Normal affect Data : 12/12/20 17:05 12/12/20 17:05 Other Labs: Laboratory Results WBC 9.3 10^3/uL (4.0-10.0) 12/12/20 17:05 RBC 4.74 10^6/uL (4.1-5.3) 12/12/20 17:05 Hgb 14.8 g/dL (11.7-16.6) 12/12/20 17:05 Hct 45.8 % (42.0-52.0) 12/12/20 17:05 MCV 96.6 fl (80-94) H 12/12/20 17:05 MCH 31.2 pg (28.0-34.0) 12/12/20 17:05 MCHC 32.3 g/dL (30.0-36.0) 12/12/20 17:05 RDW 14.6 % (12.1-15.1) 12/12/20 17:05 Plt Count 235 10^3/cmm (130-400) 12/12/20 17:05 MPV 10.1 fL (7.4-10.4) 12/12/20 17:05 Neut % (Auto) 72.9 % 12/12/20 17:05 Lymph % (Auto) 12.9 % 12/12/20 17:05 [place] % (Auto) 13.4 % 12/12/20 17:05 Eos % (Auto) 0.2 % 12/12/20 17:05 Baso % (Auto) 0.3 % 12/12/20 17:05 Neut # (Auto) 6.75 10^3/uL (1.8-7.7) 12/12/20 17:05 Lymph # (Auto) 1.2 10^3/uL (0.8-4.8) 12/12/20 17:05 [place] # (Auto) 1.2 10^3/uL (0.2-0.9) H 12/12/20 17:05 Eos # (Auto) 0.0 10^3/uL (0.0-0.8) 12/12/20 17:05 Baso # (Auto) 0.0 10^3/uL (0.0-0.1) 12/12/20 17:05 Nucleated RBC % (auto) 0 % 12/12/20 17:05 Nucleated RBCs # 0.0 /100WBC 12/12/20 17:05 PT 15.10 SECONDS (12.1-14.9) H 12/12/20 17:05 INR 1.15 (0.8-1.2) 12/12/20 17:05 APTT 34.6 SECONDS (23.9-36.7) 12/12/20 17:05 Specimen Type Arterial 12/12/20 17:22 Sample Site Radial, left 12/12/20 17:22 ABG pH 7.39 (7.35-7.45) 12/12/20 17:22 ABG pCO2 43.9 mmHg (35-45) 12/12/20 17:22 ABG pO2 132.0 mmHg (80.0-100.0) H 12/12/20 17:22 ABG HCO3 26.7 mmol/L (22-26) H 12/12/20 17:22 ABG O2 Saturation 99.2 12/12/20 17:22 ABG Base Excess 1.4 mmol/L (-2.0-2.0) 12/12/20 17:22 Earl Test Pos 12/12/20 17:22 A-a O2 Gradient 4.6 mmHg (5-10) L 12/12/20 17:22 Hematocrit 43.8 % (42-52) 12/12/20 17:22 Hgb O2 Saturation 97.6 % (95-100) 12/12/20 17:22 Carboxyhemoglobin 0.8 %THgb (0.4-20.1) 12/12/20 17:22 Methemoglobin 0.8 % (0.4-1.5) 12/12/20 17:22 Total Hemoglobin 14.3 g/dL (14-18) 12/12/20 17:22 Sodium 135.0 mmol/L (131-143) 12/12/20 17:22 Potassium 3.5 mmol/L (3.5-5.0) 12/12/20 17:22 Glucose 152.0 mg/dL (70-115) H 12/12/20 17:22 Ionized Calcium 1.1 mmol/L (1.1-1.4) 12/12/20 17:22 O2 Delivery Device Nc 12/12/20 17:22 O2 Liters/Min 3.0 % 12/12/20 17:22 FiO2 32.0 % 12/12/20 17:22 Distribution Warehouse Manager ID Amh 12/12/20 17:22 Sodium 134 mmol/L (136-145) L 12/12/20 17:05 Potassium 4.0 mmol/L (3.5-5.1) 12/12/20 17:05 Chloride 94 mmol/L (98-107) L 12/12/20 17:05 Carbon Dioxide 30 mmol/L (22-29) H 12/12/20 17:05 Anion Gap 14.0 (5-19) 12/12/20 17:05 BUN 44 mg/dL (8-23) H 12/12/20 17:05 Creatinine 2.3 mg/dL (0.7-1.2) H 12/12/20 17:05 GFR Calculation Not Reportable 12/12/20 17:05 Glucose 154 mg/dL (65-115) H 12/12/20 17:05 Calculated Osmolality 292 mOsm/kg (285-295) 12/12/20 17:05 Lactate 1.5 mmol/L (0.5-2.2) 12/12/20 17:05 Calcium 8.6 mg/dL (8.5-10.5) 12/12/20 17:05 Total Bilirubin 0.4 mg/dL (0.15-1.2) 12/12/20 17:05 AST 14 U/L (0-40) 12/12/20 17:05 ALT 11 U/L (0-41) 12/12/20 17:05 Alkaline Phosphatase 73 IU/L (40-130) 12/12/20 17:05 Troponin T Baseline 73 ng/L (0-15) H 12/12/20 17:05 Troponin T 120 Minute 60.13 ng/L (0-15) H 12/12/20 18:20 Delta Troponin T -12.87 ABS# (0-10) L 12/12/20 18:20 NT-Pro-B Natriuret Pep 1310 pg/mL (0-450) H 12/12/20 17:05 NT-Pro-B Natriuret Pep 1324 pg/mL (0-450) H 12/12/20 17:05 Total Protein 6.3 g/dL (6.6-8.7) L 12/12/20 17:05 Albumin 3.8 g/dL (3.5-5.2) 12/12/20 17:05 Globulin 2.5 g/dL (1.3-4.6) 12/12/20 17:05 Lipase 18 U/L (13-60) 12/12/20 17:05 Random Cortisol 21.05 ug/dL (2.47-19.5) H 12/12/20 17:05 SARS-CoV-2 Ag (Rapid) Negative (Negative) 12/12/20 17:19 Impressions Chest X-Ray 12/12/20 17:03 IMPRESSION: No active disease. Radiation Dose CTDIVOL = (mGy): DLP = (mGy-cm) Chest/Abdomen/Pelvis CTA 12/12/20 17:21 IMPRESSION: 1. No evidence for abdominal aortic aneurysm or dissection. 2. 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 3. Moderate fecal burden suggesting constipation. No evidence for bowel obstruction or bowel wall thickening. 4. No acute inflammatory process is seen within the abdomen or pelvis. Radiation Dose CTDIVOL = (mGy): DLP = 2122.08~2122.08 (mGy-cm) Micro: Microbiology 12/12/20 18:20 Blood Culture - Preliminary Blood SPECIMEN COLLECTED 12/12/20 18:18 Blood Culture - Preliminary Blood SPECIMEN COLLECTED Other data: ECHO 03/2020 CONCLUSIONS 1-Normal left ventricular cavity size. Moderately decreased left ventricular systolic function. Global left ventricular hypokinesis. Left ventricular ejection fraction is estimated at 40%. In the presence of atrial fibrillation diastolic function cannot be assessed accurately. 2-Moderate aortic valve calcification. Mild aortic valve stenosis, mean gradient 4.4 mmHg, JOAQUIN 1.5 cm squared. Mild aortic valve regurgitation. 3-Moderately thickened mitral valve. No mitral valve stenosis. Mild-moderate mitral valve regurgitation. 4-Mild tricuspid valve regurgitation. 5-Right atrial pressure is around 5 mm of mercury. 6-When compared to the prior echocardiogram dated 14 December 2018 left ventricular ejection fraction has slightly worsened from low normal to moderate 50 to 40% now. It is possible due to [id number] variation and atrial fibrillation estimation of ejection fraction may not be accurate. There is mild aortic stenosis and mild aortic valve regurgitation now there appeared to be mild to moderate mitral valve regurgitation and mild tricuspid regurgitation present on the study. A&P Assessment and plan (1) Dizziness: Secondary to hypotension, primarily positional Status: Acute (2) Hypotension: In a patient with a history of hypertension. Appears to be secondary to multiple antihypertensive agents and development of acute kidney injury. This is possibly due to the addition of metolazone earlier this month although unable to currently clarify if it was a completely new medication. No obvious infectious foci from available information. Had a CTA of the chest abdomen and pelvis with some stenosis of the superior mesenteric artery and common iliac arteries but otherwise no vascular abnormalities that might contribute. He has a known history of coronary artery disease with prior intervention and an elevated baseline troponin with a downward trending negative delta. EKG without acute changes and no report of any chest pain or anginal symptoms beyond the dizziness he has described. Still coronary or other vascular ischemia is within the differential. He has variance between left and right arm blood pressures which also has to be considered along with a mild aortic stenosis. Status: Acute (3) MELINDA (acute kidney injury): Working diagnosis is from what appears to be recently added additional diuretic therapy although with degree of hypotension identified today ATN from hypoperfusion could also be a contributing factor Status: Acute (4) Elevated troponin I level: Unclear significance presently, downward trending negative delta. May be secondary to acute kidney injury. Cannot currently fully rule out ischemic injury sometime in the last couple of days Status: Acute (5) Mild aortic stenosis: Noted on last echocardiogram. He has had some dizziness with position changes that could be indicative of symptomatic aortic stenosis but no syncope. I suspect the dizziness is from hypotension as already described. Status: Chronic (6) Atrial fibrillation: Chronic, rate controlled, although on current medications which are presently being held due to hypotension Status: Chronic (7) Chronic anticoagulation: With Eliquis, secondary to atrial fibrillation and prior history of PE in 2018 Status: Chronic (8) Chronic combined systolic and diastolic CHF (congestive heart failure): Not currently acute, last ejection fraction around 40%, has been on Entresto and diuretic therapy. On examination actually looks a bit dry. Status: Acute (9) CAD (coronary artery disease): With prior cardiac intervention, does not describe classic anginal symptoms though it is something that needs to be kept in mind Status: Chronic (10) COPD (chronic obstructive pulmonary disease): Chronic, on oxygen therapy, denies recent acute worsening. On oxygen at 2 L by nasal cannula chronically. Status: Chronic (11) Superior mesenteric artery stenosis: Along with stenosis of common iliac arteries. Reconstitution of the SMA as described. Has evidence of peripheral vascular disease on physical exam but otherwise no acute symptomology from this appearance and history beyond hypotension described. Status: Acute Additional A&P Information Hyperlipidemia on chronic statin therapy Hyperuricemia which I suspect is probably due to acute renal failure, unknown of chronic hyperuricemia presently Inpatient admission Low rate IV fluids overnight Monitor respiratory status closely, does have an elevated BNP but it is consistent with prior values and even lower than what he has usually presented with Continue pressor support, weaning as able to maintain MAP 65 Currently holding Lasix, metolazone, Entresto and diltiazem We will try to continue low-dose beta-blockade as blood pressures allow Continue serial cardiac enzymes Telemetry monitoring Echocardiogram to evaluate for any change in ejection fraction since last study Monitor urine output and renal function Check CK level Recheck uric acid level Allopurinol Check TSH Urinalysis has been ordered Blood cultures were collected today Was given empiric vancomycin and cefepime as well as a azithromycin in the emergency room for unclear reasons beyond the hypotension that was present. Given other likely etiologies for hypotension and lack of evidence of an acute infectious process thus far, I have not continued further empiric antibiotics. Continue home Eliquis Breathing treatments as needed Address home medications otherwise once able to verify current list Patient is follow-up with Dr. Jones for cardiology on an outpatient basis in the past but not seen him for some time PPI for GI prophylaxis Eliquis covers DVT prophylaxis Plans findings and concerns discussed with patient and he was given an opportunity to ask questions. Currently anticipate discharge home with outpatient follow-up CODE STATUS was discussed with patient. 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 FULL CODE has been entered. Attestations Medical Necessity Statement*: Anticipated stay greater than 2 midnights and gentleman with multiple comorbid conditions found to be significantly hypotensive as described. Currently requiring pressor support as well as holding of multiple chronic cardiac medications secondary to hypotension. He has acute renal failure, known CHF and aortic stenosis among other diagnoses that necessitate conservative approach to acute management with close monitoring. At high risk of rapid clinical decline up to and including the possibility of without such careful monitored approach. Coding Level of Care Code Acute Associate Professor Of Musicology for Chg Fwd Diagnoses Dizziness R42 Hypotension I95.9 MELINDA (acute kidney injury) N17.9 Elevated troponin I level R77.8 Mild aortic stenosis I35.0 Atrial fibrillation I48.91 Chronic anticoagulation Z79.01 Chronic combined systolic and diastolic CHF (congestive heart failure) I50.42 CAD (coronary artery disease) I25.10 COPD (chronic obstructive pulmonary disease) J44.9 Superior mesenteric artery stenosis K55.1
[2020-12-12 21:17] LABS: C Reactive Protein 4.2 mg/L (0.0-4.9); Creatine Phosphokinase 47 U/L (39-308)
[2020-12-12 21:25] LABS: Urine Appearance Clear (CLEAR); Urine Color Yellow (Yellow); pH Urine 5 (5-7)
[2020-12-12 21:26] LABS: Add Urine Microscopic? YES; Bilirubin Urine Neg (Negative); Blood Urine Trace (Negative); Glucose Urine UA Norm (Normal); Ketones Urine Negative (Negative); Leukocyte Esterase Urine Negative (Negative); Nitrate Urine Negative (Negative); Protein Urine Neg (Negative); Urobilinogen Urine Norm (Negative)
[2020-12-12 21:28] LABS: RBC Urine 0-4 /hpf (0-2)
[2020-12-12 21:29] LABS: Add Urine Culture? No; Squamous Epithelial Cell Urine RARE /hpf (0-5); WBC Urine 0-4 /hpf (0-5)
[2020-12-12] MEDS: sodium chloride 0.9% 1,000 ML 50 ML IV (22:22)
[2020-12-12] MEDS: apixaban 5 mg Tablet 2.5 MG PO (22:22)
[2020-12-12 23:40] LABS: Troponin 5 6HR 51.01 ng/L (0-15)
[2020-12-13] VITALS (30 sets, daily range): BP systolic 81–141; BP diastolic 37–79; PULSE 71–101; RESP 14–27; TEMP 36.7; O2SAT 88–100
[2020-12-13] MEDS: ipratropium-albuterol 3 mL Neb INHALATION ×4 (03:01→20:00)
[2020-12-13 05:18] LABS: Basophils # 0.1 10^3/uL (0.0-0.1); Basophils % 0.6 %; Eosinophils % 0.2 %; Hematocrit 44.1 % (42.0-52.0); Hemoglobin 14.1 g/dL (11.7-16.6); Lymphocytes # 1.1 10^3/uL (0.8-4.8); Lymphocytes % 12.2 %; Mean Corpuscular Hemoglobin 30.9 pg (28.0-34.0); Mean Corpuscular Volume 96.7 fl (80-94); Mean Platelet Volume 10.3 fL (7.4-10.4); Monocytes # 1.3 10^3/uL (0.2-0.9); Monocytes % 15.5 %; Neutrophils # 6.14 10^3/uL (1.8-7.7); Neutrophils % 71.2 %; Nucleated Red Blood Cells % 0 %; Platelet Count 227 10^3/cmm (130-400); Red Blood Count 4.56 10^6/uL (4.1-5.3); Red Cell Distribution Width 14.4 % (12.1-15.1); White Blood Count 8.6 10^3/uL (4.0-10.0)
[2020-12-13 05:32] LABS: Uric Acid 6.5 mg/dL (3.4-7.0)
[2020-12-13 05:46] LABS: Anion Gap 13.6 (5-19); Blood Urea Nitrogen 37 mg/dL (8-23); Calcium 8.2 mg/dL (8.5-10.5); Carbon Dioxide 28 mmol/L (22-29); Chloride 99 mmol/L (98-107); Glucose 91 mg/dL (65-115); Magnesium 2.7 mg/dL (1.7-2.3); Osmolality Calculated 292 mOsm/kg (285-295); Phosphorus 3.9 mg/dL (2.5-4.5); Potassium 3.6 mmol/L (3.5-5.1); Sodium 137 mmol/L (136-145); Thyroid Stimulating Hormone 0.64 uIU/mL (0.27-4.20)
--- NOTE | 2020-12-13 06:00 | USCV_ITS ---
Allan Prado Age: 80 Gender: M : 1940 Exam Date: 12/13/2020 07:40 Ordering Phys: Kelly Olmedo MD Technologist: Exam Location: [facility] [place] Indication: MILD BP: 101 / 51 HR: 91 Rhythm: Sinus Technical Quality: Suboptimal MEASUREMENTS (Male / Female) Normal Values 2D ECHO LV Diastolic Diameter PLAX 3.4 cm 4.2 - 5.9 / 3.9 - 5.3 cm LV Systolic Diameter PLAX 3.0 cm IVS Diastolic Thickness 1.0 cm 0.6 - 1.0 / 0.6 - 0.9 cm IVS Systolic Thickness 1.2 cm LVPW Diastolic Thickness 1.0 cm 0.6 - 1.0 / 0.6 - 0.9 cm LVPW Systolic Thickness 1.3 cm LVOT Diameter 2.0 cm LV Ejection Fraction MOD 2C 65.0 % LV Ejection Fraction 2C AL 65.8 % LA Diameter 4.0 cm LA Width 4.3 cm LA Height 5.6 cm RA Width 4.7 cm RA Height 5.3 cm M-MODE MV E Point Septal Separation 1.9 cm DOPPLER AV Peak Velocity 151.7 cm/s LVOT Peak Velocity 87.0 cm/s AV Area Cont Eq vti 2.1 cm squared AV Area Cont Eq pk 1.9 cm squared MV Area PHT 5.0 cm squared Mitral E to A Ratio 3.3 MV E' Velocity 45.0 cm/s Mitral E to MV E' Ratio 6.3 Mitral E to LV E' Lateral Ratio 6.1 Mitral E to LV E' Septal Ratio 6.6 TR Peak Velocity 231.0 cm/s TR Peak Gradient 21.3 mmHg TV Peak E Velocity 98.0 cm/s Right Atrial Pressure 3.0 mmHg Pulmonary Artery Systolic Pressu 24.3 mmHg FINDINGS Left Ventricle Normal left ventricular cavity size. Normal left ventricular systolic function. Left ventricular ejection fraction is estimated at 55 %. Grade III/IV diastolic dysfunction (restrictive filling pattern), severely elevated filling pressures. Right Ventricle The right ventricle is normal in size and function. Right Atrium The right atrium is normal in size. Left Atrium The left atrium is normal in size. Mitral Valve Mildly thickened mitral valve. No mitral valve stenosis. No mitral valve regurgitation. Aortic Valve Moderate aortic valve calcification. Mild aortic valve stenosis, mean gradient 4.4 mmHg, JOAQUIN 2.1 cm squared. No aortic valve regurgitation. Tricuspid Valve Structurally normal tricuspid valve without significant stenosis or regurgitation. Pulmonary artery systolic pressure is normal. Pulmonic Valve Structurally normal pulmonic valve without significant stenosis. There is no pulmonic regurgitation. Pericardium Normal pericardium without effusion. Aorta Normal ascending aorta dimension. CONCLUSIONS 1-Normal left ventricular cavity size. Normal left ventricular systolic function. Left ventricular ejection fraction is estimated at 55 %. Grade III/IV diastolic dysfunction (restrictive filling pattern), severely elevated filling pressures. 2-Moderate aortic valve calcification. Mild aortic valve stenosis, mean gradient 4.4 mmHg, JOAQUIN 2.1 cm squared. No aortic valve regurgitation. 3-Mildly thickened mitral valve. No mitral valve stenosis. No mitral valve regurgitation. 4-Structurally normal tricuspid valve without significant stenosis or regurgitation. Pulmonary artery systolic pressure is normal. 5-There is no pericardial effusion. 6-When compared to the prior echocardiogram left ventricle ejection fraction has improved from moderately reduced 40% to normal 55% now. There is also improvement in mitral valve regurgitation from mild to moderate to almost none Parul Sosa MD (Electronically Signed) Final Date: 15 December 2020 15:42 S
--- NOTE | 2020-12-13 09:22 | P.PN_ITS ---
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 He is currently on Levophed 1.5 mics per hour. Blood pressure is stable. MAP of 71. He states he has a smoker's cough but other than that has no new fevers new cough, urinary complaints diarrhea constipation. He states that over the last few months he has noticed that when he stands up from a sitting position he does get lightheaded. At times he has checked his blood pressure and it was low. He said this is happened so much to the point that yesterday his recommended that we should take her to the hospital and that is why he is here. His respiratory care program director is Dr. Robert quick. His last echo is from March 2020: Moderately decreased left ventricular systolic function, global ventricular hypo kinesis. EF 40%. Vitals/I&O/Wt Last Vital Signs Temp 98.0 F 12/13/20 08:00 Pulse 85 12/13/20 14:21 Resp 18 12/13/20 14:13 BP 103/53 12/13/20 12:00 Pulse Ox 98 12/13/20 14:13 12/12/20 12/13/20 12/13/20 22:59 06:59 14:59 Intake Total 1119.379 / 1119.379 540 / 540 Output Total 750 / 750 600 / 600 Balance 1119.379 / 1119.379 -750 / 369.379 -60 / -60 Weight last 48 hrs Weight 72.575 kg Physical Exam Narrative: EXAM NARRATIVE: General: Alert oriented x3, patient seen sitting up in bed appearing very comfortable. Currently on vasopressor. HEENT: Normocephalic, atraumatic, EOMI, breathing comfortably on 2 L nasal cannula.. Cardio: Irregularly irregular, normal S1-S2, no murmurs rubs gallops, Respiratory: Good bilateral air entry, no wheezes present but does have some coarse breath sounds that do improve with cough. GI: Abdomen soft, nontender, nondistended, bowel sounds + Behavior: Appropriate and cooperative Extremities: Pulses 2+, no edema, no cyanosis. Does have some bruising and ecchymosis in the upper extremities. 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 (2) CAD (coronary artery disease): Status: Chronic (3) Mild aortic stenosis: Status: Chronic (4) On home oxygen therapy: Status: Chronic (5) Chronic anticoagulation: Status: Chronic (6) Hypotension: Status: Acute (7) MELINDA (acute kidney injury): Status: Acute (8) Chronic combined systolic and diastolic CHF (congestive heart failure): Status: Acute (9) Atrial fibrillation: Status: Chronic (10) COPD (chronic obstructive pulmonary disease): Status: Chronic Additional A&P Information #Hypotension most likely secondary to polypharmacy #Mild aortic stenosis # CAD s/p PCI #HLD #Atrial fibrillation #Chronic anticoagulation #Chronic congestive systolic heart failure EF 40% March 2020. -Delta troponin negative on admission. ?New echocardiogram has been ordered. Result is pending ?Patient is currently on Levophed. Goal is to wean him off. -Blood cultures are pending but negative to date, urine culture pending. Afebrile, on baseline oxygen. Does not appear that the patient meets sepsis criteria at this time. He was given empiric antibiotics vancomycin, cefepime and azithromycin in the ER. It was discontinued by night hospitalist as there is no evidence of acute infectious process. I completely agree with this and we will keep him off of antibiotics for now. We will continue to hold Lasix metolazone Entresto and diltiazem. Monitor urine output and renal function Check TSH Once off vasopressors slowly at home medications and monitor blood pressure closely. Patient will need to follow-up with Dr. Jones as an outpatient but if warranted I will consult cardiology inpatient. -Patient does have history of chronic congestive systolic heart failure EF 40%. Last echo March 2020. Patient's [id number] could be attributed to worsening cardiac function pump failure as well. Will await echo to decide on further ma nagement. Once patient is off the vasopressors and blood pressure is stable I will plan to move patient out of the ICU to the cardiac stepdown unit. We will continue to monitor for now. 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 -Denies any abdominal pain. #Acute kidney injury -Creatinine 2.3 on admission, it has improved to 1.5 today. Baseline seems to be normal 0.5/0.6. Unsure if this is due to recent diuretic addition. Patient did get 750 fluid bolus in the ER on admission. We will hold off on adding more fluid until I see the echo result. Electrolyte: Replete as needed Nutrition: Cardiac diet low-salt Activity: As tolerated DVT prophylaxis: Patient is on Eliquis 2.5 twice daily. Attestations Medical Necessity Statement*: > 48 hour stay expected Time Spent in Patient Care: 16 - 35 minutes Coding Level of Care Code Acute Clerical Dentist Assistant for Chg Fwd Diagnoses Superior mesenteric artery stenosis K55.1 CAD (coronary artery disease) I25.10 Mild aortic stenosis I35.0 On home oxygen therapy Z99.81 Chronic anticoagulation Z79.01 Hypotension I95.9 MELINDA (acute kidney injury) N17.9 Chronic combined systolic and diastolic CHF (congestive heart failure) I50.42 Atrial fibrillation I48.91 COPD (chronic obstructive pulmonary disease) J44.9
[2020-12-13] MEDS: apixaban 5 mg Tablet 2.5 MG PO ×2 (09:27→20:02)
[2020-12-13] MEDS: allopurinol 100 mg Tablet PO (09:27)
[2020-12-13] MEDS: metoprolol tartrate 25 mg Tablet 12.5 MG PO (09:27)
[2020-12-13] MEDS: pantoprazole DR 40 mg Tablet PO (09:27)
[2020-12-13] MEDS: docusate sodium 100 mg Capsule PO ×2 (09:27→17:38)
--- NOTE | 2020-12-13 09:55 | PC.CHAP ---
Pastoral Care Encounter/Spiritual Assessment Type of Contact [] Declined supervisor personnel clerks visit [] Patient/Family/Request visit [] Outpatient visit [] Follow-up visit [] Physician referral [] Code/Alert [x] Routine visit [] Staff referral [] Actively dying [x] Patient sleeping [] Family support [] [] Out of room [] Palliative care [] [x] Receiving care in room [] Pre-surgical visit [] Trauma [] Long length of stay [x] ICU visit [] Other: Relational/Emotional Strength [] Patient feels connected with others/family/visitors/staff [] Distress [] Loneliness/isolation [] Abandonment Spirituality of Patient [] Person of Barbara [] Attends Nondenominational of their Barbara [] Believes in Prayer [] Reads Bible or Cheondoism materials [] There are Spiritual issues to be addressed Contact Center Rep Interventions [x] Prayer [] Active listening [] Non-anxious presence [] Spiritual/emotional support [] Crisis/trauma care [] Spiritual counseling [] Bereavement support [] Provided bereavement packet [] Provided Bible/devotional materials [] Provided toy/stuffed animal, coloring book to patient or family member [] Provided Communion [] Anointing/[place] [] Salvation [x] Completed spiritual assessment [] Other: Impact on Illness or Injury [] Angry [] Fearful [] Anxious [] Often cries [] Exhaustion [] Unable to work [] Unable to attend denominational [] Unable to walk/stand [] Unable to read [] Unable to drive [] Unable to eat/drink [] Unable to sleep [] Unable to be with family [] Patient intubated [] Other: Summary Time spent with patient
[2020-12-13] MEDS: midodrine 5 mg TABLET PO (20:02)
[2020-12-14] VITALS (29 sets, daily range): BP systolic 78–148; BP diastolic 50–98; PULSE 89–133; RESP 16–30; TEMP 36.2; O2SAT 79–100
--- NOTE | 2020-12-14 03:48 | PC.NURSE ---
HR 130s 140s, vagal maneuvers and turned off Levophed, HR 90s to one teens currently
--- NOTE | 2020-12-14 04:08 | PC.NURSE ---
Dr. Olmedo notified of previous note, no n.o. at this time
[2020-12-14 05:49] LABS: Basophils # 0.1 10^3/uL (0.0-0.1); Basophils % 0.9 %; Eosinophils % 0.1 %; Hematocrit 43.9 % (42.0-52.0); Lymphocytes # 0.8 10^3/uL (0.8-4.8); Lymphocytes % 10.8 %; Mean Corpuscular HGB Conc 31.9 g/dL (30.0-36.0); Mean Corpuscular Hemoglobin 30.7 pg (28.0-34.0); Mean Corpuscular Volume 96.3 fl (80-94); Mean Platelet Volume 10.4 fL (7.4-10.4); Monocytes # 1.2 10^3/uL (0.2-0.9); Monocytes % 15.4 %; Neutrophils % 72.5 %; Nucleated Red Blood Cells % 0 %; Platelet Count 223 10^3/cmm (130-400); Red Blood Count 4.56 10^6/uL (4.1-5.3); Red Cell Distribution Width 14.3 % (12.1-15.1); White Blood Count 7.7 10^3/uL (4.0-10.0)
[2020-12-14 06:16] LABS: Blood Urea Nitrogen 23 mg/dL (8-23); Calcium 8.7 mg/dL (8.5-10.5); Carbon Dioxide 29 mmol/L (22-29); Chloride 98 mmol/L (98-107); Glucose 94 mg/dL (65-115); Osmolality Calculated 283 mOsm/kg (285-295); Sodium 135 mmol/L (136-145)
[2020-12-14 06:25] LABS: Anion Gap 12.6 (5-19); Potassium 4.6 mmol/L (3.5-5.1)
[2020-12-14] MEDS: ipratropium-albuterol 3 mL Neb INHALATION ×3 (08:41→20:27)
[2020-12-14] MEDS: pantoprazole DR 40 mg Tablet PO (08:58)
[2020-12-14] MEDS: allopurinol 100 mg Tablet PO (08:58)
[2020-12-14] MEDS: docusate sodium 100 mg Capsule PO ×2 (08:58→17:47)
[2020-12-14] MEDS: midodrine 5 mg TABLET PO ×2 (08:58→15:06)
[2020-12-14] MEDS: apixaban 5 mg Tablet 2.5 MG PO ×2 (09:00→21:38)
[2020-12-14 10:33] LABS: Creatinine Urine, Random 45 mg/dL (39-259); Urine Random Chloride 138 mmol/L; Urine Random Sodium 148 mmol/L
[2020-12-14] MEDS: sodium chloride 0.9% 500 ML 999 ML IV (14:14)
--- NOTE | 2020-12-14 14:21 | P.PN_ITS ---
Subjective Subjective: Interval history: Seen and examined this morning. Patient appears to be doing well. Blood pressure has been stable overnight. He came off of the Levophed yesterday evening. He was placed on midodrine 5 mg 3 times daily. Patient's home medication list was also reviewed. He is on Cardizem 120 daily, metoprolol 12.5 twice daily, Entresto 2428 1 tablet twice daily, metolazone 2.5 daily. Patient otherwise feels well. is present at bedside today. His blood pressure has improved but is still borderline. Patient's echo is still pending. He denies shortness of breath and is very comfortable. Denies any chest pain. No acute events overnight. Vitals/I&O/Wt Last Vital Signs Temp 97.1 F L 12/14/20 08:00 Pulse 127 H 12/14/20 12:00 Resp 19 H 12/14/20 12:00 BP 98/73 12/14/20 12:00 Pulse Ox 79 L 12/14/20 12:00 12/13/20 12/14/20 12/14/20 22:59 06:59 14:59 Intake Total 1379.088 / 1919.088 75.533 / 1994.621 500 / 500 Output Total 200 / 800 1200 / 2000 250 / 250 Balance 1179.088 / 1119.088 -1124.467 / -5.379 250 / 250 Weight last 48 hrs Weight 70.76 kg Weight 72.575 kg Physical Exam Narrative: EXAM NARRATIVE: General: Alert oriented x3, patient seen sitting up in bed appearing very comfortable. Patient's is present at bedside. HEENT: Normocephalic, atraumatic, EOMI, breathing comfortably on 2 L nasal cannula.. Cardio: Irregularly irregular, normal S1-S2, no murmurs rubs gallops, heart rate bouncing between 100-1 20. Respiratory: Good bilateral air entry, no wheezes present but does have some coarse breath sounds that do improve with cough. GI: Abdomen soft, nontender, nondistended, bowel sounds + Behavior: Appropriate and cooperative Extremities: Pulses 2+, no edema, no cyanosis. Does have some bruising and ecchymosis in the upper extremities. Data : 12/14/20 05:05 12/14/20 05:05 Micro: Microbiology 12/12/20 18:20 Blood Culture - Preliminary Blood NEGATIVE TO DATE 12/12/20 18:18 Blood Culture - Preliminary Blood NEGATIVE TO DATE A&P Assessment and plan (1) Superior mesenteric artery stenosis: Along with stenosis of common iliac arteries. Reconstitution of the SMA as described. Has evidence of peripheral vascular disease on physical exam but otherwise no acute symptomology from this appearance and history beyond hypotension described. Status: Acute (2) CAD (coronary artery disease): With prior cardiac intervention, does not describe classic anginal symptoms though it is something that needs to be kept in mind Status: Chronic (3) Mild aortic stenosis: Noted on last echocardiogram. He has had some dizziness with position changes that could be indicative of symptomatic aortic stenosis but no syncope. I suspect the dizziness is from hypotension as already described. Status: Chronic (4) On home oxygen therapy: Status: Chronic (5) Chronic anticoagulation: With Eliquis, secondary to atrial fibrillation and prior history of PE in 2018 Status: Chronic (6) Hypotension: In a patient with a history of hypertension. Appears to be secondary to multiple antihypertensive agents and development of acute kidney injury. This is possibly due to the addition of metolazone earlier this month although unable to currently clarify if it was a completely new medication. No obvious infectious foci from available information. Had a CTA of the chest abdomen and pelvis with some stenosis of the superior mesenteric artery and common iliac arteries but otherwise no vascular abnormalities that might contribute. He has a known history of coronary artery disease with prior intervention and an elev ated baseline troponin with a downward trending negative delta. EKG without acute changes and no report of any chest pain or anginal symptoms beyond the dizziness he has described. Still coronary or other vascular ischemia is within the differential. He has variance between left and right arm blood pressures which also has to be considered along with a mild aortic stenosis. Status: Acute (7) MELINDA (acute kidney injury): Working diagnosis is from what appears to be recently added additional diuretic therapy although with degree of hypotension identified today ATN from hypoperfusion could also be a contributing factor Status: Acute (8) Chronic combined systolic and diastolic CHF (congestive heart failure): Not currently acute, last ejection fraction around 40%, has been on Entresto and diuretic therapy. On examination actually looks a bit dry. Status: Acute (9) Atrial fibrillation: Chronic, rate controlled, although on current medications which are presently being held due to hypotension Status: Chronic (10) COPD (chronic obstructive pulmonary disease): Chronic, on oxygen therapy, denies recent acute worsening. On oxygen at 2 L by nasal cannula chronically. Status: Chronic Additional A&P Information #Hypotension most likely secondary to polypharmacy #Mild aortic stenosis # CAD s/p PCI #HLD #Atrial fibrillation #Chronic anticoagulation #Chronic congestive systolic heart failure EF 40% March 2020. -Delta troponin negative on admission. ?New echocardiogram has been ordered. Result is pending ?Patient is currently on Levophed. Goal is to wean him off. -Blood cultures negative to date, urine culture pending. Afebrile, on baseline oxygen. Does not appear that the patient meets sepsis criteria at this time. He was given empiric antibiotics vancomycin, cefepime and azithromycin in the ER. It was discontinued by night hospitalist as there is no evidence of acute infectious process. I completely agree with this and we will keep him off of antibiotics for now. We will continue to hold Lasix metolazone Entresto and diltiazem. Monitor urine output and renal function Check TSH -Patient does have history of chronic congestive systolic heart failure EF 40%. Last echo March 2020. Patient's [id number] could be attributed to worsening cardiac function pump failure as well. Will await echo to decide on further management. Patient has been off of vasopressors since last night. Midodrine 5 3 times daily added. He is now hypotensive and tachycardic in the 140s. He will be given an additional normal saline bolus 500 cc. We may have to give him amnio bolus and start on amnio drip after that. Echo result is pending. Cardio consult has been placed to weigh in on his home medications. Once patient is stabilized from A. fib standpoint we will move him out of the unit to the general cardiac floor. After discussing with cardiology will restart some home medications and after reviewing the echo we will monitor patient in hospital today and potentially discharge him tomorrow. 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 -Denies any abdominal pain. #Acute kidney injury -Creatinine 2.3 on admission, it has improved to 1.5 today. Baseline seems to be normal 0.5/0.6. Unsure if this is due to recent diuretic addition. Patient did get 750 fluid bolus in the ER on admission. We will hold off on adding more fluid until I see the echo result. Electrolyte: Replete as needed Nutrition: Cardiac diet low-salt Activity: As tolerated DVT prophylaxis: Patient is on Eliquis 2.5 twice daily. Attestations Medical Necessity Statement*: Additional 24 hours required. Time Spent in Patient Care: 16 - 35 minutes Coding Level of Care Code Acute Protective Service Specialist for Earlg Arnie Diagnoses Superior mesenteric artery stenosis K55.1 CAD (coronary artery disease) I25.10 Mild aortic stenosis I35.0 On home oxygen therapy Z99.81 Chronic anticoagulation Z79.01 Hypotension I95.9 MELINDA (acute kidney injury) N17.9 Chronic combined systolic and diastolic CHF (congestive heart failure) I50.42 Atrial fibrillation I48.91 COPD (chronic obstructive pulmonary disease) J44.9
--- NOTE | 2020-12-14 15:01 | PM.CONSULT ---
Providers/Reason For Consult Consulting Physician/Specialty*: Cardiology Reason for Consult*: Hypotension, cardiomyopathy, atrial fibrillation with rapid ventricular response Attending Physician: Carmen Rajput MD Primary Care Provider: Ravin Madrigal MD History of Present Illness History of Present Illness Allan Prado is a 80 year old male past medical history significant for [facility] resident, moderate aortic stenosis, moderately reduced left ventricle function estimated ejection fraction 40 to 50%, chronic atrial fibrillation who says that he is not following up with the Dr. Robert regularly was brought in with hypotension, acute renal failure, dizziness, generalized weakness and presyncope. He was noted to be possibly dehydrated. Cardiac medicines including Entresto diuretics metoprolol was stopped. He was also noted to be in A. fib with RVR it is the reason we have been asked to come and see the patient. In the ER he was given IV fluid as well. When I saw the patient his systolic blood pressure was in 70s heart rate was 120s to 140s. He denies any chest pain. He denies fever chills nausea vomiting. He denies any Covid-like symptoms. He does not appear to be septic. Review of Systems Narrative: Constitutional: No fever, no chills. HEENT: No vision changes CV: No chest pain, no palpitations PULM: +cough, no dyspnea. GI: No abdominal pain, no N/V/D. : No dysuria MSKEL: No muscle pain SKIN: No new rashes, no lesions. NEURO: No headache, no focal weakness +generalized weakness. HEME: No visible bruises PSYCH: Normal mood Const: Denies: fever(s), chills or change in weight ENMT: Denies: throat pain or nasal congestion Card: Reports: irregular heart rhythm (Chronic) and lightheadedness; Denies: chest pain, palpitations, edema or syncope Resp: Reports: dyspnea (Chronic), productive cough (Chronic), non-productive cough (Chronic), wheezing (Chronic) and other (Has not had Covid, did receive Covid vaccination); Denies: pain on inspiration, change in phlegm color or hemoptysis GI: Denies: abdominal pain, nausea, vomiting, diarrhea, constipation, hematochezia or melena : Denies: difficulty urinating or hematuria Musc: Reports: other (No new joint complaints) Skin/Breast: Denies: pruritus or sores Neuro: Reports: dizziness; Denies: headache(s), weakness in extremities (Beyond generalized weakness the last day or 2), sensory changes, frequent falls or confusion Yang/Lymph: Reports: easy bruising and other (No reported bleeding) Meds/Allergies Home Medications and Allergies Home Medications Medication Instructions Recorded Confirmed Last Taken Type albuterol sulfate 2.5 mg INHALATION Q4H 03/06/19 12/13/20 03/21/20 History budesonide 0.5 mg INHALATION BID@1100,2300 03/06/19 12/13/20 03/21/20 History clonazepam 0.5 mg PO DAILY PRN 03/06/19 12/13/20 03/21/20 History docusate sodium 100 mg PO BID@1100,1700 03/06/19 12/13/20 03/21/20 History fluoxetine 20 mg PO DAILY@1100 03/06/19 12/13/20 03/21/20 History potassium chloride 10 meq PO DAILY 03/06/19 12/13/20 03/21/20 History guaifenesin [Mucinex] 600 mg PO BID@1100,2300 03/07/19 12/13/20 03/21/20 History rosuvastatin [Crestor] 20 mg PO DAILY@1100 03/21/19 12/13/20 03/21/20 History Entresto 1 tab PO BID@1100,2300 03/21/20 12/13/20 03/21/20 History aspirin 81 mg PO DAILY@1100 03/21/20 12/13/20 03/21/20 History metoprolol tartrate 12.5 mg PO BID@1100,2300 03/21/20 12/13/20 03/21/20 History apixaban [Eliquis] 2.5 mg PO BID #60 tab 03/26/20 12/13/20 Unknown Rx Protonix 40 mg PO DAILY 12/13/20 12/13/20 Unknown History ascorbic acid (vitamin C) [Vitamin 1,000 mg PO DAILY 12/13/20 12/13/20 Unknown History C] diltiazem HCl 120 mg PO DAILY@1100 12/13/20 12/13/20 Unknown History ferrous gluconate 324 mg PO EVERY OTHER DAY 12/13/20 12/13/20 Unknown History metolazone 2.5 mg PO DAILY PRN 12/13/20 12/13/20 Unknown History multivitamin 1 tab PO DAILY 12/13/20 12/13/20 Unknown History Allergies Allergy/AdvReac Type Severity Reaction Status Date / Time No Known Allergies Allergy Verified 04/08/20 09:50 Current Medications Current Medications Generic Name Dose Route Start Last Admin Trade Name Freq PRN Reason Stop Dose Admin Albuterol/Ipratropium 3 ml 12/12/20 22:15 12/14/20 08:41 Ipratropium-Albuterol 3 Ml Neb INHALATION 3 ml Q6H.RESPIRATORY KIMBERLY Administration Allopurinol 100 mg 12/13/20 09:00 12/14/20 08:58 Allopurinol 100 Mg Tablet PO 100 mg DAILY KIMBERLY Administration Apixaban 2.5 mg 12/12/20 21:50 12/14/20 09:00 Apixaban 5 Mg Tablet PO 2.5 mg BID@0900,2100 KIMBERLY Administration Docusate Sodium 100 mg 12/13/20 09:00 12/14/20 08:58 Docusate Sodium 100 Mg Capsule PO 100 mg BID KIMBERLY Administration Norepinephrine Bitartrate 4 mg 254 mls @ 0 mls/hr 12/12/20 17:15 12/14/20 03:49 / Dextrose IV Infused .Q0M KIMBERLY Titration Protocol Per Protocol Metoprolol Tartrate 12.5 mg 12/13/20 09:00 12/13/20 09:27 Metoprolol Tartrate 25 Mg Tablet PO 12.5 mg BID@0900,2100 KIMBERLY Administration Midodrine 5 mg 12/13/20 21:00 12/14/20 08:58 Midodrine 5 Mg Tablet PO 5 mg TID KIMBERLY Administration Pantoprazole Sodium 40 mg 12/13/20 09:00 12/14/20 08:[address] 40 Mg Tablet PO 40 mg DAILY KIMBERLY Administration PFSH Acute PFSH: Medical History (Updated 12/14/20 @ 15:53 by Parul Sosa MD) Atrial fibrillation BPH (benign prostatic hyperplasia) CAD (coronary artery disease) Cardiac arrest (2018) 2nd to PE Chronic combined systolic and diastolic CHF (congestive heart failure) EF 40%. 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 in March 2020 Peripheral neuropathy Pneumothorax Pulmonary embolism (2018) Restless leg syndrome Rib fractures Superior mesenteric artery stenosis Noted on CT imaging 11/2020 with reconstitution described. Surgical History (Updated 12/12/20 @ 20:43 by Kelly Olmedo MD) History of appendectomy History of coronary artery stent placement Hx of cataract surgery Hx of tonsillectomy Status post open reduction and internal fixation (ORIF) of fracture (03/2019) Status post right hip replacement (03/2019) Family History Other CAD (coronary artery disease) Social History (Updated 12/12/20 @ 20:43 by Kelly Olmedo MD) Smoking and tobacco status: former smoker Second hand smoke exposure: No Alcohol intake: never Substance/Drug Use: never Lives independently: No Household members: spouse Marital status: Vitals/I&O/Wt Last Vital Signs Temp 97.1 F L 12/14/20 08:00 Pulse 127 H 12/14/20 12:00 Resp 19 H 12/14/20 12:00 BP 98/73 12/14/20 12:00 Pulse Ox 79 L 12/14/20 12:00 12/14/20 12/14/20 12/14/20 06:59 14:59 22:59 Intake Total 75.533 / 1994.621 500 / 500 Output Total 1200 / 2000 250 / 250 Balance -1124.467 / -5.379 250 / 250 Weight last 48 hrs Weight 156 lb Weight 160 lb Physical Exam Narrative: EXAM NARRATIVE: GENERAL: Patient is alert, awake and oriented x3. NECK: No jugular vein distension. HEENT: No cyanosis. No icterus. No pallor. HEART: Irregularly irregular S1 and S2. 2/6 sys murmur, rub or gallop. LUNGS: Clear to auscultate bilaterally. ABDOMEN: Soft, nontender and nondistended. Positive bowel sounds. No guarding, rebound or tenderness. CENTRAL NERVOUS SYSTEM: Grossly nonfocal. EXTREMITIES: Lower extremities without edema bilaterally. Patient appeared to be dry Data Micro: Micro: Microbiology 12/12/20 18:20 Blood Culture - Pr eliminary Blood NEGATIVE TO ROMI E 12/12/20 18:18 Blood Culture - Pr eliminary Blood NEGATIVE TO ROMI E A&P Assessment and plan (1) Hypotension: Patient most likely is dry, he is not in decompensated heart failure. I agree with holding diuretics Entresto and beta-vane for now. I agree with giving patient IV fluid Status: Acute Qualifiers: Hypotension type: other hypotension type Qualified Code(s): I95.89 - Other hypotension (2) Mild aortic stenosis: Patient with mild to moderate aortic stenosis which is asymptomatic, I do not think so that this is contributory to his hypotension. We will continue to monitor him as an outpatient. Status: Chronic (3) Atrial fibrillation: Atrial fibrillation secondary to hyperadrenergic state due to hypotension and pre renal volume contraction, he is in A. fib with RVR, at this point I will agree with giving him some fluid once blood pressure is better we plan to add back beta-vane. Status: Chronic Qualifiers: Atrial fibrillation type: persistent (not longstanding) Qualified Code(s): I48.19 - Other persistent atrial fibrillation (4) CAD (coronary artery disease): Status: Chronic Qualifiers: Coronary Disease-Associated Artery/Lesion type: [place] artery [place] vs. 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 transplanted heart: [place] heart Associated angina: without angina MELINDA (acute kidney injury) N17.9
[2020-12-14] MEDS: sodium chloride 0.9% 1,000 ML 100 ML IV (15:59)
--- NOTE | 2020-12-14 20:11 | PC.NURSE ---
Dr. Rajput at bedside, gave v.o. to increase midodrine to 10 mg tid
[2020-12-14] MEDS: budesonide 0.5 mg/2 mL Neb INHALATION (20:27)
[2020-12-14] MEDS: metoprolol tartrate 25 mg Tablet 12.5 MG PO (21:38)
[2020-12-14] MEDS: midodrine 5 mg TABLET 10 MG PO (21:39)
[2020-12-14] MEDS: guaiFENesin 600 mg Tablet PO (22:02)
[2020-12-15] VITALS (31 sets, daily range): BP systolic 74–148; BP diastolic 51–107; PULSE 85–142; RESP 15–29; TEMP 37.1; O2SAT 85–100
[2020-12-15] MEDS: sodium chloride 0.9% 1,000 ML 100 ML IV ×2 (02:13→12:42)
[2020-12-15] MEDS: ipratropium-albuterol 3 mL Neb INHALATION ×4 (03:50→20:15)
[2020-12-15 05:10] LABS: Basophils # 0.1 10^3/uL (0.0-0.1); Basophils % 1.1 %; Eosinophils % 0.1 %; Hematocrit 42.5 % (42.0-52.0); Hemoglobin 13.2 g/dL (11.7-16.6); Lymphocytes # 0.8 10^3/uL (0.8-4.8); Lymphocytes % 10.6 %; Mean Corpuscular HGB Conc 31.1 g/dL (30.0-36.0); Mean Corpuscular Hemoglobin 30.6 pg (28.0-34.0); Mean Corpuscular Volume 98.4 fl (80-94); Mean Platelet Volume 10.4 fL (7.4-10.4); Monocytes # 1.1 10^3/uL (0.2-0.9); Monocytes % 14.5 %; Neutrophils # 5.33 10^3/uL (1.8-7.7); Neutrophils % 73.4 %; Nucleated Red Blood Cells % 0 %; Platelet Count 222 10^3/cmm (130-400); Red Blood Count 4.32 10^6/uL (4.1-5.3); Red Cell Distribution Width 14.4 % (12.1-15.1); White Blood Count 7.3 10^3/uL (4.0-10.0)
[2020-12-15 05:28] LABS: Blood Urea Nitrogen 15 mg/dL (8-23); Calcium 8.3 mg/dL (8.5-10.5); Carbon Dioxide 31 mmol/L (22-29); Chloride 99 mmol/L (98-107); Glucose 92 mg/dL (65-115); Osmolality Calculated 282 mOsm/kg (285-295); Sodium 136 mmol/L (136-145)
--- NOTE | 2020-12-15 06:28 | XRR_ITS ---
PROCEDURE INFORMATION: Exam: XR Chest Exam date and time: 12/15/2020 6:28 AM Age: 80 years old Clinical indication: Shortness of breath; Additional info: Rule out pna TECHNIQUE: Imaging protocol: XR of the chest. Views: 1 view. COMPARISON: CR XR chest 1V portable [id number] 12/12/2020 5:30 PM FINDINGS: Lungs: The lungs are somewhat hyperinflated with increased interstitial markings, likely representing COPD. No evidence of focal consolidation to suggest pneumonia. Pleural spaces: Unremarkable. No pleural effusion. No pneumothorax. Heart/Mediastinum: Stable cardiomediastinal silhouette. Bones/joints: Degenerative changes of the spine seen. XR/XR chest 1V portable [id number] IMPRESSION: No evidence of focal consolidation. COPD changes. Radiation Dose CTDIVOL = (mGy): DLP = (mGy-cm)
--- NOTE | 2020-12-15 08:02 | PC.NURSE ---
urine specimen and nasal specimen down to lab at this time levophed at low dose .
[2020-12-15] MEDS: pantoprazole DR 40 mg Tablet PO (08:21)
[2020-12-15] MEDS: apixaban 5 mg Tablet 2.5 MG PO ×2 (08:21→20:14)
[2020-12-15] MEDS: allopurinol 100 mg Tablet PO (08:22)
[2020-12-15] MEDS: metoprolol tartrate 25 mg Tablet 12.5 MG PO (08:22)
[2020-12-15] MEDS: docusate sodium 100 mg Capsule PO ×2 (08:22→17:20)
[2020-12-15] MEDS: midodrine 5 mg TABLET 10 MG PO ×3 (08:22→20:15)
[2020-12-15] MEDS: budesonide 0.5 mg/2 mL Neb INHALATION ×2 (08:23→20:15)
--- NOTE | 2020-12-15 08:36 | PC.SOCIAL ---
IM follow up explained and provided. No questions voiced.
[2020-12-15] MEDS: guaiFENesin 600 mg Tablet PO ×2 (11:19→22:22)
[2020-12-15] MEDS: aspirin 81 mg EC Tablet PO (11:20)
[2020-12-15] MEDS: atorvastatin 40 mg Tablet 80 MG PO (11:20)
[2020-12-15] MEDS: sodium chloride 0.9% 500 ML IV (13:18)
--- NOTE | 2020-12-15 17:55 | PC.NURSE ---
Shift Note Frequent safety and comfort rounds continue. Orders and/or nursing care completed as indicated. Patient monitored for response to intervention and treatment(s). Education provided includes[]. Patient and/or service support representative [[email or web address]]. Will continue to monitor. family for visit at this time coninue to infuse fluids at this time ...
[2020-12-15] MEDS: sodium chloride 0.9% 250 ML IV (18:57)
[2020-12-15] MEDS: sodium chloride 0.9% 1,000 ML 125 ML IV (18:59)
--- NOTE | 2020-12-15 20:31 | CTR_ITS ---
PROCEDURE INFORMATION: Exam: CTA Chest With Contrast Exam date and time: 12/15/2020 8:31 PM Age: 80 years old Clinical indication: Shortness of breath; Patient HX: SOB, hypotensive; Additional info: Rule out pe TECHNIQUE: Imaging protocol: Computed tomographic angiography of the chest with contrast. 3D rendering (Not supervised by radiologist): MIP and/or 3D reconstructed images were created by the technologist. Radiation optimization: All CT scans at this facility use at least one of these dose optimization techniques: automated exposure control; mA and/or kV adjustment per patient size (includes targeted exams where dose is matched to clinical indication); or iterative reconstruction. Contrast material: OMNI 350; Contrast volume: 78 ml; Contrast route: INTRAVENOUS (IV); COMPARISON: CT angio chest abdomen pelvis 12/12/2020 5:49 PM RADIATION DOSE METRICS: Total DLP (mGy-cm): 612 FINDINGS: Pulmonary arteries: Normal. No pulmonary emboli. Aorta: Unremarkable. No aortic aneurysm. No aortic dissection. Lungs: There are centrilobular emphysematous changes in the bilateral lungs. There are mild bronchiectatic changes of the right lung apex. There is interstitial thickening and scarring in the left lower lobe. Pleural spaces: Unremarkable. No pneumothorax. No pleural effusion. Heart: Multivessel atherosclerotic disease which involves the coronary arteries. Lymph nodes: Unremarkable. No enlarged lymph nodes. Bones/joints: Generalized osteopenia. There are mild chronic compression deformities of multiple thoracic and upper lumbar vertebra. Soft tissues: Unremarkable. CT/CT angio chest [id number] IMPRESSION: 1. There are centrilobular emphysematous changes in the bilateral lungs. 2. Multivessel atherosclerotic disease which involves the coronary arteries. Radiation Dose CTDIVOL = (mGy): DLP = 612 (mGy-cm)
--- NOTE | 2020-12-15 20:32 | PM.PN ---
Subjective Subjective: Interval history: Seen this AM. Family present at bedside. Will increase patient's fluid rate today. Give additional bolus as well. Sepsis work-up negative so far. Vitals/I&O/Wt Last Vital Signs Temp 98.8 F 12/15/20 19:00 Pulse 134 H 12/15/20 20:20 Resp 20 H 12/15/20 20:20 BP 113/96 12/15/20 20:00 Pulse Ox 96 12/15/20 20:20 12/15/20 12/15/20 12/15/20 06:59 14:59 22:59 Intake Total 1064.516 / 2383.566 1650 / 1650 1678.333 / 3328.333 Output Total 500 / 950 1650 / 1650 750 / 2400 Balance 564.516 / 1433.566 0 / 0 928.333 / 928.333 Weight last 48 hrs Weight 71.214 kg Weight 70.76 kg Physical Exam Narrative: EXAM NARRATIVE: General: Alert oriented x3, patient seen sitting up in bed appearing very comfortable. Patient's is present at bedside. HEENT: Normocephalic, atraumatic, EOMI, breathing comfortably on 2 L nasal cannula.. Cardio: Irregularly irregular, normal S1-S2, no murmurs rubs gallops, heart rate bouncing between 100-120 but does improve with fluids Respiratory: Good bilateral air entry, no wheezes present but does have some coarse breath sounds that do improve with cough. GI: Abdomen soft, nontender, nondistended, bowel sounds + Behavior: Appropriate and cooperative Extremities: Pulses 2+, no edema, no cyanosis. Does have some bruising and ecchymosis in the upper extremities. Data : 12/15/20 04:11 12/15/20 04:11 Micro: Microbiology 12/15/20 07:20 Legionella Urinary Antigen - Final Urine,Voided Bacterial Antigens - Final 12/15/20 07:20 MRSA Culture - Final Nose 12/12/20 18:18 Blood Culture - Preliminary Blood 12/15/20 07:27 Blood Culture - Preliminary Blood SPECIMEN COLLECTED 12/15/20 07:20 Blood Culture - Preliminary Blood SPECIMEN COLLECTED A&P Assessment and plan (1) Superior mesenteric artery stenosis: Along with stenosis of common iliac arteries. Reconstitution of the SMA as described. Has evidence of peripheral vascular disease on physical exam but otherwise no acute symptomology from this appearance and history beyond hypotension described. Status: Acute (2) CAD (coronary artery disease): With prior cardiac intervention, does not describe classic anginal symptoms though it is something that needs to be kept in mind Status: Chronic Qualifiers: Coronary Disease-Associated Artery/Lesion type: [place] artery [place] vs. transplanted heart: [place] heart Associated angina: without angina Qualified Code(s): I25.10 - Atherosclerotic heart disease of [place] coronary artery without angina pectoris (3) Mild aortic stenosis: Noted on last echocardiogram. He has had some dizziness with position changes that could be indicative of symptomatic aortic stenosis but no syncope. I suspect the dizziness is from hypotension as already described. Status: Chronic (4) On home oxygen therapy: Status: Chronic (5) Chronic anticoagulation: With Eliquis, secondary to atrial fibrillation and prior history of PE in 2018 Status: Chronic (6) Hypotension: In a patient with a history of hypertension. Appears to be secondary to multiple antihypertensive agents and development of acute kidney injury. This is possibly due to the addition of metolazone earlier this month although unable to currently clarify if it was a completely new medication. No obvious infectious foci from available information. Had a CTA of the chest abdomen and pelvis with some stenosis of the superior mesenteric artery and common iliac arteries but otherwise no vascular abnormalities that might contribute. He has a known history of coronary artery disease with prior intervention and an elevated baseline troponin with a downward trending negative delta. EKG without acute changes and no report of any chest pain or anginal symptoms beyond the dizziness he has described. Still coronary or other vascular ischemia is within the differential. He has variance between left and right arm blood pressures which also has to be considered along with a mild aortic stenosis. Status: Acute Qualifiers: Hypotension type: other hypotension type Qualified Code(s): I95.89 - Other hypotension (7) MELINDA (acute kidney injury): Working diagnosis is from what appears to be recently added additional diuretic therapy although with degree of hypotension identified today ATN from hypoperfusion could also be a contributing factor Status: Acute (8) Chronic combined systolic and diastolic CHF (congestive heart failure): Not currently acute, last ejection fraction around 40%, has been on Entresto and diuretic therapy. On examination actually looks a bit dry. Status: Acute (9) Atrial fibrillation: Chronic, rate controlled, although on current medications which are presently being held due to hypotension Status: Chronic Qualifiers: Atrial fibrillation type: persistent (not longstanding) Qualified Code(s): I48.19 - Other persistent atrial fibrillation (10) COPD (chronic obstructive pulmonary disease): Chronic, on oxygen therapy, denies recent acute worsening. On oxygen at 2 L by nasal cannula chronically. Status: Chronic Additional A&P Information #Hypotension most likely secondary to polypharmacy #Mild aortic stenosis # CAD s/p PCI #HLD #Atrial fibrillation #Chronic anticoagulation #Chronic congestive systolic heart failure EF 40% March 2020. -Delta troponin negative on admission. ?New echocardiogram has been ordered. Result is pending ?Patient is currently on Levophed. Goal is to wean him off. -Blood cultures negative to date, urine culture pending. Afebrile, on baseline oxygen. Does not appear that the patient meets sepsis criteria at this time. He was given empiric antibiotics vancomycin, cefepime and azithromycin in the ER. It was discontinued by night hospitalist as there is no evidence of acute infectious process. I completely agree with this and we will keep him off of antibiotics for now. We will continue to hold Lasix metolazone Entresto and diltiazem. Monitor urine output and renal function Check TSH -Patient does have history of chronic congestive systolic heart failure EF 40%. Last echo March 2020. Ejection fraction has improved 55%. He has grade 3 of 4 diastolic dysfunction and severely elevated filling pressures as per latest echo. Increase midodrine to 10 mg 3 times daily We will give additional fluid bolus. Increase fluid rate to 125 cc/h normal saline Will do CTA chest to rule out PE once again. All sepsis work-up negative so far Patient is still requiring Levophed. Cardiology following. Will consider cardioversion in a.m. if patient has not improved. Cardiology updated. 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 -Denies any abdominal pain. #Acute kidney injury -Creatinine 2.3 on admission, it has improved to 1.5 today. Baseline seems to be normal 0.5/0.6. Unsure if this is due to recent diuretic addition. Fluids: 125 cc/h normal saline Electrolyte: Replete as needed Nutrition: Cardiac diet low-salt Activity: As tolerated DVT prophylaxis: Patient is on Eliquis 2.5 twice daily. Attestations Medical Necessity Statement*: Greater than 48-hour inpatient stay. 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 transplanted heart: [place] heart Associated angina: without angina Mild aortic stenosis I35.0 On home oxygen therapy Z99.81 Chronic anticoagulation Z79.01 Hypotension I95.89 Hypotension type: other hypotension type MELINDA (acute kidney injury) N17.9 Chronic combined systolic and diastolic CHF (congestive heart failure) I50.42 Atrial fibrillation I48.19 Atrial fibrillation type: persistent (not longstanding) COPD (chronic obstructive pulmonary disease) J44.9
--- NOTE | 2020-12-15 21:33 | P.PN_ITS ---
Subjective Subjective: Interval history: Patient states he is feeling better continues to be on Levophed and IV fluids blood pressure stable dips down event, Titrate off Levophed. Heart rate is on the higher side with A. fib as underlying rhythm. Vitals/I&O/Wt Last Vital Signs Temp 98.8 F 12/15/20 19:00 Pulse 134 H 12/15/20 20:20 Resp 20 H 12/15/20 20:20 BP 113/96 12/15/20 20:00 Pulse Ox 96 12/15/20 20:20 12/15/20 12/15/20 12/15/20 06:59 14:59 22:59 Intake Total 1064.516 / 2383.566 1650 / 1650 1678.333 / 3328.333 Output Total 500 / 950 1650 / 1650 750 / 2400 Balance 564.516 / 1433.566 0 / 0 928.333 / 928.333 Weight last 48 hrs Weight 157 lb Weight 156 lb Physical Exam Narrative: EXAM NARRATIVE: GENERAL: Patient is alert, awake and oriented x3. NECK: No jugular vein distension. HEENT: No cyanosis. No icterus. No pallor. HEART: Irregularly irregular S1 and S2. 2/6 sys murmur, rub or gallop. LUNGS: Clear to auscultate bilaterally. ABDOMEN: Soft, nontender and nondistended. Positive bowel sounds. No guarding, rebound or tenderness. CENTRAL NERVOUS SYSTEM: Grossly nonfocal. EXTREMITIES: Lower extremities without edema bilaterally. Patient appeared to be dry Data : 12/15/20 04:11 12/15/20 04:11 Micro: Microbiology 12/15/20 07:20 Legionella Urinary Antigen - Final Urine,Voided Bacterial Antigens - Final 12/15/20 07:20 MRSA Culture - Final Nose 12/12/20 18:18 Blood Culture - Preliminary Blood 12/15/20 07:27 Blood Culture - Preliminary Blood SPECIMEN COLLECTED 12/15/20 07:20 Blood Culture - Preliminary Blood SPECIMEN COLLECTED A&P Assessment and plan (1) Hypotension: Continue IV fluid. Continue to monitor once euvolemic will titrate off Levophed Status: Acute Qualifiers: Hypotension type: other hypotension type Qualified Code(s): I95.89 - Other hypotension (2) Mild aortic stenosis: Remains asymptomatic from aortic stenotic perspective highly unlikely that patient may have contribution through aortic stenosis to hypotension Status: Chronic (3) Atrial fibrillation: Continue to monitor A. fib over next 24-hour it does not convert back into sinus rhythm may will consider transesophageal echo guided electrical cardioversion. Once stable blood pressure ambrose may add beta-vane, other option is adding digoxin and using amiodarone Status: Chronic Qualifiers: Atrial fibrillation type: persistent (not longstanding) Qualified Code(s): I48.19 - Other persistent atrial fibrillation (4) CAD (coronary artery disease): Appear to be stable from a coronary disease perspective Status: Chronic Qualifiers: Coronary Disease-Associated Artery/Lesion type: [place] artery [place] vs. transplanted heart: [place] heart Associated angina: without angina Qualified Code(s): I25.10 - Atherosclerotic heart disease of [place] coronary artery without angina pectoris (5) MELINDA (acute kidney injury): Resolved Status: Acute Attestations Medical Necessity Statement*: Patient require continuation hospitalization for above defined care. Coding Level of Care Code Established Pt Acute Clinical Marketing Manager for Avelina Gaitan Patient Type Established History Detailed Exam Detailed Medical Decision Making Moderate Complexity Diagnoses Hypotension I95.89 Hypotension type: other hypotension type Mild aortic stenosis I35.0 Atrial fibrillation I48.19 Atrial fibrillation type: persistent (not longstanding) CAD (coronary artery disease) I25.10 Coronary Disease-Associated Artery/Lesion type: [place] artery [place] vs. transplanted heart: [place] heart Associated angina: without angina MELINDA (acute kidney injury) N17.9
[2020-12-15] MEDS: iohexol 350 mg/mL 100 mL Btl IV (22:46)
--- NOTE | 2020-12-15 23:06 | PC.NURSE ---
Dr. Rajput called at shift change and gave orders to increase IV fluid rarte to 125mL/hr. And ordered a CTA. Continue care.
[2020-12-16] VITALS (34 sets, daily range): BP systolic 90–127; BP diastolic 47–92; PULSE 80–145; RESP 16–28; TEMP 36.7–37.1; O2SAT 78–100
[2020-12-16] MEDS: sodium chloride 0.9% 1,000 ML 125 ML IV ×2 (02:36→13:51)
[2020-12-16] MEDS: ipratropium-albuterol 3 mL Neb INHALATION ×4 (02:38→21:28)
[2020-12-16] MEDS: budesonide 0.5 mg/2 mL Neb INHALATION ×2 (08:26→21:29)
--- NOTE | 2020-12-16 09:07 | PC.CHAP ---
Pastoral Care Encounter/Spiritual Assessment Type of Contact [] Declined cutting room supervisor visit [] Patient/Family/Request visit [] Outpatient visit [] Follow-up visit [] Physician referral [] Code/Alert [x] Routine visit [] Staff referral [] Actively dying [] Patient sleeping [x] Family support [] [] Out of room [] Palliative care [] [] Receiving care in room [] Pre-surgical visit [] Trauma [] Long length of stay [x] ICU visit [] Other: Relational/Emotional Strength [] Patient feels connected with others/family/visitors/staff [] Distress [] Loneliness/isolation [] Abandonment Spirituality of Patient [] Person of [place] [] Attends Jew of their [place] [] Believes in Prayer [] Reads Bible or Pentecostalism materials [] There are Spiritual issues to be addressed Lumber Grader Interventions [x] Prayer [x] Active listening [x] Non-anxious presence [x] Spiritual/emotional support [] Crisis/trauma care [] Spiritual counseling [] Bereavement support [] Provided bereavement packet [] Provided Bible/devotional materials [] Provided toy/stuffed animal, coloring book to patient or family member [] Provided Communion [] Anointing/[place] [] Salvation [x] Completed spiritual assessment [] Other: Impact on Illness or Injury [] Angry [] Fearful [] Anxious [] Often cries [] Exhaustion [] Unable to work [] Unable to attend gnosticist [] Unable to walk/stand [] Unable to read [] Unable to drive [] Unable to eat/drink [] Unable to sleep [] Unable to be with family [] Patient intubated [] Other: Summary patient feeling better... family visits and brings treats.. Time spent with patient 5 min
[2020-12-16] MEDS: metoprolol tartrate 25 mg Tablet PO ×2 (09:35→20:14)
[2020-12-16] MEDS: apixaban 5 mg Tablet 2.5 MG PO (09:36)
[2020-12-16] MEDS: midodrine 5 mg TABLET 10 MG PO ×3 (09:36→20:14)
[2020-12-16] MEDS: pantoprazole DR 40 mg Tablet PO (09:36)
[2020-12-16] MEDS: allopurinol 100 mg Tablet PO (09:36)
[2020-12-16] MEDS: docusate sodium 100 mg Capsule PO (09:36)
[2020-12-16] MEDS: guaiFENesin 600 mg Tablet PO ×2 (11:16→22:21)
[2020-12-16] MEDS: aspirin 81 mg EC Tablet PO (11:16)
[2020-12-16] MEDS: atorvastatin 40 mg Tablet 80 MG PO (11:16)
[2020-12-16] MEDS: digoxin 250 mcg Tablet PO ×2 (11:40→13:51)
--- NOTE | 2020-12-16 14:57 | PC.RESP ---
PULMONARY REHAB INFORMATION SENT TO PATIENT.
--- NOTE | 2020-12-16 14:59 | PC.RESP ---
RT Shift Note Frequent safety and respiratory rounds continue. Orders completed as indicated. Patient monitored pre and post treatments throughout shift. Patient [Did. tolerate treatments appropriately. Condition [Improved.]. Patient and/or accounting representative educated on respiratory treatment and medications. Patient and/or accounting representative [verbalized understanding]. Will continue to monitor patient progress.
--- NOTE | 2020-12-16 16:02 | P.PN_ITS ---
Subjective Subjective: Interval history: Patient was seen and examined, Levophed was discontinued last night, currently systolic blood pressure in 120s, is doing well on 2L, no active chest pain shortness of breath nausea vomiting, plan for transesophageal echo for A. fib RVR tomorrow he has been consistent with his anticoagulation in the past This morning respirate therapist was also present in the room when I entered the ICU, she had just given albuterol treatment for active wheezing Vitals/I&O/Wt Last Vital Signs Temp 98.8 F 12/15/20 19:00 Pulse 102 H 12/16/20 15:00 Resp 24 H 12/16/20 15:00 BP 103/68 12/16/20 15:00 Pulse Ox 100 12/16/20 15:00 12/16/20 12/16/20 12/16/20 06:59 14:59 22:59 Intake Total 1110.833 / 4439.166 1240 / 1240 Output Total 750 / 3350 575 / 575 Balance 360.833 / 1089.166 665 / 665 Weight last 48 hrs Weight 79.435 kg Weight 71.214 kg Physical Exam Narrative: EXAM NARRATIVE: Patient was alert and awake EOMI, PERRLA No neurological deficit S1, S2 variable no active signs of heart failure Lower extremity no edema No audible stridor or wheezing however on auscultation noticed expiratory wheezing mild intensity after getting the treatment Abdomen soft Appropriate mood and affect Data : 12/15/20 04:11 12/15/20 04:11 Micro: Microbiology 12/15/20 15:08 Sputum Culture - Preliminary Sputum - Expectorated Sputum Gram Negative Rods 12/15/20 07:20 Legionella Urinary Antigen - Final Urine,Voided Urine Culture - Preliminary Bacterial Antigens - Final 12/15/20 07:27 Blood Culture - Preliminary Blood NEGATIVE TO DATE 12/15/20 07:20 Blood Culture - Preliminary Blood NEGATIVE TO DATE 12/15/20 07:20 MRSA Culture - Final Nose A&P Assessment and plan (1) On home oxygen therapy: Status: Chronic (2) Chronic anticoagulation: Status: Chronic (3) Hypotension: Status: Acute Qualifiers: Hypotension type: other hypotension type Qualified Code(s): I95.89 - Other hypotension (4) Chronic combined systolic and diastolic CHF (congestive heart failure): Status: Acute (5) Mild aortic stenosis: Status: Chronic (6) CAD (coronary artery disease): Status: Chronic Qualifiers: Coronary Disease-Associated Artery/Lesion type: [place] artery [place] vs. transplanted heart: [place] heart Associated angina: without angina Qualified Code(s): I25.10 - Atherosclerotic heart disease of [place] coronary artery without angina pectoris (7) [place] artery stenosis: Status: Acute (8) Atrial fibrillation: Status: Chronic Qualifiers: Atrial fibrillation type: persistent (not longstanding) Qualified Code(s): I48.19 - Other persistent atrial fibrillation (9) COPD (chronic obstructive pulmonary disease): Status: Chronic Additional A&P Information Hypotension: Related to polypharmacy, which vasoplegic shock has not been ruled out, off vasopressors Did respond well to fluids, continue midodrine A. fib RVR: Digoxin added by exhaust tender, for persistent RVR might need transesophageal echo tomorrow morning, case discussed with Dr. Sosa Continue anticoagulation mild COPD exacerbation: Active wheezing: DuoNeb treatment given this morning, he is at baseline 2 L of oxygen Tachypnea noted, will repeat x-ray today ABG tomorrow morning Discontinue fluids because of active wheezing Full code N.p.o. after midnight Fully anticoagulated Monitor 1 more night in the ICU Attestations Medical Necessity Statement*: Continue ICU management will need transesophageal echo for A. fib RVR tomorrow morning Time Spent in Patient Care: less than 15 minutes Coding Level of Care Code Acute Area Secretary for Chg Fwd Diagnoses On home oxygen therapy Z99.81 Chronic anticoagulation Z79.01 Hypotension I95.89 Hypotension type: other hypotension type Chronic combined systolic and diastolic CHF (congestive heart failure) I50.42 Mild aortic stenosis I35.0 CAD (coronary artery disease) I25.10 Coronary Disease-Associated Artery/Lesion type: [place] artery [place] vs. transplanted heart: [place] heart Associated angina: without angina [place] artery stenosis K55.1 Atrial fibrillation I48.19 Atrial fibrillation type: persistent (not longstanding) COPD (chronic obstructive pulmonary disease) J44.9
--- NOTE | 2020-12-16 16:10 | XRR_ITS ---
PROCEDURE INFORMATION: Exam: XR Chest Exam date and time: 12/16/2020 4:10 PM Age: 80 years old Clinical indication: Wheezing TECHNIQUE: Imaging protocol: XR of the chest. Views: 1 view. COMPARISON: CR (CHEST, ) 12/15/2020 7:02 AM FINDINGS: Lungs: Lungs are clear bilaterally. Pleural spaces: No pleural effusion. No pneumothorax. Heart/Mediastinum: Stable mild enlargement of the cardiac silhouette. Mediastinal contours are unremarkable. Vasculature: Stable vascular calcifications in the aorta. Bones/joints: Unremarkable for age. XR/XR chest 1V portable [id number] IMPRESSION: 1. No acute cardiopulmonary process. 2. Incidental/nonacute findings are listed in the report. Radiation Dose CTDIVOL = (mGy): DLP = (mGy-cm)
--- NOTE | 2020-12-16 18:02 | P.PN_ITS ---
Subjective Subjective: Interval history: Blood pressure remains on the soft side patient off pressor continue to be on IV fluid. Heart rate is not well controlled patient has A. fib with heart rate range 120s to 130s Vitals/I&O/Wt Last Vital Signs Temp 98.8 F 12/15/20 19:00 Pulse 126 H 12/16/20 17:00 Resp 23 H 12/16/20 17:00 BP 99/65 12/16/20 17:00 Pulse Ox 98 12/16/20 17:00 12/16/20 12/16/20 12/16/20 06:59 14:59 22:59 Intake Total 1110.833 / 4439.166 1240 / 1240 Output Total 750 / 3350 575 / 575 Balance 360.833 / 1089.166 665 / 665 Weight last 48 hrs Weight 175 lb 2 oz Weight 157 lb Physical Exam Narrative: EXAM NARRATIVE: GENERAL: Patient is alert, awake and oriented x3. NECK: No jugular vein distension. HEENT: No cyanosis. No icterus. No pallor. HEART: Irregularly irregular S1 and S2. 2/6 sys murmur, rub or gallop. LUNGS: Clear to auscultate bilaterally. ABDOMEN: Soft, nontender and nondistended. Positive bowel sounds. No guarding, rebound or tenderness. CENTRAL NERVOUS SYSTEM: Grossly nonfocal. EXTREMITIES: Lower extremities without edema bilaterally. Patient appeared to be dry Data : 12/15/20 04:11 12/15/20 04:11 Micro: Microbiology 12/15/20 15:08 Gram Stain - Final Sputum - Expectorated Sputum Sputum Culture - Preliminary Gram Negative Rods 12/15/20 07:20 Legionella Urinary Antigen - Final Urine,Voided Urine Culture - Preliminary Bacterial Antigens - Final 12/15/20 07:27 Blood Culture - Preliminary Blood NEGATIVE TO DATE 12/15/20 07:20 Blood Culture - Preliminary Blood NEGATIVE TO DATE 12/15/20 07:20 MRSA Culture - Final Nose A&P Assessment and plan (1) Hypotension: Continue IV fluid. Status: Acute Qualifiers: Hypotension type: other hypotension type Qualified Code(s): I95.89 - Other hypotension (2) Mild aortic stenosis: Remains asymptomatic from aortic stenotic perspective highly unlikely that patient may have contribution through aortic stenosis to hypotension Status: Chronic (3) Atrial fibrillation: I will add digoxin to the regimen if does not convert or slow down the last fatigue guided cardioversion tomorrow Status: Chronic Qualifiers: Atrial fibrillation type: persistent (not longstanding) Qualified Code(s): I48.19 - Other persistent atrial fibrillation (4) CAD (coronary artery disease): Appear to be stable from a coronary disease perspective Status: Chronic Qualifiers: Coronary Disease-Associated Artery/Lesion type: [place] artery [place] vs. transplanted heart: [place] heart Associated angina: without angina Qualified Code(s): I25.10 - Atherosclerotic heart disease of [place] coronary artery without angina pectoris (5) MELINDA (acute kidney injury): Resolved Status: Acute Attestations Medical Necessity Statement*: Patient require continuation hospitalization for above defined care. Coding Level of Care Code Established Pt Acute Drawbench Operator Helper for Avelina Gaitan Patient Type Established History Detailed Exam Detailed Medical Decision Making Moderate Complexity Diagnoses Hypotension I95.89 Hypotension type: other hypotension type Mild aortic stenosis I35.0 Atrial fibrillation I48.19 Atrial fibrillation type: persistent (not longstanding) CAD (coronary artery disease) I25.10 Coronary Disease-Associated Artery/Lesion type: [place] artery [place] vs. transplanted heart: [place] heart Associated angina: without angina MELINDA (acute kidney injury) N17.9
--- NOTE | 2020-12-16 18:52 | PC.NURSE ---
Dr. Sosa at bedside and gave verbal orders for PO digixon. Family and patient was educated at bedside about new medication. Patient was able to transfer self to bedside commode with one assist. A&Ox4.
[2020-12-17] VITALS (19 sets, daily range): BP systolic 112–138; BP diastolic 61–84; PULSE 72–108; RESP 16–27; TEMP 36.7; O2SAT 91–100
[2020-12-17] MEDS: ipratropium-albuterol 3 mL Neb INHALATION ×2 (02:49→08:48)
[2020-12-17 05:05] LABS: Basophils # 0.1 10^3/uL (0.0-0.1); Basophils % 0.9 %; Eosinophils % 0.1 %; Hematocrit 37.8 % (42.0-52.0); Hemoglobin 11.9 g/dL (11.7-16.6); Lymphocytes # 0.8 10^3/uL (0.8-4.8); Lymphocytes % 10.9 %; Mean Corpuscular HGB Conc 31.5 g/dL (30.0-36.0); Mean Corpuscular Hemoglobin 31.9 pg (28.0-34.0); Mean Corpuscular Volume 101.3 fl (80-94); Mean Platelet Volume 10.5 fL (7.4-10.4); Monocytes # 1.1 10^3/uL (0.2-0.9); Monocytes % 15.5 %; Neutrophils % 72.3 %; Nucleated Red Blood Cells % 0 %; Platelet Count 170 10^3/cmm (130-400); Red Blood Count 3.73 10^6/uL (4.1-5.3); Red Cell Distribution Width 14.3 % (12.1-15.1); White Blood Count 6.9 10^3/uL (4.0-10.0)
[2020-12-17 05:22] LABS: Anion Gap 6.4 (5-19); Blood Urea Nitrogen 9 mg/dL (8-23); Calcium 8.3 mg/dL (8.5-10.5); Carbon Dioxide 30 mmol/L (22-29); Chloride 104 mmol/L (98-107); Glucose 79 mg/dL (65-115); Magnesium 2.1 mg/dL (1.7-2.3); Osmolality Calculated 280 mOsm/kg (285-295); Potassium 4.4 mmol/L (3.5-5.1); Sodium 136 mmol/L (136-145)
--- NOTE | 2020-12-17 06:13 | PC.NURSE ---
No acute changes overnight. Continue care
[2020-12-17] MEDS: allopurinol 100 mg Tablet PO (08:22)
[2020-12-17] MEDS: midodrine 5 mg TABLET 10 MG PO (08:23)
[2020-12-17] MEDS: docusate sodium 100 mg Capsule PO (08:23)
[2020-12-17] MEDS: pantoprazole DR 40 mg Tablet PO (08:24)
[2020-12-17] MEDS: digoxin 125 mcg Tablet PO (08:25)
--- NOTE | 2020-12-17 08:38 | PC.NURSE ---
Shift Note Frequent safety and comfort rounds continue. Orders and/or nursing care completed as indicated. Patient monitored for response to intervention and treatment(s). Education provided includes[Heart rate monitor/control, prep for ALMAZ]. Patient and/or customer account representative [Pt verbally states he understands]. Will continue to monitor. Received bed side shift report from off going nurse. Pt's plan of care reviewed. Pt resting in bed. Respirations are even and unlabored. No s/sx of distress noted. Pt is alert and oriented and able to make his own decisions. Pt denies any pains or concerns at this time. Pt was educated that he is to not eat or drink due to planned procedure. Pt verbally stated that he understood. Pt denies any questions or concerns about the procedure at this time. Will continue to monitor pt.
[2020-12-17] MEDS: budesonide 0.5 mg/2 mL Neb INHALATION (08:48)
[2020-12-17] MEDS: atorvastatin 40 mg Tablet 80 MG PO (11:08)
[2020-12-17] MEDS: guaiFENesin 600 mg Tablet PO (11:08)
[2020-12-17] MEDS: aspirin 81 mg EC Tablet PO (11:08)
--- NOTE | 2020-12-17 13:23 | PM.DCS ---
Discharge Providers Date of Admission: 12/12/20 18:31 Date of Discharge: December 17, 2020 Attending Provider at Admission: Samir Herrera Attending Provider at Discharge: Parul Dean MD Primary Care Provider: Ravin Madrigal MD Diagnoses at Discharge Discharge Diagnosis (1) Hypotension: Status: Acute Qualifiers: Hypotension type: other hypotension type Qualified Code(s): I95.89 - Other hypotension (2) Mild aortic stenosis: Status: Chronic Permanent problem details: Valve area 1.5 cm?. in March 2020 (3) Atrial fibrillation: Status: Chronic Qualifiers: Atrial fibrillation type: persistent (not longstanding) Qualified Code(s): I48.19 - Other persistent atrial fibrillation (4) CAD (coronary artery disease): Status: Chronic Qualifiers: Associated angina: without angina Coronary Disease-Associated Artery/Lesion type: [place] artery [place] vs. transplanted heart: [place] heart Qualified Code(s): I25.10 - Atherosclerotic heart disease of [place] coronary artery without angina pectoris (5) MELINDA (acute kidney injury): Status: Acute Reason for Visit Reason for Visit: LOW BP Hospital Course Hospital Course History of Present Illness by Dr Olmedo: Allan Prado is a 80 year old male who presented to the emergency room with chief complaint of low blood pressures, fatigue and dizziness. Symptoms have been present to some degree for a couple of days. His checked his blood pressure a few days ago and it was lower than usual. Yesterday systolic pressure was in the 70s. Primary care provider was contacted and it was recommended that he come to the emergency room. He presented today. Initial blood pressure on arrival in the left arm was 60/37 and in the right arm 98/42. He was given a fluid bolus and started on some Levophed. No report of any fevers, nausea or vomiting, diarrhea, upper respiratory symptoms, abdominal pain, chest pain, bleeding or increased edema. His only complaints are not having any energy and noticing some dizziness when changing positions. Denies any palpitations. He has a known history of coronary artery disease, CHF, atrial fibrillation, chronic anticoagulation, mild aortic stenosis, cardiac arrest secondary to PE in 2018 among other diagnoses shown below. He is not sure if he has had any recent medication changes. Knows some of his medications but not all of them. They will have to be confirmed further with clinic, pharmacy and/or . Review of available external medication records shows that in the last couple of months he has been prescribed Lasix, Entresto, diltiazem as well as metolazone. From what I can tell it looks like metolazone may have been added as a new medication this month at 2.5 mg p.o. daily. Laboratory studies indicated significant increase in BUN and creatinine from prior values from 10/0.6 in March of this year to 44/2.3 today. He has not provided a urine specimen yet. Along with the renal failure is hyperuricemia at 12.8. Lactic acid was 1.4 and white blood count was 9.3 with normal differential. Not on any narcotics. Given hypotension necessitating initiation of pressor support, he is being admitted to the ICU. Of note initial troponin was 73 with second troponin at 64 delta of -12.87. Twelve-lead EKG showed atrial fibrillation without any acute ST segment changes noted compared to prior. Hosp course Patient was admitted to ICU for management of shock he did not meet criteria for cardiogenic, obstructive, hypovolemic, distributive shock. His hypotension was most likely related to polypharmacy, (vasoplegic shock not ruled out). He did require vasopressors in the ICU which was gradually weaned off. He responded well to gentle fluid hydration. Antihypertensive regimen discontinued at the time of admission. After 48 hours his blood pressure improved, cardiology was consulted who added digoxin for his A. fib RVR, there was plan to do transesophageal echo and cardioversion however he responded well to digoxin and transesophageal echo was deferred. At the time of discharge he will go home on digoxin and metoprolol. Entresto, metolazone, Lasix, Cardizem discontinued. YULIYA/ARB is related with vasoplegic shock and considering hypertension Entresto will be contraindicated. Echo did show preserved ejection fraction. Patient will follow up with cardiology outpatient. TSH normal, digoxin level within normal range. Physical Exam Narrative: EXAM NARRATIVE: Patient was alert and awake EOMI, PERRLA No neurological deficit S1, S2 variable no active signs of heart failure Lower extremity no edema No audible stridor or wheezing abd soft NT Appropriate mood and affect Discharge Data Data Completed and Pending: Completed Studies During Hospitalization Category Date Time Status CT angio chest 71 275 Stat Cat Scan 12/15/20 20:[address] angio chest ab domen pelvis Urgen t Cat Scan 12/12/20 17:21 Completed XR chest 1V yulissa ble [id number] Routine Exams 12/16/20 16:10 Completed XR chest 1V yulissa ble [id number] Stat Exams 12/15/20 06:28 Completed XR chest 1V yulissa ble [id number] Urgent Exams 12/12/20 17:03 Completed CV. echo complete * [id number] Routine Ultrasound 12/13/20 06:00 Completed Pending at discharge Category Date Time Status Arterial Blood Ga s W/O [place] AM LABS Lab 12/17/20 04:00 Ordered Blood Culture Sta t Lab 12/12/20 18:20 Results Blood Culture Sta t Lab 12/15/20 07:27 Results Labs from last 24 hours 12/17/20 12/17/20 04:14 04:14 WBC 6.9 RBC 3.73 L Hgb 11.9 Hct 37.8 L MCV 101.3 H MCH 31.9 MCHC 31.5 RDW 14.3 Plt Count 170 MPV 10.5 H Neut % (Auto) 72.3 Lymph % (Auto) 10.9 [place] % (Auto) 15.5 Eos % (Auto) 0.1 Baso % (Auto) 0.9 Neut # (Auto) 5.00 Lymph # (Auto) 0.8 [place] # (Auto) 1.1 H Eos # (Auto) 0.0 Baso # (Auto) 0.1 Nucleated RBC % (a uto) 0 Nucleated RBCs # 0.0 Sodium 136 Potassium 4.4 Chloride 104 Carbon Dioxide 30 H Anion Gap 6.4 BUN 9 Creatinine 0.7 GFR Calculation Not Reportable Glucose 79 Calculated Osmolal ity 280 L Calcium 8.3 L Magnesium 2.1 Digoxin 1.0 Vitals: Last Vital Signs Temp 98.1 F 12/17/20 08:00 Pulse 101 H 12/17/20 12:00 Resp 23 H 12/17/20 12:00 BP 133/78 12/17/20 12:00 Pulse Ox 99 12/17/20 12:00 Discharge Plan Discharge Patient Disposition: Home Condition: Stable Prescriptions: New digoxin 125 mcg (0.125 mg) Tablet 125 mcg PO DAILY 30 Days Qty: 30 RF: 2 metoprolol tartrate 25 mg Tablet 25 mg PO BID@0900,2100 30 Days Qty: 60 RF: 2 Continued rosuvastatin [Crestor] 20 mg Tablet 20 mg PO DAILY@1100 RF: 0 aspirin 81 mg Tablet,Delayed Release (Dr/Ec) 81 mg PO DAILY@1100 RF: 0 Eliquis 2.5 mg tablet 2.5 mg PO BID Qty: 60 RF: 0 albuterol sulfate 2.5 mg /3 mL (0.083 %) Solution For Nebulization 2.5 mg INHALATION Q4H RF: 0 clonazepam 0.5 mg Tablet 0.5 mg PO DAILY PRN (Reason: Anxiety) RF: 0 fluoxetine 20 mg Tablet 20 mg PO DAILY@1100 RF: 0 docusate sodium 100 mg Capsule 100 mg PO BID@1100,1700 RF: 0 budesonide 0.5 mg/2 mL Suspension For Nebulization 0.5 mg INHALATION BID@1100,2300 RF: 0 guaifenesin [Mucinex] 600 mg Tablet Extended Release 12hr 600 mg PO BID@1100,2300 RF: 0 ferrous gluconate 324 mg (36 mg iron) Tablet 324 mg PO EVERY OTHER DAY RF: 0 Protonix 40 mg tablet,delayed release (DR/EC) 40 mg PO DAILY RF: 0 multivitamin Tablet 1 tab PO DAILY RF: 0 Vitamin C 1,000 mg Tablet 1,000 mg PO DAILY RF: 0 Changed metoprolol tartrate 25 mg tablet 25 mg PO BID@1100,2300 30 Days Qty: 60 RF: 2 Discontinued Entresto 24-26 mg tablet 1 tab PO BID@1099,2300 RF: 0 potassium chloride 10 mEq Tablet Extended Release 10 meq PO DAILY RF: 0 diltiazem HCl 120 mg capsule,extended release 24hr 120 mg PO DAILY@1100 RF: 0 metolazone 2.5 mg Tablet 2.5 mg PO DAILY PRN (Reason: Edema) RF: 0 Discharge Orders: Discharge Order (Routine); Ordered 12/17/20 Ordered By: Parul Dean Referrals: Parul Sosa MD [Physician] - 2 months (WednesdayFebruary 24 at 1pm. Arrive 15 minutes before appointment with insurance card and list of current medications. ) Jasmyn Nguyen FNP [Nurse Practitioner] - 4-7 days (Wednesday, December at 08:30. ) Ravin Madrigal MD [Primary Care Provider] - (December 20 at 10:00. Bring hospital paper work with you to appointment. ) Discharge Diet: Cardiac Discharge Activity: Increase activity as tolerated Patient Instructions: Opioid Safety Discharge Attestations Time Spent in Discharge Care*: less than 30 min Status at Discharge: Cognitive status at discharge: cognitively intact, Behavioral status at discharge: cooperative, Quality Metrics Clinical Quality Measures During this hospital stay, did patient experience: None Coding Level of Care Code Acute Chg FW DC note Diagnoses Hypotension I95.89 Hypotension type: other hypotension type Mild aortic stenosis I35.0 Atrial fibrillation I48.19 Atrial fibrillation type: persistent (not longstanding) CAD (coronary artery disease) I25.10 Associated angina: without angina Coronary Disease-Associated Artery/Lesion type: [place] artery [place] vs. transplanted heart: [place] heart MELINDA (acute kidney injury) N17.9
--- NOTE | 2020-12-17 16:08 | PC.SOCIAL ---
IMM Update: pg 2 of IMM updated and reviewed w/ patient. Copy provided.
--- NOTE | 2020-12-17 20:35 | P.PN_ITS ---
Subjective Subjective: Interval history: Patient is rate controlled since addition of digoxin his blood pressure has also improved. Vitals/I&O/Wt Last Vital Signs Temp 98.1 F 12/17/20 08:00 Pulse 82 12/17/20 14:00 Resp 27 H 12/17/20 14:00 BP 134/67 12/17/20 14:00 Pulse Ox 96 12/17/20 14:00 12/17/20 12/17/20 12/17/20 06:59 14:59 22:59 Intake Total 0 / 1660 Output Total 750 / 1725 Balance -750 / -65 Weight last 48 hrs Weight 177 lb 4 oz Weight 175 lb 2 oz Physical Exam Narrative: EXAM NARRATIVE: GENERAL: Patient is alert, awake and oriented x3. NECK: No jugular vein distension. HEENT: No cyanosis. No icterus. No pallor. HEART: Irregularly irregular S1 and S2. 2/6 sys murmur, rub or gallop. LUNGS: decrease breath sounds bilaterally. ABDOMEN: Soft, nontender and nondistended. Positive bowel sounds. No guarding, rebound or tenderness. CENTRAL NERVOUS SYSTEM: Grossly nonfocal. EXTREMITIES: Lower extremities without edema bilaterally. Patient appeared to be dry Data : 12/17/20 04:14 12/17/20 04:14 Micro: Microbiology 12/12/20 18:20 Blood Culture - Final Blood NO GROWTH AFTER 5 DAYS 12/12/20 18:18 Blood Culture - Final Blood Corynebacterium species 12/15/20 15:08 Gram Stain - Final Sputum - Expectorated Sputum Sputum Culture - Final Pseudomonas aeruginosa 12/15/20 07:20 Legionella Urinary Antigen - Final Urine,Voided Urine Culture - Final Bacterial Antigens - Final A&P Assessment and plan (1) Hypotension: Resolved. Discontinue IV fluid Status: Acute Qualifiers: Hypotension type: other hypotension type Qualified Code(s): I95.89 - Other hypotension (2) Mild aortic stenosis: Remains asymptomatic from aortic stenotic perspective highly unlikely that patient may have contribution through aortic stenosis to hypotension Status: Chronic (3) Atrial fibrillation: Continue digoxin Eliquis and metoprolol, continue apixaban Status: Chronic Qualifiers: Atrial fibrillation type: persistent (not longstanding) Qualified Code(s): I48.19 - Other persistent atrial fibrillation (4) CAD (coronary artery disease): Appear to be stable from a coronary disease perspective Status: Chronic Qualifiers: Coronary Disease-Associated Artery/Lesion type: [place] artery [place] vs. transplanted heart: [place] heart Associated angina: without angina Qualified Code(s): I25.10 - Atherosclerotic heart disease of [place] coronary artery without angina pectoris (5) MELINDA (acute kidney injury): Resolved Status: Acute Attestations Medical Necessity Statement*: As per medicine Coding Level of Care Code Acute Communications Planner for [facility] Fwd Diagnoses Hypotension I95.89 Hypotension type: other hypotension type Mild aortic stenosis I35.0 Atrial fibrillation I48.19 Atrial fibrillation type: persistent (not longstanding) CAD (coronary artery disease) I25.10 Coronary Disease-Associated Artery/Lesion type: [place] artery Tribe vs. transplanted heart: [place] heart Associated angina: without angina MELINDA (acute kidney injury) N17.9
== END 2020-12-17 14:32 | disposition home or self-care (01) | DRG 312 ==
LOC: ER 18:42 → ICU 18:57
PROVIDERS: Hospitalist; Internal Medicine; Internal Medicine Cardiovascular Disease; Admitting Provider Internal Medicine; Emergency Provider Emergency Medicine; PCP Family Medicine; Visit Provider Internal Medicine
DX: I95.2 Hypotension due to drugs (principal); I50.42 Chronic combined systolic (congestive) and diastolic (congestive) heart failure; I48.19 Other persistent atrial fibrillation; J44.1 Chronic obstructive pulmonary disease with (acute) exacerbation; N17.9 Acute kidney failure, unspecified; K55.1 Chronic vascular disorders of intestine; R57.9 Shock, unspecified; T46.5X5A Adverse effect of other antihypertensive drugs, initial encounter; Z66 Do not resuscitate; I11.0 Hypertensive heart disease with heart failure; Z86.718 Personal history of other venous thrombosis and embolism; N40.0 Benign prostatic hyperplasia without lower urinary tract symptoms; I25.10 Atherosclerotic heart disease of native coronary artery without angina pectoris; Z95.5 Presence of coronary angioplasty implant and graft; Z86.74 Personal history of sudden cardiac arrest; Z86.73 Personal history of transient ischemic attack (TIA), and cerebral infarction without residual deficits; K21.9 Gastro-esophageal reflux disease without esophagitis; E78.5 Hyperlipidemia, unspecified; I25.5 Ischemic cardiomyopathy; I35.0 Nonrheumatic aortic (valve) stenosis; Z99.81 Dependence on supplemental oxygen; G62.9 Polyneuropathy, unspecified; Z79.51 Long term (current) use of inhaled steroids; Z79.01 Long term (current) use of anticoagulants; Z79.82 Long term (current) use of aspirin; Z87.891 Personal history of nicotine dependence; Z96.641 Presence of right artificial hip joint; G25.81 Restless legs syndrome
CPT/HCPCS: 36415; 36600; 71045; 71275; 74174; 80048; 80051; 80053; 80162; 81001; 82330; 82436; 82533; 82550; 82575; 82805; 83605; 83690; 83735; 83880; 84100; 84300; 84443; 84484; 84550; 85025; 85610; 85730; 86140; 86403; 86850; 86900; 87040; 87070; 87077; 87086; 87186; 87205; 87426; 87449; 87641; 93005; 93306; 94640; 96365; 96366; 96367; 99291; J0692; J3370; J7030; J7040; J7050; J7626; Q0144; Q9967

== ENCOUNTER → 2020-12-23 12:09 | Outpatient (BNVA) | payer MEDICARE, SELFPAY | PROVIDERS: PCP Family Medicine; Visit Provider Nurse Practitioner Family | DX: I48.19 Other persistent atrial fibrillation (principal); Z09 Encounter for follow-up examination after completed treatment for conditions other than malignant neoplasm | CPT/HCPCS: 80162 ==

== ENCOUNTER 2023-02-02 18:46 | Inpatient (IN) | payer MEDICARE, SELFPAY ==
[2023-02-02 18:47] VITALS: BP 113/57; PULSE 126; RESP 18; TEMP 36.7; O2SAT 89; BMI 20.3
--- NOTE | 2023-02-02 18:50 | XRR_ITS ---
PROCEDURE INFORMATION: Exam: XR Chest Exam date and time: 02/02/2023 7:24 PM Age: 82 years old Clinical indication: Other: AMS TECHNIQUE: Imaging protocol: Radiologic exam of the chest. Views: 1 view. COMPARISON: CR XR chest 2V* [id number] 01/23/2022 11:28 AM FINDINGS: Lungs: Consolidation in the left lower lung. Pleural spaces: Small volume left pleural effusion. No pneumothorax. Heart/Mediastinum: Unremarkable. No cardiomegaly. Bones/joints: Unremarkable. XR/XR chest 1V portable [id number] IMPRESSION: Consolidation in the left lower lung suspicious for pneumonia. Small volume left pleural effusion.
--- NOTE | 2023-02-02 18:51 | ECG_ITS ---
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 Measurements Intervals Dwight Rate: 137 P: 0 MN: 0 QRS: -8 QRSD: 88 T: 90 QT: 291 QTc: 441 Interpretive Statements ATRIAL FIBRILLATION WITH RAPID VENTRICULAR RESPONSE WITH ABERRANT CONDUCTION OR VENTRICULAR PREMATURE COMPLEXES NONSPECIFIC ST & T-WAVE ABNORMALITY ABNORMAL RHYTHM ECG Compared to ECG 12/12/2020 21:10:54 Aberrant conduction of supraventricular beat(s) now present Ventricular premature complex(es) now present T-wave abnormality now present ST (T wave) deviation no longer present Electronically Signed On 02-02-2023 22:21:24 [employer]ITARY PLUMBER by Maria Dolores Wilson M.D. [id number]
--- NOTE | 2023-02-02 18:53 | W.ED.AMS ---
HPI - Altered Mental Status General: Chief Complaint: ER Hold Stated Complaint: MADAY Wilkins Time Seen by Provider: 02/02/23 18:47 History of Present Illness: Patient brought in by EMS to the ER for evaluation for altered mental status. Per EMS patient has been not eating or drinking very good for the last 2 days and getting more confused and more altered. Patient does have a history of dementia. Patient was given 1 DuoNeb breathing treatment and 40 mg IV Lasix on route to the ER. Review of Systems General: Reports: 10 or more systems reviewed and unremarkable except in HPI and below PFSH ED PFSH: Medical History (Updated 02/02/23 @ 22:11 by Parul Dean MD) Sepsis Superior mesenteric artery stenosis Noted on CT imaging 11/2020 with reconstitution described. Mild aortic stenosis Valve area 1.5 cm?. 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 Cardiac arrest (2017) 2nd to PE CVA (cerebral vascular accident) Hyperkalemia BPH (benign prostatic hyperplasia) Hypertension GERD (gastroesophageal reflux disease) Atrial fibrillation Restless leg syndrome Hyperlipidemia CAD (coronary artery disease) Peripheral neuropathy COPD (chronic obstructive pulmonary disease) Rib fractures Pneumothorax Pulmonary embolism (2018) Ischemic cardiomyopathy Surgical History Status post open reduction and internal fixation (ORIF) of fracture (03/2019) Status post right hip replacement (03/2019) History of appendectomy Hx of tonsillectomy Hx of cataract surgery History of coronary artery stent placement Family History Other CAD (coronary artery disease) Social History Smoking and tobacco/nicotine status: current every day tobacco/nicotine user Second hand smoke exposure: No Alcohol intake: current Substance/Drug Use: never Lives independently: No Household members: spouse Marital status: Physical Exam Const: COMMON NORMALS: no acute distress, average body habitus, healthy appearing, alert and well nourished; negative for patient oriented x3 (Alert to self) and limitations (Confused altered mental status) HENMT: COMMON NORMALS: normocephalic, atraumatic, hearing grossly normal bilaterally, external ears normal, Normal external nose present, moist oral mucous membranes and oropharynx normal HEAD & SCALP: normocephalic and atraumatic NOSE: Normal external nose present EXTERNAL EAR: Yes external ears normal Eye: COMMON NORMALS: Equal, round and reactive pupils present, EOMs intact bilaterally, conjunctivae normal and no scleral icterus CONJUNCTIVA: Yes conjunctivae normal PUPIL: Yes Equal, round and reactive pupils present Neck/C-Spine: COMMON NORMALS: full ROM, no lymphadenopathy, supple, no meningeal signs, no JVD and Thyroid normal THYROID: Thyroid normal Chest: COMMONS NORMALS: normal inspection of the chest and normal palpation of entire chest wall Resp: COMMON NORMALS: normal respiratory effort, No retractions, No use of accessory muscles and clear to auscultation bilaterally AUSCULTATION: clear to auscultation bilaterally Cardio: COMMON NORMALS: no JVD, S1 normal heart sound present, S2 normal heart sound present, No gallops present (Cardio), No clicks present (Cardio) and No murmurs present (Cardio); negative for regular rate (Tachycardic) RATE: abnormal rate (Tachycardic) HEART SOUNDS: S1 normal heart sound present and S2 normal heart sound present GI: COMMON NORMALS: Normal to inspection, nondistended, normoactive bowel sounds present, Soft to palpation, non-tender, No hepatosplenomegaly present and no masses PALPATION: Yes Soft to palpation and Yes No hepatosplenomegaly present Neuro: COMMON NORMALS: negative for patient oriented x3 (Alert to self) SENSORIUM/ORIENTATION: Yes alert MENINGEAL SIGNS: Yes no meningeal signs Course Vital Signs: Vital signs: Vital Signs Temperature 98.1 F 02/02/23 18:47 Pulse Rate 116 H 02/02/23 21:49 Respiratory Rate 16 02/02/23 21:49 Blood Pressure 88/57 02/02/23 21:49 Pulse Oximetry 90 02/02/23 21:49 Oxygen Delivery Me thod Nasal Cannula 02/02/23 19:18 Oxygen Flow Rate 3 02/02/23 19:18 MDM - Altered Mental Status Medical Decision Making Patient's chest x-ray showed left lower lobe pneumonia. Patient presented to the ER with A-fib with RVR. Patient was given 10 mg of Cardizem IV push which helped but did not last very long. Patient was then given 60 mg Cardizem p.o. and placed on a Cardizem drip. Patient was given Zosyn 3.375 g IV and 2 L bolus of fluid due to his elevated white count and left lower lobe pneumonia. Dr. Dean was consulted who agreed to placed the patient inpatient for further evaluation and treatment. Differential Diagnosis Likely altered mental status and dementia; Unlikely alcoholic intoxication, delirium, hypoglycemia, hyponatremia or subarachnoid hemorrhage Medical Records I reviewed the patient's medical records. Lab Data I reviewed the patient's lab results. 02/02/23 18:53 02/02/23 18:53 Radiology Impressions Chest X-Ray 02/02/23 18:50 IMPRESSION: Consolidation in the left lower lung suspicious for pneumonia. Small volume left pleural effusion. Head CT 02/02/23 18:56 IMPRESSION: 1. No acute intracranial hemorrhage. 2. Mild age-related changes. 3. There is a right posterior fossa probable meningioma measuring about 1.6 cm. 4. Other chronic findings above. Laboratory Results WBC 18.58 10^3/uL (3.29-11.43) H 02/02/23 18:53 RBC 4.08 10^6/uL (3.85-5.65) 02/02/23 18:53 Hgb 13.50 g/dL (11.27-16.99) 02/02/23 18:53 Hct 40.5 % (37-53) 02/02/23 18:53 MCV 99.3 fl (82-101) 02/02/23 18:53 MCH 33.1 pg (27-33) H 02/02/23 18:53 MCHC 33.3 g/dL (30-55) 02/02/23 18:53 RDW 14.0 % (12.1-15.1) 02/02/23 18:53 Plt Count 129 10^3/cmm (157-399) L 02/02/23 18:53 MPV 11.0 fL (7.4-10.4) H 02/02/23 18:53 Lymph % (Auto) Not Reportable 02/02/23 18:53 Frederick % (Auto) Not Reportable 02/02/23 18:53 Lymph # (Auto) Not Reportable 02/02/23 18:53 [place] # (Auto) Not Reportable 02/02/23 18:53 Total Counted 100 (0-100) 02/02/23 18:53 Atypical Lymphs % 0.0 % (0-5) 02/02/23 18:53 Absolute Neutrophils 15.4 10^3/cmm (1.4-6.5) H 02/02/23 18:53 Segmented Neutrophils 74 % 02/02/23 18:53 Abs Segm Neuts (Man) 13.7 10/cmm (1.6-7.1) H 02/02/23 18:53 Band Neutrophils 9.0 % 02/02/23 18:53 Abs Band Neuts (Man) 1.7 10^3/cmm (0.0-1.2) H 02/02/23 18:53 Absolute Lymphocytes 0.2 10^3/cmm (1.2-3.4) L 02/02/23 18:53 Lymphocytes (Manual) 1 % 02/02/23 18:53 Monocytes (Manual) 1.0 % 02/02/23 18:53 Absolute Monocytes 0.2 10^3/cmm (0.1-0.6) 02/02/23 18:53 Eosinophils (Manual) 0 % 02/02/23 18:53 Absolute Eosinophils 0.0 10^3/cmm (0.0-0.7) 02/02/23 18:53 Basophils (Manual) 0.0 % 02/02/23 18:53 Absolute Basophils 0.0 10^3/cmm (0.0-0.2) 02/02/23 18:53 Metamyelocytes 13.0 % 02/02/23 18:53 Myelocytes 2.0 % 02/02/23 18:53 Platelet Estimate Decreased (Normal) 02/02/23 18:53 Anisocytosis 1+ H 02/02/23 18:53 Macrocytosis 1+ H 02/02/23 18:53 PT 16.80 SECONDS (12.1-14.9) H 02/02/23 18:53 INR 1.32 (0.8-1.2) H 02/02/23 18:53 D-Dimer 1.50 ug/mLFEU (0-0.59) H 02/02/23 18:53 Sodium 134 mmol/L (136-145) L 02/02/23 18:53 Potassium 4.1 mmol/L (3.5-5.1) 02/02/23 18:53 Chloride 96 mmol/L (98-107) L 02/02/23 18:53 Carbon Dioxide 27 mmol/L (22-29) 02/02/23 18:53 Anion Gap 15.1 (5-19) 02/02/23 18:53 BUN 32 mg/dL (8-23) H 02/02/23 18:53 Creatinine 1.2 mg/dL (0.7-1.2) 02/02/23 18:53 GFR Calculation Not Reportable 02/02/23 18:53 Glucose 121 mg/dL (65-115) H 02/02/23 18:53 Calculated Osmolality 286 mOsm/kg (285-295) 02/02/23 18:53 Lactic Acid 3.4 mmol/L (0.5-2.2) H 02/02/23 20:27 Calcium 9.1 mg/dL (8.5-10.5) 02/02/23 18:53 Phosphorus 2.5 mg/dL (2.5-4.5) 02/02/23 18:53 Magnesium 2.1 mg/dL (1.7-2.3) 02/02/23 18:53 Total Bilirubin 0.8 mg/dL (0.15-1.2) 02/02/23 18:53 AST 22 U/L (0-40) 02/02/23 18:53 ALT 13 U/L (0-41) 02/02/23 18:53 Alkaline Phosphatase 83 U/L (40-130) 02/02/23 18:53 Troponin T Baseline 27 ng/L (0-15) H 02/02/23 18:53 Troponin T 120 Minute 26.38 ng/L (0-15) H 02/02/23 20:35 Delta Troponin T -0.62 ABS# (0-10) L 02/02/23 20:35 Total Protein 6.4 g/dL (6.6-8.7) L 02/02/23 18:53 Albumin 3.3 g/dL (3.5-5.2) L 02/02/23 18:53 Globulin 3.1 g/dL (1.3-4.6) 02/02/23 18:53 Procalcitonin 7.80 ng/mL (0-0.5) H 02/02/23 18:53 TSH 1.82 uIU/mL (0.27-4.20) 02/02/23 18:53 Urine Color Yellow (Yellow) 02/02/23 19:57 Urine Appearance Clear (CLEAR) 02/02/23 19:57 Urine pH 5 (5-7) 02/02/23 19:57 Ur Specific [place] 1.010 (1.005-1.030) 02/02/23 19:57 Urine Protein Neg (Negative) 02/02/23 19:57 Urine Glucose (UA) 4+ (Normal) H 02/02/23 19:57 Urine Ketones Negative (Negative) 02/02/23 19:57 Urine Blood Trace (Negative) H 02/02/23 19:57 Urine Nitrate Negative (Negative) 02/02/23 19:57 Urine Bilirubin Neg (Negative) 02/02/23 19:57 Urine Urobilinogen Norm mg/dL (Negative) 02/02/23 19:57 Ur Leukocyte Esterase Negative (Negative) 02/02/23 19:57 Urine RBC None /hpf (0-2) 02/02/23 19:57 Urine WBC None /hpf (0-5) 02/02/23 19:57 Ur Squamous Epith Cells None /hpf (0-5) 02/02/23 19:57 Amorphous Sediment Not Reportable 02/02/23 19:57 Urine Bacteria Trace /hpf (NONE) 02/02/23 19:57 Digoxin 0.3 ng/mL (0.6-1.2) L 02/02/23 18:53 Urine Opiates Screen Negative ng/mL (Negative) 02/02/23 19:57 Ur Barbiturates Screen Negative ng/mL (Negative) 02/02/23 19:57 Ur Phencyclidine Scrn Negative ng/mL (Negative) 02/02/23 19:57 Ur Amphetamines Screen Negative ng/mL (Negative) 02/02/23 19:57 U Benzodiazepines Scrn Negative ng/mL (Negative) 02/02/23 19:57 Urine Cocaine Screen Negative ng/mL (Negative) 02/02/23 19:57 U Marijuana (THC) Screen Positive ng/mL (Negative) H 02/02/23 19:57 All radiology interpretation(s) finalized by discharge EKG Data EKG 1: I personally reviewed and interpreted this EKG as follows: EKG interpretation date: 02/02/23 EKG interpretation time: 18:59 Prior EKG tracings: not available for review Interpretation: EKG showed ventricular rate 137 beats minute, QRS duration 88, QTc of 371, A-fib with RVR, nonspecific ST and T wave abnormality EKG 2: I personally reviewed and interpreted this EKG as follows: EKG interpretation date: 02/02/23 EKG interpretation time: 21:28 Prior EKG tracings: available for review Interpretation: EKG showed ventricular rate 99 beats minute, QRS duration 93, QTc of 400, atrial fibrillation, nonspecific T wave abnormality Discharge Plan Discharge Patient Disposition: Admitted As Inpatient Admit Provider: Parul Dean Clinical Impression: Atrial fibrillation with rapid ventricular response, Left lower lobe pneumonia, Acute alteration in mental status Condition: Stable Coding Level of Care Code ED Pickle Cutter for Avelina Gaitan
--- NOTE | 2023-02-02 18:56 | CTR_ITS ---
PROCEDURE INFORMATION: Exam: CT Head Without Contrast Exam date and time: 02/02/2023 8:07 PM Age: 82 years old Clinical indication: Altered mental status/memory loss; Additional info: AMS, HX of CVA, dementia, on anticoagulation TECHNIQUE: Imaging protocol: Computed tomography of the head without contrast. Radiation optimization: All CT scans at this facility use at least one of these dose optimization techniques: automated exposure control; mA and/or kV adjustment per patient size (includes targeted exams where dose is matched to clinical indication); or iterative reconstruction. REPORTING DATA: Count of CT and Cardiac NM exams in prior 12 months: This patient has received 0 known CTs and 0 known cardiac nuclear medicine studies in the 12 months prior to the current study. COMPARISON: CT head wo con* [id number] 07/23/2019 5:59 PM RADIATION DOSE METRICS: Total DLP (mGy-cm): 876.8 FINDINGS: Brain: No focal hemorrhage or midline shift is identified. The ventricles and parenchyma show mild atrophy and chronic bicerebral white matter ischemic change. Small chronic bifrontal subdural hygromas. A few scattered old lacunes are likely. There is a right posterior fossa probable meningioma measuring about 1.6 cm on series 4, image 13. Cerebral ventricles: No ventriculomegaly or evidence of hydrocephalus. Paranasal sinuses: No evidence of acute sinusitis. Mild left maxillary mucosal thickening. Mastoid air cells: Visualized mastoid air cells are well aerated. Bones/joints: No displaced skull fracture is noted. Soft tissues: Unremarkable. Vasculature: Diffuse vascular calcifications are present. CT/CT head wo con* [id number] IMPRESSION: 1. No acute intracranial hemorrhage. 2. Mild age-related changes. 3. There is a right posterior fossa probable meningioma measuring about 1.6 cm. 4. Other chronic findings above.
[2023-02-02 19:04] LABS: Hematocrit 40.5 % (37-53); Mean Corpuscular HGB Conc 33.3 g/dL (30-55); Mean Corpuscular Hemoglobin 33.1 pg (27-33); Mean Corpuscular Volume 99.3 fl (82-101); Platelet Count 129 10^3/cmm (157-399); Red Blood Count 4.08 10^6/uL (3.85-5.65); White Blood Count 18.58 10^3/uL (3.29-11.43)
[2023-02-02] MEDS: dilTIAZem 5 mg/mL SDV 5 mL 10 MG IVP (19:12)
[2023-02-02 19:17] LABS: INR 1.32 (0.8-1.2)
[2023-02-02 19:18] VITALS: BP 98/43; PULSE 100; RESP 16; O2SAT 93
[2023-02-02 19:23] LABS: Troponin(5th) Baseline 27 ng/L (0-15)
[2023-02-02 19:32] LABS: Alanine Aminotransferase 13 U/L (0-41); Albumin Level 3.3 g/dL (3.5-5.2); Alkaline Phosphatase 83 U/L (40-130); Anion Gap 15.1 (5-19); Aspartate Amino Transferase 22 U/L (0-40); Blood Urea Nitrogen 32 mg/dL (8-23); Calcium 9.1 mg/dL (8.5-10.5); Carbon Dioxide 27 mmol/L (22-29); Chloride 96 mmol/L (98-107); Globulin 3.1 g/dL (1.3-4.6); Glucose 121 mg/dL (65-115); Magnesium 2.1 mg/dL (1.7-2.3); Osmolality Calculated 286 mOsm/kg (285-295); Phosphorus 2.5 mg/dL (2.5-4.5); Potassium 4.1 mmol/L (3.5-5.1); Sodium 134 mmol/L (136-145); Thyroid Stimulating Hormone 1.82 uIU/mL (0.27-4.20); Total Bilirubin 0.8 mg/dL (0.15-1.2); Total Protein 6.4 g/dL (6.6-8.7)
[2023-02-02 19:35] LABS: Slide Review Slide Review Perform
[2023-02-02 19:36] LABS: Total Cells Counted 100 (0-100)
[2023-02-02 19:41] LABS: Absolute Segmented Neutrophil 13.7 10/cmm (1.6-7.1); Band Neutrophils Absolute 1.7 10^3/cmm (0.0-1.2); Eosinophils 0 %; Lymphocytes 1 %; Lymphocytes Absolute 0.2 10^3/cmm (1.2-3.4); Monocytes Absolute 0.2 10^3/cmm (0.1-0.6); Segmented Neutrophils 74 %
[2023-02-02 19:42] LABS: Absolute Neutrophil 15.4 10^3/cmm (1.4-6.5); Anisocytosis 1+; Macrocytosis 1+; Platelet Estimate Decreased (Normal)
[2023-02-02 20:08] LABS: Add Urine Microscopic? YES; Bilirubin Urine Neg (Negative); Blood Urine Trace (Negative); Glucose Urine UA 4+ (Normal); Ketones Urine Negative (Negative); Leukocyte Esterase Urine Negative (Negative); Nitrate Urine Negative (Negative); Protein Urine Neg (Negative); Urine Appearance Clear (CLEAR); Urine Color Yellow (Yellow); Urobilinogen Urine Norm (Negative); pH Urine 5 (5-7)
[2023-02-02 20:20] LABS: Amphetamines Screen Urine Negative (Negative); Barbiturates Screen Urine Negative (Negative); Benzodiazepines Screen Urine Negative (Negative); Cocaine Screen Urine Negative (Negative); Opiate Screen Urine Negative (Negative); PCP Screen Urine Negative (Negative); THC Screen Urine Positive (Negative)
[2023-02-02 20:24] LABS: Add Urine Culture? No; Bacteria Urine TRACE /hpf
[2023-02-02] MEDS: dilTIAZem ER (12HR) 60 mg Capsule PO (20:40)
[2023-02-02] MEDS: piperacillin-tazobactam 3.375 GM in sodium chloride 0.9% (plus) 50 ML IV (20:44)
[2023-02-02 20:47] LABS: Digoxin 0.3 ng/mL (0.6-1.2)
--- NOTE | 2023-02-02 20:51 | ECG_ITS ---
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 Measurements Intervals [place] Rate: 99 P: 0 WI: 0 QRS: -15 QRSD: 93 T: 86 QT: 343 QTc: 442 Interpretive Statements ATRIAL FIBRILLATION NONSPECIFIC T-WAVE ABNORMALITY ABNORMAL RHYTHM ECG Compared to ECG 12/12/2020 21:10:54 T-wave abnormality now present ST (T wave) deviation no longer present Electronically Signed On 02-02-2023 22:23:53 CHILD THERAPIST by Maria Dolores Wilson M.D. [id number]
[2023-02-02 20:54] LABS: Lactic Sepsis W/Reflex 3.4 mmol/L (0.5-2.2)
[2023-02-02 21:01] LABS: Troponin 5 2HR 26.38 ng/L (0-15); Troponin 5 2HR Delta -0.62 ABS# (0-10)
[2023-02-02] MEDS: sodium chloride 0.9% 1,000 ML 999 ML IV (21:17)
[2023-02-02] MEDS: dilTIAZem 100 MG in sodium chloride 0.9% (add-van) 100 ML IV (21:18)
--- NOTE | 2023-02-02 21:29 | P.HP_ITS ---
Providers/Chief Complaint 2 Primary Care Provider: Ravin Madrigal MD Chief Complaint: Weaknes, AMS History of Present Illness Allan Prado is a 82 year old male with history of mesenteric ischemia, A-fib, chronic anticoagulation, presented with chief complaint of generalized weakness, fatigue confusion. is at the bedside who is helping to get more information, patient is confused and lethargic. Patient was using urinal when entered the room, A-fib RVR I have discontinued Cardizem drip requested amiodarone and transferred to ICU for hypotension. As per the he has been confused for last 2 days he has been experiencing visual hallucination, talking to himself, she has not noticed any stroke related changes such as slurred speech, weakness of extremities. No active chest pain she is endorsing fever, productive cough, normally patient takes Mucinex but he has not been able to bring up sputum lately, he is constipated, uses a urinal at home as well In the ER he was diagnosed with A-fib RVR he received multiple doses of Cardizem, I requested amiodarone because his pressure was getting softer, hold digoxin, metoprolol, Patient is septic with left lower lobe pneumonia he received antibiotics, getting septic bolus Drug screen positive for marijuana Digoxin level is low Review of Systems 2 Const: Reports: fever(s), chills and change in weight Eyes: Denies: change in vision ENMT: Denies: throat pain Card: Reports: swelling of feet/ankles; Denies: chest pain Resp: Reports: dyspnea GI: Reports: constipation; Denies: abdominal pain Medications/Allergies Home Medications Medication Instructions Recorded Confirmed Last Taken Type albuterol sulfate 2.5 mg/3 mL 2.5 mg inhalation Q4H 03/06/19 12/23/20 03/21/20 History (0.083 %) solution for nebulization budesonide 0.5 mg/2 mL suspension 0.5 mg inhalation BID@1100,2300 03/06/19 12/23/20 03/21/20 History for nebulization clonazepam 0.5 mg tablet 0.5 mg PO DAILY PRN Anxiety 03/06/19 12/23/20 03/21/20 History docusate sodium 100 mg capsule 100 mg PO BID@1100,1700 03/06/19 12/23/20 03/21/20 History fluoxetine 20 mg tablet 20 mg PO DAILY@1100 03/06/19 12/23/20 03/21/20 History guaifenesin 600 mg tablet, 600 mg PO BID@1100,2300 03/07/19 12/23/20 03/21/20 History extended release 12 hr (Mucinex) rosuvastatin 20 mg tablet (Crestor) 20 mg PO DAILY@1100 03/21/19 12/23/20 03/21/20 History aspirin 81 mg tablet,delayed 81 mg PO DAILY@1100 03/21/20 12/23/20 03/21/20 History release apixaban 2.5 mg tablet (Eliquis) 2.5 mg PO BID #60 tabs 03/26/20 12/23/20 Unknown Rx ascorbic acid (vitamin C) 1,000 mg 1,000 mg PO DAILY 12/13/20 12/23/20 Unknown History tablet (Vitamin C) ferrous gluconate 324 mg (36 mg 324 mg PO EVERY OTHER DAY 12/13/20 12/23/20 Unknown History iron) tablet multivitamin 1 tab PO DAILY 12/13/20 12/23/20 Unknown History pantoprazole 40 mg tablet,delayed 40 mg PO DAILY 12/13/20 12/23/20 Unknown History release (Protonix) digoxin 125 mcg (0.125 mg) tablet 125 mcg PO DAILY 30 days #30 tabs 12/17/20 12/23/20 Unknown Rx metoprolol tartrate 25 mg tablet 25 mg PO BID@0900,2100 30 days #60 12/17/20 12/23/20 Unknown Rx tabs Allergies Allergy/AdvReac Type Severity Reaction Status Date / Time No Known Allergies Allergy Verified 02/02/23 18:56 PFSH Acute 2 PFSH: Medical History (Updated 02/02/23 @ 22:11 by Parul Dean MD) Sepsis Superior mesenteric artery stenosis Noted on CT imaging 11/2020 with reconstitution described. Mild aortic stenosis Valve area 1.5 cm?. 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 Cardiac arrest (2017) 2nd to PE CVA (cerebral vascular accident) Hyperkalemia BPH (benign prostatic hyperplasia) Hypertension GERD (gastroesophageal reflux disease) Atrial fibrillation Restless leg syndrome Hyperlipidemia CAD (coronary artery disease) Peripheral neuropathy COPD (chronic obstructive pulmonary disease) Rib fractures Pneumothorax Pulmonary embolism (2018) Ischemic cardiomyopathy Surgical History Status post open reduction and internal fixation (ORIF) of fracture (03/2019) Status post right hip replacement (03/2019) History of appendectomy Hx of tonsillectomy Hx of cataract surgery History of coronary artery stent placement Family History Other CAD (coronary artery disease) Social History Smoking and tobacco/nicotine status: current every day tobacco/nicotine user Second hand smoke exposure: No Alcohol intake: current Substance/Drug Use: never Lives independently: No Household members: spouse Marital status: Vitals/I&O/Wt Last Vital Signs Temp 98.1 F 02/02/23 18:47 Pulse 100 02/02/23 19:18 Resp 16 02/02/23 19:18 BP 98/43 02/02/23 19:18 Pulse Ox 93 02/02/23 19:18 O2 Del Method Nasal Cannula 02/02/23 19:18 O2 Flow Rate 3 02/02/23 19:18 02/02/23 02/02/23 02/02/23 06:59 14:59 22:59 Intake Total 50 / 50 Balance 50 / 50 Weight last 48 hrs Weight 58.967 kg Physical Exam 2 Narrative: Frail male Currently on 3 L GCS 15 Nonfocal neuroexam Pleasant and cooperative Malnourished Abdomen soft A-fib RVR Hypertensive No stroke related changes No audible stridor or wheezing No active wheezing Able to follow commands Lower extremity no active sign of ischemic ulcer Data 02/02/23 18:53 02/02/23 18:53 Micro: Microbiology 02/02/23 20:27 Blood Culture - Preliminary Blood SPECIMEN COLLECTED 02/02/23 20:27 Blood Culture - Preliminary Blood SPECIMEN COLLECTED A&P Assessment and plan (1) Atrial fibrillation: Qualifiers: Atrial fibrillation type: persistent (not longstanding) Qualified Code(s): I48.19 - Other persistent atrial fibrillation (2) Atrial fibrillation with rapid ventricular response: (3) Acute alteration in mental status: (4) Left lower lobe pneumonia: Qualifiers: Pneumonia type: due to unspecified organism Qualified Code(s): J18.9 - Pneumonia, unspecified organism (5) Sepsis: (6) DNR (do not resuscitate): Plan Sepsis with shock Related to community-acquired pneumonia Criteria met with tachypnea tachycardia leukocytosis high lactic acid, confusion Patient received septic bolus in the ER Will keep him on ceftriaxone and azithromycin Blood cultures taken Request sputum culture Respiratory panel is pending Leukocytosis with bandemia Discontinue Cardizem drip, transferred to ICU he may need Levophed A-fib RVR Switch to amiodarone after getting a bolus Patient is getting hypotensive with Cardizem Hold digoxin and metoprolol preserved ejection fraction heart failure Generalized weakness and fatigue with encephalopathy related to pneumonia Monitor closely TSH is normal Procalcitonin is high I am anticipating his D-dimer will be high related to sepsis DVT prophylaxis suffice with Eliquis Goals of care discussed with the patient Review of records, patient was admitted 2020 for vasoplegic shock requiring vasopressors in the ICU, for his A-fib RVR digoxin was added, there was plan to do cardioversion however it was not done because he responded very well to digoxin and metoprolol Entresto was discontinued secondary to low blood pressure Attestations 2 Medical Necessity Statement*: More than 2 midnights anticipated Diagnoses Persistent atrial fibrillation I48.19 Atrial fibrillation type: persistent (not longstanding) Atrial fibrillation with rapid ventricular response I48.91 Acute alteration in mental status R41.82 Left lower lobe pneumonia J18.9 Pneumonia type: due to unspecified organism Sepsis A41.9 DNR (do not resuscitate) Z66
[2023-02-02 21:49] VITALS: BP 88/57; PULSE 116; RESP 16; O2SAT 90
[2023-02-02 22:19] LABS: Reflex Lactate Order REFLEX LACTIC ORDERD
[2023-02-02 23:05] LABS: Adenovirus Not Detected (NOT DETECT); Chlamydia Pneumoniae Not Detected (NOT DETECT); Coronavirus 229E,HKU1,NL63,OC4 Not Detected (NOT DETECT); Human Metapneumovirus Not Detected (NOT DETECT); Human Rhinovirus/Enterovirus Not Detected (NOT DETECT); Influenza A Not Detected (NOT DETECT); Influenza A H1 Not Detected (NOT DETECT); Influenza A H1-2009 Not Detected (NOT DETECT); Influenza A H3 Not Detected (NOT DETECT); Influenza B Not Detected (NOT DETECT); Mycoplasma Pneumoniae Not Detected (NOT DETECT); Parainfluenza Virus Type 1 Not Detected (NOT DETECT); Parainfluenza Virus Type 2 Not Detected (NOT DETECT); Parainfluenza Virus Type 3 Not Detected (NOT DETECT); Parainfluenza Virus Type 4 Not Detected (NOT DETECT); Respiratory Syncytial Virus A Not Detected (NOT DETECT); Respiratory Syncytial Virus B Not Detected (NOT DETECT); SARS-COV-2 Not Detected (NOT DETECT)
[2023-02-02 23:29] LABS: Lactic Acid level (Lactate) 2.7 mmol/L (0.5-2.2)
[2023-02-02 23:35] VITALS: BP 97/53; PULSE 106; RESP 16
[2023-02-02] MEDS: amiodarone 50 mg/mL SDV 3 mL 150 MG IVP (23:58)
[2023-02-03] VITALS (36 sets, daily range): BP systolic 80–137; BP diastolic 40–61; PULSE 62–107; RESP 15–31; TEMP 36.1–38.2; O2SAT 70–100
[2023-02-03] MEDS: lactated ringers 1,000 ML 999 ML IV (00:01)
--- NOTE | 2023-02-03 00:51 | ECG_ITS ---
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 Measurements Intervals [place] Rate: 92 P: 0 [place]: 0 QRS: -19 QRSD: 86 T: 58 QT: 349 QTc: 433 Interpretive Statements ATRIAL FIBRILLATION ABNORMAL RHYTHM ECG Compared to ECG 02/02/2023 21:28:10 T-wave abnormality no longer present Electronically Signed On 02-03-2023 11:06:30 MOPPER by Maria Dolores Wilson M.D. [id number]
--- NOTE | 2023-02-03 02:15 | PC.NURSE ---
Patient received fro ER. Patient is alert and oriented to person only. He is cooperative and follows basic commands. Patient is unable to provide medical history.
[2023-02-03] MEDS: sodium chloride 0.9% 1,000 ML 75 ML IV (03:24)
[2023-02-03] MEDS: norepinephrine 4 MG/250 ML BAG 7.5 MG IV (03:24)
--- NOTE | 2023-02-03 03:30 | PC.NURSE ---
Multiple attempts to place thompson catheter. Urethral opening is barely visible and we were unable to pass a 16 fr, or a 12 fr. Contacted ER for assistance. ER nurse was unable to pass a 8fr cudet catheter. No other urethral openings located. Patient is able to pass urine and he voided 50ml in a urinal and was incontinent of a large anount of urine after thompson attempts.
[2023-02-03 04:08] LABS: Basophils # 0.1 10^3/uL (0.0-0.1); Basophils % 0.5 %; Eosinophils % 0.2 %; Hematocrit 36.5 % (37-53); Lymphocytes # 0.2 10^3/uL (0.8-4.8); Lymphocytes % 1.1 %; Mean Corpuscular HGB Conc 32.6 g/dL (30-55); Mean Corpuscular Hemoglobin 32.5 pg (27-33); Mean Corpuscular Volume 99.7 fl (82-101); Monocytes # 0.3 10^3/uL (0.2-0.9); Monocytes % 1.8 %; Neutrophils # 17.23 10^3/uL (1.8-7.7); Neutrophils % 93.5 %; Nucleated Red Blood Cells % 0 %; Platelet Count 105 10^3/cmm (157-399); Red Blood Count 3.66 10^6/uL (3.85-5.65); Red Cell Distribution Width 14.1 % (12.1-15.1); White Blood Count 18.43 10^3/uL (3.29-11.43)
[2023-02-03 04:29] LABS: Anion Gap 13.8 (5-19); Blood Urea Nitrogen 30 mg/dL (8-23); C Reactive Protein 237.5 mg/L (0.0-4.9); Calcium 8.1 mg/dL (8.5-10.5); Carbon Dioxide 26 mmol/L (22-29); Chloride 99 mmol/L (98-107); Glucose 100 mg/dL (65-115); Magnesium 1.9 mg/dL (1.7-2.3); Osmolality Calculated 286 mOsm/kg (285-295); Phosphorus 3.4 mg/dL (2.5-4.5); Potassium 3.8 mmol/L (3.5-5.1); Sodium 135 mmol/L (136-145)
[2023-02-03 04:30] LABS: Lactate (Lactic Acid level) 2.7 mmol/L (0.5-2.2); Slide Review Slide Review Perform
[2023-02-03 04:44] LABS: Vitamin B12 1507 pg/mL (232-1245)
--- NOTE | 2023-02-03 07:57 | PC.NURSE ---
Heart rhythm converted to sinus rhythm at 0615.
--- NOTE | 2023-02-03 07:58 | PC.PHAR ---
Addendum entered by Radhika Velez 02/03/23 10:10: pts verified home medications she sts iron, digoxin and laxatives have been dc Original Note: ATTEMPTED TO CALL TO VERIFY MEDS AT 8:00 AM.
[2023-02-03 09:02] LABS: Cortisol Random 44.86 ug/dL (2.47-19.5); NT Pro B Type Natriuretic Pept 12121 pg/mL (0-450)
[2023-02-03] MEDS: piperacillin-tazobactam 3.375 GM in sodium chloride 0.9% (plus) 50 ML IV ×2 (10:09→19:13)
[2023-02-03] MEDS: vancomycin 750 MG in sodium chloride 0.9% 250 ML 250 MG IV (10:09)
[2023-02-03] MEDS: fluoxetine 20 mg Capsule PO (11:14)
[2023-02-03] MEDS: apixaban 5 mg Tablet 2.5 MG PO ×2 (11:14→19:13)
[2023-02-03] MEDS: atorvastatin 40 mg Tablet 80 MG PO (11:14)
[2023-02-03] MEDS: aspirin 81 mg EC Tablet PO (11:14)
[2023-02-03] MEDS: digoxin 125 mcg Tablet PO (11:14)
[2023-02-03] MEDS: ipratropium-albuterol 3 mL Neb INHALATION ×3 (11:28→19:35)
[2023-02-03] MEDS: budesonide 0.5 mg/2 mL Neb INHALATION ×2 (11:28→19:35)
--- NOTE | 2023-02-03 17:19 | P.PN_ITS ---
Subjective 2 Subjective: Patient was seen this morning he is alert to person, not to place, not to time, he does awaken to, but falls back asleep, quite cachectic appearance, severe protein calorie malnutrition, physical deconditioning, he remains on Levophed, going at 4 mcg/min, he is converted to normal sinus rhythm, on 2 L, Vitals/I&O/Wt Last Vital Signs Temp 98.7 F 02/03/23 07:30 Pulse 65 02/03/23 15:29 Resp 20 H 02/03/23 15:20 BP 90/45 02/03/23 12:30 Pulse Ox 96 02/03/23 15:20 O2 Del Method Nasal Cannula 02/03/23 15:20 O2 Flow Rate 2 02/03/23 15:20 02/03/23 02/03/23 02/03/23 06:59 14:59 22:59 Intake Total 1202.625 / 1257.292 434.25 / 434.25 Balance 1202.625 / 1257.292 434.25 / 434.25 Weight last 48 hrs Weight 54.975 kg Weight 25.628 kg Weight 55.1 kg Weight 58.967 kg Physical Exam 2 Const: COMMON NORMALS: no acute distress EXAM LIMITATIONS: altered mental status NUTRITIONAL APPEARANCE: cachectic ORIENTATION/CONSCIOUSNESS: Yes awake; not oriented to person, not oriented to place and not oriented to time Resp: COMMON NORMALS: normal respiratory effort, No retractions, No use of accessory muscles and clear to auscultation bilaterally AUSCULTATION: clear to auscultation bilaterally Cardio: COMMON NORMALS: regular rate, regular rhythm, S1 normal heart sound present and S2 normal heart sound present RATE: regular rate RHYTHM: r egular rhythm HEART SOUNDS: S1 normal heart sound present and S2 normal heart sound present GI: COMMON NORMALS: Normal to inspection, nondistended, normoactive bowel sounds present and non-tender Extremity: COMMON NORMALS: no pedal edema Neuro: SENSORIUM/ORIENTATION: No oriented to person, No oriented to place and No oriented to time Psych: COMMON NORMALS: mental status grossly normal Skin: NARRATIVE SKIN EXAM: Muscle wasting bilateral arms, temporal muscle wasting, bilateral calves, bilateral thighs Sepsis: Is patient septic: Yes Focused sepsis exam performed: Yes F ocused sepsis exam: Bilateral DP PT pulses diminished, cap refill greater than 3 seconds, no mottling but pale bilateral lower extremities Date exam was performed: 02/03/23 Time exam was performed: 08:00 Data 02/03/23 03:43 02/03/23 03:43 Micro: Microbiology 02/02/23 20:27 Blood Culture - Preliminary Blood SPECIMEN COLLECTED 02/02/23 20:27 Blood Culture - Preliminary Blood SPECIMEN COLLECTED A&P Assessment and plan (1) Atrial fibrillation: Qualifiers: Atrial fibrillation type: persistent (not longstanding) Qualified Code(s): I48.19 - Other persistent atrial fibrillation (2) Atrial fibrillation with rapid ventricular response: (3) Acute alteration in mental status: (4) Left lower lobe pneumonia: Qualifiers: Pneumonia type: due to unspecified organism Qualified Code(s): J18.9 - Pneumonia, unspecified organism (5) Sepsis: (6) DNR (do not resuscitate): (7) Septic shock: Plan Sepsis with shock Related to community-acquired pneumonia Criteria met with tachypnea tachycardia leukocytosis high lactic acid, confusion Patient received septic bolus in the ER Broaden antibiotic coverage to vancomycin, Zosyn Blood cultures taken Request sputum culture Respiratory panel within normal limits Leukocytosis with bandemia Currently on Levophed at 4, maintain MAP greater than 65, wean as tolerated A-fib RVR, now converted to normal sinus rhythm Resume digoxin preserved ejection fraction heart failure Severe protein calorie malnutrition, physical deconditioning, muscle wasting, recurrent ? Consult dietary Generalized weakness and fatigue with encephalopathy related to pneumonia ? Does have underlying dementia Monitor closely TSH is normal Procalcitonin is high DVT prophylaxis suffice with Eliquis Goals of care discussed with the patient Review of records, patient was admitted 2020 for vasoplegic shock requiring vasopressors in the ICU, for his A-fib RVR digoxin was added, there was plan to do cardioversion however it was not done because he responded very well to digoxin and metoprolol Entresto was discontinued secondary to low blood pressure Attestations 2 Medical Necessity Statement*: Patient requires hospitalization for septic shock secondary to left lower lobe pneumonia requiring pressors in the ICU, A-fib converted to normal sinus rhythm encephalopathy Coding Level of Care Code Critical Care >/= 30 minutes Critical care time (in minutes): 45 The high probability of a clinically significant, sudden or life threatening deterioration, as referenced in this documentation, required my full and direct attention, intervention and personal management. The critical care time shown is in addition to time spent performing any reported separately billable procedures and includes the following: [x] Data and vital sign review and interpretation [x ] Patient assessment, examination and intervention [x] Medication orders and management [x] Patient/Family updates as able [x] Care Coordination and Documentation. Diagnoses Persistent atrial fibrillation I48.19 Atrial fibrillation type: persistent (not longstanding) Atrial fibrillation with rapid ventricular response I48.91 Acute alteration in mental status R41.82 Left lower lobe pneumonia J18.9 Pneumonia type: due to unspecified organism Sepsis A41.9 DNR (do not resuscitate) Z66 Septic shock A41.9; R65.21
[2023-02-03] MEDS: docusate sodium 100 mg Capsule PO (19:14)
--- NOTE | 2023-02-03 20:11 | PC.NURSE ---
Shift summary: Pt rested in bed throughout the shift. He would arouse when spoken too after 1100. He would answer questions appropriately. He has been sinus rhythm this shift. He has been on Levophed this am, was able to titrated off shortly after 1000 this am. He has urinated 3 times this shift. Incontinent in am and pm, but midday was able to indicated he needed to urinated and used urinal. He was kept NPo due to his drowsiness today. was at bedside for most of the shift.
[2023-02-04] VITALS (86 sets, daily range): BP systolic 97–156; BP diastolic 44–96; PULSE 85–132; RESP 14–33; TEMP 35.9–36.6; O2SAT 84–100
--- NOTE | 2023-02-04 02:13 | PC.NURSE ---
Levophed On: On arrival to shift @0100 Levophed is running @2mcg/min. MAR edited to reflect this.
[2023-02-04] MEDS: piperacillin-tazobactam 3.375 GM in sodium chloride 0.9% (plus) 50 ML IV ×3 (02:57→17:42)
[2023-02-04 06:08] LABS: Basophils # 0.1 10^3/uL (0.0-0.1); Basophils % 0.8 %; Eosinophils # 0.1 10^3/uL (0.0-0.8); Eosinophils % 0.8 %; Hematocrit 38.2 % (37-53); Lymphocytes # 0.2 10^3/uL (0.8-4.8); Lymphocytes % 1.4 %; Mean Corpuscular HGB Conc 32.7 g/dL (30-55); Mean Corpuscular Hemoglobin 32.9 pg (27-33); Mean Corpuscular Volume 100.5 fl (82-101); Mean Platelet Volume 11.2 fL (7.4-10.4); Monocytes # 0.4 10^3/uL (0.2-0.9); Neutrophils # 13.47 10^3/uL (1.8-7.7); Neutrophils % 93.7 %; Nucleated Red Blood Cells % 0 %; Platelet Count 108 10^3/cmm (157-399); Red Cell Distribution Width 13.9 % (12.1-15.1); White Blood Count 14.38 10^3/uL (3.29-11.43)
[2023-02-04 07:29] LABS: Lactate (Lactic Acid level) 1.1 mmol/L (0.5-2.2)
[2023-02-04 07:37] LABS: NT Pro B Type Natriuretic Pept 7890 pg/mL (0-450)
[2023-02-04] MEDS: ipratropium-albuterol 3 mL Neb INHALATION ×4 (07:47→20:52)
[2023-02-04] MEDS: budesonide 0.5 mg/2 mL Neb INHALATION ×2 (07:47→20:52)
[2023-02-04 07:49] LABS: Alanine Aminotransferase 17 U/L (0-41); Albumin Level 2.5 g/dL (3.5-5.2); Alkaline Phosphatase 104 U/L (40-130); Anion Gap 13.3 (5-19); Aspartate Amino Transferase 27 U/L (0-40); Blood Urea Nitrogen 24 mg/dL (8-23); C Reactive Protein 280.7 mg/L (0.0-4.9); Calcium 8.5 mg/dL (8.5-10.5); Carbon Dioxide 26 mmol/L (22-29); Chloride 102 mmol/L (98-107); Globulin 3.1 g/dL (1.3-4.6); Glucose 73 mg/dL (65-115); Magnesium 2.2 mg/dL (1.7-2.3); Osmolality Calculated 289 mOsm/kg (285-295); Phosphorus 2.9 mg/dL (2.5-4.5); Potassium 3.3 mmol/L (3.5-5.1); Sodium 138 mmol/L (136-145); Total Bilirubin 0.6 mg/dL (0.15-1.2); Total Protein 5.6 g/dL (6.6-8.7)
[2023-02-04] MEDS: lidocaine 1% 5 ML in potassium chloride premix 100 ML 52.5 ML IV (10:34)
[2023-02-04] MEDS: vancomycin 750 MG in sodium chloride 0.9% 250 ML 250 MG IV (11:02)
[2023-02-04] MEDS: apixaban 5 mg Tablet 2.5 MG PO ×2 (11:06→17:41)
[2023-02-04] MEDS: digoxin 125 mcg Tablet PO (11:07)
[2023-02-04] MEDS: aspirin 81 mg EC Tablet PO (11:07)
[2023-02-04] MEDS: fluoxetine 20 mg Capsule PO (11:08)
[2023-02-04] MEDS: atorvastatin 40 mg Tablet 80 MG PO (12:21)
[2023-02-04] MEDS: docusate sodium 100 mg Capsule PO ×2 (12:21→17:40)
--- NOTE | 2023-02-04 13:40 | P.PN_ITS ---
Subjective 2 Subjective: Patient was seen this morning he is alert to person, not to place, not to time he can follow commands, blood pressures remain soft he is on tube Levophed, currently back in A-fib heart rates in the 110s, on amiodarone drip on 3 L, has no pain complaints Vitals/I&O/Wt Last Vital Signs Temp 97.7 F 02/04/23 12:31 Pulse 109 H 02/04/23 11:34 Resp 22 H 02/04/23 11:34 BP 118/71 02/04/23 06:15 Pulse Ox 97 02/04/23 11:34 O2 Del Method Nasal Cannula 02/04/23 11:34 O2 Flow Rate 3 02/04/23 11:34 02/03/23 02/04/23 02/04/23 22:59 06:59 14:59 Intake Total 3200 / 3634.25 301.829 / 3936.079 1030 / 1030 Output Total 175 / 375 400 / 775 250 / 250 Balance 3025 / 3259.25 -98.171 / 3161.079 780 / 780 Weight last 48 hrs Weight 56.331 kg Weight 54.975 kg Weight 25.628 kg Weight 55.1 kg Weight 58.967 kg Physical Exam 2 Const: COMMON NORMALS: no acute distress ORIENTATION/CONSCIOUSNESS: Yes awake and Yes oriented to person; not oriented to place and not oriented to time Resp: COMMON NORMALS: normal respiratory effort, No retractions, No use of accessory muscles and clear to auscultation bilaterally AUSCULTATION: clear to auscultation bilaterally Cardio: COMMON NORMALS: regular rate, regular rhythm, S1 normal heart sound present and S2 normal heart sound present RATE: regular rate RHYTHM: r egular rhythm HEART SOUNDS: S1 normal heart sound present and S2 normal heart sound present GI: COMMON NORMALS: Normal to inspection, nondistended, normoactive bowel sounds present and non-tender Extremity: COMMON NORMALS: no pedal edema Neuro: SENSORIUM/ORIENTATION: Yes oriented to person, No oriented to place and No oriented to time Psych: COMMON NORMALS: mental status grossly normal Data 02/04/23 05:34 02/04/23 06:56 Micro: Microbiology 02/02/23 20:27 Blood Culture - Preliminary Blood NEGATIVE TO DATE 02/02/23 20:27 Blood Culture - Preliminary Blood NEGATIVE TO DATE A&P Assessment and plan (1) Atrial fibrillation: Qualifiers: Atrial fibrillation type: persistent (not longstanding) Qualified Code(s): I48.19 - Other persistent atrial fibrillation (2) Atrial fibrillation with rapid ventricular response: (3) Acute alteration in mental status: (4) Left lower lobe pneumonia: Qualifiers: Pneumonia type: due to unspecified organism Qualified Code(s): J18.9 - Pneumonia, unspecified organism (5) Sepsis: (6) DNR (do not resuscitate): (7) Septic shock: Plan Sepsis with shock Related to community-acquired pneumonia Criteria met with tachypnea tachycardia leukocytosis high lactic acid, confusion Patient received septic bolus in the ER Broaden antibiotic coverage to vancomycin, Zosyn Blood cultures taken Request sputum culture Respiratory panel within normal limits Leukocytosis with bandemia Currently on Levophed at 2, maintain MAP greater than 65, wean as tolerated A-fib RVR, now converted to normal sinus rhythm Resume digoxin, amiodarone 4 twice daily ? Currently on amiodarone drip preserved ejection fraction heart failure Severe protein calorie malnutrition, physical deconditioning, muscle wasting, recurrent ? Consult dietary Generalized weakness and fatigue with encephalopathy related to pneumonia ? Does have underlying dementia Monitor closely TSH is normal Procalcitonin is high DVT prophylaxis suffice with Eliquis Goals of care discussed with the patient Review of records, patient was admitted 2020 for vasoplegic shock requiring vasopressors in the ICU, for his A-fib RVR digoxin was added, there was plan to do cardioversion however it was not done because he responded very well to digoxin and metoprolol Entresto was discontinued secondary to low blood pressure Attestations 2 Medical Necessity Statement*: Patient requires hospitalization for septic shock secondary to commune acquired pneumonia Diagnoses Persistent atrial fibrillation I48.19 Atrial fibrillation type: persistent (not longstanding) Atrial fibrillation with rapid ventricular response I48.91 Acute alteration in mental status R41.82 Left lower lobe pneumonia J18.9 Pneumonia type: due to unspecified organism Sepsis A41.9 DNR (do not resuscitate) Z66 Septic shock A41.9; R65.21
[2023-02-04] MEDS: amiodarone 200 mg Tablet 400 MG PO ×2 (13:47→17:40)
[2023-02-04 20:46] LABS: Glucose Point of Care 115 mg/dL (70-110)
[2023-02-05] VITALS (29 sets, daily range): BP systolic 92–150; BP diastolic 56–80; PULSE 61–115; RESP 17–26; TEMP 36.7–37; O2SAT 67–100
[2023-02-05] MEDS: piperacillin-tazobactam 3.375 GM in sodium chloride 0.9% (plus) 50 ML IV ×3 (01:02→17:33)
[2023-02-05 05:10] LABS: Basophils % 0.4 %; Eosinophils % 0.1 %; Hematocrit 38.3 % (37-53); Lymphocytes # 0.2 10^3/uL (0.8-4.8); Mean Corpuscular HGB Conc 33.2 g/dL (30-55); Mean Corpuscular Hemoglobin 32.2 pg (27-33); Mean Corpuscular Volume 97.2 fl (82-101); Mean Platelet Volume 10.2 fL (7.4-10.4); Monocytes # 0.8 10^3/uL (0.2-0.9); Monocytes % 7.8 %; Neutrophils # 9.27 10^3/uL (1.8-7.7); Neutrophils % 89.1 %; Nucleated Red Blood Cells % 0 %; Platelet Count 127 10^3/cmm (157-399); Red Blood Count 3.94 10^6/uL (3.85-5.65); Red Cell Distribution Width 13.8 % (12.1-15.1)
[2023-02-05 05:28] LABS: Alanine Aminotransferase 16 U/L (0-41); Albumin Level 2.3 g/dL (3.5-5.2); Alkaline Phosphatase 86 U/L (40-130); Anion Gap 12.9 (5-19); Aspartate Amino Transferase 26 U/L (0-40); Blood Urea Nitrogen 23 mg/dL (8-23); C Reactive Protein 196.5 mg/L (0.0-4.9); Calcium 8.6 mg/dL (8.5-10.5); Carbon Dioxide 27 mmol/L (22-29); Chloride 104 mmol/L (98-107); Globulin 3.1 g/dL (1.3-4.6); Glucose 78 mg/dL (65-115); Magnesium 2.2 mg/dL (1.7-2.3); Osmolality Calculated 295 mOsm/kg (285-295); Phosphorus 1.7 mg/dL (2.5-4.5); Sodium 141 mmol/L (136-145); Total Bilirubin 0.6 mg/dL (0.15-1.2); Total Protein 5.4 g/dL (6.6-8.7)
[2023-02-05 05:34] LABS: Potassium 2.9 mmol/L (3.5-5.1)
[2023-02-05 05:37] LABS: NT Pro B Type Natriuretic Pept 13330 pg/mL (0-450); Procalcitonin 4.43 ng/mL (0-0.5)
[2023-02-05] MEDS: potassium chloride ER 20 mEq Tablet PO (06:04)
[2023-02-05 06:06] LABS: Lactate (Lactic Acid level) 1.9 mmol/L (0.5-2.2)
[2023-02-05 07:40] LABS: Glucose Point of Care 79 mg/dL (70-110)
[2023-02-05] MEDS: budesonide 0.5 mg/2 mL Neb INHALATION ×2 (08:22→19:51)
[2023-02-05] MEDS: ipratropium-albuterol 3 mL Neb INHALATION ×4 (08:22→19:51)
--- NOTE | 2023-02-05 09:21 | PC.SOCIAL ---
IMM Update Pg. 2 of IMM updated and reviewed with patient who verbalized understanding. Copy provided.
[2023-02-05] MEDS: vancomycin 750 MG in sodium chloride 0.9% 250 ML 200 MG IV (09:30)
[2023-02-05] MEDS: lidocaine 1% 5 ML in potassium chloride premix 100 ML 26.25 ML IV (09:31)
[2023-02-05] MEDS: digoxin 125 mcg Tablet PO (09:32)
[2023-02-05] MEDS: apixaban 5 mg Tablet 2.5 MG PO ×2 (09:33→17:33)
[2023-02-05] MEDS: amiodarone 200 mg Tablet 400 MG PO ×2 (09:33→17:32)
[2023-02-05 12:00] LABS: Glucose Point of Care 115 mg/dL (70-110)
[2023-02-05] MEDS: acetaminophen 500 mg Tablet PO (13:07)
[2023-02-05] MEDS: fluoxetine 20 mg Capsule PO (13:07)
[2023-02-05] MEDS: aspirin 81 mg EC Tablet PO (13:07)
[2023-02-05] MEDS: atorvastatin 40 mg Tablet 80 MG PO (13:08)
[2023-02-05] MEDS: docusate sodium 100 mg Capsule PO ×2 (13:08→17:33)
--- NOTE | 2023-02-05 14:47 | PC.NURSE ---
Report called to Med surg and given to Chau.
--- NOTE | 2023-02-05 16:12 | PC.NURSE ---
transferred pt to room 276-2 without difficulty noted.
[2023-02-05 16:44] LABS: Glucose Point of Care 132 mg/dL (70-110)
--- NOTE | 2023-02-05 17:49 | P.PN_ITS ---
Subjective 2 Subjective: Patient was seen this morning, he is much more alert awake, denies any chest pain, no shortness of breath, no abdominal pain complaints Vitals/I&O/Wt Last Vital Signs Temp 98.0 F 02/05/23 17:19 Pulse 95 02/05/23 17:19 Resp 18 02/05/23 17:19 BP 131/56 02/05/23 17:19 Pulse Ox 93 02/05/23 17:19 O2 Del Method Nasal Cannula 02/05/23 17:19 O2 Flow Rate 3 02/05/23 15:18 02/05/23 02/05/23 02/05/23 06:59 14:59 22:59 Intake Total 50 / 3671.981 1805 / 1805 50 / 1855 Output Total 725 / 1675 450 / 450 Balance -675 / 8617.721 0059 / 1355 50 / 1405 Weight last 48 hrs Weight 53 kg Weight 56.331 kg Physical Exam 2 Const: COMMON NORMALS: no acute distress ORIENTATION/CONSCIOUSNESS: Yes awake, Yes oriented to person and Yes oriented to place; not oriented to time HENMT: COMMON NORMALS: normocephalic HEAD & SCALP: normocephalic Resp: COMMON NORMALS: normal respiratory effort, No retractions, No use of accessory muscles and clear to auscultation bilaterally AUSCULTATION: clear to auscultation bilaterally Cardio: COMMON NORMALS: regular rate, regular rhythm, S1 normal heart sound present and S2 normal heart sound present RATE: regular rate RHYTHM: r egular rhythm HEART SOUNDS: S1 normal heart sound present and S2 normal heart sound present GI: COMMON NORMALS: Normal to inspection, nondistended, normoactive bowel sounds present and non-tender Extremity: COMMON NORMALS: no pedal edema Neuro: SENSORIUM/ORIENTATION: Yes oriented to person, Yes oriented to place and No oriented to time Psych: COMMON NORMALS: mental status grossly normal Data 02/05/23 04:57 02/05/23 04:57 Micro: Microbiology 02/05/23 06:00 Gram Stain - Final Sputum - Expectorated Sputum A&P Assessment and plan (1) Atrial fibrillation: Qualifiers: Atrial fibrillation type: persistent (not longstanding) Qualified Code(s): I48.19 - Other persistent atrial fibrillation (2) Atrial fibrillation with rapid ventricular response: (3) Acute alteration in mental status: (4) Left lower lobe pneumonia: Qualifiers: Pneumonia type: due to unspecified organism Qualified Code(s): J18.9 - Pneumonia, unspecified organism (5) Sepsis: (6) DNR (do not resuscitate): (7) Septic shock: Plan Sepsis with shock, resolved Related to community-acquired pneumonia Criteria met with tachypnea tachycardia leukocytosis high lactic acid, confusion Broaden antibiotic coverage to vancomycin, Zosyn Blood cultures taken Request sputum culture Respiratory panel within normal limits Leukocytosis with bandemia A-fib RVR, now converted to normal sinus rhythm Resume digoxin, amiodarone 4 twice daily preserved ejection fraction heart failure Severe protein calorie malnutrition, physical deconditioning, muscle wasting, recurrent ? Consult dietary Generalized weakness and fatigue with encephalopathy related to pneumonia ? Does have underlying dementia Monitor closely TSH is normal Procalcitonin is high Acute encephalopathy, ? Sec to sepsis, septic shock, [facility] pneumonia, improving to ? Does have underlying dementia DVT prophylaxis suffice with Eliquis Goals of care discussed with the patient Review of records, patient was admitted 2020 for vasoplegic shock requiring vasopressors in the ICU, for his A-fib RVR digoxin was added, there was plan to do cardioversion however it was not done because he responded very well to digoxin and metoprolol Entresto was discontinued secondary to low blood pressure Plan for today will moved to general medical floors, continue antibiotics, monitor heart rate monitor hemodynamics, monitor mentation Attestations 2 Medical Necessity Statement*: Patient requires hospitalization for pneumonia Diagnoses Persistent atrial fibrillation I48.19 Atrial fibrillation type: persistent (not longstanding) Atrial fibrillation with rapid ventricular response I48.91 Acute alteration in mental status R41.82 Left lower lobe pneumonia J18.9 Pneumonia type: due to unspecified organism Sepsis A41.9 DNR (do not resuscitate) Z66 Septic shock A41.9; R65.21
[2023-02-05 20:56] LABS: Glucose Point of Care 147 mg/dL (70-110)
[2023-02-06] VITALS (15 sets, daily range): BP systolic 100–134; BP diastolic 57–71; PULSE 51–120; RESP 14–18; TEMP 36.4–37.3; O2SAT 91–95
[2023-02-06] MEDS: piperacillin-tazobactam 3.375 GM in sodium chloride 0.9% (plus) 50 ML IV ×3 (03:15→17:24)
[2023-02-06 05:48] LABS: Basophils % 0.2 %; Eosinophils % 0.1 %; Hematocrit 36.8 % (37-53); Lymphocytes # 0.4 10^3/uL (0.8-4.8); Lymphocytes % 4.6 %; Mean Corpuscular HGB Conc 32.9 g/dL (30-55); Mean Corpuscular Hemoglobin 31.8 pg (27-33); Mean Corpuscular Volume 96.8 fl (82-101); Monocytes % 10.6 %; Neutrophils # 7.72 10^3/uL (1.8-7.7); Neutrophils % 83.7 %; Nucleated Red Blood Cells % 0 %; Platelet Count 132 10^3/cmm (157-399); Red Cell Distribution Width 13.9 % (12.1-15.1); White Blood Count 9.22 10^3/uL (3.29-11.43)
[2023-02-06 05:58] LABS: Lactate (Lactic Acid level) 1.7 mmol/L (0.5-2.2)
[2023-02-06 06:07] LABS: Alanine Aminotransferase 21 U/L (0-41); Albumin Level 2.8 g/dL (3.5-5.2); Alkaline Phosphatase 103 U/L (40-130); Aspartate Amino Transferase 38 U/L (0-40); Blood Urea Nitrogen 20 mg/dL (8-23); Calcium 8.4 mg/dL (8.5-10.5); Carbon Dioxide 27 mmol/L (22-29); Chloride 103 mmol/L (98-107); Globulin 2.4 g/dL (1.3-4.6); Glucose 96 mg/dL (65-115); Magnesium 2.2 mg/dL (1.7-2.3); NT Pro B Type Natriuretic Pept 19301 pg/mL (0-450); Osmolality Calculated 292 mOsm/kg (285-295); Phosphorus 1.6 mg/dL (2.5-4.5); Sodium 140 mmol/L (136-145); Total Bilirubin 0.6 mg/dL (0.15-1.2); Total Protein 5.2 g/dL (6.6-8.7)
[2023-02-06 06:25] LABS: Glucose Point of Care 106 mg/dL (70-110)
[2023-02-06] MEDS: budesonide 0.5 mg/2 mL Neb INHALATION ×2 (07:11→20:02)
[2023-02-06] MEDS: ipratropium-albuterol 3 mL Neb INHALATION ×4 (07:11→20:02)
[2023-02-06 08:18] LABS: Vancomycin Trough 8.6 ug/mL (10-15)
[2023-02-06] MEDS: amiodarone 200 mg Tablet 400 MG PO ×2 (08:38→17:25)
[2023-02-06] MEDS: digoxin 125 mcg Tablet PO (08:39)
[2023-02-06] MEDS: apixaban 5 mg Tablet 2.5 MG PO ×2 (08:39→17:25)
[2023-02-06] MEDS: vancomycin 1,000 MG in sodium chloride 0.9% 250 ML 250 MG IV (08:43)
[2023-02-06] MEDS: potassium phosphate (mEq K) 40 MEQ in sodium chloride 0.9% (100 ml) 100 ML 25 MEQ IV (09:29)
[2023-02-06] MEDS: FUROsemide 10 mg/mL SDV 4mL 40 MG IVP (09:49)
[2023-02-06 11:31] LABS: Glucose Point of Care 180 mg/dL (70-110)
[2023-02-06] MEDS: aspirin 81 mg EC Tablet PO (12:09)
[2023-02-06] MEDS: fluoxetine 20 mg Capsule PO (12:09)
[2023-02-06] MEDS: docusate sodium 100 mg Capsule PO ×2 (12:09→17:25)
[2023-02-06] MEDS: atorvastatin 40 mg Tablet 80 MG PO (12:09)
--- NOTE | 2023-02-06 12:21 | P.PN_ITS ---
Subjective 2 Subjective: Patient was seen this morning he is alert to person, not to place, not to time, his complaint this morning is wheezing and shortness of breath, he has crackles on examination, afebrile overnight normotensive Vitals/I&O/Wt Last Vital Signs Temp 97.6 F 02/06/23 11:39 Pulse 65 02/06/23 11:39 Resp 14 02/06/23 11:39 BP 122/65 02/06/23 11:39 Pulse Ox 95 02/06/23 11:39 O2 Del Method Nasal Cannula 02/06/23 11:39 O2 Flow Rate 3 02/06/23 11:11 02/05/23 02/06/23 02/06/23 22:59 06:59 14:59 Intake Total 530 / 2335 50 / 2385 540.0 / 540.0 Balance 530 / 1885 50 / 1935 540.0 / 540.0 Weight last 48 hrs Weight 60.016 kg Weight 53 kg Physical Exam 2 Const: COMMON NORMALS: no acute distress ORIENTATION/CONSCIOUSNESS: Yes awake and Yes oriented to person; not oriented to place and not oriented to time Resp: COMMON NORMALS: normal respiratory effort, No retractions and No use of accessory muscles Cardio: COMMON NORMALS: regular rate, regular rhythm, S1 normal heart sound present and S2 normal heart sound present RATE: regular rate RHYTHM: r egular rhythm HEART SOUNDS: S1 normal heart sound present and S2 normal heart sound present GI: COMMON NORMALS: Normal to inspection, nondistended, normoactive bowel sounds present and non-tender Extremity: COMMON NORMALS: no pedal edema Neuro: SENSORIUM/ORIENTATION: Yes oriented to person, No oriented to place and No oriented to time Data 02/06/23 05:01 02/06/23 05:01 Micro: Microbiology 02/05/23 06:00 Gram Stain - Final Sputum - Expectorated Sputum A&P Assessment and plan (1) Atrial fibrillation: Qualifiers: Atrial fibrillation type: persistent (not longstanding) Qualified Code(s): I48.19 - Other persistent atrial fibrillation (2) Atrial fibrillation with rapid ventricular response: (3) Acute alteration in mental status: (4) Left lower lobe pneumonia: Qualifiers: Pneumonia type: due to unspecified organism Qualified Code(s): J18.9 - Pneumonia, unspecified organism (5) Sepsis: (6) DNR (do not resuscitate): (7) Septic shock: Plan Sepsis with shock, resolved Related to community-acquired pneumonia Criteria met with tachypnea tachycardia leukocytosis high lactic acid, confusion Broaden antibiotic coverage to vancomycin, Zosyn Blood cultures , so far negative sputum culture Respiratory panel within normal limits Leukocytosis with bandemia Fluid overload ? 1 dose of IV Lasix today A-fib RVR, now converted to normal sinus rhythm Resume digoxin, amiodarone 4 twice daily preserved ejection fraction heart failure Severe protein calorie malnutrition, physical deconditioning, muscle wasting, recurrent ? Consult dietary Generalized weakness and fatigue with encephalopathy related to pneumonia ? Does have underlying dementia Monitor closely TSH is normal Procalcitonin is high Acute encephalopathy, resolving ? Sec to sepsis, septic shock, pneumonia, ? Does have underlying dementia DVT prophylaxis suffice with Eliquis Goals of care discussed with the patient Attestations 2 Medical Necessity Statement*: Patient requires hospitalization for fluid overload, community-acquired pneumonia, requiring diuresis, IV antibiotics Diagnoses Persistent atrial fibrillation I48.19 Atrial fibrillation type: persistent (not longstanding) Atrial fibrillation with rapid ventricular response I48.91 Acute alteration in mental status R41.82 Left lower lobe pneumonia J18.9 Pneumonia type: due to unspecified organism Sepsis A41.9 DNR (do not resuscitate) Z66 Septic shock A41.9; R65.21
[2023-02-06 16:59] LABS: Glucose Point of Care 97 mg/dL (70-110)
[2023-02-06 22:01] LABS: Glucose Point of Care 129 mg/dL (70-110)
[2023-02-07] VITALS (13 sets, daily range): BP systolic 115–151; BP diastolic 54–65; PULSE 71–106; RESP 16–20; TEMP 36.4–36.8; O2SAT 91–96; BMI 19.5
[2023-02-07] MEDS: piperacillin-tazobactam 3.375 GM in sodium chloride 0.9% (plus) 50 ML IV ×3 (01:25→17:45)
[2023-02-07 04:43] LABS: Basophils % 0.1 %; Eosinophils % 0.4 %; Hematocrit 35.4 % (37-53); Lymphocytes # 0.3 10^3/uL (0.8-4.8); Lymphocytes % 3.9 %; Mean Corpuscular HGB Conc 33.3 g/dL (30-55); Mean Corpuscular Hemoglobin 32.3 pg (27-33); Mean Platelet Volume 10.3 fL (7.4-10.4); Monocytes % 12.6 %; Neutrophils # 6.73 10^3/uL (1.8-7.7); Neutrophils % 82.5 %; Nucleated Red Blood Cells % 0 %; Platelet Count 122 10^3/cmm (157-399); Red Blood Count 3.65 10^6/uL (3.85-5.65); Red Cell Distribution Width 13.9 % (12.1-15.1); White Blood Count 8.16 10^3/uL (3.29-11.43)
[2023-02-07 05:00] LABS: Alanine Aminotransferase 19 U/L (0-41); Albumin Level 2.6 g/dL (3.5-5.2); Alkaline Phosphatase 99 U/L (40-130); Anion Gap 12.9 (5-19); Aspartate Amino Transferase 29 U/L (0-40); Blood Urea Nitrogen 18 mg/dL (8-23); C Reactive Protein 120.9 mg/L (0.0-4.9); Calcium 8.6 mg/dL (8.5-10.5); Carbon Dioxide 30 mmol/L (22-29); Chloride 103 mmol/L (98-107); Globulin 3.2 g/dL (1.3-4.6); Glucose 97 mg/dL (65-115); Osmolality Calculated 298 mOsm/kg (285-295); Phosphorus 2.2 mg/dL (2.5-4.5); Sodium 143 mmol/L (136-145); Total Bilirubin 0.6 mg/dL (0.15-1.2); Total Protein 5.8 g/dL (6.6-8.7)
[2023-02-07 05:07] LABS: Potassium 2.9 mmol/L (3.5-5.1)
[2023-02-07 05:13] LABS: NT Pro B Type Natriuretic Pept 20812 pg/mL (0-450); Procalcitonin 1.28 ng/mL (0-0.5)
--- NOTE | 2023-02-07 07:00 | XRR_ITS ---
PROCEDURE INFORMATION: Exam: XR Chest Exam date and time: 02/07/2023 4:23 PM Age: 82 years old Clinical indication: Shortness of breath; Patient HX: SOB; Weakness; AMS TECHNIQUE: Imaging protocol: Radiologic exam of the chest. Views: 1 view. COMPARISON: CR (CHEST, ) 02/02/2023 7:24 PM FINDINGS: Lungs: Increased atelectasis and pneumonitis in the left lower lung. Otherwise, unremarkable. Pleural spaces: Markedly increased large left pleural effusion. No right pleural effusion or pneumothorax. Heart/Mediastinum: Unremarkable. No cardiomegaly. Bones/joints: Unremarkable. XR/XR chest 1V portable 14006 IMPRESSION: 1. Markedly increased large left pleural effusion. 2. Increased left lower lung atelectasis and pneumonitis.
[2023-02-07 07:15] LABS: Glucose Point of Care 93 mg/dL (70-110)
[2023-02-07] MEDS: budesonide 0.5 mg/2 mL Neb INHALATION ×2 (07:34→20:46)
[2023-02-07] MEDS: ipratropium-albuterol 3 mL Neb INHALATION ×3 (07:34→20:46)
[2023-02-07] MEDS: amiodarone 200 mg Tablet 400 MG PO ×2 (08:17→17:44)
[2023-02-07] MEDS: apixaban 5 mg Tablet 2.5 MG PO ×2 (08:17→17:44)
[2023-02-07] MEDS: digoxin 125 mcg Tablet PO (08:17)
[2023-02-07] MEDS: vancomycin 1,000 MG in sodium chloride 0.9% 250 ML 250 MG IV (08:18)
[2023-02-07] MEDS: lidocaine 1% 5 ML in potassium chloride premix 100 ML 25 ML IV ×2 (09:08→13:20)
[2023-02-07] MEDS: FUROsemide 10 mg/mL SDV 4mL 40 MG IVP (09:30)
[2023-02-07] MEDS: docusate sodium 100 mg Capsule PO ×2 (11:18→17:44)
[2023-02-07] MEDS: aspirin 81 mg EC Tablet PO (11:18)
[2023-02-07] MEDS: fluoxetine 20 mg Capsule PO (11:18)
[2023-02-07] MEDS: atorvastatin 40 mg Tablet 80 MG PO (11:18)
[2023-02-07 12:27] LABS: Glucose Point of Care 108 mg/dL (70-110)
--- NOTE | 2023-02-07 13:02 | P.PN_ITS ---
Subjective 2 Subjective: Patient was seen this morning, he is much more alert and awake, he has no complaints this morning, alert to person, somewhat to place, not to time, Vitals/I&O/Wt Last Vital Signs Temp 98.1 F 02/07/23 08:00 Pulse 78 02/07/23 11:40 Resp 17 02/07/23 11:40 BP 145/57 02/07/23 08:00 Pulse Ox 95 02/07/23 11:40 O2 Del Method Nasal Cannula 02/07/23 11:40 O2 Flow Rate 2 02/07/23 11:40 02/06/23 02/07/23 02/07/23 22:59 06:59 14:59 Intake Total 530 / 1468.5106 50 / 1518.5106 730 / 730 Output Total 300 / 300 450 / 750 200 / 200 Balance 230 / 1168.5106 -400 / 768.5106 530 / 530 Weight last 48 hrs Weight 56.79 kg Weight 60.016 kg Physical Exam 2 Const: COMMON NORMALS: no acute distress Resp: COMMON NORMALS: normal respiratory effort, No retractions and No use of accessory muscles AUSCULTATION: wheezes Cardio: COMMON NORMALS: regular rate, regular rhythm, S1 normal heart sound present and S2 normal heart sound present RATE: regular rate RHYTHM: r egular rhythm HEART SOUNDS: S1 normal heart sound present and S2 normal heart sound present GI: COMMON NORMALS: Normal to inspection, nondistended, normoactive bowel sounds present and non-tender Extremity: COMMON NORMALS: no pedal edema Psych: COMMON NORMALS: mental status grossly normal Data 02/07/23 04:20 02/07/23 04:20 Micro: Microbiology 02/05/23 06:00 Gram Stain - Final Sputum - Expectorated Sputum Sputum Culture - Preliminary Gram Negative Rods A&P Assessment and plan (1) Atrial fibrillation: Qualifiers: Atrial fibrillation type: persistent (not longstanding) Qualified Code(s): I48.19 - Other persistent atrial fibrillation (2) Atrial fibrillation with rapid ventricular response: (3) Acute alteration in mental status: (4) Left lower lobe pneumonia: Qualifiers: Pneumonia type: due to unspecified organism Qualified Code(s): J18.9 - Pneumonia, unspecified organism (5) Sepsis: (6) DNR (do not resuscitate): (7) Septic shock: Plan Sepsis with shock, resolved Related to community-acquired pneumonia Criteria met with tachypnea tachycardia leukocytosis high lactic acid, confusion Broaden antibiotic coverage to vancomycin, Zosyn Blood cultures , so far negative sputum culture Respiratory panel within normal limits Leukocytosis with bandemia Fluid overload ? 1 dose of IV Lasix today with potassium A-fib RVR, now converted to normal sinus rhythm Resume digoxin, amiodarone 4 twice daily preserved ejection fraction heart failure Severe protein calorie malnutrition, physical deconditioning, muscle wasting, recurrent ? Consult dietary Generalized weakness and fatigue with encephalopathy related to pneumonia ? Does have underlying dementia Monitor closely TSH is normal Procalcitonin is high Acute encephalopathy, resolving ? Sec to sepsis, septic shock, pneumonia, ? Does have underlying dementia DVT prophylaxis suffice with Eliquis Goals of care discussed with the patient Attestations 2 Medical Necessity Statement*: Patient requires hospitalization for fluid overload requiring diuresis, requiring IV antibiotics for his pneumonia Diagnoses Persistent atrial fibrillation I48.19 Atrial fibrillation type: persistent (not longstanding) Atrial fibrillation with rapid ventricular response I48.91 Acute alteration in mental status R41.82 Left lower lobe pneumonia J18.9 Pneumonia type: due to unspecified organism Sepsis A41.9 DNR (do not resuscitate) Z66 Septic shock A41.9; R65.21
[2023-02-07 15:51] LABS: Glucose Point of Care 103 mg/dL (70-110)
[2023-02-07 20:46] LABS: Glucose Point of Care 161 mg/dL (70-110)
[2023-02-08] VITALS (16 sets, daily range): BP systolic 104–144; BP diastolic 50–59; PULSE 68–103; RESP 14–20; TEMP 36.4–36.7; O2SAT 92–96; BMI 19.8
[2023-02-08] MEDS: piperacillin-tazobactam 3.375 GM in sodium chloride 0.9% (plus) 50 ML IV ×3 (02:57→23:36)
[2023-02-08 03:56] LABS: Basophils % 0.2 %; Eosinophils # 0.2 10^3/uL (0.0-0.8); Eosinophils % 3.6 %; Hematocrit 32.9 % (37-53); Lymphocytes # 0.6 10^3/uL (0.8-4.8); Lymphocytes % 10.4 %; Mean Corpuscular HGB Conc 33.1 g/dL (30-55); Mean Corpuscular Hemoglobin 32.5 pg (27-33); Mean Corpuscular Volume 98.2 fl (82-101); Mean Platelet Volume 10.1 fL (7.4-10.4); Monocytes # 0.8 10^3/uL (0.2-0.9); Monocytes % 14.4 %; Neutrophils % 71.1 %; Nucleated Red Blood Cells % 0 %; Platelet Count 118 10^3/cmm (157-399); Red Blood Count 3.35 10^6/uL (3.85-5.65); Red Cell Distribution Width 14.1 % (12.1-15.1); White Blood Count 5.77 10^3/uL (3.29-11.43)
[2023-02-08 04:21] LABS: Alanine Aminotransferase 16 U/L (0-41); Albumin Level 2.4 g/dL (3.5-5.2); Alkaline Phosphatase 83 U/L (40-130); Anion Gap 8.3 (5-19); Aspartate Amino Transferase 20 U/L (0-40); Blood Urea Nitrogen 19 mg/dL (8-23); C Reactive Protein 78.5 mg/L (0.0-4.9); Carbon Dioxide 30 mmol/L (22-29); Chloride 107 mmol/L (98-107); Globulin 2.4 g/dL (1.3-4.6); Glucose 93 mg/dL (65-115); Osmolality Calculated 296 mOsm/kg (285-295); Phosphorus 1.9 mg/dL (2.5-4.5); Potassium 3.3 mmol/L (3.5-5.1); Sodium 142 mmol/L (136-145); Total Bilirubin 0.4 mg/dL (0.15-1.2); Total Protein 4.8 g/dL (6.6-8.7)
[2023-02-08 04:26] LABS: NT Pro B Type Natriuretic Pept 10595 pg/mL (0-450); Procalcitonin 0.77 ng/mL (0-0.5)
[2023-02-08 06:22] LABS: Glucose Point of Care 82 mg/dL (70-110)
[2023-02-08] MEDS: ipratropium-albuterol 3 mL Neb INHALATION ×4 (07:45→20:47)
[2023-02-08] MEDS: budesonide 0.5 mg/2 mL Neb INHALATION ×2 (07:45→20:47)
[2023-02-08] MEDS: vancomycin 1,000 MG in sodium chloride 0.9% 250 ML 250 MG IV (08:16)
[2023-02-08] MEDS: apixaban 5 mg Tablet 2.5 MG PO ×2 (08:17→17:24)
[2023-02-08] MEDS: amiodarone 200 mg Tablet 400 MG PO ×2 (08:17→17:24)
[2023-02-08] MEDS: digoxin 125 mcg Tablet PO (08:17)
[2023-02-08] MEDS: potassium phosphate (mEq K) 40 MEQ in sodium chloride 0.9% (100 ml) 100 ML 27.27 MEQ IV (09:38)
--- NOTE | 2023-02-08 11:02 | P.PN_ITS ---
Subjective 2 Subjective: Patient was seen this morning continues to complain of cough, intermittent wheezing, shortness of breath, he is alert to person, to place, not to time he can follow commands he can recognize me as his physician, he asked me when he can go home, we discussed his sputum culture showing gram-negative rods I would prefer to continue IV antibiotics for 1 more day, follow his cultures tomorrow, he has grown Pseudomonas in the past, 1 to make sure he does not have multidrug- resistant organisms, I am also getting give him a dose of Lasix, he does appear a bit fluid overloaded, replace his electrolytes, hopefully discharge tomorrow Vitals/I&O/Wt Last Vital Signs Temp 97.6 F 02/08/23 07:54 Pulse 72 02/08/23 08:17 Resp 18 02/08/23 07:54 BP 129/50 02/08/23 07:54 Pulse Ox 94 02/08/23 07:54 O2 Del Method Nasal Cannula 02/08/23 07:54 O2 Flow Rate 2 02/08/23 07:45 02/07/23 02/08/23 02/08/23 22:59 06:59 14:59 Intake Total 635 / 1520 290 / 1810 240 / 240 Output Total 750 / 950 150 / 1100 250 / 250 Balance -115 / 570 140 / 710 -10 / -10 Weight last 48 hrs Weight 57.323 kg Weight 56.79 kg Physical Exam 2 Const: COMMON NORMALS: no acute distress ORIENTATION/CONSCIOUSNESS: Yes awake, Yes oriented to person and Yes oriented to place; not oriented to time Resp: COMMON NORMALS: normal respiratory effort, No retractions, No use of accessory muscles and clear to auscultation bilaterally AUSCULTATION: clear to auscultation bilaterally Cardio: COMMON NORMALS: regular rate, regular rhythm, S1 normal heart sound present and S2 normal heart sound present RATE: regular rate RHYTHM: r egular rhythm HEART SOUNDS: S1 normal heart sound present and S2 normal heart sound present GI: COMMON NORMALS: Normal to inspection, nondistended, normoactive bowel sounds present and non-tender Extremity: COMMON NORMALS: no pedal edema Neuro: SENSORIUM/ORIENTATION: Yes oriented to person, Yes oriented to place and No oriented to time Psych: COMMON NORMALS: mental status grossly normal Data 02/08/23 03:33 02/08/23 03:33 Micro: Microbiology 02/02/23 20:27 Blood Culture - Final Blood NO GROWTH AFTER 5 DAYS 02/02/23 20:27 Blood Culture - Final Blood NO GROWTH AFTER 5 DAYS 02/05/23 06:00 Gram Stain - Final Sputum - Expectorated Sputum Sputum Culture - Preliminary Gram Negative Rods A&P Assessment and plan (1) Atrial fibrillation: Qualifiers: Atrial fibrillation type: persistent (not longstanding) Qualified Code(s): I48.19 - Other persistent atrial fibrillation (2) Atrial fibrillation with rapid ventricular response: (3) Acute alteration in mental status: (4) Left lower lobe pneumonia: Qualifiers: Pneumonia type: due to unspecified organism Qualified Code(s): J18.9 - Pneumonia, unspecified organism (5) Sepsis: (6) DNR (do not resuscitate): (7) Septic shock: Plan Sepsis with shock, resolved Related to community-acquired pneumonia Criteria met with tachypnea tachycardia leukocytosis high lactic acid, confusion Broaden antibiotic coverage to vancomycin, Zosyn Blood cultures , so far negative sputum culture showing gram-negative rods, follow cultures Respiratory panel within normal limits Leukocytosis with bandemia Fluid overload ? 1 dose of IV Lasix today with potassium A-fib RVR, now converted to normal sinus rhythm Resume digoxin, amiodarone 4 twice daily preserved ejection fraction heart failure Severe protein calorie malnutrition, physical deconditioning, muscle wasting, recurrent ? Consult dietary Generalized weakness and fatigue with encephalopathy related to pneumonia ? Does have underlying dementia Monitor closely TSH is normal Procalcitonin is high Acute encephalopathy, resolving ? Sec to sepsis, septic shock, pneumonia, ? Does have underlying dementia DVT prophylaxis suffice with Eliquis Goals of care discussed with the patient Attestations 2 Medical Necessity Statement*: Patient requires hospitalization for pneumonia, fluid overload Diagnoses Persistent atrial fibrillation I48.19 Atrial fibrillation type: persistent (not longstanding) Atrial fibrillation with rapid ventricular response I48.91 Acute alteration in mental status R41.82 Left lower lobe pneumonia J18.9 Pneumonia type: due to unspecified organism Sepsis A41.9 DNR (do not resuscitate) Z66 Septic shock A41.9; R65.21
[2023-02-08] MEDS: aspirin 81 mg EC Tablet PO (11:48)
[2023-02-08] MEDS: fluoxetine 20 mg Capsule PO (11:48)
[2023-02-08] MEDS: atorvastatin 40 mg Tablet 80 MG PO (11:48)
[2023-02-08 11:49] LABS: Glucose Point of Care 114 mg/dL (70-110)
[2023-02-08] MEDS: FUROsemide 10 mg/mL SDV 4mL 40 MG IVP (11:52)
[2023-02-08] MEDS: docusate sodium 100 mg Capsule PO (17:24)
[2023-02-08 17:44] LABS: Glucose Point of Care 118 mg/dL (70-110)
[2023-02-08 21:50] LABS: Glucose Point of Care 104 mg/dL (70-110)
[2023-02-09] VITALS (7 sets, daily range): BP systolic 120–126; BP diastolic 55–64; PULSE 88–106; RESP 16–20; TEMP 36.4–36.8; O2SAT 91–94
[2023-02-09 05:47] LABS: Basophils % 0.2 %; Eosinophils # 0.2 10^3/uL (0.0-0.8); Eosinophils % 3.9 %; Hematocrit 37.1 % (37-53); Lymphocytes # 0.7 10^3/uL (0.8-4.8); Lymphocytes % 12.6 %; Mean Corpuscular HGB Conc 32.3 g/dL (30-55); Mean Corpuscular Hemoglobin 31.8 pg (27-33); Mean Corpuscular Volume 98.4 fl (82-101); Mean Platelet Volume 9.9 fL (7.4-10.4); Monocytes # 0.6 10^3/uL (0.2-0.9); Monocytes % 11.2 %; Neutrophils # 4.09 10^3/uL (1.8-7.7); Neutrophils % 71.6 %; Nucleated Red Blood Cells % 0 %; Platelet Count 156 10^3/cmm (157-399); Red Blood Count 3.77 10^6/uL (3.85-5.65); White Blood Count 5.71 10^3/uL (3.29-11.43)
[2023-02-09 06:06] LABS: Alanine Aminotransferase 17 U/L (0-41); Albumin Level 2.6 g/dL (3.5-5.2); Alkaline Phosphatase 98 U/L (40-130); Anion Gap 10.6 (5-19); Aspartate Amino Transferase 20 U/L (0-40); Blood Urea Nitrogen 14 mg/dL (8-23); C Reactive Protein 46.3 mg/L (0.0-4.9); Calcium 8.6 mg/dL (8.5-10.5); Carbon Dioxide 33 mmol/L (22-29); Chloride 100 mmol/L (98-107); Globulin 3.1 g/dL (1.3-4.6); Glucose 90 mg/dL (65-115); Magnesium 2.1 mg/dL (1.7-2.3); Osmolality Calculated 290 mOsm/kg (285-295); Potassium 3.6 mmol/L (3.5-5.1); Sodium 140 mmol/L (136-145); Total Bilirubin 0.7 mg/dL (0.15-1.2); Total Protein 5.7 g/dL (6.6-8.7)
[2023-02-09 06:11] LABS: NT Pro B Type Natriuretic Pept 7197 pg/mL (0-450)
[2023-02-09 06:43] LABS: Glucose Point of Care 78 mg/dL (70-110)
[2023-02-09 06:50] LABS: Procalcitonin 0.45 ng/mL (0-0.5)
[2023-02-09] MEDS: ipratropium-albuterol 3 mL Neb INHALATION ×2 (07:31→11:48)
[2023-02-09] MEDS: budesonide 0.5 mg/2 mL Neb INHALATION (07:31)
[2023-02-09] MEDS: apixaban 5 mg Tablet 2.5 MG PO (09:03)
[2023-02-09] MEDS: amiodarone 200 mg Tablet 400 MG PO (09:03)
[2023-02-09] MEDS: digoxin 125 mcg Tablet PO (09:03)
[2023-02-09] MEDS: vancomycin 1,000 MG in sodium chloride 0.9% 250 ML 250 MG IV (09:04)
[2023-02-09] MEDS: piperacillin-tazobactam 3.375 GM in sodium chloride 0.9% (plus) 50 ML IV (09:06)
[2023-02-09] MEDS: aspirin 81 mg EC Tablet PO (10:07)
[2023-02-09] MEDS: atorvastatin 40 mg Tablet 80 MG PO (10:07)
[2023-02-09] MEDS: docusate sodium 100 mg Capsule PO (10:07)
[2023-02-09] MEDS: fluoxetine 20 mg Capsule PO (10:07)
--- NOTE | 2023-02-09 10:40 | P.DS_ITS ---
Discharge Providers Date of Admission: 02/02/23 21:57 Date of Discharge: February 09, 2023 Attending Provider at Admission: Parul Dean MD Attending Provider at Discharge: Wesley Casey MD Primary Care Provider: Ravin Madrigal MD Diagnoses at Discharge Discharge Diagnosis (1) Atrial fibrillation: Status: Acute Qualifiers: Atrial fibrillation type: persistent (not longstanding) Qualified Code(s): I48.19 - Other persistent atrial fibrillation (2) Atrial fibrillation with rapid ventricular response: Status: Acute (3) Acute alteration in mental status: Status: Acute (4) Left lower lobe pneumonia: Status: Acute Qualifiers: Pneumonia type: due to unspecified organism Qualified Code(s): J18.9 - Pneumonia, unspecified organism (5) Sepsis: Status: Acute (6) DNR (do not resuscitate): Status: Acute (7) Septic shock: Status: Acute Reason for Visit Reason for Visit: [facility] Hospital Course Hospital Course bruno Prado is a 82 year old male with history of mesenteric ischemia, A-fib, chronic anticoagulation, presented with chief complaint of generalized weakness, fatigue confusion. is at the bedside who is helping to get more inform ation, patient is confused and lethargic. Patient was using urinal when entered the room, A-fib RVR I have discontinued Cardizem drip requested amiodarone and transferred to ICU for hypotension. As per the he has been confused for last 2 days he has been experiencing visual hallucination, talking to himself, she has not noticed any stroke related changes such as slurred speech, weakness of extremities. No active chest pain she is endorsing fever, productive cough, normally patient takes Mucinex but he has not been able to bring up sputum lately, he is constipated, uses a urinal at home as well In the ER he was diagnosed with A-fib RVR he received multiple doses of Cardizem, I requested amiodarone because his pressure was getting softer, hold digoxin, metoprolol, Patient is septic with left lower lobe pneumonia he received antibiotics, getting septic bolus Drug screen positive for marijuana Digoxin level is low Patient was admitted to [facility] for sepsis with septic shock secondary to community-acquired pneumonia, received broad-spectrum antibiotic therapy, sputum cultures, showing Proteus species, overall clinically improved, blood cultures within normal limits on 2 L moved to [facility], will be discharged on 5 remaining days of Levaquin, with a close follow-up with primary care provider as outpatient, For A-fib with RVR, will be discharged on amiodarone tapering dose, continue home digoxin continue home Eliquis, 's for severe protein calorie malnutrition, physical deconditioning, muscle wasting, Ensure drinks twice a day Physical Exam Const: COMMON NORMALS: no acute distress ORIENTATION/CONSCIOUSNESS: Yes awake, Yes oriented to person and Yes oriented to place; not oriented to time Resp: COMMON NORMALS: normal respiratory effort, No retractions, No use of ac cessory muscles and clear to auscultation bilaterally AUSCULTATION: clear to auscultation bilaterally Cardio: COMMON NORMALS: regular rate, regular rhythm, S1 normal heart sound present and S2 normal heart sound present RATE: regular rate RHYTHM: regular rhythm HEART SOUNDS: S1 normal heart sound present and S2 normal heart sound present GI: COMMON NORMALS: Normal to inspection, nondistended, normoactive bowel sounds present and non-tender Extremity: COMMON NORMALS: no pedal edema Neuro: SENSORIUM/ORIENTATION: Yes oriented to person, Yes oriented to place and No oriented to time Psych: COMMON NORMALS: mental status grossly normal Discharge Data Studies Completed and Pending Completed Studies During Hospitalization Category Date Time Status CT head wo con* [id number] Stat Cat Scan 02/02/23 18:56 Completed XR chest 1V portable [id number] Routine Exams 02/07/23 07:00 Completed XR chest 1V portable [id number] Stat Exams 02/02/23 18:50 Completed Radiology Impressions Head CT 02/02/23 18:56 IMPRESSION: 1. No acute intracranial hemorrhage. 2. Mild age-related changes. 3. There is a right posterior fossa probable meningioma measuring about 1.6 cm. 4. Other chronic findings above. Chest X-Ray 02/07/23 07:00 IMPRESSION: 1. Markedly increased large left pleural effusion. 2. Increased left lower lung atelectasis and pneumonitis. Laboratory Results WBC 5.71 10^3/uL (3.29-11.43) 02/09/23 05:17 RBC 3.77 10^6/uL (3.85-5.65) L 02/09/23 05:17 Hgb 12.00 g/dL (11.27-16.99) 02/09/23 05:17 Hct 37.1 % (37-53) 02/09/23 05:17 MCV 98.4 fl (82-101) 02/09/23 05:17 MCH 31.8 pg (27-33) 02/09/23 05:17 MCHC 32.3 g/dL (30-55) 02/09/23 05:17 RDW 14.0 % (12.1-15.1) 02/09/23 05:17 Plt Count 156 10^3/cmm (157-399) L D 02/09/23 05:17 MPV 9.9 fL (7.4-10.4) 02/09/23 05:17 Neut % (Auto) 71.6 % 02/09/23 05:17 Lymph % (Auto) 12.6 % 02/09/23 05:17 [place] % (Auto) 11.2 % 02/09/23 05:17 Eos % (Auto) 3.9 % 02/09/23 05:17 Baso % (Auto) 0.2 % 02/09/23 05:17 Neut # (Auto) 4.09 10^3/uL (1.8-7.7) 02/09/23 05:17 Lymph # (Auto) 0.7 10^3/uL (0.8-4.8) L 02/09/23 05:17 [place] # (Auto) 0.6 10^3/uL (0.2-0.9) 02/09/23 05:17 Eos # (Auto) 0.2 10^3/uL (0.0-0.8) 02/09/23 05:17 Baso # (Auto) 0.0 10^3/uL (0.0-0.1) 02/09/23 05:17 Nucleated RBC % (auto) 0 % 02/09/23 05:17 Total Counted 100 (0-100) 02/02/23 18:53 Atypical Lymphs % 0.0 % (0-5) 02/02/23 18:53 Absolute Neutrophils 15.4 10^3/cmm (1.4-6.5) H 02/02/23 18:53 Segmented Neutrophils 74 % 02/02/23 18:53 Abs Segm Neuts (Man) 13.7 10/cmm (1.6-7.1) H 02/02/23 18:53 Band Neutrophils 9.0 % 02/02/23 18:53 Abs Band Neuts (Man) 1.7 10^3/cmm (0.0-1.2) H 02/02/23 18:53 Absolute Lymphocytes 0.2 10^3/cmm (1.2-3.4) L 02/02/23 18:53 Lymphocytes (Manual) 1 % 02/02/23 18:53 Monocytes (Manual) 1.0 % 02/02/23 18:53 Absolute Monocytes 0.2 10^3/cmm (0.1-0.6) 02/02/23 18:53 Eosinophils (Manual) 0 % 02/02/23 18:53 Absolute Eosinophils 0.0 10^3/cmm (0.0-0.7) 02/02/23 18:53 Basophils (Manual) 0.0 % 02/02/23 18:53 Absolute Basophils 0.0 10^3/cmm (0.0-0.2) 02/02/23 18:53 Metamyelocytes 13.0 % 02/02/23 18:53 Myelocytes 2.0 % 02/02/23 18:53 Nucleated RBCs # 0.0 /100WBC 02/09/23 05:17 Platelet Estimate Decreased (Normal) 02/02/23 18:53 Anisocytosis 1+ H 02/02/23 18:53 Macrocytosis 1+ H 02/02/23 18:53 PT 16.80 SECONDS (12.1-14.9) H 02/02/23 18:53 INR 1.32 (0.8-1.2) H 02/02/23 18:53 D-Dimer 1.50 ug/mLFEU (0-0.59) H 02/02/23 18:53 Sodium 140 mmol/L (136-145) 02/09/23 05:17 Potassium 3.6 mmol/L (3.5-5.1) 02/09/23 05:17 Chloride 100 mmol/L (98-107) 02/09/23 05:17 Carbon Dioxide 33 mmol/L (22-29) H 02/09/23 05:17 Anion Gap 10.6 (5-19) 02/09/23 05:17 BUN 14 mg/dL (8-23) 02/09/23 05:17 Creatinine 0.9 mg/dL (0.7-1.2) 02/09/23 05:17 GFR Calculation Not Reportable 02/09/23 05:17 Glucose 90 mg/dL (65-115) 02/09/23 05:17 POC Glucose 78 mg/dL (70-110) 02/09/23 06:36 Calculated Osmolality 290 mOsm/kg (285-295) 02/09/23 05:17 Lactic Acid 3.4 mmol/L (0.5-2.2) H 02/02/23 20:27 Lactic Acid (Sepsis) 2.7 mmol/L (0.5-2.2) H 02/02/23 22:30 Lactate 1.7 mmol/L (0.5-2.2) 02/06/23 05:01 Calcium 8.6 mg/dL (8.5-10.5) 02/09/23 05:17 Phosphorus 3.0 mg/dL (2.5-4.5) 02/09/23 05:17 Magnesium 2.1 mg/dL (1.7-2.3) 02/09/23 05:17 Total Bilirubin 0.7 mg/dL (0.15-1.2) 02/09/23 05:17 AST 20 U/L (0-40) 02/09/23 05:17 ALT 17 U/L (0-41) 02/09/23 05:17 Alkaline Phosphatase 98 U/L (40-130) 02/09/23 05:17 Troponin T Baseline 27 ng/L (0-15) H 02/02/23 18:53 Troponin T 120 Minute 26.38 ng/L (0-15) H 02/02/23 20:35 Delta Troponin T -0.62 ABS# (0-10) L 02/02/23 20:35 Troponin T Hi Sens 6Hr 22.70 ng/L (0-15) H 02/03/23 00:50 Troponin T Hi Sens 6Hr Delta -4.30 ng/L (0-12) L 02/03/23 00:50 C-Reactive Protein 46.3 mg/L (0.0-4.9) H 02/09/23 05:17 NT-Pro-B Natriuret Pep 7197 pg/mL (0-450) H 02/09/23 05:17 Total Protein 5.7 g/dL (6.6-8.7) L 02/09/23 05:17 Albumin 2.6 g/dL (3.5-5.2) L 02/09/23 05:17 Globulin 3.1 g/dL (1.3-4.6) 02/09/23 05:17 Vitamin B12 1507 pg/mL (232-1245) H 02/03/23 03:43 Procalcitonin 0.45 ng/mL (0-0.5) 02/09/23 05:17 TSH 1.82 uIU/mL (0.27-4.20) 02/02/23 18:53 Random Cortisol 44.86 ug/dL (2.47-19.5) H 02/03/23 03:43 Urine Color Yellow (Yellow) 02/02/23 19:57 Urine Appearance Clear (CLEAR) 02/02/23 19:57 Urine pH 5 (5-7) 02/02/23 19:57 Ur Specific Arnold 1.010 (1.005-1.030) 02/02/23 19:57 Urine Protein Neg (Negative) 02/02/23 19:57 Urine Glucose (UA) 4+ (Normal) H 02/02/23 19:57 Urine Ketones Negative (Negative) 02/02/23 19:57 Urine Blood Trace (Negative) H 02/02/23 19:57 Urine Nitrate Negative (Negative) 02/02/23 19:57 Urine Bilirubin Neg (Negative) 02/02/23 19:57 Urine Urobilinogen Norm mg/dL (Negative) 02/02/23 19:57 Ur Leukocyte Esterase Negative (Negative) 02/02/23 19:57 Urine RBC None /hpf (0-2) 02/02/23 19:57 Urine WBC None /hpf (0-5) 02/02/23 19:57 Ur Squamous Epith Cells None /hpf (0-5) 02/02/23 19:57 Amorphous Sediment Not Reportable 02/02/23 19:57 Urine Bacteria Trace /hpf (NONE) 02/02/23 19:57 Nasal Influ A H1 2008 PCR Not detected (NOT DETECT) 02/02/23 21:12 Vancomycin Trough 14.0 ug/mL (10-15) 02/09/23 08:03 Digoxin 0.3 ng/mL (0.6-1.2) L 02/02/23 18:53 Urine Opiates Screen Negative ng/mL (Negative) 02/02/23 19:57 Ur Barbiturates Screen Negative ng/mL (Negative) 02/02/23 19:57 Ur Phencyclidine Scrn Negative ng/mL (Negative) 02/02/23 19:57 Ur Amphetamines Screen Negative ng/mL (Negative) 02/02/23 19:57 U Benzodiazepines Scrn Negative ng/mL (Negative) 02/02/23 19:57 Urine Cocaine Screen Negative ng/mL (Negative) 02/02/23 19:57 U Marijuana (THC) Screen Positive ng/mL (Negative) H 02/02/23 19:57 Adenovirus (PCR) Not detected (NOT DETECT) 02/02/23 21:12 C. pneumoniae DNA (PCR) Not detected (NOT DETECT) 02/02/23 21:12 Coronavirus 229E (PCR) Not detected (NOT DETECT) 02/02/23 21:12 Human Metapneumovir PCR Not detected (NOT DETECT) 02/02/23 21:12 Influenza A (H1) PCR Not detected (NOT DETECT) 02/02/23 21:12 Influenza A (H3) PCR Not detected (NOT DETECT) 02/02/23 21:12 Influenza Type A (PCR) Not detected (NOT DETECT) 02/02/23 21:12 Influenza Type B (PCR) Not detected (NOT DETECT) 02/02/23 21:12 M. pneumoniae (PCR) Not detected (NOT DETECT) 02/02/23 21:12 Parainfluenza 1 (PCR) Not detected (NOT DETECT) 02/02/23 21:12 Parainfluenza 2 (PCR) Not detected (NOT DETECT) 02/02/23 21:12 Parainfluenza 3 (PCR) Not detected (NOT DETECT) 02/02/23 21:12 Parainfluenza 4 (PCR) Not detected (NOT DETECT) 02/02/23 21:12 RSV Type A (PCR) Not detected (NOT DETECT) 02/02/23 21:12 RSV Type B (PCR) Not detected (NOT DETECT) 02/02/23 21:12 Entero/Rhino (PCR) Not detected (NOT DETECT) 02/02/23 21:12 SARS-CoV-2 (PCR) Not detected (NOT DETECT) 02/02/23 21:12 MRSA (PCR) TNP 02/03/23 10:15 Vitals Last Vital Signs Temp 97.6 F 02/09/23 08:00 Pulse 90 02/09/23 09:03 Resp 20 H 02/09/23 08:00 BP 120/55 02/09/23 08:00 Pulse Ox 92 02/09/23 08:00 O2 Del Method Nasal Cannula 02/09/23 08:00 O2 Flow Rate 2 02/09/23 08:00 Discharge Plan Discharge Patient Disposition: Home Condition: Stable Prescriptions: New docusate sodium 100 mg Capsule 100 mg PO BID@1100,1700 30 Days Qty: 60 0RF levofloxacin 750 mg tablet 750 mg PO DAILY 5 Days Qty: 5 0RF digoxin 125 mcg (0.125 mg) Tablet 125 mcg PO DAILY 30 Days Qty: 30 0RF amiodarone 200 mg tablet See Rx Instructions .ROUTE .COMPLEX 30 Days Qty: 60 0RF Rx Instructions: 1 tab bid for 1 week, followed by 1 tab daily Continued rosuvastatin [Crestor] 20 mg Tablet 20 mg PO DAILY@1100 aspirin 81 mg Tablet,Delayed Release (Dr/Ec) 81 mg PO DAILY@1100 Eliquis 2.5 mg tablet 2.5 mg PO BID Qty: 60 0RF albuterol sulfate 2.5 mg /3 mL (0.083 %) Solution For Nebulization 2.5 mg INHALATION Q4H Rx Instructions: use at 1100, 1500, 1900, 2300 clonazepam 0.5 mg Tablet 0.5 mg PO DAILY PRN (Reason: Anxiety) fluoxetine 20 mg Tablet 20 mg PO DAILY@1100 budesonide 0.5 mg/2 mL Suspension For Nebulization 0.5 mg INHALATION BID@1100,2300 guaifenesin [Mucinex] 600 mg Tablet Extended Release 12hr 600 mg PO BID@1100,2300 pantoprazole [Protonix] 40 mg tablet,delayed release (DR/EC) 40 mg PO DAILY multivitamin Tablet 1 tab PO DAILY ascorbic acid (vitamin C) [Vitamin C] 1,000 mg Tablet 1,000 mg PO DAILY metolazone 2.5 mg Tablet 2.5 mg PO DAILY PRN (Reason: swelling) furosemide 20 mg tablet 20 mg PO DAILY Jardiance 25 mg tablet 25 mg PO DAILY Discontinued metoprolol tartrate 25 mg Tablet 25 mg PO BID@0900,2100 30 Days Qty: 60 2RF Discharge Orders: Discharge Order (Routine); Ordered 02/09/23 Ordered By: Wesley Casey Referrals: Rakesh Uribe M.D [Physician] - 1 week Ravin Madrigal MD [Primary Care Provider] - Discharge Diet: As Directed Discharge Activity: Resume usual activity Patient Instructions: Altered Mental Status (ED), Opioid Safety Activity Restrictions/Additional Instructions: - Please take antibiotics as prescribed ?follow-up with cardiology ? Please drink 2 ensure or boost drinks a day Discharge Attestations Time Spent in Discharge Care*: greater than 30 min Status at Discharge: Cognitive status at discharge: cognitively intact , Behavioral status at discharge: cooperative , Quality Metrics Clinical Quality Measures [ No reported AMI, CVA or VTE this stay] Coding Level of Care Code 85944 Total time (in minutes) for Discharge: 45 Diagnoses Persistent atrial fibrillation I48.19 Atrial fibrillation type: persistent (not longstanding) Atrial fibrillation with rapid ventricular response I48.91 Acute alteration in mental status R41.82 Left lower lobe pneumonia J18.9 Pneumonia type: due to unspecified organism Sepsis A41.9 DNR (do not resuscitate) Z66 Septic shock A41.9; R65.21
--- NOTE | 2023-02-09 12:15 | PC.SOCIAL ---
IMM Update Updated pt on IMM. No questions voiced. Provided pt a copy. Initialed, dated, & timed copy in chart.
[2023-02-09 12:18] LABS: Glucose Point of Care 121 mg/dL (70-110)
--- NOTE | 2023-02-09 12:25 | ECG_ITS ---
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 Measurements Intervals [place] Rate: 105 P: 0 WA: 0 QRS: -43 QRSD: 105 T: -60 QT: 374 QTc: 495 Interpretive Statements ATRIAL FLUTTER/TACHYCARDIA WITH RAPID VENTRICULAR RESPONSE LEFT AXIS DEVIATION [QRS AXIS < -30] POSSIBLE ANTERIOR MYOCARDIAL INFARCTION , PROBABLY OLD [30 ms Q WAVE IN V3/V4, OR R < 0.2 mV IN V4] Compared to ECG 02/03/2023 00:36:31 Left-axis deviation now present Myocardial infarct finding now present Atrial fibrillation no longer present Electronically Signed On 02-10-2023 0:31:10 KNOWLEDGE MANAGEMENT ADVISOR by Rebel Jones M.D. [id number]
[2023-02-09] MEDS: metoprolol tartrate 25 mg Tablet PO (13:04)
== END 2023-02-09 14:23 | disposition home or self-care (01) | DRG 871 ==
LOC: ER 21:44 → ER IP 22:56 → ICU 02-03 01:32 → MEDSURG 02-05 16:12
PROVIDERS: Admitting Provider Internal Medicine; Emergency Provider Emergency Medicine; PCP Family Medicine; Visit Provider Family Medicine
DX: A41.9 Sepsis, unspecified organism (principal); E43 Unspecified severe protein-calorie malnutrition; J18.9 Pneumonia, unspecified organism; R65.21 Severe sepsis with septic shock; I48.19 Other persistent atrial fibrillation; G93.49 Other encephalopathy; Z68.1 Body mass index [BMI] 19.9 or less, adult; F12.90 Cannabis use, unspecified, uncomplicated; K59.00 Constipation, unspecified; N40.0 Benign prostatic hyperplasia without lower urinary tract symptoms; I10 Essential (primary) hypertension; G25.81 Restless legs syndrome; I25.10 Atherosclerotic heart disease of native coronary artery without angina pectoris; Z95.5 Presence of coronary angioplasty implant and graft; G62.9 Polyneuropathy, unspecified; J44.9 Chronic obstructive pulmonary disease, unspecified; I25.5 Ischemic cardiomyopathy; F17.210 Nicotine dependence, cigarettes, uncomplicated; B96.4 Proteus (mirabilis) (morganii) as the cause of diseases classified elsewhere; F03.90 Unspecified dementia, unspecified severity, without behavioral disturbance, psychotic disturbance, mood disturbance, and anxiety; Z66 Do not resuscitate; Z86.73 Personal history of transient ischemic attack (TIA), and cerebral infarction without residual deficits; Z99.81 Dependence on supplemental oxygen; Z11.52 Encounter for screening for COVID-19; Z79.01 Long term (current) use of anticoagulants; Z86.711 Personal history of pulmonary embolism; Z79.82 Long term (current) use of aspirin
CPT/HCPCS: 36415; 36416; 70450; 71045; 80048; 80053; 80162; 80202; 80306; 81001; 82533; 82607; 82962; 83605; 83735; 83880; 84100; 84145; 84443; 84484; 85007; 85025; 85378; 85610; 86140; 87040; 87070; 87077; 87186; 87205; 87486; 87581; 87633; 87641; 92523; 92526; 92610; 93005; 94640; 96365; 96367; 96375; 96376; 97110; 97161; 97165; 97530; 99285; A4222; J0282; J0283; J1940; J2543; J3370; J3480; J3490; J7030; J7050; J7120; J7626